=== PATIENT | female | born 1940 | race Two or more races ===

== ENCOUNTER 2022-06-14 17:37 | Inpatient (IN) | payer MEDICARE, BC ==
[~2022-06-14] VITALS: Ht 157.5 cm; Wt 107.4 kg
[2022-06-14] MEDS ORDERED: SODIUM CHLORIDE 0.9% 500 ML IVB ONE (18:00)
[2022-06-14] MEDS ORDERED: cefTRIAXone 1GM/50ML D5W 50 ML IV ONE (18:30)
[2022-06-14 18:45] LABS: Basophils # (auto) 0 10 ^3/uL (0-0.2); Basophils % (auto) 0.3 % (0.0-2.0); Eosinophils # (auto) 0 10 ^3/uL (0-0.8); Eosinophils % (auto) 0.6 % (0.0-7.0); Hematocrit 39.3 % (36.0-46.0); Hemoglobin 13.1 g/dL (12.2-16.2); Lymphocytes # (auto) 0.8 10 ^3/uL (0.4-5.4); Lymphocytes % (auto) 18.3 % (10.0-50.0); Mean Corpuscular Hemoglobin 33.3 pg (28.0-32.0); Mean Corpuscular Hgb Conc. 33.3 g/dL (32.0-36.0); Monocytes # (auto) 0.4 10 ^3/uL (0-1.3); Monocytes % (auto) 9.6 % (0.0-12.0); Neutrophils # (auto) 3.3 10 ^3/uL (1.6-8.6); Neutrophils % (auto) 71.2 % (37.0-80.0); Nucleated Red Blood Cells % 0.5 %; Red Blood Cells 3.93 10^6/uL (4.0-5.20); White Blood Cell 4.6 10^3/uL (4.4-10.8)
[2022-06-14 19:00] LABS: INR 1.03 (0.9-1.15); Partial Thromboplastin Time 28.5 sec (24.6-33.4)
[2022-06-14 19:03] LABS: Anion Gap 0 (5-15); Blood Alcohol < 3.0 mg/dL (0-5); Blood Urea Nitrogen 25 mg/dL (7-18); Carbon Dioxide 31 mmol/L (21-32); Chloride 110 mmol/L (98-107); Glucose 77 mg/dL (74-106); Magnesium 2.2 mg/dL (1.6-2.6); Sodium 141 mmol/L (136-145)
[2022-06-14 19:07] LABS: Alanine Aminotransferase 39 U/L (13-56); Alkaline Phosphatase 78 U/L (45-117); Aspartate Aminotransferase 39 U/L (15-37); BUN/Creatinine Ratio 38.5; Bilirubin, Total 0.5 mg/dL (0.2-1.0); GFR African American 112 mL/min; GFR Non-African American 93 mL/min; Total Protein 7.6 g/dL (6.4-8.2)
[2022-06-14] MEDS ORDERED: NALOXONE HCL 0.4 MG/ML VIAL ONE (19:37)
[2022-06-14] MEDS ORDERED: NALOXONE HCL 0.4 MG/ML VIAL IV ONE (20:00)
[2022-06-14] MEDS ORDERED: DOCUSATE SOD 100 MG CAP PO PRN (21:00)
[2022-06-14] MEDS ORDERED: ACETAMINOPHEN 325 MG TAB PO PRN (21:00)
[2022-06-14] MEDS ORDERED: HYDROcodone-ACET 5/325MG TAB PO PRN (21:00)
[2022-06-14] MEDS ORDERED: ONDANSETRON HCL 4 MG/2 ML VIAL IV PRN (21:00)
[2022-06-14 21:17] LABS: Urine Bacteria FEW /hpf (None Seen); Urine Blood Negative /uL (Negative); Urine Hyaline Cast MANY /lpf (0 - 2); Urine Mucus FEW (None Seen); Urine Specific Gravity 1.024 (1.001-1.035); Urine WBC 15 /hpf (0 - 5)
[2022-06-14 21:28] LABS: Alcohol, Urine < 3.0 mg/dL (0-10); Amphetamine Screen, Urine NEGATIVE (NEGATIVE); Barbiturate Scree,Urine NEGATIVE (NEGATIVE); Benzodiazephine Screen, Urine NEGATIVE (NEGATIVE); Cannabinoid Screen, Urine NEGATIVE (NEGATIVE); Cocaine Screen, Urine NEGATIVE (NEGATIVE); Opiate Scree,Urine NEGATIVE (NEGATIVE); Phencyclidine Screen, Urine NEGATIVE (NEGATIVE)
[2022-06-14] MEDS: SODIUM CHLOR 0.9% PF (SALINE LOCK) 10ML VIAL/SYR IV SCH (22:00)
[2022-06-14] MEDS ORDERED: MORPHINE SULFATE INJ 2 MG/ml SYRG IV PRN (22:30)
[2022-06-14] MEDS ORDERED: NITROGLYCERIN 0.4 MG SL TAB SL PRN (22:30)
[2022-06-15] MEDS: SODIUM CHLOR 0.9% PF (SALINE LOCK) 10ML VIAL/SYR IV SCH ×3 (05:39→22:29)
[2022-06-15 06:23] LABS: Basophils # (auto) 0 10 ^3/uL (0-0.2); Basophils % (auto) 0.3 % (0.0-2.0); Eosinophils # (auto) 0 10 ^3/uL (0-0.8); Eosinophils % (auto) 0.4 % (0.0-7.0); Hematocrit 36.1 % (36.0-46.0); Hemoglobin 11.9 g/dL (12.2-16.2); Lymphocytes # (auto) 0.9 10 ^3/uL (0.4-5.4); Lymphocytes % (auto) 21.9 % (10.0-50.0); Mean Corpuscular Hemoglobin 33.5 pg (28.0-32.0); Mean Corpuscular Hgb Conc. 33.1 g/dL (32.0-36.0); Mean Corpuscular Volume 101.2 fL (80.0-100.0); Monocytes # (auto) 0.7 10 ^3/uL (0-1.3); Monocytes % (auto) 17.3 % (0.0-12.0); Neutrophils # (auto) 2.3 10 ^3/uL (1.6-8.6); Neutrophils % (auto) 60.1 % (37.0-80.0); Nucleated Red Blood Cells % 1.2 %; Red Blood Cells 3.56 10^6/uL (4.0-5.20); White Blood Cell 3.9 10^3/uL (4.4-10.8)
[2022-06-15 06:55] LABS: Potassium 4.1 mmol/L (3.5-5.1)
[2022-06-15 07:03] LABS: Albumin 2.6 g/dL (3.4-5.0); BUN/Creatinine Ratio 34.8; Bilirubin, Total 0.4 mg/dL (0.2-1.0); Calcium 9.5 mg/dL (8.5-10.1); Total Protein 6.5 g/dL (6.4-8.2)
[2022-06-15] MEDS ORDERED: cefTRIAXone 1GM/50ML D5W 50 ML IV SCH (09:00)
[2022-06-15] MEDS: FAMOTIDINE (10MG/ML) 2ML VL IV SCH (10:00)
[2022-06-15] MEDS ORDERED: DEXTROSE 50% SYRINGE 50 ML IV ONE ×2 (10:18→14:08)
[2022-06-15] MEDS ORDERED: VANCOMYCIN PER PHARMACY 0 MG IV SCH (13:30)
[2022-06-15] MEDS ORDERED: VANCOMYCIN 1GM/250ML 250 ML IV ONE (13:45)
[2022-06-15] MEDS ORDERED: SODIUM CHLORIDE 0.9% 1,000 ML IV ONE (15:15)
[2022-06-15] MEDS ORDERED: DEXTROSE (50%) 50ML SYRG IV ONE ×2 (15:15)
[2022-06-15] MEDS ORDERED: DEXTROSE (50%) 50ML SYRG IV PRN (15:15)
[2022-06-15] MEDS: D5W/SOD CHL 0.45% 1,000 ML IV SCH (15:30)
[2022-06-15] MEDS: ACCU-CHEK COMFORT CURVE STRIP VI SCH ×2 (18:12→22:34)
[2022-06-16] MEDS: D5W/SOD CHL 0.45% 1,000 ML IV SCH ×4 (02:21→22:07)
[2022-06-16] MEDS: ACCU-CHEK COMFORT CURVE STRIP VI SCH ×4 (02:32→17:20)
[2022-06-16] MEDS: SODIUM CHLOR 0.9% PF (SALINE LOCK) 10ML VIAL/SYR IV SCH ×3 (06:04→22:03)
[2022-06-16 06:26] LABS: Calcium 9.1 mg/dL (8.5-10.1); Potassium 3.9 mmol/L (3.5-5.1)
[2022-06-16] MEDS: cefTRIAXone 1GM/50ML D5W 50 ML IV SCH (08:29)
[2022-06-16] MEDS: VANCOMYCIN 1GM/250ML 250 ML IV SCH (08:30)
[2022-06-16] MEDS ORDERED: DEXTROSE (50%) 50ML SYRG IV PRN (09:45)
[2022-06-16] MEDS: FAMOTIDINE (10MG/ML) 2ML VL IV SCH (10:00)
[2022-06-16 17:00] VITALS: BP 100/67
[2022-06-16 20:00] VITALS: BP 131/50
[2022-06-16 22:02] VITALS: BP 131/50
[2022-06-17] MEDS: VANCOMYCIN 1GM/250ML 250 ML IV SCH ×2 (03:19→20:59)
[2022-06-17 05:00] VITALS: BP 150/89
[2022-06-17] MEDS: SODIUM CHLOR 0.9% PF (SALINE LOCK) 10ML VIAL/SYR IV SCH ×3 (05:40→21:10)
[2022-06-17] MEDS: ACCU-CHEK COMFORT CURVE STRIP VI SCH ×4 (05:41→18:23)
[2022-06-17] MEDS: D5W/SOD CHL 0.45% 1,000 ML IV SCH ×3 (07:22→18:23)
[2022-06-17] MEDS: cefTRIAXone 1GM/50ML D5W 50 ML IV SCH (08:30)
[2022-06-17 08:51] VITALS: BP 135/54
[2022-06-17] MEDS: FAMOTIDINE (10MG/ML) 2ML VL IV SCH (09:03)
[2022-06-17 12:37] VITALS: BP 119/68
[2022-06-17 17:14] VITALS: BP 138/65
[2022-06-17 20:00] VITALS: BP 118/48
[2022-06-17 22:00] VITALS: BP 118/48
[2022-06-18 05:00] VITALS: BP 18/39
[2022-06-18] MEDS: SODIUM CHLOR 0.9% PF (SALINE LOCK) 10ML VIAL/SYR IV SCH ×3 (05:40→22:00)
[2022-06-18] MEDS: ACCU-CHEK COMFORT CURVE STRIP VI SCH ×2 (05:56)
[2022-06-18] MEDS: D5W/SOD CHL 0.45% 1,000 ML IV SCH ×2 (07:20→18:00)
[2022-06-18 08:38] VITALS: BP 104/48
[2022-06-18] MEDS: cefTRIAXone 1GM/50ML D5W 50 ML IV SCH (09:40)
[2022-06-18 12:42] VITALS: BP 117/48
[2022-06-18 13:36] LABS: Potassium 3.6 mmol/L (3.5-5.1)
[2022-06-18 13:40] LABS: Magnesium 1.8 mg/dL (1.6-2.6)
[2022-06-18] MEDS ORDERED: MAGNESIUM SULFATE 1GM/100ML 100 ML IV ONE (14:00)
[2022-06-18] MEDS ORDERED: POTASSIUM EFFERVESENT TAB 25 MEQ PO ONE (14:00)
[2022-06-18] MEDS ORDERED: POTASSIUM CHLORIDE 40 MEQ, LIDOCAINE 1% (LOCAL ANESTH.) 4 ML in SODIUM CHL 0.9% 250 ML IV ONE (16:00)
[2022-06-18] MEDS: VANCOMYCIN 1GM/250ML 250 ML IV SCH (16:15)
[2022-06-18 17:26] VITALS: BP 120/56
[2022-06-19] VITALS (7 sets, daily range): BP systolic 102–146; BP diastolic 50–71
[2022-06-19 00:10] LABS: Folate (Folic Acid) 8.13 ng/mL (5.38-24)
[2022-06-19] MEDS: D5W/SOD CHL 0.45% 1,000 ML IV SCH ×4 (02:26→23:45)
[2022-06-19] MEDS: SODIUM CHLOR 0.9% PF (SALINE LOCK) 10ML VIAL/SYR IV SCH ×2 (06:40→22:00)
[2022-06-19 07:21] LABS: Basophils # (auto) 0 10 ^3/uL (0-0.2); Basophils % (auto) 0.2 % (0.0-2.0); Eosinophils # (auto) 0.2 10 ^3/uL (0-0.8); Eosinophils % (auto) 2.6 % (0.0-7.0); Hemoglobin 11.4 g/dL (12.2-16.2); Lymphocytes # (auto) 0.9 10 ^3/uL (0.4-5.4); Lymphocytes % (auto) 14.9 % (10.0-50.0); Mean Corpuscular Hemoglobin 32.8 pg (28.0-32.0); Mean Corpuscular Hgb Conc. 32.7 g/dL (32.0-36.0); Mean Corpuscular Volume 100.2 fL (80.0-100.0); Monocytes # (auto) 0.9 10 ^3/uL (0-1.3); Monocytes % (auto) 15.5 % (0.0-12.0); Neutrophils % (auto) 66.8 % (37.0-80.0); Nucleated Red Blood Cells % 0.1 %; Red Blood Cells 3.49 10^6/uL (4.0-5.20); Red Cell Distribution Width 13.7 % (11.8-14.3); White Blood Cell 5.9 10^3/uL (4.4-10.8)
[2022-06-19 07:30] LABS: Calcium 8.3 mg/dL (8.5-10.1); Potassium 3.9 mmol/L (3.5-5.1)
[2022-06-19 07:34] LABS: BUN/Creatinine Ratio 20.3; Bilirubin, Total 0.9 mg/dL (0.2-1.0); Total Protein 5.4 g/dL (6.4-8.2)
[2022-06-19] MEDS: cefTRIAXone 1GM/50ML D5W 50 ML IV SCH (09:50)
[2022-06-19] MEDS: VANCOMYCIN 1GM/250ML 250 ML IV SCH (10:25)
[2022-06-20] MEDS: VANCOMYCIN 1GM/250ML 250 ML IV SCH (03:45)
[2022-06-20 05:03] VITALS: BP 126/52
[2022-06-20] MEDS: SODIUM CHLOR 0.9% PF (SALINE LOCK) 10ML VIAL/SYR IV SCH ×3 (06:22→21:40)
[2022-06-20 08:10] VITALS: BP 125/57
[2022-06-20] MEDS: cefTRIAXone 1GM/50ML D5W 50 ML IV SCH (09:50)
[2022-06-20] MEDS: D5W/SOD CHL 0.45% 1,000 ML IV SCH ×2 (10:15→15:15)
[2022-06-20 12:15] VITALS: BP 118/41
[2022-06-20 16:15] VITALS: BP 111/43
[2022-06-20 22:00] VITALS: BP 98/53
[2022-06-21] MEDS: D5W/SOD CHL 0.45% 1,000 ML IV SCH ×3 (03:02→14:53)
[2022-06-21 05:00] VITALS: BP 112/54
[2022-06-21] MEDS: SODIUM CHLOR 0.9% PF (SALINE LOCK) 10ML VIAL/SYR IV SCH ×3 (05:39→22:00)
[2022-06-21] MEDS: cefTRIAXone 1GM/50ML D5W 50 ML IV SCH (08:50)
[2022-06-21 08:51] VITALS: BP 117/60
[2022-06-21 12:33] VITALS: BP 122/68
[2022-06-21 16:53] VITALS: BP 98/48
[2022-06-21 17:55] VITALS: BP 122/68
[2022-06-21 22:00] VITALS: BP 105/20
[2022-06-22] MEDS: D5W/SOD CHL 0.45% 1,000 ML IV SCH ×2 (01:50→08:42)
[2022-06-22 05:00] VITALS: BP 126/55
[2022-06-22] MEDS: SODIUM CHLOR 0.9% PF (SALINE LOCK) 10ML VIAL/SYR IV SCH ×2 (06:21→14:21)
[2022-06-22] MEDS: cefTRIAXone 1GM/50ML D5W 50 ML IV SCH (08:42)
[2022-06-22 09:00] VITALS: BP 117/46
[2022-06-22 13:00] VITALS: BP 137/65
== END 2022-06-22 14:20 | DRG 871 ==
LOC: EDBD 17:37 → ER 17:37 → TELE 22:27 → TELE-WESTW 06-16 11:46
PROVIDERS: ADMIT Nurse Practitioner Family; ATTEND Family Medicine
PROC: 4A00X4Z Measurement of Central Nervous Electrical Activity, External Approach (ICD-10-PCS; principal; 2022-06-20)
DX: A41.9 Sepsis, unspecified organism (principal); G93.41 Metabolic encephalopathy; N39.0 Urinary tract infection, site not specified; E44.0 Moderate protein-calorie malnutrition; Z68.41 Body mass index [BMI] 40.0-44.9, adult; L03.113 Cellulitis of right upper limb; E88.09 Other disorders of plasma-protein metabolism, not elsewhere classified; I10 Essential (primary) hypertension; K42.9 Umbilical hernia without obstruction or gangrene; K57.30 Diverticulosis of large intestine without perforation or abscess without bleeding; T68.XXXA Hypothermia, initial encounter; E83.42 Hypomagnesemia; E66.01 Morbid (severe) obesity due to excess calories; M81.0 Age-related osteoporosis without current pathological fracture; Z20.822 Contact with and (suspected) exposure to COVID-19; R00.8 Other abnormalities of heart beat; E86.0 Dehydration; E03.9 Hypothyroidism, unspecified; B95.4 Other streptococcus as the cause of diseases classified elsewhere; I49.1 Atrial premature depolarization; Z83.3 Family history of diabetes mellitus; Z87.440 Personal history of urinary (tract) infections
CPT/HCPCS: 36415; 36600; 70450; 70551; 71045; 74176; 80048; 80053; 80202; 80307; 80320; 81001; 82607; 82746; 82805; 82962; 83036; 83605; 83735; 84132; 84443; 84484; 85025; 85610; 85730; 87040; 87077; 87086; 87186; 87426; 92610; 93005; 93306; 93886; 93971; 95819; 96365; 96375; 97163; 99291; G0378; J0696; J2001; J2405; J3490

== ENCOUNTER 2023-02-21 11:46 | Inpatient (IN) | payer MEDICARE, BC ==
[~2023-02-21] VITALS: Ht 162.6 cm; Wt 97.6 kg
[2023-02-21 13:07] LABS: Basophils # (auto) 0 10 ^3/uL (0-0.2); Basophils % (auto) 0.4 % (0.0-2.0); Eosinophils # (auto) 0 10 ^3/uL (0-0.8); Eosinophils % (auto) 1.1 % (0.0-7.0); Hematocrit 32.1 % (36.0-46.0); Hemoglobin 10.6 g/dL (12.2-16.2); Lymphocytes % (auto) 24.3 % (10.0-50.0); Mean Corpuscular Hgb Conc. 33.1 g/dL (32.0-36.0); Mean Corpuscular Volume 99.6 fL (80.0-100.0); Monocytes # (auto) 0.6 10 ^3/uL (0-1.3); Monocytes % (auto) 14.6 % (0.0-12.0); Neutrophils # (auto) 2.5 10 ^3/uL (1.6-8.6); Neutrophils % (auto) 59.6 % (37.0-80.0); Red Blood Cells 3.22 10^6/uL (4.0-5.20); Red Cell Distribution Width 16.3 % (11.8-14.3); White Blood Cell 4.3 10^3/uL (4.4-10.8)
[2023-02-21 13:26] VITALS: PULSE 82; RESP 18; O2SAT 95
[2023-02-21 13:32] LABS: Alanine Aminotransferase 18 U/L (7-40); Alkaline Phosphatase 85 U/L (46-116); Calcium 9.2 mg/dL (8.5-10.1); Carbon Dioxide 29 mmol/L (20-30); Chloride 107 mmol/L (98-107)
[2023-02-21 13:33] LABS: Albumin 3.3 g/dL (3.2-4.8); Anion Gap 4 (5-15); Aspartate Aminotransferase 20 U/L (13-40); BUN/Creatinine Ratio 13.9 (10.0-20.0); Bilirubin, Total 0.6 mg/dL (0.2-1.0); Blood Urea Nitrogen 10 mg/dL (9-23); Glucose 100 mg/dL (74-106); Potassium 3.8 mmol/L (3.5-5.1); Sodium 140 mmol/L (136-145); Total Protein 6.7 g/dL (5.7-8.2)
[2023-02-21 15:25] LABS: Urine Bacteria MOD /hpf (None Seen); Urine Blood Negative /uL (Negative); Urine Clarity Clear (Clear); Urine Color Yellow (Yellow); Urine Protein, UAD Negative (Negative); Urine Specific Gravity 1.006 (1.001-1.035); Urine Urobilinogen Normal (Negative); Urine WBC 68 /hpf (0 - 5)
[2023-02-21] MEDS ORDERED: CIPROFLOXACIN HCL 500 MG TAB PO ONE (15:45)
[2023-02-21] MEDS ORDERED: CIPR-173 PO (15:50)
[2023-02-21] MEDS ORDERED: ONDANSETRON HCL 4 MG/2 ML VIAL IV PRN (19:00)
[2023-02-21] MEDS ORDERED: DOCUSATE SOD 100 MG CAP PO PRN (19:00)
[2023-02-21 19:30] VITALS: PULSE 61; RESP 20; O2SAT 98
[2023-02-21] MEDS: SODIUM CHLORIDE 0.9% 1,000 ML IV SCH (19:59)
[2023-02-21 22:55] VITALS: BP 133/48; PULSE 61; PULSE 70; RESP 16; TEMP 98; O2SAT 95
[2023-02-22] VITALS (8 sets, daily range): BP systolic 104–134; BP diastolic 39–76; PULSE 50–77; RESP 15–20; TEMP 97.2–98.6; O2SAT 93–99
[2023-02-22] MEDS: SODIUM CHLORIDE 0.9% 1,000 ML IV SCH ×2 (05:00→13:10)
[2023-02-22 06:40] LABS: Basophils # (auto) 0 10 ^3/uL (0-0.2); Basophils % (auto) 0.4 % (0.0-2.0); Eosinophils # (auto) 0.1 10 ^3/uL (0-0.8); Eosinophils % (auto) 2.5 % (0.0-7.0); Hematocrit 33.5 % (36.0-46.0); Hemoglobin 10.9 g/dL (12.2-16.2); Lymphocytes # (auto) 1.2 10 ^3/uL (0.4-5.4); Lymphocytes % (auto) 30.9 % (10.0-50.0); Mean Corpuscular Hemoglobin 32.8 pg (28.0-32.0); Mean Corpuscular Hgb Conc. 32.6 g/dL (32.0-36.0); Mean Corpuscular Volume 100.4 fL (80.0-100.0); Monocytes # (auto) 0.6 10 ^3/uL (0-1.3); Monocytes % (auto) 16.4 % (0.0-12.0); Neutrophils % (auto) 49.8 % (37.0-80.0); Nucleated Red Blood Cells % 0.2 %; Red Blood Cells 3.34 10^6/uL (4.0-5.20); Red Cell Distribution Width 16.6 % (11.8-14.3); White Blood Cell 3.9 10^3/uL (4.4-10.8)
[2023-02-22 06:51] LABS: Alanine Aminotransferase 17 U/L (7-40); Albumin 3.1 g/dL (3.2-4.8); Alkaline Phosphatase 82 U/L (46-116); Aspartate Aminotransferase 19 U/L (13-40); BUN/Creatinine Ratio 12.5 (10.0-20.0); Bilirubin, Total 0.7 mg/dL (0.2-1.0); Blood Urea Nitrogen 8 mg/dL (9-23); Chloride 108 mmol/L (98-107); Glucose 59 mg/dL (74-106); Potassium 3.7 mmol/L (3.5-5.1); Sodium 141 mmol/L (136-145); Total Protein 6.5 g/dL (5.7-8.2)
[2023-02-22 07:00] LABS: Anion Gap 9 (5-15); Carbon Dioxide 24 mmol/L (20-30)
[2023-02-22] MEDS ORDERED: cefTRIAXone 1GM/50ML D5W 50 ML IV ONE (10:45)
[2023-02-22] MEDS ORDERED: POTASSIUM CHL 20MEQ/100ML 100 ML IV ONE (13:45)
[2023-02-22] MEDS: MAGNESIUM SULFATE 1GM/100ML 100 ML IV SCH ×2 (15:22→18:30)
[2023-02-22] MEDS ORDERED: MAGNESIUM SULFATE 1GM/100ML 100 ML IV SCH (19:00)
[2023-02-23] MEDS: SODIUM CHLORIDE 0.9% 1,000 ML IV SCH ×3 (02:19→20:52)
[2023-02-23 05:57] VITALS: BP 106/51; PULSE 67; RESP 20; TEMP 98; O2SAT 91
[2023-02-23 07:19] LABS: Basophils # (auto) 0 10 ^3/uL (0-0.2); Basophils % (auto) 0.3 % (0.0-2.0); Eosinophils # (auto) 0.1 10 ^3/uL (0-0.8); Eosinophils % (auto) 2.1 % (0.0-7.0); Hematocrit 31.5 % (36.0-46.0); Hemoglobin 10.4 g/dL (12.2-16.2); Lymphocytes # (auto) 1.6 10 ^3/uL (0.4-5.4); Lymphocytes % (auto) 33.9 % (10.0-50.0); Mean Corpuscular Hemoglobin 32.9 pg (28.0-32.0); Mean Corpuscular Hgb Conc. 33.2 g/dL (32.0-36.0); Mean Corpuscular Volume 99.1 fL (80.0-100.0); Monocytes # (auto) 0.7 10 ^3/uL (0-1.3); Monocytes % (auto) 15.5 % (0.0-12.0); Neutrophils # (auto) 2.3 10 ^3/uL (1.6-8.6); Neutrophils % (auto) 48.2 % (37.0-80.0); Nucleated Red Blood Cells % 0.1 %; Red Blood Cells 3.17 10^6/uL (4.0-5.20); Red Cell Distribution Width 16.4 % (11.8-14.3); White Blood Cell 4.8 10^3/uL (4.4-10.8)
[2023-02-23 07:30] VITALS: PULSE 74
[2023-02-23 07:44] LABS: Alanine Aminotransferase 14 U/L (7-40); Albumin 2.9 g/dL (3.2-4.8); Alkaline Phosphatase 77 U/L (46-116); Anion Gap 6 (5-15); Aspartate Aminotransferase 16 U/L (13-40); BUN/Creatinine Ratio 17.6 (10.0-20.0); Bilirubin, Total 0.6 mg/dL (0.2-1.0); Blood Urea Nitrogen 12 mg/dL (9-23); Calcium 8.8 mg/dL (8.5-10.1); Carbon Dioxide 26 mmol/L (20-30); Chloride 107 mmol/L (98-107); Glucose 66 mg/dL (74-106); Potassium 4.3 mmol/L (3.5-5.1); Sodium 139 mmol/L (136-145); Total Protein 6.3 g/dL (5.7-8.2)
[2023-02-23 09:00] VITALS: BP 110/50; PULSE 64; RESP 20; TEMP 98.3; O2SAT 98
[2023-02-23] MEDS ORDERED: cefTRIAXone 1GM/50ML D5W 50 ML IV SCH (09:00)
[2023-02-23] MEDS: cefTRIAXone 1GM/50ML D5W 50 ML IV SCH (09:22)
[2023-02-23 13:00] VITALS: BP_SYST 121; BP_SYST 122; BP_DIAS 60; BP_DIAS 91; PULSE 65; PULSE 90; RESP 20; TEMP 97.6; TEMP 98.1; O2SAT 93; O2SAT 95
[2023-02-23 20:00] VITALS: BP 122/75; PULSE 68; PULSE 71; RESP 18; TEMP 98; O2SAT 93
[2023-02-23 22:00] VITALS: BP 122/75; PULSE 68; RESP 18; TEMP 98; O2SAT 93
[2023-02-24 05:00] VITALS: BP 143/57; PULSE 66; RESP 16; TEMP 98; O2SAT 92
[2023-02-24] MEDS: SODIUM CHLORIDE 0.9% 1,000 ML IV SCH (06:43)
[2023-02-24 08:00] VITALS: PULSE 67; PULSE 71; RESP 20; O2SAT 94
[2023-02-24] MEDS: cefTRIAXone 1GM/50ML D5W 50 ML IV SCH (08:37)
[2023-02-24 09:00] VITALS: BP 140/55; PULSE 71; RESP 20; TEMP 98; O2SAT 95
[2023-02-24] MEDS ORDERED: ATOR20TA50 PO (10:50)
[2023-02-24 13:00] VITALS: BP 142/58; PULSE 94; RESP 18; TEMP 98.2; O2SAT 94
[2023-02-24 13:50] LABS: COVID19 ANTIGEN SOFIA FIA NEGATIVE (NEGATIVE)
[2023-02-24 17:02] VITALS: BP 144/60; PULSE 90; RESP 18; TEMP 97.6; O2SAT 96
[2023-02-24] MEDS ORDERED: ATORVASTATIN 20 MG TAB PO SCH (22:00)
== END 2023-02-24 18:11 | DRG 871 ==
LOC: ER 11:46 → TELE 19:05 → TELE-WESTW 20:43
PROVIDERS: ADMIT Nurse Practitioner Family; ATTEND Nurse Practitioner Family
PROC: 05HF33Z Insertion of Infusion Device into Left Cephalic Vein, Percutaneous Approach (ICD-10-PCS; principal; 2023-02-24)
PROC: B54NZZA Ultrasonography of Left Upper Extremity Veins, Guidance (ICD-10-PCS; 2023-02-24)
DX: A41.89 Other specified sepsis (principal); G93.41 Metabolic encephalopathy; I50.32 Chronic diastolic (congestive) heart failure; E44.0 Moderate protein-calorie malnutrition; N39.0 Urinary tract infection, site not specified; I11.0 Hypertensive heart disease with heart failure; Z20.822 Contact with and (suspected) exposure to COVID-19; D64.9 Anemia, unspecified; E03.9 Hypothyroidism, unspecified; E66.9 Obesity, unspecified; E78.5 Hyperlipidemia, unspecified; E88.09 Other disorders of plasma-protein metabolism, not elsewhere classified; I44.7 Left bundle-branch block, unspecified; I48.91 Unspecified atrial fibrillation; B96.1 Klebsiella pneumoniae [K. pneumoniae] as the cause of diseases classified elsewhere; M81.0 Age-related osteoporosis without current pathological fracture; Z83.3 Family history of diabetes mellitus; Z87.440 Personal history of urinary (tract) infections; Z68.36 Body mass index [BMI] 36.0-36.9, adult
CPT/HCPCS: 36415; 71045; 80053; 81001; 83036; 83605; 83735; 83880; 84443; 84484; 85025; 87040; 87086; 87088; 87186; 87426; 93005; 93306; 97163; G0378; J0696; J3480

== ENCOUNTER 2023-04-09 06:49 | Inpatient (IN) | payer MEDICARE, BC ==
[~2023-04-09] VITALS: Ht 162.6 cm; Wt 98.3 kg
[~2023-04-09 06:49] MED LIST: ATOR20TA50 PO; CIPR-173 PO
[2023-04-09] MEDS ORDERED: SODIUM CHLORIDE 0.9% 1,000 ML IV ONE ×2 (07:15→13:30)
[2023-04-09 07:21] LABS: Basophils # (auto) 0 10 ^3/uL (0-0.2); Basophils % (auto) 0.5 % (0.0-2.0); Eosinophils # (auto) 0.1 10 ^3/uL (0-0.8); Eosinophils % (auto) 1.3 % (0.0-7.0); Hematocrit 33.8 % (36.0-46.0); Hemoglobin 11.4 g/dL (12.2-16.2); Lymphocytes # (auto) 1.2 10 ^3/uL (0.4-5.4); Mean Corpuscular Hgb Conc. 33.6 g/dL (32.0-36.0); Mean Corpuscular Volume 98.2 fL (80.0-100.0); Monocytes # (auto) 0.6 10 ^3/uL (0-1.3); Monocytes % (auto) 13.6 % (0.0-12.0); Neutrophils # (auto) 2.6 10 ^3/uL (1.6-8.6); Neutrophils % (auto) 57.6 % (37.0-80.0); Nucleated Red Blood Cells % 0.1 %; Red Blood Cells 3.45 10^6/uL (4.0-5.20); White Blood Cell 4.4 10^3/uL (4.4-10.8)
[2023-04-09 07:43] LABS: Alanine Aminotransferase 14 U/L (7-40); Albumin 3.7 g/dL (3.2-4.8); Alkaline Phosphatase 96 U/L (46-116); Anion Gap 6 (5-15); Aspartate Aminotransferase 19 U/L (13-40); BUN/Creatinine Ratio 28.8 (10.0-20.0); Blood Urea Nitrogen 19 mg/dL (9-23); Carbon Dioxide 29 mmol/L (20-30); Chloride 109 mmol/L (98-107); Glucose 75 mg/dL (74-106); Potassium 3.6 mmol/L (3.5-5.1); Sodium 144 mmol/L (136-145)
[2023-04-09 07:44] LABS: Bilirubin, Total 0.5 mg/dL (0.2-1.0); Total Protein 7.4 g/dL (5.7-8.2)
[2023-04-09 09:12] LABS: COVID19 ANTIGEN SOFIA FIA NEGATIVE (NEGATIVE)
[2023-04-09 14:20] VITALS: PULSE 113; RESP 22; O2SAT 95
[2023-04-09 15:01] LABS: Urine Bacteria FEW /hpf (None Seen); Urine Blood Negative /uL (Negative); Urine Budding Yeast MODERATE /hpf (None Seen); Urine Clarity Clear (Clear); Urine Color Colorless (Yellow); Urine Mucus FEW (None Seen); Urine Protein, UAD TRACE (Negative); Urine Specific Gravity 1.011 (1.001-1.035); Urine Urobilinogen Normal (Negative); Urine WBC 18 /hpf (0 - 5)
[2023-04-09] MEDS ORDERED: cefTRIAXone 1GM/50ML D5W 50 ML IV ONE (16:45)
[2023-04-09] MEDS ORDERED: HYDROcodone-ACET 5/325MG TAB PO PRN (17:15)
[2023-04-09] MEDS ORDERED: ONDANSETRON HCL 4 MG/2 ML VIAL IV PRN (17:15)
[2023-04-09] MEDS ORDERED: ACETAMINOPHEN 325 MG TAB PO PRN (17:15)
[2023-04-09] MEDS ORDERED: DOCUSATE SOD 100 MG CAP PO PRN (17:15)
[2023-04-09] MEDS ORDERED: levoFLOXacin 500MG 100 ML IV ONE (17:30)
[2023-04-09] MEDS ORDERED: LORazepam 2MG/ML-1ML VIAL IV ONE (18:00)
[2023-04-09] MEDS ORDERED: NITROGLYCERIN 0.4 MG SL TAB SL PRN (18:30)
[2023-04-09] MEDS ORDERED: MORPHINE SULFATE INJ 2 MG/ml SYRG IV PRN (18:30)
[2023-04-09 19:30] VITALS: RESP 16; O2SAT 97
[2023-04-09] MEDS ORDERED: ENOXAPARIN SOD 40 MG/0.4 ML SYRINGE SC ONE (19:30)
[2023-04-09] MEDS: SODIUM CHLOR 0.9% PF (SALINE LOCK) 10ML VIAL/SYR IV SCH (21:36)
[2023-04-09] MEDS: ASCORBIC ACID 500 MG TAB PO SCH (21:37)
[2023-04-10] VITALS: PULSE 82; RESP 16; O2SAT 96
[2023-04-10] MEDS: SODIUM CHLOR 0.9% PF (SALINE LOCK) 10ML VIAL/SYR IV SCH ×3 (06:04→22:26)
[2023-04-10 06:53] LABS: Basophils # (auto) 0 10 ^3/uL (0-0.2); Basophils % (auto) 0.5 % (0.0-2.0); Eosinophils # (auto) 0 10 ^3/uL (0-0.8); Eosinophils % (auto) 1.1 % (0.0-7.0); Hematocrit 30.4 % (36.0-46.0); Lymphocytes # (auto) 1.1 10 ^3/uL (0.4-5.4); Lymphocytes % (auto) 29.4 % (10.0-50.0); Mean Corpuscular Hemoglobin 32.5 pg (28.0-32.0); Mean Corpuscular Hgb Conc. 33.1 g/dL (32.0-36.0); Mean Corpuscular Volume 98.2 fL (80.0-100.0); Monocytes # (auto) 0.6 10 ^3/uL (0-1.3); Monocytes % (auto) 15.3 % (0.0-12.0); Neutrophils % (auto) 53.7 % (37.0-80.0); Nucleated Red Blood Cells % 0.1 %; Red Blood Cells 3.09 10^6/uL (4.0-5.20); Red Cell Distribution Width 16.2 % (11.8-14.3); White Blood Cell 3.7 10^3/uL (4.4-10.8)
[2023-04-10 07:18] LABS: Alanine Aminotransferase 13 U/L (7-40); Albumin 3.3 g/dL (3.2-4.8); Alkaline Phosphatase 81 U/L (46-116); Anion Gap 8 (5-15); Aspartate Aminotransferase 18 U/L (13-40); BUN/Creatinine Ratio 23.1 (10.0-20.0); Blood Urea Nitrogen 15 mg/dL (9-23); Calcium 9.3 mg/dL (8.7-10.4); Carbon Dioxide 27 mmol/L (20-30); Chloride 111 mmol/L (98-107); Glucose 57 mg/dL (74-106); Potassium 3.5 mmol/L (3.5-5.1); Sodium 146 mmol/L (136-145)
[2023-04-10 07:19] LABS: Bilirubin, Total 0.5 mg/dL (0.2-1.0); Total Protein 6.5 g/dL (5.7-8.2)
[2023-04-10] MEDS: ASCORBIC ACID 500 MG TAB PO SCH ×2 (08:55→22:00)
[2023-04-10] MEDS: MULTIPLE VITAMIN TAB PO SCH (08:55)
[2023-04-10] MEDS: cefTRIAXone 1GM/50ML D5W 50 ML IV SCH (08:55)
[2023-04-10 09:17] VITALS: PULSE 86; RESP 13; O2SAT 96
[2023-04-10] MEDS ORDERED: FAMOTIDINE (10MG/ML) 2ML VL IV SCH (10:00)
[2023-04-10] MEDS: D5W/SOD CHL 0.45%/KCL 20MEQ 1,000 ML IV SCH (14:40)
[2023-04-10] MEDS: ENOXAPARIN SOD 40 MG/0.4 ML SYRINGE SC SCH (17:03)
[2023-04-10 19:30] VITALS: PULSE 87; RESP 20; O2SAT 91
[2023-04-11] MEDS ORDERED: hydrALAZINE HCL 20 MG/ML VL IV PRN (02:30)
[2023-04-11] MEDS: SODIUM CHLOR 0.9% PF (SALINE LOCK) 10ML VIAL/SYR IV SCH ×3 (06:22→21:47)
[2023-04-11 07:30] VITALS: PULSE 87; RESP 14; O2SAT 97
[2023-04-11] MEDS: D5W/SOD CHL 0.45%/KCL 20MEQ 1,000 ML IV SCH ×3 (07:41→23:16)
[2023-04-11] MEDS: cefTRIAXone 1GM/50ML D5W 50 ML IV SCH (09:21)
[2023-04-11] MEDS: MULTIPLE VITAMIN TAB PO SCH (10:18)
[2023-04-11] MEDS: ASCORBIC ACID 500 MG TAB PO SCH ×2 (10:18→22:57)
[2023-04-11 16:15] LABS: Hemoglobin 10.8 g/dL (12.2-16.2)
[2023-04-11 16:19] LABS: White Blood Cell 4.2 10^3/uL (4.4-10.8)
[2023-04-11 16:20] LABS: Hematocrit 32.4 % (36.0-46.0); Mean Corpuscular Hemoglobin 32.6 pg (28.0-32.0); Mean Corpuscular Hgb Conc. 33.4 g/dL (32.0-36.0); Mean Corpuscular Volume 97.8 fL (80.0-100.0); Red Blood Cells 3.31 10^6/uL (4.0-5.20)
[2023-04-11 16:22] LABS: Basophils % (manual) 0 (0.0-2.0); Blast Cells 0; Eosinophils % (manual) 0 (0-7); Metamyelocytes % 0; Myelocytes % 0; Promyelocytes % 0; Reactive Lymphocytes 0
[2023-04-11 16:30] LABS: Chloride 110 mmol/L (98-107); Potassium 3.3 mmol/L (3.5-5.1); Sodium 143 mmol/L (136-145)
[2023-04-11 16:31] LABS: Anion Gap 5 (5-15); Carbon Dioxide 28 mmol/L (20-30)
[2023-04-11 16:32] LABS: Calcium 8.8 mg/dL (8.7-10.4)
[2023-04-11 16:36] LABS: BUN/Creatinine Ratio 16.4 (10.0-20.0); Blood Urea Nitrogen 11 mg/dL (9-23); Glucose 94 mg/dL (74-106)
[2023-04-11 16:44] LABS: Anisocytosis Slight; Band Neutrophils % (manual) 3; Lymphocytes % (manual) 24 (10.0-50.0); Monocytes % (manual) 15 (0-12); Platelet Estimate Adequate
[2023-04-11] MEDS: ENOXAPARIN SOD 40 MG/0.4 ML SYRINGE SC SCH (18:15)
[2023-04-11 19:30] VITALS: PULSE 73; RESP 18; O2SAT 96
[2023-04-12] MEDS: SODIUM CHLOR 0.9% PF (SALINE LOCK) 10ML VIAL/SYR IV SCH ×3 (06:03→22:00)
[2023-04-12 06:25] LABS: Basophils # (auto) 0 10 ^3/uL (0-0.2); Basophils % (auto) 0.6 % (0.0-2.0); Eosinophils # (auto) 0.1 10 ^3/uL (0-0.8); Eosinophils % (auto) 2.6 % (0.0-7.0); Hematocrit 31.4 % (36.0-46.0); Hemoglobin 10.6 g/dL (12.2-16.2); Lymphocytes # (auto) 1.1 10 ^3/uL (0.4-5.4); Lymphocytes % (auto) 24.3 % (10.0-50.0); Mean Corpuscular Hemoglobin 33.6 pg (28.0-32.0); Mean Corpuscular Hgb Conc. 33.8 g/dL (32.0-36.0); Mean Corpuscular Volume 99.3 fL (80.0-100.0); Monocytes # (auto) 0.7 10 ^3/uL (0-1.3); Monocytes % (auto) 15.6 % (0.0-12.0); Neutrophils # (auto) 2.7 10 ^3/uL (1.6-8.6); Neutrophils % (auto) 56.9 % (37.0-80.0); Nucleated Red Blood Cells % 0.2 %; Red Blood Cells 3.16 10^6/uL (4.0-5.20); Red Cell Distribution Width 15.7 % (11.8-14.3); White Blood Cell 4.7 10^3/uL (4.4-10.8)
[2023-04-12 06:35] LABS: Calcium 8.7 mg/dL (8.7-10.4); Chloride 108 mmol/L (98-107); Potassium 3.5 mmol/L (3.5-5.1); Sodium 141 mmol/L (136-145)
[2023-04-12 06:36] LABS: Anion Gap 6 (5-15); Carbon Dioxide 27 mmol/L (20-30)
[2023-04-12 06:41] LABS: BUN/Creatinine Ratio 12.3 (10.0-20.0); Blood Urea Nitrogen 8 mg/dL (9-23); Glucose 99 mg/dL (74-106)
[2023-04-12 07:30] VITALS: PULSE 75; RESP 16; O2SAT 96
[2023-04-12] MEDS: ASCORBIC ACID 500 MG TAB PO SCH ×3 (12:47→23:34)
[2023-04-12] MEDS: cefTRIAXone 1GM/50ML D5W 50 ML IV SCH (12:47)
[2023-04-12] MEDS: MULTIPLE VITAMIN TAB PO SCH ×2 (12:47→12:58)
[2023-04-12] MEDS: D5W/SOD CHL 0.45%/KCL 20MEQ 1,000 ML IV SCH ×2 (12:48→17:17)
[2023-04-12] MEDS ORDERED: FLUCONAZOLE 200MG/100ML 100 ML IV ONE (13:30)
[2023-04-12] MEDS: ENOXAPARIN SOD 40 MG/0.4 ML SYRINGE SC SCH (19:05)
[2023-04-12 21:04] VITALS: PULSE 82; RESP 14; O2SAT 93
[2023-04-12 22:25] VITALS: BP 133/51; PULSE 64; RESP 21; O2SAT 98
[2023-04-13] MEDS: D5W/SOD CHL 0.45%/KCL 20MEQ 1,000 ML IV SCH ×3 (03:24→22:15)
[2023-04-13 05:40] VITALS: BP 137/65; PULSE 60; RESP 21; TEMP 97.7; O2SAT 99
[2023-04-13] MEDS: SODIUM CHLOR 0.9% PF (SALINE LOCK) 10ML VIAL/SYR IV SCH ×3 (06:00→21:26)
[2023-04-13 08:00] VITALS: BP 109/58; PULSE 69; RESP 20; TEMP 97.6; O2SAT 96
[2023-04-13] MEDS: cefTRIAXone 1GM/50ML D5W 50 ML IV SCH (08:30)
[2023-04-13] MEDS: FLUCONAZOLE 200MG/100ML 100 ML IV SCH (09:52)
[2023-04-13] MEDS: ASCORBIC ACID 500 MG TAB PO SCH ×2 (09:57→21:26)
[2023-04-13] MEDS: MULTIPLE VITAMIN TAB PO SCH (09:57)
[2023-04-13 12:49] VITALS: BP 125/40; PULSE 58; RESP 22; TEMP 98.7; O2SAT 96
[2023-04-13 17:00] VITALS: BP 115/43; PULSE 63; RESP 18; O2SAT 98
[2023-04-13] MEDS: ENOXAPARIN SOD 40 MG/0.4 ML SYRINGE SC SCH (17:02)
[2023-04-13 22:00] VITALS: BP 120/49; PULSE 82; RESP 18; TEMP 98.6; O2SAT 96
[2023-04-14 05:00] VITALS: BP 131/45; PULSE 62; RESP 18; TEMP 98.4; O2SAT 96
[2023-04-14] MEDS: SODIUM CHLOR 0.9% PF (SALINE LOCK) 10ML VIAL/SYR IV SCH ×3 (06:12→21:50)
[2023-04-14 09:00] VITALS: BP 108/54; PULSE 73; RESP 17; TEMP 97.9; O2SAT 100
[2023-04-14] MEDS: cefTRIAXone 1GM/50ML D5W 50 ML IV SCH (09:08)
[2023-04-14] MEDS: D5W/SOD CHL 0.45%/KCL 20MEQ 1,000 ML IV SCH (11:01)
[2023-04-14] MEDS: FLUCONAZOLE 200MG/100ML 100 ML IV SCH (11:03)
[2023-04-14] MEDS: MULTIPLE VITAMIN TAB PO SCH (11:04)
[2023-04-14] MEDS: ASCORBIC ACID 500 MG TAB PO SCH ×2 (11:04→21:49)
[2023-04-14 13:00] VITALS: BP 132/51; PULSE 54; RESP 17; TEMP 98.1; O2SAT 98
[2023-04-14 17:00] VITALS: BP 129/61; PULSE 69; RESP 17; TEMP 97.9; O2SAT 96
[2023-04-14] MEDS: ENOXAPARIN SOD 40 MG/0.4 ML SYRINGE SC SCH (19:27)
[2023-04-14 22:00] VITALS: BP 122/44; PULSE 44; RESP 16; TEMP 98; O2SAT 94
[2023-04-15] VITALS (7 sets, daily range): BP systolic 125–143; BP diastolic 42–60; PULSE 64–85; RESP 17–20; TEMP 97.6–98.4; O2SAT 87–98
[2023-04-15 05:06] LABS: Chloride 104 mmol/L (98-107); Potassium 4.2 mmol/L (3.5-5.1); Sodium 138 mmol/L (136-145)
[2023-04-15 05:07] LABS: Anion Gap 5 (5-15); Calcium 9.4 mg/dL (8.5-10.1); Carbon Dioxide 29 mmol/L (20-30)
[2023-04-15 05:12] LABS: BUN/Creatinine Ratio 17.6 (10.0-20.0); Blood Urea Nitrogen 12 mg/dL (9-23); Glucose 78 mg/dL (74-106)
[2023-04-15 05:32] LABS: Basophils # (auto) 0 10 ^3/uL (0-0.2); Basophils % (auto) 0.3 % (0.0-2.0); Eosinophils # (auto) 0.2 10 ^3/uL (0-0.8); Eosinophils % (auto) 4.3 % (0.0-7.0); Hematocrit 32.8 % (36.0-46.0); Hemoglobin 10.9 g/dL (12.2-16.2); Lymphocytes # (auto) 1.3 10 ^3/uL (0.4-5.4); Mean Corpuscular Hemoglobin 32.8 pg (28.0-32.0); Mean Corpuscular Hgb Conc. 33.4 g/dL (32.0-36.0); Mean Corpuscular Volume 98.5 fL (80.0-100.0); Monocytes # (auto) 0.6 10 ^3/uL (0-1.3); Monocytes % (auto) 14.6 % (0.0-12.0); Neutrophils # (auto) 2.1 10 ^3/uL (1.6-8.6); Neutrophils % (auto) 49.8 % (37.0-80.0); Nucleated Red Blood Cells % 0.1 %; Red Blood Cells 3.33 10^6/uL (4.0-5.20); Red Cell Distribution Width 15.5 % (11.8-14.3); White Blood Cell 4.3 10^3/uL (4.4-10.8)
[2023-04-15] MEDS: SODIUM CHLOR 0.9% PF (SALINE LOCK) 10ML VIAL/SYR IV SCH ×3 (06:05→21:01)
[2023-04-15] MEDS: FLUCONAZOLE 200MG/100ML 100 ML IV SCH (11:15)
[2023-04-15] MEDS: ASCORBIC ACID 500 MG TAB PO SCH ×2 (11:16→21:00)
[2023-04-15] MEDS: MULTIPLE VITAMIN TAB PO SCH (11:16)
[2023-04-15] MEDS: ENOXAPARIN SOD 40 MG/0.4 ML SYRINGE SC SCH (18:21)
[2023-04-16] VITALS (7 sets, daily range): BP systolic 108–139; BP diastolic 41–85; PULSE 54–68; RESP 16–20; TEMP 97.6–98.3; O2SAT 93–95
[2023-04-16] MEDS: SODIUM CHLOR 0.9% PF (SALINE LOCK) 10ML VIAL/SYR IV SCH ×3 (06:00→21:52)
[2023-04-16] MEDS: ASCORBIC ACID 500 MG TAB PO SCH ×2 (10:49→21:52)
[2023-04-16] MEDS: MULTIPLE VITAMIN TAB PO SCH (10:49)
[2023-04-16] MEDS: FLUCONAZOLE 200MG/100ML 100 ML IV SCH (10:49)
[2023-04-16] MEDS: ENOXAPARIN SOD 40 MG/0.4 ML SYRINGE SC SCH (17:35)
[2023-04-17 05:00] VITALS: BP 100/44; PULSE 71; RESP 20; TEMP 97.6; O2SAT 94
[2023-04-17 08:26] VITALS: BP 110/34; PULSE 60; RESP 18; TEMP 98.1; O2SAT 93
[2023-04-17] MEDS: ASCORBIC ACID 500 MG TAB PO SCH ×2 (10:18→22:08)
[2023-04-17] MEDS: MULTIPLE VITAMIN TAB PO SCH (10:18)
[2023-04-17] MEDS: FLUCONAZOLE 200MG/100ML 100 ML IV SCH (10:18)
[2023-04-17 12:46] VITALS: BP 125/60; PULSE 103; RESP 17; TEMP 98.2; O2SAT 96
[2023-04-17] MEDS: SODIUM CHLOR 0.9% PF (SALINE LOCK) 10ML VIAL/SYR IV SCH ×2 (14:00→22:08)
[2023-04-17 16:02] LABS: Basophils # (auto) 0 10 ^3/uL (0-0.2); Basophils % (auto) 0.4 % (0.0-2.0); Eosinophils # (auto) 0.1 10 ^3/uL (0-0.8); Eosinophils % (auto) 2.1 % (0.0-7.0); Hematocrit 32.8 % (36.0-46.0); Hemoglobin 10.9 g/dL (12.2-16.2); Lymphocytes # (auto) 1.3 10 ^3/uL (0.4-5.4); Lymphocytes % (auto) 24.9 % (10.0-50.0); Mean Corpuscular Hemoglobin 32.7 pg (28.0-32.0); Mean Corpuscular Hgb Conc. 33.4 g/dL (32.0-36.0); Monocytes # (auto) 0.6 10 ^3/uL (0-1.3); Monocytes % (auto) 12.1 % (0.0-12.0); Neutrophils # (auto) 3.1 10 ^3/uL (1.6-8.6); Neutrophils % (auto) 60.5 % (37.0-80.0); Nucleated Red Blood Cells % 0.1 %; Red Blood Cells 3.34 10^6/uL (4.0-5.20); Red Cell Distribution Width 15.3 % (11.8-14.3); White Blood Cell 5.1 10^3/uL (4.4-10.8)
[2023-04-17 16:12] LABS: Chloride 104 mmol/L (98-107); Potassium 4.3 mmol/L (3.5-5.1); Sodium 137 mmol/L (136-145)
[2023-04-17 16:13] LABS: Anion Gap 3 (5-15); Carbon Dioxide 30 mmol/L (20-30)
[2023-04-17 16:14] LABS: Calcium 9.5 mg/dL (8.5-10.1)
[2023-04-17 16:18] LABS: BUN/Creatinine Ratio 22.7 (10.0-20.0); Blood Urea Nitrogen 17 mg/dL (9-23); Glucose 92 mg/dL (74-106)
[2023-04-17 16:43] VITALS: BP 137/51; PULSE 77; RESP 16; TEMP 98; O2SAT 95
[2023-04-17] MEDS: ENOXAPARIN SOD 40 MG/0.4 ML SYRINGE SC SCH (18:40)
[2023-04-17 20:00] VITALS: BP 160/63; PULSE 79; RESP 20; TEMP 36.7
[2023-04-17 22:00] VITALS: BP 121/59; PULSE 79; RESP 20; TEMP 97.9; O2SAT 91
[2023-04-18 05:00] VITALS: BP 125/68; PULSE 68; RESP 18; TEMP 98.1; O2SAT 88
[2023-04-18] MEDS: SODIUM CHLOR 0.9% PF (SALINE LOCK) 10ML VIAL/SYR IV SCH ×3 (06:00→22:28)
[2023-04-18 08:00] VITALS: BP 127/60; PULSE 71; RESP 18; TEMP 97.8; O2SAT 96
[2023-04-18] MEDS: MULTIPLE VITAMIN TAB PO SCH (10:05)
[2023-04-18] MEDS: FLUCONAZOLE 200MG/100ML 100 ML IV SCH (10:06)
[2023-04-18] MEDS: ASCORBIC ACID 500 MG TAB PO SCH ×2 (10:06→22:28)
[2023-04-18 12:05] VITALS: BP 138/76; PULSE 100; RESP 21; TEMP 97.8; O2SAT 93
[2023-04-18 16:05] VITALS: BP 135/70; PULSE 61; RESP 18; TEMP 98.4; O2SAT 98
[2023-04-18] MEDS: ENOXAPARIN SOD 40 MG/0.4 ML SYRINGE SC SCH (17:43)
[2023-04-18 20:00] VITALS: BP 110/84; PULSE 87; RESP 18; TEMP 97.8; O2SAT 97
[2023-04-18 22:00] VITALS: BP 110/84; PULSE 87; RESP 18; TEMP 97.8; O2SAT 97
[2023-04-19] VITALS (7 sets, daily range): BP systolic 112–132; BP diastolic 38–72; PULSE 55–72; RESP 16–96; TEMP 97.3–98.5; O2SAT 92–99
[2023-04-19] MEDS: SODIUM CHLOR 0.9% PF (SALINE LOCK) 10ML VIAL/SYR IV SCH ×3 (05:43→20:57)
[2023-04-19] MEDS: ASCORBIC ACID 500 MG TAB PO SCH ×2 (09:13→20:57)
[2023-04-19] MEDS: MULTIPLE VITAMIN TAB PO SCH (09:13)
[2023-04-19] MEDS: FLUCONAZOLE 200MG/100ML 100 ML IV SCH (09:15)
[2023-04-19] MEDS: ENOXAPARIN SOD 40 MG/0.4 ML SYRINGE SC SCH (18:07)
[2023-04-20 05:14] VITALS: BP 117/44; PULSE 48; RESP 18; O2SAT 98
[2023-04-20] MEDS: SODIUM CHLOR 0.9% PF (SALINE LOCK) 10ML VIAL/SYR IV SCH ×3 (06:00→22:07)
[2023-04-20 08:00] VITALS: PULSE 60; RESP 20; O2SAT 94
[2023-04-20 09:19] VITALS: BP 113/41; PULSE 60; RESP 20; TEMP 97.5; O2SAT 94
[2023-04-20] MEDS: MULTIPLE VITAMIN TAB PO SCH (09:41)
[2023-04-20] MEDS: ASCORBIC ACID 500 MG TAB PO SCH ×2 (09:41→22:07)
[2023-04-20] MEDS: FLUCONAZOLE 200MG/100ML 100 ML IV SCH (09:41)
[2023-04-20] MEDS: Ensure Enlive Vanilla 8oz Bottle PO SCH ×3 (12:03→22:09)
[2023-04-20 13:28] VITALS: BP 110/61; PULSE 67; RESP 20; TEMP 98.3; O2SAT 95
[2023-04-20 17:14] VITALS: BP 114/34; PULSE 58; RESP 20; TEMP 98.5; O2SAT 98
[2023-04-20] MEDS: ENOXAPARIN SOD 40 MG/0.4 ML SYRINGE SC SCH (18:04)
[2023-04-20 22:00] VITALS: BP 118/30; PULSE 56; RESP 18; TEMP 97.1; O2SAT 94
[2023-04-21] VITALS (7 sets, daily range): BP systolic 105–127; BP diastolic 32–60; PULSE 62–81; RESP 17–19; TEMP 97.3–98.4; O2SAT 92–98
[2023-04-21] MEDS: SODIUM CHLOR 0.9% PF (SALINE LOCK) 10ML VIAL/SYR IV SCH ×3 (06:39→21:58)
[2023-04-21] MEDS: FLUCONAZOLE 200MG/100ML 100 ML IV SCH (10:05)
[2023-04-21] MEDS: Ensure Enlive Vanilla 8oz Bottle PO SCH ×3 (10:05→21:31)
[2023-04-21] MEDS: MULTIPLE VITAMIN TAB PO SCH (10:05)
[2023-04-21] MEDS: ASCORBIC ACID 500 MG TAB PO SCH ×2 (10:05→21:58)
[2023-04-21] MEDS: ENOXAPARIN SOD 40 MG/0.4 ML SYRINGE SC SCH (18:56)
[2023-04-22 05:25] VITALS: BP 113/42; PULSE 74; RESP 18; TEMP 98.8; O2SAT 93
[2023-04-22] MEDS: SODIUM CHLOR 0.9% PF (SALINE LOCK) 10ML VIAL/SYR IV SCH ×2 (05:51→10:14)
[2023-04-22 08:15] VITALS: BP 100/48; PULSE 68; RESP 20; TEMP 98.6
[2023-04-22 08:36] LABS: Basophils # (auto) 0 10 ^3/uL (0-0.2); Basophils % (auto) 0.4 % (0.0-2.0); Eosinophils # (auto) 0.1 10 ^3/uL (0-0.8); Eosinophils % (auto) 2.4 % (0.0-7.0); Hematocrit 29.9 % (36.0-46.0); Lymphocytes # (auto) 1.7 10 ^3/uL (0.4-5.4); Lymphocytes % (auto) 40.2 % (10.0-50.0); Mean Corpuscular Hgb Conc. 33.4 g/dL (32.0-36.0); Mean Corpuscular Volume 98.9 fL (80.0-100.0); Monocytes # (auto) 0.5 10 ^3/uL (0-1.3); Monocytes % (auto) 12.6 % (0.0-12.0); Neutrophils # (auto) 1.8 10 ^3/uL (1.6-8.6); Neutrophils % (auto) 44.4 % (37.0-80.0); Red Blood Cells 3.02 10^6/uL (4.0-5.20); Red Cell Distribution Width 15.5 % (11.8-14.3); White Blood Cell 4.1 10^3/uL (4.4-10.8)
[2023-04-22 08:44] LABS: Anion Gap 6 (5-15); Carbon Dioxide 28 mmol/L (20-30); Chloride 105 mmol/L (98-107); Potassium 4.5 mmol/L (3.5-5.1); Sodium 139 mmol/L (136-145)
[2023-04-22 08:45] LABS: Calcium 9.5 mg/dL (8.5-10.1)
[2023-04-22 08:50] LABS: BUN/Creatinine Ratio 39.1 (10.0-20.0); Blood Urea Nitrogen 27 mg/dL (9-23); Glucose 79 mg/dL (74-106)
[2023-04-22 09:00] VITALS: BP 100/48; PULSE 68; RESP 20; TEMP 98.6; O2SAT 92
[2023-04-22] MEDS: FLUCONAZOLE 200MG/100ML 100 ML IV SCH (10:14)
[2023-04-22] MEDS: ASCORBIC ACID 500 MG TAB PO SCH (10:14)
[2023-04-22] MEDS: MULTIPLE VITAMIN TAB PO SCH (10:14)
[2023-04-22] MEDS: Ensure Enlive Vanilla 8oz Bottle PO SCH (10:15)
[2023-04-22 12:50] VITALS: BP 113/43; PULSE 60; RESP 18; TEMP 97.8; O2SAT 95
[2023-04-22 17:00] VITALS: BP 122/46; PULSE 65; RESP 19; TEMP 97.5; O2SAT 99
[2023-04-22 18:34] VITALS: BP 113/43; PULSE 60; RESP 18; TEMP 97.8; O2SAT 95
== END 2023-04-22 19:40 | disposition home health service (06) | DRG 871 ==
LOC: ER 06:49 → EDBD 06:49 → TELE 18:19 → WEST WING 18:19
PROVIDERS: ADMIT Nurse Practitioner Family; ATTEND Nurse Practitioner Acute Care
DX: A41.9 Sepsis, unspecified organism (principal); G93.41 Metabolic encephalopathy; I50.33 Acute on chronic diastolic (congestive) heart failure; E66.9 Obesity, unspecified; I11.0 Hypertensive heart disease with heart failure; N30.90 Cystitis, unspecified without hematuria; I08.3 Combined rheumatic disorders of mitral, aortic and tricuspid valves; Z20.822 Contact with and (suspected) exposure to COVID-19; R62.7 Adult failure to thrive; Z68.37 Body mass index [BMI] 37.0-37.9, adult; Z83.3 Family history of diabetes mellitus; Z87.440 Personal history of urinary (tract) infections
CPT/HCPCS: 36415; 70450; 71045; 80048; 80053; 81001; 82962; 83605; 83880; 84132; 85007; 85025; 85027; 85379; 87040; 87086; 87088; 87426; 92610; 93005; 96361; 96365; 96368; 96375; 97110; 97116; 97163; 97530; G0378; J0696; J1450; J1956; J3490

== ENCOUNTER 2023-05-15 11:03 | Inpatient (IN) | payer MEDICARE, BC ==
[~2023-05-15] VITALS: Ht 162.6 cm; Wt 87.4 kg
[~2023-05-15 11:03] MED LIST changes: -CIPR-173 PO
[2023-05-15 12:06] LABS: Basophils # (auto) 0 10 ^3/uL (0-0.2); Basophils % (auto) 0.3 % (0.0-2.0); Eosinophils # (auto) 0.1 10 ^3/uL (0-0.8); Eosinophils % (auto) 1.3 % (0.0-7.0); Hematocrit 36.2 % (36.0-46.0); Hemoglobin 11.9 g/dL (12.2-16.2); Lymphocytes # (auto) 1.5 10 ^3/uL (0.4-5.4); Lymphocytes % (auto) 30.8 % (10.0-50.0); Mean Corpuscular Hemoglobin 32.8 pg (28.0-32.0); Mean Corpuscular Hgb Conc. 32.9 g/dL (32.0-36.0); Mean Corpuscular Volume 99.9 fL (80.0-100.0); Monocytes # (auto) 0.6 10 ^3/uL (0-1.3); Monocytes % (auto) 12.9 % (0.0-12.0); Neutrophils # (auto) 2.6 10 ^3/uL (1.6-8.6); Neutrophils % (auto) 54.7 % (37.0-80.0); Nucleated Red Blood Cells % 0.8 %; Red Blood Cells 3.62 10^6/uL (4.0-5.20); Red Cell Distribution Width 15.9 % (11.8-14.3); White Blood Cell 4.8 10^3/uL (4.4-10.8)
[2023-05-15 12:37] LABS: Alanine Aminotransferase 31 U/L (7-40); Albumin 3.6 g/dL (3.2-4.8); Alkaline Phosphatase 100 U/L (46-116); Anion Gap 8 (5-15); Aspartate Aminotransferase 26 U/L (13-40); BUN/Creatinine Ratio 33.3 (10.0-20.0); Bilirubin, Total 0.5 mg/dL (0.2-1.0); Blood Urea Nitrogen 25 mg/dL (9-23); Carbon Dioxide 24 mmol/L (20-30); Chloride 107 mmol/L (98-107); Glucose 83 mg/dL (74-106); Potassium 4.3 mmol/L (3.5-5.1); Sodium 139 mmol/L (136-145); Total Protein 7.1 g/dL (5.7-8.2)
[2023-05-15 13:02] LABS: Magnesium 1.9 mg/dL (1.6-2.6)
[2023-05-15] MEDS ORDERED: ACETAMINOPHEN 325 MG TAB PO PRN (13:15)
[2023-05-15] MEDS ORDERED: MORPHINE SULFATE INJ 2 MG/ml SYRG IV PRN (13:15)
[2023-05-15] MEDS ORDERED: NITROGLYCERIN 0.4 MG SL TAB SL PRN (13:15)
[2023-05-15 14:14] LABS: Triglycerides 55 mg/dL (< 150)
[2023-05-15 14:15] LABS: LDL Cholesterol 75 mg/dL (< 100)
[2023-05-15 14:16] LABS: Cholesterol 154 mg/dL (< 200); HDL Cholesterol 60 mg/dL (40-59)
[2023-05-15] MEDS: SODIUM CHLORIDE 0.9% 1,000 ML IV SCH (17:21)
[2023-05-15 17:30] VITALS: PULSE 57; RESP 12; O2SAT 99
[2023-05-15 20:00] VITALS: PULSE 33; RESP 14; O2SAT 97
[2023-05-15 22:13] LABS: Urine Bacteria NONE SEEN /hpf (None Seen); Urine Blood Negative /uL (Negative); Urine Clarity Clear (Clear); Urine Color Yellow (Yellow); Urine Protein, UAD TRACE (Negative); Urine Specific Gravity 1.021 (1.001-1.035); Urine Urobilinogen Normal (Negative); Urine WBC 15 /hpf (0 - 5); Urine pH 5.5 (5.0-8.0)
[2023-05-15 22:19] LABS: Amphetamine Screen, Urine Neg (NEGATIVE); Barbiturate Scree,Urine Neg (NEGATIVE); Benzodiazephine Screen, Urine Neg (NEGATIVE)
[2023-05-15 22:20] LABS: Cannabinoid Screen, Urine Neg (NEGATIVE); Cocaine Screen, Urine Neg (NEGATIVE); Opiate Scree,Urine Neg (NEGATIVE); Phencyclidine Screen, Urine Neg (NEGATIVE)
[2023-05-16] VITALS (30 sets, daily range): BP systolic 69–209; BP diastolic 29–128; PULSE 62–84; RESP 10–21; TEMP 95.9–99.3; O2SAT 84–98
[2023-05-16 04:38] LABS: Basophils # (auto) 0 10 ^3/uL (0-0.2); Basophils % (auto) 0.4 % (0.0-2.0); Eosinophils # (auto) 0.1 10 ^3/uL (0-0.8); Eosinophils % (auto) 1.4 % (0.0-7.0); Hematocrit 32.2 % (36.0-46.0); Hemoglobin 10.8 g/dL (12.2-16.2); Lymphocytes # (auto) 2.2 10 ^3/uL (0.4-5.4); Lymphocytes % (auto) 47.2 % (10.0-50.0); Mean Corpuscular Hemoglobin 32.9 pg (28.0-32.0); Mean Corpuscular Hgb Conc. 33.5 g/dL (32.0-36.0); Mean Corpuscular Volume 98.3 fL (80.0-100.0); Monocytes # (auto) 0.7 10 ^3/uL (0-1.3); Monocytes % (auto) 15.5 % (0.0-12.0); Neutrophils # (auto) 1.6 10 ^3/uL (1.6-8.6); Neutrophils % (auto) 35.5 % (37.0-80.0); Nucleated Red Blood Cells % 0.7 %; Red Blood Cells 3.27 10^6/uL (4.0-5.20); Red Cell Distribution Width 15.8 % (11.8-14.3); White Blood Cell 4.5 10^3/uL (4.4-10.8)
[2023-05-16] MEDS: SODIUM CHLORIDE 0.9% 1,000 ML IV SCH (04:42)
[2023-05-16 05:21] LABS: Alanine Aminotransferase 24 U/L (7-40); Albumin 3.2 g/dL (3.2-4.8); Alkaline Phosphatase 84 U/L (46-116); Anion Gap 9 (5-15); Aspartate Aminotransferase 23 U/L (13-40); BUN/Creatinine Ratio 31.7 (10.0-20.0); Bilirubin, Total 0.6 mg/dL (0.2-1.0); Blood Urea Nitrogen 20 mg/dL (9-23); Calcium 9.5 mg/dL (8.5-10.1); Carbon Dioxide 24 mmol/L (20-30); Chloride 109 mmol/L (98-107); Sodium 142 mmol/L (136-145); Total Protein 6.5 g/dL (5.7-8.2)
[2023-05-16 05:29] LABS: Glucose 43 mg/dL (74-106)
[2023-05-16] MEDS ORDERED: DEXTROSE (50%) 50ML SYRG IV ONE (05:45)
[2023-05-16] MEDS ORDERED: DEXTROSE 50% SYRINGE 50 ML IV ONE (05:49)
[2023-05-16] MEDS ORDERED: DEXTROSE (50%) 50ML SYRG IV PRN (07:15)
[2023-05-16] MEDS: ACCU-CHEK COMFORT CURVE STRIP VI SCH ×4 (07:54→22:04)
[2023-05-16] MEDS: DOPamine 1600MCG/ML D5W 250 ML IV SCH (08:30)
[2023-05-16] MEDS: ENOXAPARIN SOD 40 MG/0.4 ML SYRINGE SC SCH (08:53)
[2023-05-16] MEDS ORDERED: cefTRIAXone 1GM/50ML D5W 50 ML IV SCH (09:00)
[2023-05-16 09:26] LABS: INR 1.06 (0.9-1.15); Partial Thromboplastin Time 30.7 SEC (24.5-34.5); Prothrombin Time 11.1 sec (9.3-11.8)
[2023-05-16 09:43] LABS: Rapid Influenza A Negative (Negative); Rapid Influenza B Negative (Negative)
[2023-05-16 09:44] LABS: COVID19 ANTIGEN SOFIA FIA NEGATIVE (NEGATIVE)
[2023-05-16] MEDS ORDERED: ATORVASTATIN 20 MG TAB PO SCH (10:00)
[2023-05-16] MEDS: D5W 5% 1,000 ML IV SCH (10:15)
[2023-05-16] MEDS: CEFEPIME 1GM/ 50ML 50 ML IV SCH ×2 (11:25→22:04)
[2023-05-16] MEDS ORDERED: VANCOMYCIN PER PHARMACY 0 MG IV SCH (15:00)
[2023-05-16] MEDS ORDERED: IOHEXOL 350 MG/ML 100ML IJ ONE (15:50)
[2023-05-16] MEDS: VANCOMYCIN 1GM/200ML 200 ML IV SCH (16:45)
[2023-05-16] MEDS: MUPIROCIN 2% OINT 15gm or 22gm FOR MRSA NARES EACHNOSTRI SCH (22:03)
[2023-05-17] VITALS (10 sets, daily range): BP systolic 99–145; BP diastolic 48–64; PULSE 55–80; RESP 13–20; TEMP 97.5–99.7; O2SAT 91–95
[2023-05-17] MEDS: DOPamine 1600MCG/ML D5W 250 ML IV SCH (02:46)
[2023-05-17] MEDS: CEFEPIME 1GM/ 50ML 50 ML IV SCH ×3 (05:44→22:10)
[2023-05-17] MEDS: D5W 5% 1,000 ML IV SCH (05:44)
[2023-05-17] MEDS: ACCU-CHEK COMFORT CURVE STRIP VI SCH ×6 (05:44→20:00)
[2023-05-17] MEDS: MUPIROCIN 2% OINT 15gm or 22gm FOR MRSA NARES EACHNOSTRI SCH ×2 (07:29→22:08)
[2023-05-17] MEDS: ENOXAPARIN SOD 40 MG/0.4 ML SYRINGE SC SCH (07:29)
[2023-05-17 08:49] LABS: Basophils # (auto) 0 10 ^3/uL (0-0.2); Basophils % (auto) 0.5 % (0.0-2.0); Eosinophils # (auto) 0.1 10 ^3/uL (0-0.8); Eosinophils % (auto) 1.4 % (0.0-7.0); Hematocrit 32.1 % (36.0-46.0); Hemoglobin 10.8 g/dL (12.2-16.2); Lymphocytes # (auto) 1.4 10 ^3/uL (0.4-5.4); Lymphocytes % (auto) 39.5 % (10.0-50.0); Mean Corpuscular Hemoglobin 32.9 pg (28.0-32.0); Mean Corpuscular Hgb Conc. 33.6 g/dL (32.0-36.0); Mean Corpuscular Volume 98.2 fL (80.0-100.0); Monocytes # (auto) 0.5 10 ^3/uL (0-1.3); Monocytes % (auto) 15.3 % (0.0-12.0); Neutrophils # (auto) 1.5 10 ^3/uL (1.6-8.6); Neutrophils % (auto) 43.3 % (37.0-80.0); Nucleated Red Blood Cells % 0.5 %; Red Blood Cells 3.27 10^6/uL (4.0-5.20); White Blood Cell 3.6 10^3/uL (4.4-10.8)
[2023-05-17 09:02] LABS: Alanine Aminotransferase 22 U/L (7-40); Albumin 3.2 g/dL (3.2-4.8); Alkaline Phosphatase 82 U/L (46-116); Anion Gap 8 (5-15); Aspartate Aminotransferase 23 U/L (13-40); Bilirubin, Total 0.7 mg/dL (0.2-1.0); Blood Urea Nitrogen 14 mg/dL (9-23); Calcium 9.2 mg/dL (8.7-10.4); Carbon Dioxide 25 mmol/L (20-30); Chloride 107 mmol/L (98-107); Glucose 72 mg/dL (74-106); Magnesium 1.8 mg/dL (1.6-2.6); Sodium 140 mmol/L (136-145); Total Protein 6.5 g/dL (5.7-8.2)
[2023-05-17 09:10] LABS: Base Excess 0.9 mmol/L (-2.0-2.0)
[2023-05-17] MEDS: NYSTATIN TOPICAL POWDER 15GM TOP SCH ×2 (10:00→22:00)
[2023-05-17] MEDS ORDERED: LACTULOSE 20Gm/30ML SOLN PO ONE (12:00)
[2023-05-17] MEDS ORDERED: FLUCONAZOLE 200MG/100ML 100 ML IV ONE (12:00)
[2023-05-17] MEDS: D5W/SOD CHLO 0.9% 1,000 ML IV SCH (12:45)
[2023-05-17] MEDS ORDERED: IOHEXOL 350 MG/ML 100ML IJ ONE (16:43)
[2023-05-17] MEDS: VANCOMYCIN 1GM/200ML 200 ML IV SCH (17:37)
[2023-05-17] MEDS ORDERED: DOCUSATE SOD 100 MG CAP PO ONE (18:30)
[2023-05-17] MEDS: ATORVASTATIN 20 MG TAB PO SCH (21:58)
[2023-05-18] MEDS: AMPICILLIN & SULBACTAM SODIUM 3 GM in SODIUM CHL 0.9% 100 ML IV SCH ×5 (00:30→21:12)
[2023-05-18] MEDS: CEFEPIME 1GM/ 50ML 50 ML IV SCH (03:30)
[2023-05-18] MEDS: ACCU-CHEK COMFORT CURVE STRIP VI SCH ×5 (04:00→21:58)
[2023-05-18 05:00] VITALS: BP 124/46; PULSE 55; RESP 20; TEMP 97.9; O2SAT 94
[2023-05-18 05:26] LABS: Basophils # (auto) 0 10 ^3/uL (0-0.2); Basophils % (auto) 0.3 % (0.0-2.0); Eosinophils # (auto) 0.1 10 ^3/uL (0-0.8); Eosinophils % (auto) 2.8 % (0.0-7.0); Hematocrit 32.9 % (36.0-46.0); Hemoglobin 10.9 g/dL (12.2-16.2); Lymphocytes % (auto) 20.1 % (10.0-50.0); Mean Corpuscular Hemoglobin 32.9 pg (28.0-32.0); Mean Corpuscular Hgb Conc. 33.1 g/dL (32.0-36.0); Mean Corpuscular Volume 99.4 fL (80.0-100.0); Monocytes # (auto) 0.6 10 ^3/uL (0-1.3); Monocytes % (auto) 12.8 % (0.0-12.0); Neutrophils # (auto) 3.1 10 ^3/uL (1.6-8.6); Nucleated Red Blood Cells % 0.1 %; Red Blood Cells 3.31 10^6/uL (4.0-5.20); Red Cell Distribution Width 15.7 % (11.8-14.3); White Blood Cell 4.9 10^3/uL (4.4-10.8)
[2023-05-18 05:35] LABS: Chloride 106 mmol/L (98-107); Potassium 4.1 mmol/L (3.5-5.1); Sodium 139 mmol/L (136-145)
[2023-05-18 05:36] LABS: Anion Gap 7 (5-15); Carbon Dioxide 26 mmol/L (20-30)
[2023-05-18 05:37] LABS: Calcium 9.1 mg/dL (8.7-10.4)
[2023-05-18 05:42] LABS: BUN/Creatinine Ratio 24.3 (10.0-20.0); Blood Urea Nitrogen 17 mg/dL (9-23); Glucose 71 mg/dL (74-106); Magnesium 1.7 mg/dL (1.6-2.6)
[2023-05-18 08:00] VITALS: PULSE 65
[2023-05-18 09:00] VITALS: BP 117/53; PULSE 67; RESP 15; TEMP 97.7; O2SAT 93
[2023-05-18] MEDS: ENOXAPARIN SOD 40 MG/0.4 ML SYRINGE SC SCH (09:20)
[2023-05-18] MEDS: LACTULOSE 20Gm/30ML SOLN PO SCH (09:20)
[2023-05-18] MEDS: DOCUSATE SOD 100 MG CAP PO SCH (09:20)
[2023-05-18] MEDS: MUPIROCIN 2% OINT 15gm or 22gm FOR MRSA NARES EACHNOSTRI SCH ×3 (09:22→21:58)
[2023-05-18] MEDS: D5W/SOD CHLO 0.9% 1,000 ML IV SCH (09:24)
[2023-05-18] MEDS ORDERED: FLUCONAZOLE 200MG/100ML 100 ML IV SCH (10:00)
[2023-05-18] MEDS ORDERED: LACTULOSE 20Gm/30ML SOLN PO ONE (10:00)
[2023-05-18 12:49] VITALS: BP 103/38; PULSE 61; RESP 15; TEMP 97.8; O2SAT 97
[2023-05-18] MEDS: NYSTATIN TOPICAL POWDER 15GM TOP SCH ×2 (13:02→21:58)
[2023-05-18 16:51] VITALS: BP 127/48; PULSE 65; RESP 15; TEMP 98; O2SAT 100
[2023-05-18] MEDS: VANCOMYCIN 1GM/200ML 200 ML IV SCH (17:48)
[2023-05-18] MEDS: ATORVASTATIN 20 MG TAB PO SCH (21:12)
[2023-05-18 22:00] VITALS: BP 108/52; PULSE 88; RESP 20; TEMP 98.6; O2SAT 93
[2023-05-19 05:00] VITALS: BP 106/48; PULSE 62; RESP 99; TEMP 98.3; O2SAT 99
[2023-05-19 05:18] LABS: Hematocrit 32.5 % (36.0-46.0); Hemoglobin 10.7 g/dL (12.2-16.2); Mean Corpuscular Hemoglobin 32.6 pg (28.0-32.0); Red Blood Cells 3.28 10^6/uL (4.0-5.20); Red Cell Distribution Width 16.2 % (11.8-14.3); White Blood Cell 4.4 10^3/uL (4.4-10.8)
[2023-05-19 05:28] LABS: Chloride 107 mmol/L (98-107); Sodium 140 mmol/L (136-145)
[2023-05-19 05:29] LABS: Anion Gap 7 (5-15); Calcium 8.9 mg/dL (8.7-10.4); Carbon Dioxide 26 mmol/L (20-30)
[2023-05-19 05:34] LABS: BUN/Creatinine Ratio 26.7 (10.0-20.0); Blood Urea Nitrogen 20 mg/dL (9-23); Glucose 73 mg/dL (74-106); Magnesium 1.8 mg/dL (1.6-2.6)
[2023-05-19] MEDS: AMPICILLIN & SULBACTAM SODIUM 3 GM in SODIUM CHL 0.9% 100 ML IV SCH ×2 (05:49→13:10)
[2023-05-19 05:51] LABS: Basophils % (manual) 0 (0.0-2.0); Blast Cells 0; Metamyelocytes % 0; Myelocytes % 0; Promyelocytes % 0; Reactive Lymphocytes 0
[2023-05-19 08:00] VITALS: PULSE 63; PULSE 64; RESP 20
[2023-05-19 09:00] VITALS: BP_SYST 127; BP_SYST 149; BP_DIAS 48; BP_DIAS 69; PULSE 57; PULSE 75; RESP 16; RESP 18; TEMP 97.8; TEMP 98; O2SAT 92; O2SAT 98
[2023-05-19 09:28] LABS: Anisocytosis Slight; Band Neutrophils % (manual) 3; Eosinophils % (manual) 2 (0-7); Lymphocytes % (manual) 21 (10.0-50.0); Monocytes % (manual) 19 (0-12); Platelet Estimate Decreased
[2023-05-19] MEDS: DOCUSATE SOD 100 MG CAP PO SCH (09:36)
[2023-05-19] MEDS: MUPIROCIN 2% OINT 15gm or 22gm FOR MRSA NARES EACHNOSTRI SCH ×2 (09:36→09:48)
[2023-05-19] MEDS: ENOXAPARIN SOD 40 MG/0.4 ML SYRINGE SC SCH (09:36)
[2023-05-19] MEDS: LACTULOSE 20Gm/30ML SOLN PO SCH (09:42)
[2023-05-19] MEDS: NYSTATIN TOPICAL POWDER 15GM TOP SCH (09:43)
[2023-05-19] MEDS: ACCU-CHEK COMFORT CURVE STRIP VI SCH (09:53)
[2023-05-19] MEDS ORDERED: MAGNESIUM OXIDE 400 MG TAB PO SCH (10:00)
[2023-05-19 11:41] LABS: Folate (Folic Acid) > 24.00 ng/mL (>5.38)
[2023-05-19 13:00] VITALS: BP 101/44; PULSE 69; RESP 16; TEMP 98.2; O2SAT 91
[2023-05-19 16:53] VITALS: BP 101/44; PULSE 69; RESP 20; TEMP 98.2; O2SAT 93
[2023-05-19 17:00] VITALS: BP 110/86; PULSE 98; RESP 15; TEMP 97.9; O2SAT 95
[2023-05-21 05:07] LABS: RPR Non Reactive (Non Reactive)
== END 2023-05-19 18:20 | DRG 308 ==
LOC: EDBD 11:03 → ER 11:03 → TELE 13:17 → DOU IN ICU 23:52 → TELE-CENTR 05-17 16:27 → CENTRAL 05-19 13:39
PROVIDERS: ADMIT Internal Medicine; ATTEND Internal Medicine
DX: I49.5 Sick sinus syndrome (principal); G93.41 Metabolic encephalopathy; R57.0 Cardiogenic shock; N39.0 Urinary tract infection, site not specified; I50.32 Chronic diastolic (congestive) heart failure; E78.5 Hyperlipidemia, unspecified; E66.9 Obesity, unspecified; Z20.822 Contact with and (suspected) exposure to COVID-19; J44.9 Chronic obstructive pulmonary disease, unspecified; K62.89 Other specified diseases of anus and rectum; I11.0 Hypertensive heart disease with heart failure; E16.2 Hypoglycemia, unspecified; K56.41 Fecal impaction; I71.21 Aneurysm of the ascending aorta, without rupture; R68.0 Hypothermia, not associated with low environmental temperature; Z83.3 Family history of diabetes mellitus; Z87.440 Personal history of urinary (tract) infections; Z68.33 Body mass index [BMI] 33.0-33.9, adult
CPT/HCPCS: 36415; 36600; 70450; 71045; 71260; 71275; 74177; 80048; 80053; 80061; 80202; 80307; 81001; 82140; 82533; 82607; 82746; 82805; 82962; 83036; 83525; 83605; 83615; 83735; 83880; 84436; 84443; 84480; 84484; 85007; 85025; 85027; 85379; 85610; 85730; 86592; 87040; 87081; 87086; 87426; 87804; 93005; 93306; 93886; 93970; 97110; 97116; 97163; 97530; G0378; J1450

== ENCOUNTER 2023-06-04 17:11 | Inpatient (IN) | payer MEDICARE, OTHER ==
[~2023-06-04] VITALS: Ht 170.2 cm; Wt 79.8 kg
[2023-06-04 18:00] VITALS: PULSE 78; RESP 15; O2SAT 97
[2023-06-04 18:23] LABS: Basophils # (auto) 0 10 ^3/uL (0-0.2); Basophils % (auto) 0.6 % (0.0-2.0); Eosinophils # (auto) 0 10 ^3/uL (0-0.8); Eosinophils % (auto) 1.1 % (0.0-7.0); Hematocrit 38.8 % (36.0-46.0); Hemoglobin 12.8 g/dL (12.2-16.2); Lymphocytes # (auto) 1.9 10 ^3/uL (0.4-5.4); Lymphocytes % (auto) 44.2 % (10.0-50.0); Mean Corpuscular Hemoglobin 32.7 pg (28.0-32.0); Monocytes # (auto) 0.7 10 ^3/uL (0-1.3); Monocytes % (auto) 15.7 % (0.0-12.0); Neutrophils # (auto) 1.7 10 ^3/uL (1.6-8.6); Neutrophils % (auto) 38.4 % (37.0-80.0); Nucleated Red Blood Cells % 0.2 %; Red Blood Cells 3.92 10^6/uL (4.0-5.20); Red Cell Distribution Width 15.4 % (11.8-14.3); White Blood Cell 4.4 10^3/uL (4.4-10.8)
[2023-06-04 18:38] LABS: Urine Epithelial Cast None Seen /hpf (<5)
[2023-06-04 18:52] LABS: Alanine Aminotransferase 21 U/L (7-40); Albumin 3.3 g/dL (3.2-4.8); Alkaline Phosphatase 100 U/L (46-116); Anion Gap 9 (5-15); Aspartate Aminotransferase 22 U/L (13-40); BUN/Creatinine Ratio 29.7 (10.0-20.0); Bilirubin, Total 0.6 mg/dL (0.2-1.0); Blood Urea Nitrogen 22 mg/dL (9-23); Calcium 9.3 mg/dL (8.7-10.4); Carbon Dioxide 25 mmol/L (20-30); Chloride 108 mmol/L (98-107); Glucose 71 mg/dL (74-106); Magnesium 1.7 mg/dL (1.6-2.6); Potassium 4.2 mmol/L (3.5-5.1); Sodium 142 mmol/L (136-145); Total Protein 6.9 g/dL (5.7-8.2)
[2023-06-04 18:59] LABS: Urine Bacteria FEW /hpf (None Seen); Urine Blood Negative /uL (Negative); Urine Clarity HAZY (Clear); Urine Color Yellow (Yellow); Urine Hyaline Cast FEW /lpf (0 - 2); Urine Mucus FEW (None Seen); Urine Protein, UAD TRACE (Negative); Urine Specific Gravity 1.025 (1.001-1.035); Urine WBC 14 /hpf (0 - 5)
[2023-06-04] MEDS ORDERED: cefTRIAXone 1GM/50ML D5W 50 ML IV ONE (19:45)
[2023-06-04] MEDS ORDERED: ACETAMINOPHEN 325 MG TAB PO PRN (21:00)
[2023-06-04] MEDS ORDERED: ONDANSETRON HCL 4 MG/2 ML VIAL IV PRN (21:00)
[2023-06-04 21:14] VITALS: PULSE 73; RESP 13; O2SAT 100
[2023-06-04] MEDS: ATORVASTATIN 20 MG TAB PO SCH (22:39)
[2023-06-05 05:48] LABS: Alanine Aminotransferase 19 U/L (7-40); Albumin 3.4 g/dL (3.2-4.8); Alkaline Phosphatase 95 U/L (46-116); Anion Gap 5 (5-15); Aspartate Aminotransferase 21 U/L (13-40); BUN/Creatinine Ratio 25.4 (10.0-20.0); Bilirubin, Total 0.6 mg/dL (0.2-1.0); Blood Urea Nitrogen 18 mg/dL (9-23); Calcium 9.5 mg/dL (8.7-10.4); Carbon Dioxide 26 mmol/L (20-30); Chloride 109 mmol/L (98-107); Glucose 74 mg/dL (74-106); Potassium 4.3 mmol/L (3.5-5.1); Sodium 140 mmol/L (136-145); Total Protein 7.3 g/dL (5.7-8.2)
[2023-06-05 06:21] LABS: Basophils # (auto) 0 10 ^3/uL (0-0.2); Basophils % (auto) 0.5 % (0.0-2.0); Eosinophils # (auto) 0 10 ^3/uL (0-0.8); Eosinophils % (auto) 1.1 % (0.0-7.0); Hematocrit 38.8 % (36.0-46.0); Hemoglobin 12.9 g/dL (12.2-16.2); Lymphocytes # (auto) 1.7 10 ^3/uL (0.4-5.4); Lymphocytes % (auto) 38.7 % (10.0-50.0); Mean Corpuscular Hgb Conc. 33.2 g/dL (32.0-36.0); Mean Corpuscular Volume 99.2 fL (80.0-100.0); Monocytes # (auto) 0.7 10 ^3/uL (0-1.3); Monocytes % (auto) 15.2 % (0.0-12.0); Neutrophils % (auto) 44.5 % (37.0-80.0); Nucleated Red Blood Cells % 0.2 %; Red Blood Cells 3.91 10^6/uL (4.0-5.20); Red Cell Distribution Width 15.4 % (11.8-14.3); White Blood Cell 4.5 10^3/uL (4.4-10.8)
[2023-06-05 08:00] VITALS: PULSE 84; RESP 16; O2SAT 99
[2023-06-05] MEDS: cefTRIAXone 1GM/50ML D5W 50 ML IV SCH (09:01)
[2023-06-05] MEDS ORDERED: AZITHROMYCIN 500MG/ 250ML 250 ML IV ONE (14:00)
[2023-06-05 15:05] LABS: Rapid Influenza A Negative (Negative); Rapid Influenza B Negative (Negative)
[2023-06-05 15:06] LABS: COVID19 ANTIGEN SOFIA FIA NEGATIVE (NEGATIVE)
[2023-06-05 20:05] VITALS: PULSE 70; RESP 13; O2SAT 97
[2023-06-05] MEDS: ATORVASTATIN 20 MG TAB PO SCH (22:00)
[2023-06-06] MEDS: cefTRIAXone 1GM/50ML D5W 50 ML IV SCH (09:19)
[2023-06-06] MEDS ORDERED: LACTULOSE 20Gm/30ML SOLN PO ONE (09:45)
[2023-06-06] MEDS: AZITHROMYCIN 500MG/ 250ML 250 ML IV SCH (10:57)
[2023-06-06 17:00] VITALS: BP 143/56; PULSE 42; RESP 20; TEMP 98.1; O2SAT 95
[2023-06-06 18:05] VITALS: BP 132/65; PULSE 65; RESP 18; TEMP 98.6
[2023-06-06 20:00] VITALS: BP 117/55; RESP 16; TEMP 98.6; O2SAT 98
[2023-06-06 22:00] VITALS: BP 117/55; PULSE 44; RESP 16; TEMP 98.6; O2SAT 98
[2023-06-06] MEDS: ATORVASTATIN 20 MG TAB PO SCH ×3 (22:00→23:07)
[2023-06-07 04:48] VITALS: BP 115/69; PULSE 60; RESP 17; TEMP 97.4; O2SAT 98
[2023-06-07 08:00] VITALS: BP 137/62; PULSE 68; RESP 16; TEMP 97.9; O2SAT 100
[2023-06-07 08:20] VITALS: O2SAT 98
[2023-06-07] MEDS: AZITHROMYCIN 500MG/ 250ML 250 ML IV SCH (10:00)
[2023-06-07] MEDS: cefTRIAXone 1GM/50ML D5W 50 ML IV SCH (10:28)
[2023-06-07] MEDS ORDERED: D5W/ SOD CHL 0.9%/KCL 20MEQ 1,000 ML IV ONE (11:15)
[2023-06-07 12:32] LABS: Basophils # (auto) 0 10 ^3/uL (0-0.2); Basophils % (auto) 0.5 % (0.0-2.0); Eosinophils # (auto) 0 10 ^3/uL (0-0.8); Hematocrit 36.7 % (36.0-46.0); Hemoglobin 12.3 g/dL (12.2-16.2); Lymphocytes # (auto) 1.3 10 ^3/uL (0.4-5.4); Lymphocytes % (auto) 27.2 % (10.0-50.0); Mean Corpuscular Hemoglobin 33.2 pg (28.0-32.0); Mean Corpuscular Hgb Conc. 33.5 g/dL (32.0-36.0); Mean Corpuscular Volume 99.3 fL (80.0-100.0); Monocytes # (auto) 0.6 10 ^3/uL (0-1.3); Monocytes % (auto) 12.5 % (0.0-12.0); Neutrophils # (auto) 2.9 10 ^3/uL (1.6-8.6); Neutrophils % (auto) 58.8 % (37.0-80.0); Nucleated Red Blood Cells % 0.1 %; Red Cell Distribution Width 15.1 % (11.8-14.3); White Blood Cell 4.9 10^3/uL (4.4-10.8)
[2023-06-07 12:44] LABS: INR 1.12 (0.9-1.15); Partial Thromboplastin Time 30.2 SEC (24.5-34.5); Prothrombin Time 11.7 sec (9.3-11.8)
[2023-06-07 12:47] VITALS: BP 109/64; PULSE 71; RESP 17; TEMP 98.3; O2SAT 98
[2023-06-07 12:51] LABS: Alanine Aminotransferase 16 U/L (7-40); Albumin 3.4 g/dL (3.2-4.8); Alkaline Phosphatase 97 U/L (46-116); Anion Gap 6 (5-15); Aspartate Aminotransferase 24 U/L (13-40); Blood Urea Nitrogen 17 mg/dL (9-23); Calcium 9.7 mg/dL (8.5-10.1); Carbon Dioxide 30 mmol/L (20-30); Chloride 105 mmol/L (98-107); Glucose 99 mg/dL (74-106); Potassium 3.9 mmol/L (3.5-5.1); Sodium 141 mmol/L (136-145)
[2023-06-07 12:52] LABS: Bilirubin, Total 0.6 mg/dL (0.2-1.0); Total Protein 7.2 g/dL (5.7-8.2)
[2023-06-07] MEDS ORDERED: LIDOCAINE 1% (LOCAL ANESTH.) PF 5ml SDV ID ONE (14:45)
[2023-06-07 16:36] VITALS: BP 117/75; PULSE 76; RESP 17; TEMP 98.3; O2SAT 97
[2023-06-07] MEDS ORDERED: TPN PER PHARMACY 0 ML IV SCH (19:00)
[2023-06-07 20:00] VITALS: BP 117/75; PULSE 76; RESP 17; TEMP 98.3; O2SAT 97
[2023-06-07] MEDS ORDERED: AMINO ACID INFUSION IN D10W 1,000 ML IV ONE (20:00)
[2023-06-07] MEDS ORDERED: DEXTROSE (50%) 50ML SYRG IV SCH (20:00)
[2023-06-07] MEDS: SODIUM CHLOR 0.9% PF (SALINE LOCK) 10ML VIAL/SYR IV SCH (20:00)
[2023-06-07] MEDS ORDERED: AMINO ACID INFUSION IN D10W 1,000 ML IV SCH (20:00)
[2023-06-07] MEDS: ATORVASTATIN 20 MG TAB PO SCH (21:20)
[2023-06-08] MEDS ORDERED: OCTREOTIDE ACETATE 500 MCG/ML VL ONE (04:35)
[2023-06-08 04:52] VITALS: BP 132/90; PULSE 64; RESP 18; TEMP 98.2; O2SAT 99
[2023-06-08] MEDS: InsuLIN REG 1unit/0.01ml Soln (100units/ml) SC SCH ×4 (06:00→17:13)
[2023-06-08] MEDS: ACCU-CHEK COMFORT CURVE STRIP VI SCH ×4 (06:00→17:13)
[2023-06-08 06:35] LABS: Alanine Aminotransferase 13 U/L (7-40); Albumin 3.1 g/dL (3.2-4.8); Alkaline Phosphatase 89 U/L (46-116); Anion Gap 5 (5-15); Aspartate Aminotransferase 19 U/L (13-40); BUN/Creatinine Ratio 29.1 (10.0-20.0); Blood Urea Nitrogen 16 mg/dL (9-23); Calcium 9.1 mg/dL (8.7-10.4); Carbon Dioxide 30 mmol/L (20-30); Chloride 107 mmol/L (98-107); Glucose 111 mg/dL (74-106); Magnesium 1.5 mg/dL (1.6-2.6); Potassium 3.7 mmol/L (3.5-5.1); Sodium 142 mmol/L (136-145)
[2023-06-08 06:36] LABS: Bilirubin, Total 0.7 mg/dL (0.2-1.0); Phosphorus 2.2 mg/dL (2.4-5.1); Total Protein 6.9 g/dL (5.7-8.2)
[2023-06-08 08:00] VITALS: RESP 18; O2SAT 98
[2023-06-08] MEDS: cefTRIAXone 1GM/50ML D5W 50 ML IV SCH (08:52)
[2023-06-08 09:00] VITALS: BP 113/72; PULSE 90; RESP 18; TEMP 98; O2SAT 98
[2023-06-08] MEDS: AZITHROMYCIN 500MG/ 250ML 250 ML IV SCH (10:12)
[2023-06-08] MEDS: SODIUM CHLOR 0.9% PF (SALINE LOCK) 10ML VIAL/SYR IV SCH ×2 (10:12→20:50)
[2023-06-08 10:48] LABS: Triglycerides 67 mg/dL (< 150)
[2023-06-08] MEDS ORDERED: D5W/ SOD CHL 0.9%/KCL 20MEQ 1,000 ML IV SCH (11:15)
[2023-06-08] MEDS ORDERED: POTASSIUM PHOSP 26.4MEQ(18MMOL) IN NS 100 ML IV ONE (11:30)
[2023-06-08 13:00] VITALS: BP 110/74; PULSE 78; RESP 18; TEMP 98.2; O2SAT 98
[2023-06-08] MEDS: MAGNESIUM SULFATE 1GM/100ML 100 ML IV SCH ×2 (13:38→14:50)
[2023-06-08] MEDS ORDERED: MAGNESIUM SULFATE 1GM/100ML 100 ML IV SCH (15:00)
[2023-06-08] MEDS: D5W/ SOD CHL 0.9%/KCL 20MEQ 1,000 ML IV SCH ×2 (15:29→20:32)
[2023-06-08 20:00] VITALS: BP 117/47; PULSE 79; RESP 18; TEMP 98.1; O2SAT 96
[2023-06-08] MEDS ORDERED: TPN PER PHARMACY IV NR ×11 (20:00)
[2023-06-08] MEDS: ATORVASTATIN 20 MG TAB PO SCH (20:49)
[2023-06-08 22:00] VITALS: BP_SYST 117; BP_SYST 145; BP_DIAS 47; BP_DIAS 60; PULSE 79; RESP 18; RESP 19; TEMP 98.1; O2SAT 92; O2SAT 96
[2023-06-09] MEDS: ACCU-CHEK COMFORT CURVE STRIP VI SCH ×4 (00:22→17:37)
[2023-06-09] MEDS: InsuLIN REG 1unit/0.01ml Soln (100units/ml) SC SCH ×4 (00:24→17:40)
[2023-06-09 05:00] VITALS: BP 116/59; PULSE 82; RESP 18; TEMP 97.9; O2SAT 96
[2023-06-09 06:53] LABS: Alanine Aminotransferase 9 U/L (7-40); Alkaline Phosphatase 80 U/L (46-116); Anion Gap 3 (5-15); Aspartate Aminotransferase 18 U/L (13-40); BUN/Creatinine Ratio 28.1 (10.0-20.0); Bilirubin, Total 0.7 mg/dL (0.2-1.0); Blood Urea Nitrogen 16 mg/dL (9-23); Calcium 8.9 mg/dL (8.5-10.1); Carbon Dioxide 29 mmol/L (20-30); Chloride 108 mmol/L (98-107); Glucose 98 mg/dL (74-106); Phosphorus 3.2 mg/dL (2.4-5.1); Potassium 4.1 mmol/L (3.5-5.1); Sodium 140 mmol/L (136-145); Total Protein 6.4 g/dL (5.7-8.2)
[2023-06-09 07:07] LABS: Magnesium 1.9 mg/dL (1.6-2.6)
[2023-06-09 09:00] VITALS: BP 103/62; PULSE 78; RESP 20; TEMP 98.1; O2SAT 92
[2023-06-09] MEDS: SODIUM CHLOR 0.9% PF (SALINE LOCK) 10ML VIAL/SYR IV SCH ×2 (09:03→21:21)
[2023-06-09] MEDS: cefTRIAXone 1GM/50ML D5W 50 ML IV SCH (09:03)
[2023-06-09] MEDS: AZITHROMYCIN 500MG/ 250ML 250 ML IV SCH (09:03)
[2023-06-09 13:00] VITALS: BP 109/58; PULSE 60; RESP 20; TEMP 97.6; O2SAT 99
[2023-06-09 17:00] VITALS: BP 101/59; PULSE 58; RESP 20; TEMP 97.9; O2SAT 95
[2023-06-09] MEDS: D5W/ SOD CHL 0.9%/KCL 20MEQ 1,000 ML IV SCH (17:38)
[2023-06-09 20:00] VITALS: PULSE 54; RESP 16; O2SAT 97
[2023-06-09] MEDS ORDERED: TPN PER PHARMACY IV NR ×10 (20:00)
[2023-06-09] MEDS: ATORVASTATIN 20 MG TAB PO SCH (21:21)
[2023-06-09 22:00] VITALS: BP 88/51; PULSE 54; RESP 16; TEMP 97.7; O2SAT 97
[2023-06-09] MEDS: MUPIROCIN 2% OINT 15gm or 22gm TOP SCH (22:46)
[2023-06-10] MEDS: ACCU-CHEK COMFORT CURVE STRIP VI SCH ×4 (00:08→17:40)
[2023-06-10] MEDS: D5W/ SOD CHL 0.9%/KCL 20MEQ 1,000 ML IV SCH (04:16)
[2023-06-10 05:00] VITALS: BP 114/46; PULSE 71; RESP 17; TEMP 98; O2SAT 98
[2023-06-10] MEDS: InsuLIN REG 1unit/0.01ml Soln (100units/ml) SC SCH ×4 (06:00→17:41)
[2023-06-10 06:59] LABS: Alanine Aminotransferase 13 U/L (7-40); Albumin 2.8 g/dL (3.2-4.8); Alkaline Phosphatase 78 U/L (46-116); Anion Gap 2 (5-15); Aspartate Aminotransferase 20 U/L (13-40); BUN/Creatinine Ratio 37.2 (10.0-20.0); Bilirubin, Total 0.5 mg/dL (0.2-1.0); Blood Urea Nitrogen 16 mg/dL (9-23); Calcium 8.7 mg/dL (8.7-10.4); Carbon Dioxide 29 mmol/L (20-30); Chloride 107 mmol/L (98-107); Glucose 106 mg/dL (74-106); Magnesium 1.8 mg/dL (1.6-2.6); Phosphorus 2.8 mg/dL (2.4-5.1); Potassium 4.6 mmol/L (3.5-5.1); Sodium 138 mmol/L (136-145); Total Protein 6.3 g/dL (5.7-8.2)
[2023-06-10 08:23] VITALS: BP 113/40; PULSE 77; RESP 20; TEMP 98.6; O2SAT 98
[2023-06-10] MEDS: SODIUM CHLOR 0.9% PF (SALINE LOCK) 10ML VIAL/SYR IV SCH (08:28)
[2023-06-10] MEDS: MUPIROCIN 2% OINT 15gm or 22gm TOP SCH (08:28)
[2023-06-10] MEDS: cefTRIAXone 1GM/50ML D5W 50 ML IV SCH (08:28)
[2023-06-10] MEDS ORDERED: D5W/SOD CHLO 0.9% 1,000 ML IV SCH (09:30)
[2023-06-10 13:00] VITALS: BP 98/35; PULSE 80; RESP 18; TEMP 97.8; O2SAT 93
[2023-06-10 15:39] LABS: COVID19 ANTIGEN SOFIA FIA NEGATIVE (NEGATIVE)
[2023-06-10 16:48] VITALS: BP 120/82; PULSE 87; RESP 20; TEMP 97.9; O2SAT 95
[2023-06-10] MEDS ORDERED: TPN PER PHARMACY IV NR ×10 (20:00)
== END 2023-06-10 20:00 | DRG 871 ==
LOC: EDBD 17:11 → ER 17:11 → OVERFLOW 20:55 → WEST WING 06-06 17:43
PROVIDERS: ADMIT Nurse Practitioner; ATTEND Family Medicine
PROC: 05HF33Z Insertion of Infusion Device into Left Cephalic Vein, Percutaneous Approach (ICD-10-PCS; 2023-06-06)
PROC: B54NZZA Ultrasonography of Left Upper Extremity Veins, Guidance (ICD-10-PCS; 2023-06-06)
PROC: B548ZZA Ultrasonography of Superior Vena Cava, Guidance (ICD-10-PCS; principal; 2023-06-07)
PROC: 02HV33Z Insertion of Infusion Device into Superior Vena Cava, Percutaneous Approach (ICD-10-PCS; 2023-06-07)
PROC: 3E0436Z Introduction of Nutritional Substance into Central Vein, Percutaneous Approach (ICD-10-PCS; 2023-06-07)
DX: A41.9 Sepsis, unspecified organism (principal); G93.41 Metabolic encephalopathy; J96.01 Acute respiratory failure with hypoxia; E44.0 Moderate protein-calorie malnutrition; N39.0 Urinary tract infection, site not specified; E86.0 Dehydration; I11.0 Hypertensive heart disease with heart failure; I50.9 Heart failure, unspecified; E78.5 Hyperlipidemia, unspecified; I71.40 Abdominal aortic aneurysm, without rupture, unspecified; Z20.822 Contact with and (suspected) exposure to COVID-19; B95.62 Methicillin resistant Staphylococcus aureus infection as the cause of diseases classified elsewhere; F03.90 Unspecified dementia, unspecified severity, without behavioral disturbance, psychotic disturbance, mood disturbance, and anxiety; Z68.27 Body mass index [BMI] 27.0-27.9, adult; Z91.118 Patient's noncompliance with dietary regimen for other reason
CPT/HCPCS: 36415; 36569; 70450; 71045; 74176; 80053; 80329; 81001; 82140; 82962; 83605; 83690; 83735; 84100; 84478; 84484; 85025; 85610; 85730; 87040; 87081; 87086; 87426; 87804; 93005; 96365; 97110; 97116; 97163; 97530; G0378; J1815; J7131

== ENCOUNTER 2023-10-01 11:01 | Inpatient (IN) | payer MEDICARE, OTHER ==
[~2023-10-01] VITALS: Ht 162.6 cm; Wt 102.3 kg
[~2023-10-01 11:01] MED LIST changes: +ATOR10TA52 PO; -ATOR20TA50 PO; +FURO1TAB33 PO
[2023-10-01 12:14] LABS: Basophils # (auto) 0 10 ^3/uL (0-0.2); Basophils % (auto) 0.2 % (0.0-2.0); Eosinophils # (auto) 0 10 ^3/uL (0-0.8); Eosinophils % (auto) 0.4 % (0.0-7.0); Hematocrit 37.5 % (36.0-46.0); Hemoglobin 12.2 g/dL (12.2-16.2); Lymphocytes # (auto) 1.4 10 ^3/uL (0.4-5.4); Lymphocytes % (auto) 21.3 % (10.0-50.0); Mean Corpuscular Hemoglobin 31.3 pg (28.0-32.0); Mean Corpuscular Hgb Conc. 32.6 g/dL (32.0-36.0); Mean Corpuscular Volume 96.2 fL (80.0-100.0); Monocytes # (auto) 0.6 10 ^3/uL (0-1.3); Monocytes % (auto) 9.8 % (0.0-12.0); Neutrophils # (auto) 4.4 10 ^3/uL (1.6-8.6); Neutrophils % (auto) 68.3 % (37.0-80.0); Nucleated Red Blood Cells % 0.1 %; Red Cell Distribution Width 14.9 % (11.8-14.3); White Blood Cell 6.5 10^3/uL (4.4-10.8)
[2023-10-01 12:19] LABS: Chloride 105 mmol/L (98-107); Potassium 3.2 mmol/L (3.5-5.1); Sodium 136 mmol/L (136-145)
[2023-10-01 12:20] LABS: Anion Gap 4 (5-15); Carbon Dioxide 27 mmol/L (20-30)
[2023-10-01 12:21] LABS: Calcium 9.2 mg/dL (8.5-10.1)
[2023-10-01 12:25] LABS: BUN/Creatinine Ratio 11.8 (10.0-20.0); Blood Urea Nitrogen 9 mg/dL (9-23); Glucose 74 mg/dL (74-106)
[2023-10-01] MEDS ORDERED: NITROGLYCERIN 0.4 MG SL TAB SL PRN (19:30)
[2023-10-01] MEDS ORDERED: MORPHINE SULFATE 4 MG/ML SYR/VIAL IV PRN (19:30)
[2023-10-01 22:50] VITALS: PULSE 64; RESP 16; O2SAT 99
[2023-10-01] MEDS: SODIUM CHLORIDE 0.9% 1,000 ML IV ONE (23:02)
[2023-10-02] VITALS (10 sets, daily range): BP systolic 111–131; BP diastolic 43–70; PULSE 60–73; RESP 18–20; TEMP 96–97.7; O2SAT 95–99
[2023-10-02] MEDS: levoFLOXacin 500MG 100 ML IV SCH (09:24)
[2023-10-02] MEDS: POTASSIUM CHL 20 Meq TABLET PO ONE (17:57)
[2023-10-02] MEDS: NYSTATIN TOPICAL POWDER 15GM TOP SCH (21:33)
[2023-10-03] VITALS (8 sets, daily range): BP systolic 115–150; BP diastolic 62–85; PULSE 65–75; RESP 16–18; TEMP 97.5–98.1; O2SAT 94–97
[2023-10-03 15:03] LABS: Basophils # (auto) 0 10 ^3/uL (0-0.2); Basophils % (auto) 0.5 % (0.0-2.0); Eosinophils # (auto) 0 10 ^3/uL (0-0.8); Eosinophils % (auto) 0.8 % (0.0-7.0); Hematocrit 32.2 % (36.0-46.0); Hemoglobin 10.6 g/dL (12.2-16.2); Lymphocytes # (auto) 1.6 10 ^3/uL (0.4-5.4); Lymphocytes % (auto) 38.7 % (10.0-50.0); Mean Corpuscular Hemoglobin 31.4 pg (28.0-32.0); Mean Corpuscular Hgb Conc. 32.9 g/dL (32.0-36.0); Mean Corpuscular Volume 95.2 fL (80.0-100.0); Monocytes # (auto) 0.5 10 ^3/uL (0-1.3); Monocytes % (auto) 12.7 % (0.0-12.0); Neutrophils % (auto) 47.3 % (37.0-80.0); Nucleated Red Blood Cells % 0.2 %; Red Blood Cells 3.39 10^6/uL (4.0-5.20); Red Cell Distribution Width 14.7 % (11.8-14.3); White Blood Cell 4.2 10^3/uL (4.4-10.8)
[2023-10-03 15:24] LABS: Alanine Aminotransferase 12 U/L (7-40); Albumin 2.8 g/dL (3.2-4.8); Alkaline Phosphatase 69 U/L (46-116); Anion Gap 2 (5-15); Aspartate Aminotransferase 17 U/L (13-40); BUN/Creatinine Ratio 16.9 (10.0-20.0); Bilirubin, Total 0.2 mg/dL (0.2-1.0); Blood Urea Nitrogen 10 mg/dL (9-23); Calcium 8.9 mg/dL (8.5-10.1); Carbon Dioxide 29 mmol/L (20-30); Chloride 107 mmol/L (98-107); Glucose 100 mg/dL (74-106); Potassium 3.9 mmol/L (3.5-5.1); Sodium 138 mmol/L (136-145); Total Protein 5.7 g/dL (5.7-8.2)
[2023-10-03] MEDS: OMNIPAQUE 12mg/ml 500ml ORAL SOLUTION PO ONE (15:41)
[2023-10-03 17:10] LABS: Urine Bacteria MANY /hpf (None Seen); Urine Blood Negative /uL (Negative); Urine Budding Yeast OCCASIONAL /hpf (None Seen); Urine Clarity Turbid (Clear); Urine Color Colorless (Yellow); Urine Mucus FEW (None Seen); Urine Protein, UAD Negative (Negative); Urine Specific Gravity 1.009 (1.001-1.035); Urine Urobilinogen Normal (Negative); Urine WBC 136 /hpf (0 - 5)
[2023-10-03] MEDS: IOHEXOL 300 MG/ML 100ML BOTTLE IJ ONE (17:36)
[2023-10-04] VITALS (8 sets, daily range): BP systolic 76–149; BP diastolic 46–67; PULSE 60–86; RESP 16–19; TEMP 97.1–97.8; O2SAT 90–99
[2023-10-05] VITALS (9 sets, daily range): BP systolic 116–145; BP diastolic 48–108; PULSE 60–86; RESP 16–20; TEMP 96.6–98.9; O2SAT 92–100
[2023-10-06] VITALS (7 sets, daily range): BP systolic 89–140; BP diastolic 43–72; PULSE 62–86; RESP 15–20; TEMP 35.8; O2SAT 92–100
== END 2023-10-06 18:30 | disposition home or self-care (01) | DRG 689 ==
LOC: ER 11:01 → TELE-CENTR 19:25 → TELE 19:25 → TELE-CENTR 23:42
PROVIDERS: ADMIT Internal Medicine Cardiovascular Disease; ATTEND Internal Medicine Cardiovascular Disease
DX: N13.6 Pyonephrosis (principal); G93.41 Metabolic encephalopathy; E87.6 Hypokalemia; I50.9 Heart failure, unspecified; E86.9 Volume depletion, unspecified; K62.89 Other specified diseases of anus and rectum; Z85.3 Personal history of malignant neoplasm of breast; Z98.41 Cataract extraction status, right eye; Z79.4 Long term (current) use of insulin; R32 Unspecified urinary incontinence
CPT/HCPCS: 36415; 74018; 74177; 80048; 80053; 81001; 83605; 85025; 87040; 87081; 87086; 87088; 87186; 97110; 97116; 97163; 97530; G0378; J1956

== ENCOUNTER → 2024-01-12 | Outpatient (CLI) | payer MEDICARE, OTHER ==
[2024-01-12 11:13] LABS: Basophils # (auto) 0 10 ^3/uL (0-0.2); Eosinophils # (auto) 0 10 ^3/uL (0-0.8); Eosinophils % (auto) 0.7 % (0.0-7.0); Lymphocytes # (auto) 1.1 10 ^3/uL (0.4-5.4); Monocytes # (auto) 0.3 10 ^3/uL (0-1.3)
[2024-01-12 11:18] LABS: Basophils % (auto) 0.2 % (0.0-2.0); Hematocrit 31.3 % (36.0-46.0); Hemoglobin 10.7 g/dL (12.2-16.2); Lymphocytes % (auto) 25.4 % (10.0-50.0); Mean Corpuscular Hemoglobin 34.3 pg (28.0-32.0); Mean Corpuscular Hgb Conc. 34.3 g/dL (32.0-36.0); Mean Corpuscular Volume 100.3 fL (80.0-100.0); Neutrophils % (auto) 66.7 % (37.0-80.0); Nucleated Red Blood Cells % 0.1 %; Platelet Count (auto) 95 10^3/uL (140-450); Red Blood Cells 3.12 10^6/uL (4.0-5.20); Red Cell Distribution Width 15.2 % (11.8-14.3); White Blood Cell 4.5 10^3/uL (4.4-10.8)
[2024-01-12 12:01] LABS: Chloride 105 mmol/L (98-107); Potassium 3.8 mmol/L (3.5-5.1); Sodium 137 mmol/L (136-145)
[2024-01-12 12:02] LABS: Anion Gap 6 (5-15); Calcium 9.4 mg/dL (8.7-10.4); Carbon Dioxide 26 mmol/L (20-30)
[2024-01-12 12:07] LABS: BUN/Creatinine Ratio 19.2 (10.0-20.0); Blood Urea Nitrogen 14 mg/dL (9-23); Glucose 93 mg/dL (74-106)
== END | disposition home or self-care (01) ==
LOC: LAB 10:45
PROVIDERS: ATTEND Internal Medicine
DX: I10 Essential (primary) hypertension (principal); E78.5 Hyperlipidemia, unspecified
CPT/HCPCS: 36415; 80048; 85025

== ENCOUNTER 2024-02-18 09:31 | Inpatient (IN) | payer MEDICARE, OTHER ==
[~2024-02-18] VITALS: Ht 162.6 cm; Wt 89.3 kg
[2024-02-18 10:23] LABS: Basophils # (auto) 0 10 ^3/uL (0-0.2); Eosinophils # (auto) 0 10 ^3/uL (0-0.8); Hematocrit 37.5 % (36.0-46.0); Hemoglobin 12.9 g/dL (12.2-16.2); Lymphocytes # (auto) 0.5 10 ^3/uL (0.4-5.4); Lymphocytes % (auto) 2.5 % (10.0-50.0); Mean Corpuscular Hemoglobin 34.3 pg (28.0-32.0); Mean Corpuscular Hgb Conc. 34.3 g/dL (32.0-36.0); Monocytes % (auto) 5.1 % (0.0-12.0); Neutrophils # (auto) 17.2 10 ^3/uL (1.6-8.6); Neutrophils % (auto) 92.4 % (37.0-80.0); Platelet Count (auto) 169 10^3/uL (140-450); Red Blood Cells 3.75 10^6/uL (4.0-5.20); Red Cell Distribution Width 15.3 % (11.8-14.3); White Blood Cell 18.6 10^3/uL (4.4-10.8)
[2024-02-18 10:41] LABS: Anion Gap 7 (5-15); Carbon Dioxide 26 mmol/L (20-31); Chloride 103 mmol/L (98-107); Potassium 4.1 mmol/L (3.5-5.1); Sodium 136 mmol/L (136-145)
[2024-02-18 10:42] LABS: Calcium 9.7 mg/dL (8.7-10.4)
[2024-02-18 10:46] LABS: BUN/Creatinine Ratio 26.5 (10.0-20.0); Blood Urea Nitrogen 22 mg/dL (9-23); Glucose 98 mg/dL (74-106)
[2024-02-18 12:50] LABS: Urine Bacteria FEW /hpf (None Seen); Urine Blood 1+ /uL (Negative); Urine Clarity Ex.Turbid (Clear); Urine Color Yellow (Yellow); Urine Protein, UAD TRACE (Negative); Urine Specific Gravity 1.014 (1.001-1.035); Urine Urobilinogen Normal (Negative); Urine WBC 1429 /hpf (0 - 5); Urine WBC Clumps PRESENT /hpf (None Seen)
[2024-02-18] MEDS: cefTRIAXone 1GM/50ML D5W 50 ML IV ONE (13:30)
[2024-02-18 21:20] VITALS: PULSE 57; RESP 14; O2SAT 95
[2024-02-18] MEDS ORDERED: ONDANSETRON HCL 4 MG/2 ML VIAL IV PRN (21:45)
[2024-02-18] MEDS ORDERED: ACETAMINOPHEN 325 MG TAB PO PRN (21:45)
[2024-02-18] MEDS: ATORVASTATIN 20 MG TAB PO SCH (21:53)
[2024-02-18] MEDS ORDERED: PATIENTS OWN MEDICATION (meropenem 1 GM) IV SCH (22:00)
[2024-02-18] MEDS: MEROPENEM 1GM IVPB 50 ML IV ONE (22:23)
[2024-02-18 23:35] VITALS: BP 136/55; PULSE 61; RESP 17; TEMP 97.6; O2SAT 96
[2024-02-19] VITALS (8 sets, daily range): BP systolic 115–142; BP diastolic 40–72; PULSE 58–86; RESP 16–18; TEMP 96.5–98.3; O2SAT 92–96
[2024-02-19 05:37] LABS: Basophils # (auto) 0 10 ^3/uL (0-0.2); Eosinophils # (auto) 0 10 ^3/uL (0-0.8); Hemoglobin 11.1 g/dL (12.2-16.2); Lymphocytes # (auto) 1.8 10 ^3/uL (0.4-5.4); Mean Corpuscular Volume 99.7 fL (80.0-100.0)
[2024-02-19 05:39] LABS: Basophils % (auto) 0.1 % (0.0-2.0); Eosinophils % (auto) 0.3 % (0.0-7.0); Hematocrit 31.8 % (36.0-46.0); Lymphocytes % (auto) 16.8 % (10.0-50.0); Mean Corpuscular Hemoglobin 34.8 pg (28.0-32.0); Mean Corpuscular Hgb Conc. 34.9 g/dL (32.0-36.0); Monocytes % (auto) 9.6 % (0.0-12.0); Neutrophils # (auto) 7.7 10 ^3/uL (1.6-8.6); Neutrophils % (auto) 73.2 % (37.0-80.0); Platelet Count (auto) 137 10^3/uL (140-450); Red Blood Cells 3.19 10^6/uL (4.0-5.20); Red Cell Distribution Width 15.3 % (11.8-14.3); White Blood Cell 10.6 10^3/uL (4.4-10.8)
[2024-02-19 05:41] LABS: Chloride 105 mmol/L (98-107); Potassium 3.8 mmol/L (3.5-5.1); Sodium 136 mmol/L (136-145)
[2024-02-19 05:42] LABS: Anion Gap 5 (5-15); Calcium 9.3 mg/dL (8.7-10.4); Carbon Dioxide 26 mmol/L (20-31)
[2024-02-19] MEDS: MEROPENEM 1GM IVPB 50 ML IV SCH ×2 (05:46→22:02)
[2024-02-19 05:47] LABS: BUN/Creatinine Ratio 30.3 (10.0-20.0); Blood Urea Nitrogen 23 mg/dL (9-23); Glucose 83 mg/dL (74-106)
[2024-02-19] MEDS: cefTRIAXone 1GM/50ML D5W 50 ML IV ONE (09:33)
[2024-02-19] MEDS: ENOXAPARIN SOD 40 MG/0.4 ML SYRINGE SC SCH (09:33)
[2024-02-19] MEDS ORDERED: AMPICILLIN SOD 2GM INJ 2 GM in SODIUM CHL 0.9% 100 ML IV SCH ×2 (12:00→18:00)
[2024-02-19] MEDS ORDERED: hydrALAZINE HCL 20 MG/ML VL IV PRN (17:30)
[2024-02-19] MEDS: SODIUM CHLORIDE 0.9% 1,000 ML IV SCH (18:22)
[2024-02-19] MEDS: CLOTRIMAZOLE 1 % CREAM 15GM TOP SCH (22:17)
[2024-02-20] VITALS (7 sets, daily range): BP systolic 111–150; BP diastolic 34–66; PULSE 57–93; RESP 16–18; TEMP 97.5–99.2; O2SAT 93–97
[2024-02-20 03:00] LABS: COVID19 ANTIGEN SOFIA FIA NEGATIVE (NEGATIVE); Rapid Influenza A Negative (Negative); Rapid Influenza B Negative (Negative)
[2024-02-20 06:51] LABS: Urine Bacteria FEW /hpf (None Seen); Urine Blood Negative /uL (Negative); Urine Clarity Clear (Clear); Urine Color Light-Yellow (Yellow); Urine Protein, UAD Negative (Negative); Urine Specific Gravity 1.014 (1.001-1.035); Urine Urobilinogen Normal (Negative); Urine WBC 12 /hpf (0 - 5); Urine pH 6.5 (5.0-9.0)
[2024-02-20 07:15] LABS: Basophils # (auto) 0 10 ^3/uL (0-0.2); Basophils % (auto) 0.1 % (0.0-2.0); Eosinophils # (auto) 0.1 10 ^3/uL (0-0.8); Eosinophils % (auto) 2.2 % (0.0-7.0); Hematocrit 32.6 % (36.0-46.0); Hemoglobin 11.3 g/dL (12.2-16.2); Lymphocytes # (auto) 1.8 10 ^3/uL (0.4-5.4); Lymphocytes % (auto) 29.8 % (10.0-50.0); Mean Corpuscular Hemoglobin 34.5 pg (28.0-32.0); Mean Corpuscular Hgb Conc. 34.7 g/dL (32.0-36.0); Mean Corpuscular Volume 99.6 fL (80.0-100.0); Monocytes # (auto) 0.9 10 ^3/uL (0-1.3); Monocytes % (auto) 15.4 % (0.0-12.0); Neutrophils # (auto) 3.2 10 ^3/uL (1.6-8.6); Neutrophils % (auto) 52.5 % (37.0-80.0); Nucleated Red Blood Cells % 0.1 %; Platelet Count (auto) 151 10^3/uL (140-450); Red Blood Cells 3.27 10^6/uL (4.0-5.20); Red Cell Distribution Width 15.5 % (11.8-14.3); White Blood Cell 6.1 10^3/uL (4.4-10.8)
[2024-02-20 07:20] LABS: Alanine Aminotransferase 16 U/L (7-40); Albumin 3.2 g/dL (3.2-4.8); Alkaline Phosphatase 82 U/L (46-116); Calcium 9.4 mg/dL (8.7-10.4); Chloride 107 mmol/L (98-107)
[2024-02-20 07:21] LABS: Anion Gap 7 (5-15); Aspartate Aminotransferase 16 U/L (13-40); BUN/Creatinine Ratio 32.1 (10.0-20.0); Bilirubin, Total 0.4 mg/dL (0.2-1.0); Blood Urea Nitrogen 25 mg/dL (9-23); Carbon Dioxide 25 mmol/L (20-31); Glucose 76 mg/dL (74-106); Potassium 4.2 mmol/L (3.5-5.1); Sodium 139 mmol/L (136-145); Total Protein 6.6 g/dL (5.7-8.2)
[2024-02-20] MEDS ORDERED: cefTRIAXone 1GM/50ML D5W 50 ML IV SCH (09:00)
[2024-02-20] MEDS: amLODIPine BESYLATE 5 MG TAB PO ONE (11:49)
[2024-02-20] MEDS ORDERED: NITR-87 PO (15:52)
[2024-02-21 01:00] VITALS: BP 118/47; PULSE 55; RESP 16; TEMP 97.7; O2SAT 93
[2024-02-21 05:00] VITALS: BP 129/46; PULSE 64; RESP 18; TEMP 98; O2SAT 92
[2024-02-21 05:41] LABS: Basophils # (auto) 0 10 ^3/uL (0-0.2); Eosinophils # (auto) 0.2 10 ^3/uL (0-0.8); Hemoglobin 10.9 g/dL (12.2-16.2); White Blood Cell 5.3 10^3/uL (4.4-10.8)
[2024-02-21 05:43] LABS: Basophils % (auto) 0.3 % (0.0-2.0); Eosinophils % (auto) 3.7 % (0.0-7.0); Hematocrit 31.6 % (36.0-46.0); Lymphocytes # (auto) 2.3 10 ^3/uL (0.4-5.4); Lymphocytes % (auto) 42.7 % (10.0-50.0); Mean Corpuscular Hemoglobin 34.6 pg (28.0-32.0); Mean Corpuscular Hgb Conc. 34.6 g/dL (32.0-36.0); Monocytes # (auto) 0.7 10 ^3/uL (0-1.3); Monocytes % (auto) 12.9 % (0.0-12.0); Neutrophils # (auto) 2.1 10 ^3/uL (1.6-8.6); Neutrophils % (auto) 40.4 % (37.0-80.0); Nucleated Red Blood Cells % 0.1 %; Platelet Count (auto) 167 10^3/uL (140-450); Red Blood Cells 3.16 10^6/uL (4.0-5.20); Red Cell Distribution Width 15.4 % (11.8-14.3)
[2024-02-21 08:50] VITALS: BP 119/37; PULSE 55; RESP 18; TEMP 97.9; O2SAT 94
[2024-02-21 12:17] VITALS: BP 132/59
== END 2024-02-21 13:00 | disposition home or self-care (01) | DRG 689 ==
LOC: ER 09:31 → OVERFLOW 21:41 → EAST 21:41
PROVIDERS: ADMIT Internal Medicine; ATTEND Internal Medicine
DX: N30.00 Acute cystitis without hematuria (principal); G93.41 Metabolic encephalopathy; L30.4 Erythema intertrigo; I50.9 Heart failure, unspecified; E78.5 Hyperlipidemia, unspecified; I71.21 Aneurysm of the ascending aorta, without rupture; Z20.822 Contact with and (suspected) exposure to COVID-19
CPT/HCPCS: 36415; 74176; 80048; 80053; 81001; 82306; 82607; 85025; 87040; 87086; 87426; 87804; 96365; 96367; G0378; J2185

== ENCOUNTER 2024-03-20 10:48 | Emergency (ER) | payer MEDICARE, OTHER ==
[~2024-03-20] VITALS: Ht 162.6 cm; Wt 83.2 kg
[~2024-03-20 10:48] MED LIST changes: -ATOR10TA52 PO; +NITR-87 PO
[2024-03-20 11:17] VITALS: TEMP 97.8
[2024-03-20 11:35] VITALS: BP 127/75
--- NOTE | 2024-03-20 12:04 | ED.PDOC ---
General HPI Comments A 83 YEAR OLD FEMALE PRESENTS TO THE ED WITH COMPLAINT OF UTI SYMPTOMS. PATIENT STATES SHE HAS A HISTORY OF FREQUENT UTIS AND HAS BEEN EXPERIENCING PAINFUL URINATION, URINARY URGENCY, URINARY FREQUENCY FOR THE PAST 1 WEEK. PATIENT'S DAUGHTER NOTES THE PATIENT ALREADY HAD A URINE TEST DONE BY HER PRIMARY CARE PHYSICIAN 1 WEEK AGO, BUT NOTES THERE HAS BEEN NO RESULTS OF YET. PATIENT WAS HERE IN THIS ED FOR THE SAME COMPLAINT 1 MONTH AGO WHERE SHE WAS ADMITTED FOR ACUTE PYELONEPHRITIS. PATIENT DENIES HEMATURIA, VAGINAL DISCHARGE, FLANK PAIN, FEVER, CHILLS, SHORTNESS OF BREATH, CHEST PAIN, ABDOMINAL PAIN, NAUSEA, VOMITING, HEADACHE, OR OTHER COMPLAINTS. NO OTHER SYMPTOMS OR MODIFYING FACTORS AT THIS TIME. PATIENT IS ALERT, ORIENTED X 4, AND HAS STEADY GAIT. Chief Complaint: Urinary Time Seen by MD: 11:27 Primary Care Provider: MUSHTAQ Salvador notes: Nurses Notes, Medications, Allergies Allergies: Coded Allergies: NO KNOWN ALLERGIES (Unverified , 06/14/22) Home Meds Active Scripts Phenazopyridine HCl (Phenazopyridine Hydrochlo) 200 Mg Tab, 200 MG PO TID, #6 TAB Prov:COLLETTE VALERIO 03/20/24 Cephalexin Monohydrate (Cephalexin) 500 Mg Cap, 1 CAP PO QID, #32 CAP Prov:COLLETTE VALERIO 03/20/24 Nitrofurantoin Monohydrate Mac (Macrobid) 100 Mg Cap, 100 MG PO BID for 7 Days, #14 CAP Prov:REYNALDO DURAN 02/20/24 Furosemide (Lasix) 20 Mg Tb, 1 TAB PO DAILY, #90 TAB 1 Refill Prov:BOO TELLES MD 08/17/23 Information Source: Patient Mode of Arrival: Ambulatory Severity: Moderate Inability to void: None Timing: Days Duration: Since onset, Intermittent, Days Prehospital treatment: None Onset: Spontaneous Symptoms: Dysuria, Frequency, Urgency History of: UTI Location: None Modifying factors: None associated signs and symptoms: Dysuria, Frequency, Urgency Past Medical History PAST MEDICAL HISTORY: Cancer, CHF, High Lipids, UTI'S MANAGER PEST History: No Pertinent MANAGER PEST History Family History Family History: Reviewed,noncontributory to illness Social History Smoker: Non-Smoker Alcohol: Denies ETOH Use Drugs: Denies Drug Use Lives In: Home Constitutional: denies: chills, diaphoresis, fatigue, fever, malaise, sweats, weakness, others EENTM: denies: blurred vision, double vision, ear bleeding, ear discharge, ear drainage, ear pain, ear ringing, eye pain, eye redness, hearing loss, mouth pa in, mouth swelling, nasal discharge, nose bleeding, nose congestion, nose pain, photophobia, tearing, throat pain, throat swelling, voice changes, others Respiratory: denies: cough, hemoptysis, orthopnea, SOB at rest, shortness of breath, SOB with excertion, stridor, wheezing, others Cardiovascular: denies: chest pain, dizzy spells, diaphoresis, Dyspnea on exertion, edema, irregular heart beat, left arm pain, lightheadedness, palpitations, PND, syncope, others Gastrointestinal: denies: abdomen distended, abdominal pain, blood streaked bowels, constipated, diarrhea, dysphagia, difficulty swallowing, hematemesis, melena, nausea, poor appetite, poor fluid intake, rectal bleeding, rectal pain, vomiting, others Genitourinary: reports: burning, dysuria, frequency, urgency; denies: abnormal vagina bleeding, dyspareunia, flank pain, hematuria, incontinence, pain, , vagina discharge, others Neurological: denies: dizziness, fainting, headache, left sided numbness, left sided weakness, numbness, paresthesia, pre-existing deficit, right sided numbness, right sided weakness, seizure, speech problems, tingling, tremors, weakness, others Musculoskeletal: denies: back pain, gout, joint pain, joint swelling, muscle pain, muscle stiffness, neck pain, others Integumetry: denies: bruises, change in color, change in hair/nails, dryness, laceration, lesions, lumps, rash, wounds, others Allergic/Immunocompromised: denies: Difficulty Healing, Frequent Infections, Hives, Itching, others Hematologic/Lymphatic: denies: anemia, blood clots, easy bleeding, easy bruising, swollen glands, others Endocrine: denies: excessive hunger, excessive sweating, excessive thirst, excessive urination, flushing, intolerance to cold, intolerance to heat, unexplained weight gain, unexplained weight loss, others Psychiatric: denies: anxiety, bipolar disorder, depression, hopeless, panic disorder, schizophrenia, sleepless, suicidal, others All Other Systems: Reviewed and Negative Physical Exam General Appearance: No Apparent Distress, Obese HEENT: Normal ENT Inspection, PERRL/EOMI, Pharynx Normal, TMs Normal Neck: Full Range of Motion, Non-Tender, Normal, Normal Inspection Respiratory: Chest Non-Tender, Lungs Clear, No Accessory Muscle Use, No Respiratory Distress, Normal Breath Sounds Cardiovascular: No Edema, No JVD, No Murmur, No Gallop, Normal Peripheral Pulses, Regular Rate/Rhythm Breast Exam: Deferred Gastrointestinal: No Organomegaly, Non Tender, No Pulsatile Mass, Normal Bowel Sounds, Soft Genitalia: Deferred Pelvic: Deferred Rectal: Deferred Extremities: No calf tenderness, Normal capillary refill, Normal inspection, Normal range of motion, Non-tender, No pedal edema Musculoskeletal : Apperance: Normal Neurologic: Alert, child custody evaluator II-XII nml as Tested, No Motor Deficits, Normal Affect, Normal Mood, No Sensory Deficits Cerebellar Function: Normal Reflexes: Normal Skin: Dry, Normal Color, Warm Peripheral Pulses: 2+ carotid (R), 2+ carotid (L) Lymphatic: No Adenopathy Was a procedure done? Was a procedure done?: No Differential Diagnosis Kidney stone (Female): N/A Kidney stone (Male): N/A Penile/Scrotal: N/A Urinary Problem (Male): N/A Urinary Problem (Female): Pyelonephritis, Urolithiasis, UTI, Vaginitis X-Ray, Labs, Meds, VS Vital Signs Date Time Temp Pulse Resp B/P (MAP) Pulse Ox O2 Delivery O2 Flow Rate FiO2 03/20/24 12:22 72 16 93 Room Air* 0 21 03/20/24 11:35 97.8 72 12 127/75 (92) 93 03/20/24 11:17 97.8 72 12 127/75 (92) 93 97.8 Lab Test 03/20/24 12:20 Range/Units Urine Color Dark-orange Yellow Urine Clarity Ex.turbid Clear Urine pH 6.0 5.0-9.0 Urine Specific [place] 1.013 1.001-1.035 Urine Protein Trace H Negative Urine Ketones Negative Negative Urine Blood 1+ H Negative /uL Urine Nitrite 2+ H Negative Urine Bilirubin 1+ H Negative Urine Urobilinogen 3 H Negative mg/dL Urine Leukocyte Esterase 3+ Negative /uL Urine RBC 12 0 - 4 /hpf Urine WBC 837 0 - 5 /hpf Urine WBC Clumps Present None Seen /hpf Urine Squamous Epithelial Cells Few <5 /hpf Urine Bacteria None seen None Seen /hpf Urine Glucose Normal Normal mg/dL Current Medications Medications (Trade) Dose Ordered Sig/Maylin Route Start Time Stop Time Status Last Admin Ceftriaxone Sodium (Rocephin) 1,000 mg ONCE ONCE IM 03/20/24 13:15 03/20/24 13:16 DC 03/20/24 13:22 X-Ray, Labs, Meds, VS Comment LABS ORDERED: UA REVIEWED AND INTERPRETED RESULTS: LEUKOCYTES 3+, NITRITES 2+, BLOOD 1+ TREATMENT: ROCEPHIN 1 G IM Time of 1ST Reevaluation: 13:45 Reevaluation 1ST: Improved Patient Education/Counseling: Diagnosis, Treatment, Need For Follow Up Family Education/Counseling: Diagnosis, Treatment, Need For Follow Up Medical Screening: No EMC Exist At This Time Departure 1 Departure Time of Disposition: 13:45 Impression: Primary Impression: Acute UTI (urinary tract infection) Disposition: 01 HOME / SELF CARE / HOMELESS Condition: Stable Additional Instructions: FOLLOW-UP WITH PCP IN 1 TO 2 DAYS FOR REFERRAL TO UROLOGIST. TAKE MEDICATIONS PRESCRIBED. RETURN TO ED FOR ANY NEW OR WORSENING SYMPTOMS. e-Prescriptions Phenazopyridine HCl (Phenazopyridine Hydrochlo) 200 Mg Tab 200 MG PO TID, #6 TAB Prov: COLLETTE VALERIO 03/20/24 Cephalexin Monohydrate (Cephalexin) 500 Mg Cap 1 CAP PO QID, #32 CAP Prov: COLLETTE VALERIO 03/20/24 Discharged With: Self, Relative Critical Care Note Critical Care Time?: No Stability Stability form required: No I personally scribed for COLLETTE VALERIO ([email or web address]) on 03/20/24 at 12:04. Electronically submitted by Simeon Jaime ([email or web address]). I personally scribed for COLLETTE VALERIO ([email or web address]) on 03/20/24 at 13:35. Electronically submitted by Simeon Jaime ([email or web address]). COLLETTE VALERIO Mar 20, 2024 12:04
[2024-03-20 12:22] VITALS: PULSE 72; RESP 16; O2SAT 93
[2024-03-20 12:27] LABS: Urine Bacteria None Seen /hpf (None Seen)
[2024-03-20 12:41] LABS: Urine Blood 1+ /uL (Negative); Urine Clarity Ex.Turbid (Clear); Urine Color Dark-Orange (Yellow); Urine Protein, UAD TRACE (Negative); Urine Specific Gravity 1.013 (1.001-1.035); Urine Urobilinogen 3 mg/dL (Negative); Urine WBC 837 /hpf (0 - 5); Urine WBC Clumps PRESENT /hpf (None Seen)
[2024-03-20] MEDS: cefTRIAXone SOD 1,000 MG VL IM ONE (13:22)
[2024-03-20] MEDS ORDERED: CEPH500C PO (13:44)
[2024-03-20] MEDS ORDERED: PHEN-922 PO (13:44)
== END 2024-03-20 13:56 | disposition home or self-care (01) ==
LOC: ER 10:48
DX: N39.0 Urinary tract infection, site not specified (principal); I50.9 Heart failure, unspecified; E78.5 Hyperlipidemia, unspecified; Z85.9 Personal history of malignant neoplasm, unspecified; Z79.899 Other long term (current) drug therapy
CPT/HCPCS: 81001; 87086; 87088; 87186; 96372; 99283; J0696

== ENCOUNTER 2024-03-27 09:53 | Inpatient (IN) | payer MEDICARE, OTHER ==
[~2024-03-27] VITALS: Ht 162.6 cm; Wt 82.5 kg
[~2024-03-27 09:53] MED LIST changes: +CEPH500C PO; +PHEN-922 PO
[2024-03-27] MEDS: SODIUM CHLORIDE 0.9% 500 ML IV ONE (10:39)
[2024-03-27 10:45] LABS: Basophils # (auto) 0 10 ^3/uL (0-0.2); Basophils % (auto) 0.5 % (0.0-2.0); Eosinophils # (auto) 0 10 ^3/uL (0-0.8); Eosinophils % (auto) 0.8 % (0.0-7.0); Hematocrit 34.7 % (36.0-46.0); Hemoglobin 11.7 g/dL (12.2-16.2); Lymphocytes # (auto) 1.1 10 ^3/uL (0.4-5.4); Lymphocytes % (auto) 24.4 % (10.0-50.0); Mean Corpuscular Hgb Conc. 33.9 g/dL (32.0-36.0); Mean Corpuscular Volume 100.5 fL (80.0-100.0); Monocytes # (auto) 0.4 10 ^3/uL (0-1.3); Neutrophils % (auto) 65.3 % (37.0-80.0); Nucleated Red Blood Cells % 0.5 %; Platelet Count (auto) 167 10^3/uL (140-450); Red Blood Cells 3.45 10^6/uL (4.0-5.20); Red Cell Distribution Width 15.6 % (11.8-14.3); White Blood Cell 4.5 10^3/uL (4.4-10.8)
--- NOTE | 2024-03-27 10:47 | ED.PDOC ---
History of Present Illness HPI Comments 83Y F with PMHx HLD, UTI, and sepsis presents to ED via EMS for chief complaint weakness with fatigue and back pain. Pt is currently on abx Keflex for UTI x1wk. Per EMS, pt's family states that pt has moments of confusion and moments of "not making sense". Prior to EMS arrival, pt almost had a fall witnessed by daughter but they were able to slowly lower her to the ground. After this event, pt was unable to stand up. Upon EMS arrival, pt GCS 15 and during ride to hospital pt had episodes of sleep apnea but O2 sat remained >95%. BS 92. Pt denies dysuria, SOB, vomiting, fever, and dizziness. No known allergies. Chief Complaint: General Weakness Time Seen by MD: 09:55 Primary Care Provider: MUSHTAQ Salvador Notes: Medications, Allergies Allergies: Coded Allergies: NO KNOWN ALLERGIES (Unverified , 06/14/22) Home Meds Active Scripts Phenazopyridine HCl (Phenazopyridine Hydrochlo) 200 Mg Tab, 200 MG PO TID, #6 TAB Prov:COLLETTE VALERIO 03/20/24 Cephalexin Monohydrate (Cephalexin) 500 Mg Cap, 1 CAP PO QID, #32 CAP Prov:COLLETTE VALERIO 03/20/24 Nitrofurantoin Monohydrate Mac (Macrobid) 100 Mg Cap, 100 MG PO BID for 7 Days, #14 CAP Prov:REYNALDO DURAN 02/20/24 Furosemide (Lasix) 20 Mg Tb, 1 TAB PO DAILY, #90 TAB 1 Refill Prov:BOO TELLES MD 08/17/23 Information Source: Patient Mode of Arrival: EMS Severity: Moderate Timing: Days Duration: Since onset Prehospital treatment: None Past Medical History PAST MEDICAL HISTORY: Cancer, CHF, High Lipids, UTI'S Surgical History: Denies all surgeries OFFICE MACHINE INSTALLER History: No Pertinent OFFICE MACHINE INSTALLER History Family History Family History: Reviewed,noncontributory to illness Social History Smoker: Non-Smoker Alcohol: Denies ETOH Use Drugs: Denies Drug Use Lives In: Home Constitutional: reports: fatigue, weakness; denies: chills, diaphoresis, fever, malaise, sweats, others EENTM: denies: blurred vision, double vision, ear bleeding, ear discharge, ear drainage, ear pain, ear ringing, eye pain, eye redness, hearing loss, mouth pa in, mouth swelling, nasal discharge, nose bleeding, nose congestion, nose pain, photophobia, tearing, throat pain, throat swelling, voice changes, others Respiratory: denies: cough, hemoptysis, orthopnea, SOB at rest, shortness of breath, SOB with excertion, stridor, wheezing, others Cardiovascular: denies: chest pain, dizzy spells, diaphoresis, Dyspnea on exertion, edema, irregular heart beat, left arm pain, lightheadedness, palpitations, PND, syncope, others Gastrointestinal: denies: abdomen distended, abdominal pain, blood streaked bowels, constipated, diarrhea, dysphagia, difficulty swallowing, hematemesis, melena, nausea, poor appetite, poor fluid intake, rectal bleeding, rectal pain, vomiting, others Genitourinary: denies: abnormal vagina bleeding, burning, dyspareunia, dysuria, flank pain, frequency, hematuria, incontinence, pain, , vagina discharge, urgency, others Neurological: denies: dizziness, fainting, headache, left sided numbness, left sided weakness, numbness, paresthesia, pre-existing deficit, right sided numbness, right sided weakness, seizure, speech problems, tingling, tremors, weakness, others Musculoskeletal: reports: back pain; denies: gout, joint pain, joint swelling, muscle pain, muscle stiffness, neck pain, others Integumetry: denies: bruises, change in color, change in hair/nails, dryness, laceration, lesions, lumps, rash, wounds, others Allergic/Immunocompromised: denies: Difficulty Healing, Frequent Infections, Hives, Itching, others Hematologic/Lymphatic: denies: anemia, blood clots, easy bleeding, easy bruisi ng, swollen glands, others Endocrine: denies: excessive hunger, excessive sweating, excessive thirst, exce ssive urination, flushing, intolerance to cold, intolerance to heat, unexplained weight gain, unexplained weight loss, others Psychiatric: denies: anxiety, bipolar disorder, depression, hopeless, panic disorder, schizophrenia, sleepless, suicidal, others All Other Systems: Reviewed and Negative Physical Exam General Appearance: No Apparent Distress, Normal HEENT: Normal ENT Inspection, Pharynx Normal, TMs Normal Neck: Full Range of Motion, Non-Tender, Normal, Normal Inspection Respiratory: Chest Non-Tender, Lungs Clear, No Accessory Muscle Use, No Respiratory Distress, Normal Breath Sounds Cardiovascular: No JVD, No Murmur, No Gallop, Normal Peripheral Pulses, Regular Rate/Rhythm Breast Exam: Deferred Gastrointestinal: No Organomegaly, Non Tender, No Pulsatile Mass, Normal Bowel Sounds, Soft Genitalia: Deferred Pelvic: Deferred Rectal: Deferred Extremities: Leg edema (2+ pitting edema, bilateral lower extremities), No calf tenderness, Normal capillary refill, Normal inspection, Normal range of motion, Non-tender Musculoskeletal : Apperance: Normal Neurologic: Alert, intake nurse II-XII nml as Tested, No Motor Deficits, Normal Affect, Normal Mood, No Sensory Deficits Cerebellar Function: Normal Reflexes: Normal Skin: Dry, Normal Color, Warm Lymphatic: No Adenopathy Was a procedure done? Was a procedure done?: No EKG EKG : Pulse Rate (adult): 67 Comments Artifacts present, unable to differentiate between Afib and PACs Differential Dx Considerations may include: pyelonephritis, sepsis, acute ACS, pneumonia, hypovolemia, electrolyte imbalance, fluid overload X-Ray, Labs, Meds, VS Vital Signs Date Time Temp Pulse Resp B/P (MAP) Pulse Ox O2 Delivery O2 Flow Rate FiO2 03/27/24 10:47 67 03/27/24 10:03 97.8 76 12 117/62 (80) 98 Lab Test 03/27/24 11:19 03/27/24 11:04 03/27/24 10:23 Range/Units Troponin I High Sensitivity Pending 11 </=34 ng/L Urine Color Yellow Yellow Urine Clarity Turbid H Clear Urine pH 5.5 5.0-9.0 Urine Specific [place] 1.021 1.001-1.035 Urine Protein Trace H Negative Urine Ketones Negative Negative Urine Blood Negative Negative /uL Urine Nitrite Negative Negative Urine Bilirubin Negative Negative Urine Urobilinogen Normal Negative mg/dL Urine Leukocyte Esterase 3+ Negative /uL Urine RBC 21 0 - 4 /hpf Urine WBC 244 0 - 5 /hpf Urine Squamous Epithelial Cells Few <5 /hpf Urine Bacteria Few H None Seen /hpf Urine Hyaline Casts Mod 0 - 2 /lpf Urine Yeast (Budding) Occasional None Seen /hpf Urine Glucose Normal Normal mg/dL White Blood Count 4.5 4.4-10.8 10^3/uL Red Blood Count 3.45 L 4.0-5.20 10^6/uL Hemoglobin 11.7 L 12.2-16.2 g/dL Hematocrit 34.7 L 36.0-46.0 % Mean Corpuscular Volume 100.5 H 80.0-100.0 fL Mean Corpuscular Hemoglobin 34.0 H 28.0-32.0 pg Mean Corpuscular Hemoglobin Concent 33.9 32.0-36.0 g/dL Red Cell Distribution Width 15.6 H 11.8-14.3 % Platelet Count 167 140-450 10^3/uL Mean Platelet Volume 8.2 6.9-10.8 fL Neutrophils (%) (Auto) 65.3 37.0-80.0 % Lymphocytes (%) (Auto) 24.4 10.0-50.0 % Monocytes (%) (Auto) 9.0 0.0-12.0 % Eosinophils (%) (Auto) 0.8 0.0-7.0 % Basophils (%) (Auto) 0.5 0.0-2.0 % Neutrophils # (Auto) 3.0 1.6-8.6 10 ^3/uL Lymphocytes # (Auto) 1.1 0.4-5.4 10 ^3/uL Monocytes # (Auto) 0.4 0-1.3 10 ^3/uL Eosinophils # (Auto) 0 0-0.8 10 ^3/uL Basophils # (Auto) 0 0-0.2 10 ^3/uL Nucleated Red Blood Cells 0.5 % Sodium Level 139 136-145 mmol/L Potassium Level 4.7 3.5-5.1 mmol/L Chloride Level 107 98-107 mmol/L Carbon Dioxide Level 28 20-31 mmol/L Anion Gap 4 L 5-15 Blood Urea Nitrogen 22 9-23 mg/dL Creatinine 0.75 0.550-1.02 mg/dL Glomerular Filtration Rate Calc 79 >90 mL/min BUN/Creatinine Ratio 29.3 H 10.0-20.0 Serum Glucose 79 74-106 mg/dL Lactic Acid Level 2.7 *H 0.4-2.0 mmol/L Calcium Level 10.4 8.7-10.4 mg/dL Total Bilirubin 0.5 0.2-1.0 mg/dL Aspartate Amino Transferase (AST) 21 13-40 U/L Alanine Aminotransferase (ALT) 20 7-40 U/L Alkaline Phosphatase 93 46-116 U/L B-Type Natriuretic Peptide 193.03 0-100 pg/mL Total Protein 7.6 5.7-8.2 g/dL Albumin 3.6 3.2-4.8 g/dL Current Medications Medications (Trade) Dose Ordered Sig/Maylin Route Start Time Stop Time Status Last Admin Sodium Chloride 500 ml @ 500 mls/hr Q1H ONCE IV 03/27/24 10:15 03/27/24 11:14 DC 03/27/24 10:39 [place] [id number] Ph: [phone] DIAGNOSTIC IMAGING Diagnostic Imaging Report : [id number] Signed PATIENT: KIAH MERCEDESCCT: [id number] UNIT: [id number] : 1940 LOC: ER ROOM / BED: / AGE / SEX: 83 / F ADM STATUS: REG ER SERVICE 1016 ORDERING PHYSICIAN: GUIDO NICHOLSON MD PROCEDURE(s): CXR1 - CHEST XRAY 1 VIEW REASON: GENERAL WEAKNESS ORDER NUMBER(s): [id number], ACCESSION NUMBER(s): [id number] CHEST RADIOGRAPH Indication:GENERAL WEAKNESS Technique: Single frontal view of the chest was obtained COMPARISON: XY CHEST PORTABLE on DOS: 08/22/23, XY CHEST PORTABLE on DOS: 08/15/23, XY CHEST PORTABLE on DOS: 08/12/23, XY CHEST PORTABLE on DOS: 06/07/23, XY CHEST PORTABLE on DOS: 06/07/23 FINDINGS: Lines and Tubes: None Lungs: Clear Pleura: No effusion. No pneumothorax. Cardiomediastinal contours: Unremarkable Bones: Unremarkable IMPRESSION: 1. No acute disease. ATED BY: KAMRAN GRAF MD DICTATED DATE/TIME: 03/27/24 105 SIGNED BY: KAMRAN GRAF MD SIGNED DATE/TIME: 03/27/24 105 CC: 83-year-old female presents here with increased fatigue, intermittent episodes of delirium. She was recently treated for a UTI and is currently on Keflex. However daughter states her condition is worsening. Urine does demonstrates evidence of UTI today. I have started on Rocephin. Blood work does not demonstrate a leukocytosis but does have a lactic acidosis of 2.7. I have given patient NS bolus of 500 cc. There is evidence of fluid overload in her legs. I have written for 30 cc/kilos bolus however we are going slowly in increments of 500 based on what patient can clinically tolerate. Currently however patient does not have any SIRS criteria. At this time hospitalist team has been contacted for admission. Time of 1ST Reevaluation: 10:25 Reevaluation 1ST: Unchanged Patient Education/Counseling: Diagnosis, Treatment Family Education/Counseling: No Family Present Departure 1 Departure Time of Disposition: 13:00 Impression: Primary Impression: Acute pyelonephritis due to bacteria Additional Impression: Delirium due to general medical condition Disposition: ADMITTED INPATIENT Admit to: Tele Condition: Guarded Critical Care Note Critical Care Time?: No Stability Stability form required: No Heart Score Heart Score: Heart Score Response (Comments) Value History N/A 0 EKG N/A 0 Age N/A 0 Risk Factors N/A 0 Troponin N/A 0 Total 0 I personally scribed for GUIDO NICHOLSON MD ([email or web address]) on 03/27/24 at 10:47. Electronically submitted by Tiffani Alonso ([email or web address]). I personally scribed for GUIDO NICHOLSON MD ([email or web address]) on 03/27/24 at 11:06. Electronically submitted by Tiffani Alonso ([email or web address]). GUIDO NICHOLSON MD Mar 27, 2024 10:47
--- NOTE | 2024-03-27 10:54 | DVH ---
CHEST RADIOGRAPH Indication:GENERAL WEAKNESS Technique: Single frontal view of the chest was obtained COMPARISON: XY CHEST PORTABLE on DOS: 08/22/23, XY CHEST PORTABLE on DOS: 08/15/23, XY CHEST PORTABLE on DOS: 08/12/23, XY CHEST PORTABLE on DOS: 06/07/23, XY CHEST PORTABLE on DOS: 06/07/23 FINDINGS: Lines and Tubes: None Lungs: Clear Pleura: No effusion. No pneumothorax. Cardiomediastinal contours: Unremarkable Bones: Unremarkable IMPRESSION: 1. No acute disease.
[2024-03-27 11:08] LABS: Lactic Acid w/Reflex 2.7 mmol/L (0.4-2.0)
[2024-03-27 11:17] LABS: Alanine Aminotransferase 20 U/L (7-40); Albumin 3.6 g/dL (3.2-4.8); Alkaline Phosphatase 93 U/L (46-116); Anion Gap 4 (5-15); Aspartate Aminotransferase 21 U/L (13-40); BUN/Creatinine Ratio 29.3 (10.0-20.0); Bilirubin, Total 0.5 mg/dL (0.2-1.0); Blood Urea Nitrogen 22 mg/dL (9-23); Calcium 10.4 mg/dL (8.7-10.4); Carbon Dioxide 28 mmol/L (20-31); Chloride 107 mmol/L (98-107); Glucose 79 mg/dL (74-106); Potassium 4.7 mmol/L (3.5-5.1); Sodium 139 mmol/L (136-145); Total Protein 7.6 g/dL (5.7-8.2)
[2024-03-27 11:41] VITALS: PULSE 85; RESP 20; O2SAT 97
[2024-03-27 11:41] LABS: Urine Bacteria FEW /hpf (None Seen); Urine Blood Negative /uL (Negative); Urine Budding Yeast OCCASIONAL /hpf (None Seen); Urine Clarity Turbid (Clear); Urine Color Yellow (Yellow); Urine Hyaline Cast MOD /lpf (0 - 2); Urine Protein, UAD TRACE (Negative); Urine Specific Gravity 1.021 (1.001-1.035); Urine Urobilinogen Normal (Negative); Urine WBC 244 /hpf (0 - 5); Urine pH 5.5 (5.0-9.0)
[2024-03-27] MEDS: cefTRIAXone 1GM/50ML D5W 50 ML IV ONE (12:00)
[2024-03-27] MEDS ORDERED: ACETAMINOPHEN 325 MG TAB PO PRN (14:15)
[2024-03-27] MEDS ORDERED: DOCUSATE SOD 100 MG CAP PO PRN (14:15)
--- NOTE | 2024-03-27 14:25 | DVHHP2 ---
History of Present Illness Reason for Visit: Weakness History of Present Illness 83 yo female general weakness with history of UTI and CHF and cancer patient with suspected infection and worsening general weakness with failed out patient UTI outpatient treatment Cardiovascular: CHF, hyperipidemia Renal/: UTI Review of Systems Constitutional: Yes: Fever, Weakness; No: Chills, Sweats, Malaise, Other Eyes: No: Pain, Vision change, Conjunctivae inflammation, Eyelid inflammation, Other, Redness ENT: No: Ear pain, Ear discharge, Nose pain, Nose discharge, Nose congestion, Mouth pain, Mouth swelling, Throat pain, Throat swelling, Other Respiratory: No: Cough, Dry, Shortness of breath, SOB with excertion, Wheezing, Hemoptysis, Pleuritic Pain, Sputum, Wheezing, Other Cardiovascular: No: Chest Pain, Palpitations, Orthopnea, Paroxysmal Noc. Dyspnea, Edema, Lt Headedness, Other Gastrointestinal: No: Nausea, Vomiting, Abdominal Pain, Diarrhea, Constipation, Melena, Hematochezia, Other Genitourinary: Dysuria, Frequency; No Incontinence, No Hematuria, No Retention, No Other Musculoskeletal: No: other, neck pain, shoulder pain, arm pain, back pain, hand pain, leg pain, foot pain Skin: No: Rash, Lesions, Jaundice, Bruising, Other Neurological: Weakness; No: Numbness, Incoordination, Change in speech, Confusion, Seizures, Other Allergies: Coded Allergies: NO KNOWN ALLERGIES (Unverified , 06/14/22) Exam Vital Signs Vital Signs Date Time Temp Pulse Resp B/P (MAP) Pulse Ox O2 Delivery O2 Flow Rate FiO2 03/27/24 12:02 123 12 134/61 (85) 93 03/27/24 11:41 Room Air* 0 21 03/27/24 10:03 97.8 General Appearance: Alert, mild distress HEENT: Atraumatic, PERRLA Cardiovascular: Regular rate Abdominal: Normal bowel sounds Extremities: No clubbing, No cyanosis Skin: No rashes, No breakdown Psych/Mental Status: Mood NL Labs/Xrays Labs Test 03/27/24 12:49 03/27/24 11:19 03/27/24 11:04 03/27/24 10:23 Range/Units Lactic Acid Level 0.8 0.4-2.0 mmol/L Troponin I High Sensitivity 11 </=34 ng/L Urine Color Yellow Yellow Urine Clarity Turbid H Clear Urine pH 5.5 5.0-9.0 Urine Specific [place] 1.021 1.001-1.035 Urine Protein Trace H Negative Urine Ketones Negative Negative Urine Blood Negative Negative /uL Urine Nitrite Negative Negative Urine Bilirubin Negative Negative Urine Urobilinogen Normal Negative mg/dL Urine Leukocyte Esterase 3+ Negative /uL Urine RBC 21 0 - 4 /hpf Urine WBC 244 0 - 5 /hpf Urine Squamous Epithelial Cells Few <5 /hpf Urine Bacteria Few H None Seen /hpf Urine Hyaline Casts Mod 0 - 2 /lpf Urine Yeast (Budding) Occasional None Seen /hpf Urine Glucose Normal Normal mg/dL White Blood Count 4.5 4.4-10.8 10^3/uL Red Blood Count 3.45 L 4.0-5.20 10^6/uL Hemoglobin 11.7 L 12.2-16.2 g/dL Hematocrit 34.7 L 36.0-46.0 % Mean Corpuscular Volume 100.5 H 80.0-100.0 fL Mean Corpuscular Hemoglobin 34.0 H 28.0-32.0 pg Mean Corpuscular Hemoglobin Concent 33.9 32.0-36.0 g/dL Red Cell Distribution Width 15.6 H 11.8-14.3 % Platelet Count 167 140-450 10^3/uL Mean Platelet Volume 8.2 6.9-10.8 fL Neutrophils (%) (Auto) 65.3 37.0-80.0 % Lymphocytes (%) (Auto) 24.4 10.0-50.0 % Monocytes (%) (Auto) 9.0 0.0-12.0 % Eosinophils (%) (Auto) 0.8 0.0-7.0 % Basophils (%) (Auto) 0.5 0.0-2.0 % Neutrophils # (Auto) 3.0 1.6-8.6 10 ^3/uL Lymphocytes # (Auto) 1.1 0.4-5.4 10 ^3/uL Monocytes # (Auto) 0.4 0-1.3 10 ^3/uL Eosinophils # (Auto) 0 0-0.8 10 ^3/uL Basophils # (Auto) 0 0-0.2 10 ^3/uL Nucleated Red Blood Cells 0.5 % Sodium Level 139 136-145 mmol/L Potassium Level 4.7 3.5-5.1 mmol/L Chloride Level 107 98-107 mmol/L Carbon Dioxide Level 28 20-31 mmol/L Anion Gap 4 L 5-15 Blood Urea Nitrogen 22 9-23 mg/dL Creatinine 0.75 0.550-1.02 mg/dL Glomerular Filtration Rate Calc 79 >90 mL/min BUN/Creatinine Ratio 29.3 H 10.0-20.0 Serum Glucose 79 74-106 mg/dL Calcium Level 10.4 8.7-10.4 mg/dL Total Bilirubin 0.5 0.2-1.0 mg/dL Aspartate Amino Transferase (AST) 21 13-40 U/L Alanine Aminotransferase (ALT) 20 7-40 U/L Alkaline Phosphatase 93 46-116 U/L B-Type Natriuretic Peptide 193.03 0-100 pg/mL Total Protein 7.6 5.7-8.2 g/dL Albumin 3.6 3.2-4.8 g/dL Assessment/Plan Assessment/Plan Admit to [facility] Sepsis Suspected on admission UTI possible Pyelonephritis Failed out patient treatment currently IV abx Ceftriaxone continued IV hydration monitor fluid overload History CHF c/w home meds lasix 20 mg daily c/w cardiac diet History of Cancer c/w home meds Plan discussed with: Patient My Orders Orders - ESTHER FALCON MD Procedure Category Date Status Time Ceftriaxone Ivpb [facility] 03/28/24 Transmitted Rocephin 10:00 Admit ADMIT 03/27/24 Transmitted 14:01 Code Status CODE 03/27/24 Transmitted 14:01 Vital Signs [facility] 03/27/24 Transmitted 14:01 Review Orders With [facility] 03/27/24 Transmitted Adm. 14:01 Regular Diet DIET 03/27/24 Transmitted Dinner Docusate Sodium [facility] 03/27/24 Transmitted Capsule (Colace 14:15 Acetaminophen Tablet [facility] 03/27/24 Transmitted (Tylenol Tablet) 14:15 Notify Of Changes [facility] 03/27/24 Transmitted From Base 14:01 Advance Directive [facility] 03/27/24 Transmitted 14:01 Patient Condition ORDERS 03/27/24 Transmitted 14:01 Allergies [facility] 03/27/24 Transmitted 14:01 Notify Of Changes [facility] 03/27/24 Transmitted From Base 14:01 Emergency Dysrhythmia [facility] 03/27/24 Transmitted Protocol 14:01 Rhythm Strips Once [facility] 03/27/24 Transmitted Every Shift 14:01 Oxygen By Nasal RT 03/27/24 Transmitted Cannula 14:01 Furosemide Tablet PHA 03/28/24 Transmitted (Lasix Tablet) 10:00 (Nf) Phenazopyridine PHA 03/27/24 Transmitted Hcl (Phenazopyridin 22:00 Date of Service: Mar 27, 2024 Billing Provider: ESTHER FALCON MD Common Visit Codes: [id number] INP/OBS CARE (HIGH) ESTHER FALCON MD Mar 27, 2024 14:25
--- NOTE | 2024-03-27 15:47 | DVHINCON2 ---
Date Seen: Mar 27, 2024 Referring Physician MD Millie Reason for Consultation Bradycardia History of Present Illness This is an 83-year-old female who presented to the emergency room via EMS with a chief complaint of generalized weakness. At time of assessment, the patient was found A&O x 2. Information mostly obtained from records. It appears the patient presented from home with a chief complaint of generalized weakness associated with fatigue, back pain, and a near fall injury with daughter breaking the fall. She was diagnosed with a urinary tract infection approximately a week ago. During emergency room admission she was noted to transition from a normal sinus rhythm to atrial fibrillation and sinus bradycardia. STAT cardiology consultation was placed. 12-lead electrocardiogram reviewed which showed a sinus bradycardia rhythm with an associated first degree block and a one time event of rapid atrial fibrillation lasting only a few seconds and with rhythm transitioning back into sinus bradycardia with a heart rate as low as 30s bpm. The patient remained asymptomatic during bradycardic events and with a stable systolic blood pressure in the 130s-150s bpm. Significant medical history includes ascending aortic aneurysm measuring 4.5 cm, hypertension, dyslipidemia, recurrent/chronic urinary tract infections, urinary incontinence, osteoporosis, history of breast mass resection, morbid obesity, and dementia. Past Medical History Past medical history reviewed. No other significant than mentioned above. Past Surgical History History of breast mass resection Bilateral knees Family History: Diabetes mellitus G8 FATHER, Onset:Unknown FHx: dementia G8 MOTHER, Onset:Unknown Family History Unable to obtain family history at this time. Social History Denies the use of illicit drugs, alcohol, or tobacco use. Allergies: Coded Allergies: NO KNOWN ALLERGIES (Unverified , 06/14/22) Home Meds Active Scripts Phenazopyridine HCl (Phenazopyridine Hydrochlo) 200 Mg Tab, 200 MG PO TID, #6 TAB Prov:COLLETTE VALERIO 03/20/24 Cephalexin Monohydrate (Cephalexin) 500 Mg Cap, 1 CAP PO QID, #32 CAP Prov:COLLETTE VALERIO 03/20/24 Nitrofurantoin Monohydrate Mac (Macrobid) 100 Mg Cap, 100 MG PO BID for 7 Days, #14 CAP Prov:REYNALDO DURAN 02/20/24 Furosemide (Lasix) 20 Mg Tb, 1 TAB PO DAILY, #90 TAB 1 Refill Prov:BOO TELLES MD 08/17/23 Home Meds Home medications reviewed. Current Medications Current Medications Medications (Trade) Dose Ordered Sig/Maylin Route PRN Reason Start Time Stop Time Status Last Admin Ceftriaxone Sodium 50 ml @ 100 mls/hr DAILY IV 03/28/24 10:00 Docusate Sodium (Colace Capsule) 100 mg BIDPRN PRN PO FOR CONSTIPATION 03/27/24 14:15 Acetaminophen (Tylenol Tablet) 650 mg Q6HP PRN PO PAIN SCALE 1-3 OR TEMP>100.4 03/27/24 14:15 Furosemide (Lasix Tablet) 20 mg DAILY PO 03/28/24 10:00 Phenazopyridine HCl (Pyridium Tablet) 200 mg TID PO 03/27/24 22:00 Review of Systems Constitutional: Generalized weakness, fatigue Ears, Nose, & Throat: No symptom reported Eyes: No symptom reported Neurological: No symptoms reported Pulmonary/Respiratory: No symptom reported Cardiovascular: No symptom reported Gastrointestinal: No symptom reported Genitourinary: No symptom reported Musculoskeletal: No symptom reported Skin: No symptom reported Psychiatric: No symptom reported Endocrine: No symptom reported Hemotologic/Lymphatic: No symptom reported Vital Signs Vital Signs Date Time Temp Pulse Resp B/P (MAP) Pulse Ox O2 Delivery O2 Flow Rate FiO2 03/27/24 14:05 33 03/27/24 12:02 12 134/61 (85) 93 03/27/24 11:41 Room Air* 0 21 03/27/24 10:03 97.8 Physical Exam General Appearance: Cooperative. Well developed. Morbidly obese. In no acute distress Head Exam: Normal inspection Neck Exam: Normal inspection. Non-tender. Normal alignment Pulmonary/Respiratory: Chest non-tender. Clear bilateral breath sounds Cardiovascular/Chest: Regular rate and rhythm. S1, S2. Intermittent sinus bradycardia with rapid AFib events. No murmurs. No JVD. Peripheral Pulses: 2+ Radial (R). 2+ Radial (L). 2+ Pedal (R). 2+ Pedal (L) Abdominal Exam: Normal bowel sounds. Soft. Ankle Exam: Positive ankle edema Lower extremities: Positive lower extremity edema, pretibial myxedema present Neuro/Mental Status: A&O x2. Very poor historian Thoughts/Psych: Somewhat confused Appearance: In no acute distress Skin Exam: Abnormal pretibial myxedema present Labs/Diagnostic Data Labs Test 03/27/24 12:49 03/27/24 11:19 03/27/24 11:04 03/27/24 10:23 Range/Units Lactic Acid Level 0.8 0.4-2.0 mmol/L Troponin I High Sensitivity 11 </=34 ng/L Urine Color Yellow Yellow Urine Clarity Turbid H Clear Urine pH 5.5 5.0-9.0 Urine Specific [place] 1.021 1.001-1.035 Urine Protein Trace H Negative Urine Ketones Negative Negative Urine Blood Negative Negative /uL Urine Nitrite Negative Negative Urine Bilirubin Negative Negative Urine Urobilinogen Normal Negative mg/dL Urine Leukocyte Esterase 3+ Negative /uL Urine RBC 21 0 - 4 /hpf Urine WBC 244 0 - 5 /hpf Urine Squamous Epithelial Cells Few <5 /hpf Urine Bacteria Few H None Seen /hpf Urine Hyaline Casts Mod 0 - 2 /lpf Urine Yeast (Budding) Occasional None Seen /hpf Urine Glucose Normal Normal mg/dL White Blood Count 4.5 4.4-10.8 10^3/uL Red Blood Count 3.45 L 4.0-5.20 10^6/uL Hemoglobin 11.7 L 12.2-16.2 g/dL Hematocrit 34.7 L 36.0-46.0 % Mean Corpuscular Volume 100.5 H 80.0-100.0 fL Mean Corpuscular Hemoglobin 34.0 H 28.0-32.0 pg Mean Corpuscular Hemoglobin Concent 33.9 32.0-36.0 g/dL Red Cell Distribution Width 15.6 H 11.8-14.3 % Platelet Count 167 140-450 10^3/uL Mean Platelet Volume 8.2 6.9-10.8 fL Neutrophils (%) (Auto) 65.3 37.0-80.0 % Lymphocytes (%) (Auto) 24.4 10.0-50.0 % Monocytes (%) (Auto) 9.0 0.0-12.0 % Eosinophils (%) (Auto) 0.8 0.0-7.0 % Basophils (%) (Auto) 0.5 0.0-2.0 % Neutrophils # (Auto) 3.0 1.6-8.6 10 ^3/uL Lymphocytes # (Auto) 1.1 0.4-5.4 10 ^3/uL Monocytes # (Auto) 0.4 0-1.3 10 ^3/uL Eosinophils # (Auto) 0 0-0.8 10 ^3/uL Basophils # (Auto) 0 0-0.2 10 ^3/uL Nucleated Red Blood Cells 0.5 % Sodium Level 139 136-145 mmol/L Potassium Level 4.7 3.5-5.1 mmol/L Chloride Level 107 98-107 mmol/L Carbon Dioxide Level 28 20-31 mmol/L Anion Gap 4 L 5-15 Blood Urea Nitrogen 22 9-23 mg/dL Creatinine 0.75 0.550-1.02 mg/dL Glomerular Filtration Rate Calc 79 >90 mL/min BUN/Creatinine Ratio 29.3 H 10.0-20.0 Serum Glucose 79 74-106 mg/dL Calcium Level 10.4 8.7-10.4 mg/dL Total Bilirubin 0.5 0.2-1.0 mg/dL Aspartate Amino Transferase (AST) 21 13-40 U/L Alanine Aminotransferase (ALT) 20 7-40 U/L Alkaline Phosphatase 93 46-116 U/L B-Type Natriuretic Peptide 193.03 0-100 pg/mL Total Protein 7.6 5.7-8.2 g/dL Albumin 3.6 3.2-4.8 g/dL Assessment Sick sinus syndrome with tachy-afshan events Sinus bradycardia with intermittent rapid atrial fibrillation Ascending aortic aneurysm measuring 4.5 cm Hypertension Acute on chronic UTI History of breast mass resection Morbid obesity Dementia Plan/Recommendation (Dr. Martinez) Patient assessed at bedside and plan of care discussed with Dr. Martinez. The patient with sick sinus syndrome is medically stable at this time. Continue monitoring ECG changes closely and notify any high-degree atrioventricular blocks or sinus pauses > 3 sec. Avoid all atrioventricular louisa blocking agents including antiarrhythmic therapy. Consider initiation of dopamine drip in the setting of hemodynamic instability. Continue TSH and magnesium levels. Maintain potassium >4 and magnesium >2. [id number] Score 5, HAS BLED Score 1. Initiate therapeutic Lovenox and transition to low-dose Eliquis therapy in the meantime. The patient qualifies for a permanent pacemaker implantation. Given acute sepsis we will hold off at this time and monitor closely. This will be discussed with next of kin as well. Upgrade to [facility]. Thank you for allowing us to participate in this patient's care. Please call if you have any questions or concerns. Critical care time: 45 min. This medical document was created using an electronic medical record system with voice recognition software and computerized dictation system. Although this document has been carefully reviewed, there might still be some phonetic and typographical errors. Occasional wrong-word or ``sound-alike substitutions may have occurred due to the inherent limitations of voice recognition software. These areas are purely typographical due to imperfections of the software programs and do not reflect any compromise in the patient's medical care. Please read the chart carefully and recognize, using context, where these substitutions have occurred. Plan discussed with: Patient, Other Date of Service: Mar 27, 2024 Billing Provider: PAU MARTINEZ MD Cardiology Common Codes: [id number] CARE 30-74 MIN AN [employer] OPERATOR Mar 27, 2024 15:47
[2024-03-27 19:40] VITALS: PULSE 76; RESP 20; O2SAT 96
[2024-03-27] MEDS: LORazepam 2MG/ML-1ML VIAL IV PRN (20:31)
[2024-03-27] MEDS: PHENAZOPYRIDINE HCL 100 MG TAB PO SCH (22:00)
[2024-03-28 07:20] VITALS: PULSE 84; RESP 14; O2SAT 95
[2024-03-28 07:43] LABS: Alanine Aminotransferase 20 U/L (7-40); Albumin 3.7 g/dL (3.2-4.8); Alkaline Phosphatase 100 U/L (46-116); Anion Gap 5 (5-15); Aspartate Aminotransferase 26 U/L (13-40); BUN/Creatinine Ratio 23.3 (10.0-20.0); Bilirubin, Total 0.8 mg/dL (0.2-1.0); Blood Urea Nitrogen 17 mg/dL (9-23); Calcium 10.6 mg/dL (8.7-10.4); Carbon Dioxide 26 mmol/L (20-31); Chloride 110 mmol/L (98-107); Glucose 58 mg/dL (74-106); Magnesium 1.7 mg/dL (1.6-2.6); Potassium 4.4 mmol/L (3.5-5.1); Sodium 141 mmol/L (136-145); Total Protein 8.1 g/dL (5.7-8.2)
[2024-03-28 07:44] LABS: Basophils # (auto) 0 10 ^3/uL (0-0.2); Basophils % (auto) 0.4 % (0.0-2.0); Eosinophils # (auto) 0 10 ^3/uL (0-0.8); Eosinophils % (auto) 0.8 % (0.0-7.0); Hematocrit 37.2 % (36.0-46.0); Hemoglobin 12.3 g/dL (12.2-16.2); Lymphocytes # (auto) 1.2 10 ^3/uL (0.4-5.4); Lymphocytes % (auto) 27.8 % (10.0-50.0); Mean Corpuscular Hemoglobin 33.5 pg (28.0-32.0); Mean Corpuscular Hgb Conc. 33.1 g/dL (32.0-36.0); Monocytes # (auto) 0.5 10 ^3/uL (0-1.3); Monocytes % (auto) 11.7 % (0.0-12.0); Neutrophils # (auto) 2.7 10 ^3/uL (1.6-8.6); Neutrophils % (auto) 59.3 % (37.0-80.0); Nucleated Red Blood Cells % 0.8 %; Platelet Count (auto) 180 10^3/uL (140-450); Red Blood Cells 3.69 10^6/uL (4.0-5.20); Red Cell Distribution Width 15.4 % (11.8-14.3); White Blood Cell 4.5 10^3/uL (4.4-10.8)
[2024-03-28] MEDS: FUROSEMIDE 20 MG TAB PO SCH (10:00)
[2024-03-28] MEDS: cefTRIAXone 1GM/50ML D5W 50 ML IV SCH (10:25)
[2024-03-28] MEDS: FUROSEMIDE 20 MG/2 ML VIAL IV ONE (10:50)
--- NOTE | 2024-03-28 10:59 | DVHPN2 ---
Consult Progress Note Date Seen: Mar 28, 2024 Subjective Other Systems: No overnight cardiac events reported Objective vital signs Vital Sign Date Time Temp Pulse Resp B/P (MAP) Pulse Ox O2 Delivery O2 Flow Rate FiO2 03/28/24 10:50 145/73 03/28/24 08:00 90 03/28/24 07:20 98.5 14 95 98.5 03/28/24 07:20 Room Air* 0 21 Total Intake and Output 03/27/24 03/27/24 03/28/24 14:59 22:59 06:59 Intake Total 600 ml Output Total 50 ml 800 ml Balance 550 ml -800 ml medications Current Medications Medications Dose Ordered Sig/Maylin Route Start Time Stop Time Status Last Admin Dose Admin Ceftriaxone Sodium 50 ml @ 100 mls/hr DAILY IV 03/28/24 10:00 03/28/24 10:25 100 MLS/HR Docusate Sodium 100 mg BIDPRN PRN PO 03/27/24 14:15 Acetaminophen 650 mg Q6HP PRN PO 03/27/24 14:15 Furosemide 20 mg DAILY PO 03/28/24 10:00 Phenazopyridine HCl 200 mg TID PO 03/27/24 22:00 Lorazepam 0.5 mg Q6HP PRN IV 03/27/24 20:15 03/27/24 20:31 0.5 MG Examination: GENERAL:Abnormal, LUNGS:Normal, CVS:Normal (NSR 80s bpm), NEURO:Abnormal (ALOC. Obtunded) laboratory and microbiology Laboratory Tests 03/28/24 07:04 Test 03/28/24 07:04 Range/Units Serum Glucose 58 L 74-106 mg/dL Problem List/Assessment/Plan Problem List/Assessment/Plan Sick sinus syndrome with tachy-afshan events Sinus bradycardia with intermittent rapid atrial fibrillation Ascending aortic aneurysm measuring 4.5 cm Hypertension Acute on chronic UTI History of breast mass resection Morbid obesity Dementia Plan/Recommendation (Dr. Martinez) Patient assessed at bedside and plan of care discussed with Dr. Martinez. The patient with sick sinus syndrome is medically stable at this time. There were no overnight cardiac events or further bradycardia documented. Continue monitoring ECG changes closely and notify any high-degree atrioventricular blocks or sinus pauses > 3 sec. Avoid all atrioventricular louisa blocking agents including antiarrhythmic therapy. Consider initiation of dopamine drip in the setting of hemodynamic instability. Maintain potassium >4 and magnesium >2. [id number] Score 5, HAS BLED Score 1. Continue therapeutic Lovenox and transition to low-dose Eliquis therapy when appropriate. The patient qualifies for a permanent pacemaker implantation. Given acute sepsis we will hold off at this time and monitor closely. This will be discussed with next of kin as well. Thank you for allowing us to participate in this patient's care. Please call if you have any questions or concerns. Critical care time: 45 min. This medical document was created using an electronic medical record system with voice recognition software and computerized dictation system. Although this document has been carefully reviewed, there might still be some phonetic and typographical errors. Occasional wrong-word or ``sound-alike substitutions may have occurred due to the inherent limitations of voice recognition software. These areas are purely typographical due to imperfections of the software programs and do not reflect any compromise in the patient's medical care. Please read the chart carefully and recognize, using context, where these substitutions have occurred. Plan discussed with: Other Date of Service: Mar 28, 2024 Billing Provider: PAU MARTINEZ MD Cardiology Common Codes: [id number] [facility](High [facility] Mar 28, 2024 10:59
[2024-03-28] MEDS ORDERED: hydrALAZINE HCL 20 MG/ML VL IV PRN (11:00)
[2024-03-28] MEDS: ENOXAPARIN SOD 100 MG/1 ML SYRINGE SC ONE (12:30)
[2024-03-28] MEDS: MAGNESIUM SULFATE 1GM/100ML 100 ML IV ONE (12:38)
[2024-03-28] MEDS ORDERED: VANCOMYCIN PER PHARMACY 0 MG IV SCH (13:00)
--- NOTE | 2024-03-28 13:02 | DVHPNRES ---
Progress Note Date Seen: Mar 28, 2024 Resident Creating Document: LIANNA JOHNSON RESIDENT Medical Necessity Reason Pt with a Central, PICC or Fol: No Subjective Review of Systems pt seen and examined at bedside. Currently altered, but has fluctuation in cognition sometimes she responds to the questions asked, GCS has been fluctuating from 9-13. ROS Could not be done as patient is altered Objective vital signs Vital Sign Date Time Temp Pulse Resp B/P (MAP) Pulse Ox O2 Delivery O2 Flow Rate FiO2 03/28/24 10:50 145/73 03/28/24 08:00 90 03/28/24 07:20 98.5 14 95 98.5 03/28/24 07:20 Room Air* 0 21 Total Intake and Output 03/27/24 03/27/24 03/28/24 15:00 23:00 07:00 Intake Total 600 ml Output Total 50 ml 800 ml Balance 550 ml -800 ml medications Current Medications Medications Dose Ordered Sig/Maylin Route Start Time Stop Time Status Last Admin Dose Admin Docusate Sodium 100 mg BIDPRN PRN PO 03/27/24 14:15 Acetaminophen 650 mg Q6HP PRN PO 03/27/24 14:15 Furosemide 20 mg DAILY PO 03/28/24 10:00 Phenazopyridine HCl 200 mg TID PO 03/27/24 22:00 Lorazepam 0.5 mg Q6HP PRN IV 03/27/24 20:15 03/27/24 20:31 0.5 MG Enoxaparin Sodium 90 mg Q12HR SC 03/28/24 22:00 Hydralazine HCl 10 mg Q6HP PRN IV 03/28/24 11:00 Fluconazole 100 ml @ 100 mls/hr DAILY IV 03/29/24 10:00 Meropenem 50 ml @ 17 mls/hr Q8H IV 03/28/24 19:00 laboratory and microbiology Laboratory Tests 03/28/24 07:04 Test 03/28/24 07:04 Range/Units Serum Glucose 58 L 74-106 mg/dL Microbiology Date/Time Source Procedure Growth Status 03/27/24 11:04 Voided Urine Urine Culture - Preliminary Resulted 03/27/24 10:23 Blood Blood Culture - Preliminary NO GROWTH AFTER 24 HOURS OF INCUBATION. Resulted Problem List/Assessment/Plan Problem List/Assessment/Plan Assessment/plan Neurology # metabolic encephalopathy due to UTI Urine drug screen B12 TSH Head CT # sepsis likely due to pyelonephritis -IV fluids -IV antibiotics #?pyelonephritis CT IV meropenam plus IV vancomycin Pancultures #HLD We will resume home medication #Sick sinus syndrome with tachy-afshan events -cardiology on board Anticoagulation therapeutic #Ascending aortic aneurysm measuring 4.5 cm -seen on CT #Hypertension -IV hydralazine #History of breast mass resection #Morbid obesity #Dementia Case discusion with Dr Leavitt Plan discussed with: Other My Orders My Orders Orders - LIANNA JOHNSON Procedure Category Date Status Time Fluconazole PHA 03/29/24 In Process 200mg/100ml (Diflucan 10:00 Meropenem 1gm Ivpb PHA 03/28/24 In Process (Merrem 1gm/ Ns) 19:00 Date of Service: Mar 28, 2024 Billing Provider: GURU LEAVITT MD Common Visit Codes: [id number] INP/OBS CARE(HIGH) LIANNA JOHNSON Mar 28, 2024 13:02 GURU LEAVITT MD Mar 31, 2024 17:58
[2024-03-28] MEDS: MEROPENEM 1GM IVPB 50 ML IV ONE (13:07)
[2024-03-28] MEDS: IOHEXOL 300 MG/ML 100ML BOTTLE IJ ONE ×2 (13:48→21:25)
[2024-03-28] MEDS: FLUCONAZOLE 200MG/100ML 100 ML IV ONE (14:16)
[2024-03-28 14:43] LABS: INR 1.08 (0.9-1.15); Partial Thromboplastin Time 35.7 SEC (24.5-34.5); Prothrombin Time 11.4 sec (9.3-11.8)
[2024-03-28] MEDS: SODIUM CHLORIDE 0.9% 250 ML IV ONE (14:47)
[2024-03-28] MEDS: VANCOMYCIN 1.5GM/300ML 300 ML IV ONE (15:14)
[2024-03-28 15:19] LABS: COVID19 ANTIGEN SOFIA FIA NEGATIVE (NEGATIVE); Rapid Influenza A Negative (Negative); Rapid Influenza B Negative (Negative)
[2024-03-28 16:38] LABS: Amphetamine Screen, Urine Neg (NEGATIVE); Barbiturate Scree,Urine Neg (NEGATIVE); Benzodiazephine Screen, Urine Neg (NEGATIVE); Cocaine Screen, Urine Neg (NEGATIVE)
[2024-03-28 16:39] LABS: Cannabinoid Screen, Urine Neg (NEGATIVE); Opiate Scree,Urine Neg (NEGATIVE); Phencyclidine Screen, Urine Neg (NEGATIVE)
[2024-03-28] MEDS: MEROPENEM 1GM IVPB 50 ML IV SCH (18:38)
[2024-03-28 20:22] VITALS: PULSE 82; RESP 18; O2SAT 98
--- NOTE | 2024-03-28 21:51 | DVH ---
Exam: CT HEAD WITHOUT CONTRAST History: ALOC Technique: [address] images through the posterior fossa and the supratentorial compart ment were acquired without contrast and imaged using soft tissue and bone algorithms. RADIATION DOSE: DLP 4637.39 mGy.cm; CTDI vol 62.57 mGy. Comparison: CT HEAD WITHOUT CONTRAST on DOS: 06/04/23, CT HEAD WITHOUT CONTRAST on DOS: 05/16/23, CT H EAD WITHOUT CONTRAST on DOS: 04/09/23 Findings: There is no evidence of an intracranial hemorrhage, acute large vessel infarct, mass effect, or midli ne shift. There is mild cerebral atrophy. Moderate calcification of the carotid siphons. The calvarium, orbits, paranasal sinuses, sella, middle ears, and mastoids are unremarkable. The superficial soft tissues are within normal limits. Impression: 1. No acute intracranial abnormality.
[2024-03-28] MEDS: ENOXAPARIN SOD 100 MG/1 ML SYRINGE SC SCH (22:09)
--- NOTE | 2024-03-29 04:12 | DVH ---
Exam: CT CT AB PEL WITH IV CON ONLY History: pyelonephritis Comparison Study: None available at time of dictation. TECHNIQUE: A digital national accounts sales image was obtained. During the uneventful, intravenous administration of c ontrast material, multislice data acquisition was obtained through the abdomen and pelvis. The data s et was subsequently reconstructed into axial images. Images were reviewed on a work station using a c ombination of axial and multiplanar using a variety of window levels and settings. Radiation Dose Information: CT Dose: CTDI volume is 25 mGy. Dose-length product is 250 mGy*cm FINDINGS: Lung Bases: No acute or significant lung base finding. Normal heart size. No pleural or pericardial effusion. Liver: Hepatic steatosis. Gallbladder and Biliary Tree: Unremarkable Spleen: Unremarkable Pancreas: The pancreas is normal in appearance without focal lesions or abnormal enhancement. Adrenal Glands: Unremarkable Kidneys: Kidneys demonstrate normal symmetric enhancement without focal lesions, calculi or hydroneph rosis. There is a coarse calcification in the left renal cortex Bladder: Borden catheter is present. Bowel: The stomach is grossly normal in appearance. Small bowel and colon are normal in caliber and d istribution. The appendix is not visualized; however, no secondary findings of acute appendicitis id entified. Ascites: Absent Lymphadenopathy: No mesenteric, retroperitoneal or periportal lymphadenopathy. Abdominal Wall and Mesentery: Unremarkable. Vasculature: The visualized abdominal aorta is normal in size and caliber. Abdominal and pelvic vess els demonstrate normal enhancement. Pelvic Organs: Calcified leiomyomas present. Musculoskeletal: No aggressive focal bony lesions, acute fractures or dislocation. Soft tissues: Unremarkable. IMPRESSION: No acute abnormality in the abdomen or pelvis. There is a coarse calcification in the left renal cortex Likely from prior infection. All CT scans at this medical facility are performed using dose modulation techniques as appropriate t o a performed exam including the following: Automated exposure control was utilized; adjustment of th e MA and/or KV according to patient size; and use of iterative reconstruction technique.
[2024-03-29 06:19] LABS: Basophils # (auto) 0 10 ^3/uL (0-0.2); Basophils % (auto) 0.5 % (0.0-2.0); Eosinophils # (auto) 0 10 ^3/uL (0-0.8); Eosinophils % (auto) 0.6 % (0.0-7.0); Hematocrit 37.4 % (36.0-46.0); Hemoglobin 12.5 g/dL (12.2-16.2); Lymphocytes # (auto) 1.8 10 ^3/uL (0.4-5.4); Lymphocytes % (auto) 30.1 % (10.0-50.0); Mean Corpuscular Hemoglobin 33.8 pg (28.0-32.0); Mean Corpuscular Hgb Conc. 33.4 g/dL (32.0-36.0); Mean Corpuscular Volume 101.2 fL (80.0-100.0); Monocytes # (auto) 0.8 10 ^3/uL (0-1.3); Monocytes % (auto) 13.1 % (0.0-12.0); Neutrophils # (auto) 3.2 10 ^3/uL (1.6-8.6); Neutrophils % (auto) 55.7 % (37.0-80.0); Nucleated Red Blood Cells % 0.3 %; Platelet Count (auto) 159 10^3/uL (140-450); Red Cell Distribution Width 15.2 % (11.8-14.3); White Blood Cell 5.8 10^3/uL (4.4-10.8)
[2024-03-29 07:30] VITALS: PULSE 65; RESP 13; O2SAT 100
[2024-03-29] MEDS: DEXTROSE (50%) 50ML SYRG IV ONE (09:00)
[2024-03-29] MEDS ORDERED: DEXTROSE (50%) 50ML SYRG IV PRN (09:00)
--- NOTE | 2024-03-29 09:01 | DVHPN2 ---
Consult Progress Note Date Seen: Mar 29, 2024 Subjective Other Systems: No overnight cardiac events reported. Worsening mental status, accucheck with blood sugar of 33 mg/dL Objective vital signs Vital Sign Date Time Temp Pulse Resp B/P (MAP) Pulse Ox O2 Delivery O2 Flow Rate FiO2 03/29/24 07:30 65 13 105/46 (65) 100 03/29/24 07:30 Room Air* 0 21 03/28/24 20:09 98.6 98.6 Total Intake and Output 03/28/24 03/28/24 03/29/24 15:00 23:00 07:00 Intake Total 200 ml 650 ml Output Total 1100 ml 1000 ml Balance 200 ml -450 ml -1000 ml medications Current Medications Medications Dose Ordered Sig/Maylin Route Start Time Stop Time Status Last Admin Dose Admin Docusate Sodium 100 mg BIDPRN PRN PO 03/27/24 14:15 Acetaminophen 650 mg Q6HP PRN PO 03/27/24 14:15 Furosemide 20 mg DAILY PO 03/28/24 10:00 Lorazepam 0.5 mg Q6HP PRN IV 03/27/24 20:15 03/27/24 20:31 0.5 MG Enoxaparin Sodium 90 mg Q12HR SC 03/28/24 22:00 03/28/24 22:09 90 MG Hydralazine HCl 10 mg Q6HP PRN IV 03/28/24 11:00 Fluconazole 100 ml @ 100 mls/hr DAILY IV 03/29/24 10:00 Meropenem 50 ml @ 17 mls/hr Q8H IV 03/28/24 19:00 03/29/24 03:10 17 MLS/HR Vancomycin HCl 0 ml @ 0 mls/hr UD IV 03/28/24 13:00 Examination: LUNGS:Normal, CVS:Normal (Sinus rhythm with ectopi), MSK:Abnormal (+++BLE edema), NEURO:Abnormal (Obtunded) laboratory and microbiology Laboratory Tests 03/29/24 05:19 03/28/24 07:04 Test 03/28/24 07:04 Range/Units Serum Glucose 58 L 74-106 mg/dL Problem List/Assessment/Plan Problem List/Assessment/Plan Sick sinus syndrome with tachy-afshan events Sinus bradycardia with intermittent rapid atrial fibrillation Ascending aortic aneurysm measuring 4.5 cm Acute hypoglycemic events Hypertension Acute on chronic UTI History of breast mass resection Morbid obesity Dementia Plan/Recommendation (Dr. Martinez) Patient assessed at bedside and plan of care discussed with Dr. Martinez. The patient with sick sinus syndrome is cardiac stable at this time. There were no overnight cardiac events or further bradycardia documented. Continue monitoring ECG changes closely and notify any high-degree atrioventricular blocks or sinus pauses > 3 sec. Avoid all atrioventricular louisa blocking agents including antiarrhythmic therapy. Consider initiation of dopamine drip in the setting of hemodynamic instability. Maintain potassium >4 and magnesium >2. [id number] Score 5, HAS BLED Score 1. Continue therapeutic Lovenox and transition to low- dose Eliquis therapy when appropriate. She presents with acute hypoglycemia for which dextrose PRN, routine accucheks, and low-dose D5W1/NS have been ordered. Continue preload reduction. Suspected culprit of bradycardia to be secondary to acute hypoglycemic events. Thank you for allowing us to participate in this patient's care. Please call if you have any questions or concerns. Critical care time: 45 min. This medical document was created using an electronic medical record system with voice recognition software and computerized dictation system. Although this document has been carefully reviewed, there might still be some phonetic and typographical errors. Occasional wrong-word or ``sound-alike substitutions may have occurred due to the inherent limitations of voice recognition software. These areas are purely typographical due to imperfections of the software programs and do not reflect any compromise in the patient's medical care. Please read the chart carefully and recognize, using context, where these substitutions have occurred. Plan discussed with: Other Date of Service: Mar 29, 2024 Billing Provider: PAU MARTINEZ MD Cardiology Common Codes: [id number] [facility] Mar 29, 2024 09:01
[2024-03-29] MEDS: D5W/SOD CHL 0.45% 1,000 ML IV SCH (09:28)
[2024-03-29] MEDS: DEXTROSE 50% SYRINGE 50 ML IV ONE (09:28)
--- NOTE | 2024-03-29 09:35 | DVH ---
Carotid Duplex Date: 03/29/2024 08:55 AM Clinical History: gen weakness, hx of carotid stenosis <50% Comparison: US CAROTID DUPLX W COLOR DOP on DOS: 05/15/23, CAROTID DUPLX W COLOR DOP on DOS: 06/17/22 Technique: Duplex Doppler evaluation of the extracranial carotid and vertebral arteries including color Doppler and spectral/pulsed waveform analysis was performed. Findings: RIGHT SIDE: The peak systolic velocities are 62 cm/s in the distal CCA and 78 cm/s in the proximal ICA.The ICA/CC A ratio is less than 2. The external carotid artery is patent with peak systolic velocity of 100 cm/s proximally. The right vertebral artery is nonvisualized. LEFT SIDE: The peak systolic velocities are 93 cm/s in the distal CCA and 93 cm/s in the proximal ICA.. The ICA /CCA ratio is normal. The external carotid artery is patent with peak systolic velocity of 80 cm/s proximally. There is appropriate antegrade flow in the left vertebral artery. IMPRESSION: 1. Suboptimal and technically difficult exam due to patient non cooperation. Nonvisualization of the right vertebral artery, could be artifactual, with occlusion not excluded. Needs correlation with cl inical findings. If further imaging evaluation is warranted, consider repeat study or correlation wit h CTA. 2. No hemodynamically significant stenoses within the bilateral carotid systems. Reference: Radiology 2003; 229:340-346 HS:Y
[2024-03-29] MEDS: FUROSEMIDE 20 MG/2 ML VIAL IV SCH (10:22)
[2024-03-29] MEDS: FLUCONAZOLE 200MG/100ML 100 ML IV SCH (10:22)
[2024-03-29] MEDS: VANCOMYCIN 1GM/200ML PREMIX 200 ML IV SCH (11:31)
[2024-03-29] MEDS: ACCU-CHEK COMFORT CURVE STRIP VI SCH (11:32)
--- NOTE | 2024-03-29 11:47 | DVH ---
Bilateral lower extremity venous duplex Clinical History: dvt Comparison: US BILAT LOWER DVT on DOS: 05/16/23 Technique: Duplex Doppler evaluation of the deep venous systems of both lower extremities from the common femora l veins to the popliteal veins including color Doppler and spectral/pulsed waveform analysis was perf ormed. Findings: RIGHT SIDE: The common femoral vein demonstrates appropriate compressibility and waveform variability. There is compressibility/patency of the great saphenous vein at the proximal thigh. The femoral vein demonstrates appropriate compressibility and waveform variability. The deep femoral vein demonstrates appropriate compressibility and waveform variability. The popliteal vein demonstrates appropriate compressibility and waveform variability. There is normal compressibility at the tibioperoneal trunk. LEFT SIDE: The common femoral vein demonstrates appropriate compressibility and waveform variability. There is compressibility/patency of the great saphenous vein at the proximal thigh. The femoral vein demonstrates appropriate compressibility and waveform variability. The deep femoral vein demonstrates appropriate compressibility and waveform variability. The popliteal vein demonstrates appropriate compressibility and waveform variability. There is normal compressibility at the tibioperoneal trunk. Impression: 1. No right or left femoropopliteal venous thrombosis. HS:Y
--- NOTE | 2024-03-29 13:33 | ECG ---
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
[2024-03-29 13:41] LABS: Folate (Folic Acid) 22.27 ng/mL (>5.38)
--- NOTE | 2024-03-29 15:33 | DVHSR ---
APPROVED REPORT EXAM: Two-dimensional and M-mode echocardiogram with Doppler and color Doppler. Blood Pressure: 108/46 mmHg INDICATION EF? Thrombus? RISK FACTORS Height: 5'4", Weight: 187 DIMENSIONS LVDd (3.8-5.7cm)LA (2D)4.1 (1.9-4.0cm)Aortic Root (2.0-3.7cm) EF (%) 47.0 (55-70%)Rt. Atrium3.8 (1.9-4.0cm)Asc. Aorta cm IVSd (0.7-1.1cm)RV (D)3.7 (1.8-2.4cm) Mitral Valve MitralMitral Stenosis E wave1.22m/sMV Mean GR.mmHg A wave1.16m/sMV Peak GR.mmHg E/A ratio1.12D MVAcm2 DECEL [id number] 1/2 Timems Aortic Valve Aortic ValveAortic Stenosis V11.10m/David Mean GR.4mmHg V21.36m/David Peak GR.7mmHg LVOT Diameter2.0 (1.8-2.4cm)Doppler AVA2.54cm2 AI P 1/2 Behv893.77ms Tricuspid Valve TR Velocity2.41m/s [id number] Other Information Quality : Technically LimitedRhythm : Technically limited study due to body habitus, patient altered and lying flat, uncooperative. Conclusion Mildly reduced left ventricular systolic function estimated ejection fraction 45-50%. There is a gra de 1 diastolic dysfunction. Normal right ventricular size and dimension. Normal right ventricular systolic function. Slightly i ncreased right ventricular systolic [id number] mm of mercury Normal biatrial size and dimension. There is mild aortic valve sclerosis. There is [id number] aortic valve regurgitation. There is mild mitral valve regurgitation. There is mild tricuspid valve regurgitation. The pulmonary valve is grossly normal. No pericardial effusion.
[2024-03-29 19:05] VITALS: PULSE 71; RESP 16; O2SAT 96
--- NOTE | 2024-03-29 19:26 | DVHPNRES ---
Progress Note Date Seen: Mar 29, 2024 Resident Creating Document: CLAY HENDRIX RESIDENT Medical Necessity Reason Pt with a Central, PICC or Fol: No Subjective Review of Systems This is a 85-year-old female patient who presented to the ER with the chief complaint of abdominal pain and altered mental status. Patient has been here in this facility multiple times due to similar complaints and she has been diagnosed with yeast, Citrobacter, Enterococcus UTI previously. During my H and P, patient is responding to verbal commands, she opens her eyes spontaneously, moves her limbs on verbal commands and patient is vocal on verbal commands. She is A&O x2. Detailed history could not be taken given that the patient is drowsy and she says that she is too tired to speak. Patient was saturating 97 on 2 L NC. Per chart review, patient had UTI 1 week ago. Review of system could not be obtained. Patient seen and examined in the ER. Bilateral crackles heard in bilateral lung segura, bilateral lower extremity pitting edema. Also had suprapubic tenderness. Tele monitor reviewed, shows irregular rhythm with heart rate in 60s. In the morning, blood glucose was 33 mg/dL. Objective vital signs Vital Sign Date Time Temp Pulse Resp B/P (MAP) Pulse Ox O2 Delivery O2 Flow Rate FiO2 03/29/24 18:00 61 12 141/77 (98) 96 03/29/24 07:30 Room Air* 0 21 03/28/24 20:09 98.6 98.6 Total Intake and Output 03/28/24 03/28/24 03/29/24 15:00 23:00 07:00 Intake Total 200 ml 650 ml Output Total 1100 ml 1000 ml Balance 200 ml -450 ml -1000 ml medications Current Medications Medications Dose Ordered Sig/Maylin Route Start Time Stop Time Status Last Admin Dose Admin Docusate Sodium 100 mg BIDPRN PRN PO 03/27/24 14:15 Acetaminophen 650 mg Q6HP PRN PO 03/27/24 14:15 Enoxaparin Sodium 90 mg Q12HR SC 03/28/24 22:00 03/29/24 10:23 90 MG Hydralazine HCl 10 mg Q6HP PRN IV 03/28/24 11:00 Fluconazole 100 ml @ 100 mls/hr DAILY IV 03/29/24 10:00 03/29/24 10:22 100 MLS/HR Meropenem 50 ml @ 17 mls/hr Q8H IV 03/28/24 19:00 03/29/24 11:44 17 MLS/HR Vancomycin HCl 0 ml @ 0 mls/hr UD IV 03/28/24 13:00 Diagnostic Test (Pha) 1 strip ACHS 03/29/24 11:30 03/29/24 16:41 1 STRIP Dextrose 50 ml UD PRN IV 03/29/24 09:00 Furosemide 20 mg DAILY IV 03/29/24 10:00 03/29/24 10:22 20 MG Dextrose/Sodium Chloride 1,000 ml @ 30 mls/hr Q24H IV 03/29/24 09:00 03/29/24 09:28 30 MLS/HR Vancomycin HCl 200 ml @ 200 mls/hr Q20H IV 03/29/24 11:00 03/29/24 11:31 200 MLS/HR Examination Elderly female patient lying in bed, in no acute distress General: Obese, afebrile, palor, mucosae are moist Cardiovascular: Regular S1 and S2. No murmurs, gallops or rubs. No JVD elevation. Bilateral pitting edema 3+. Respiratory: Bilateral crackles heard on auscultation in bilateral feels on 2 L NC Abdomen: Soft, suprapubic tenderness, nondistended, normoactive bowel sounds, no rebound tenderness, no organomegaly, no masses Genitourinary: Deferred MSK/skin: Mobilizes 4 limbs. Skin is dry and warm Neurological: No motor, no sensitive deficits, normal speech. Pupils are isocoric and reactive. Psych/Mental Status: A/Ox2 laboratory and microbiology Laboratory Tests 03/29/24 05:19 03/28/24 07:04 Test 03/28/24 07:04 Range/Units Serum Glucose 58 L 74-106 mg/dL Microbiology Date/Time Source Procedure Growth Status 03/28/24 16:14 Nose MRSA Screen - Final Complete 03/27/24 11:04 Voided Urine Urine Culture - Preliminary Presumptive Lora albicans Resulted 03/27/24 10:23 Blood Blood Culture - Preliminary NO GROWTH AFTER 48 HOURS OF INCUBATION. Resulted Labs and/or images reviewed: Labs reviewed by me, Image(s) reviewed by me Problem List/Assessment/Plan Problem List/Assessment/Plan Metabolic encephalopathy secondary to acute cystitis Urine drug screen unremarkable B12 with a normal limit TSH within normal limit Head CT completed, shows no acute intracranial abnormality Carotid duplex shows no hemodynamically significant stenosis within the bilateral carotid system Sepsis likely secondary to pyelonephritis Acute cystitis with a history of recurrent UTIs Patient has a history of Citrobacter, yeast, Enterococcus UTI Urine bacterial culture preliminary report shows [id number] colony-forming units of Lora albicans Continue IV meropenem and IV vancomycin starting 03/28 Continue IV fluconazole starting 03/29 CT abdomen with IV contrast shows no acute abnormality in the abdomen or pelvis. There is a coarse calcification in the left renal cortex Sick sinus syndrome with tachy-afshna events Sinus bradycardia with intermittent rapid atrial fibrillation Atrial fibrillation secondary to likely qkghee-HHJDG-NZGf score 5, HAS BLED Score 1. Cardiology consulted-recommended pacemaker placement, therapeutic Lovenox 90 mg twice daily, transition to Eliquis when appropriate Heart failure with mildly reduced ejection fraction-EF 45-50% BNP 1 9 3, Echocardiogram completed, shows LVEF 45-50%. Grade 1 diastolic dysfunction. Slightly increased RVSP at 31 mmHg. Mild AR. Continue IV Lasix 20 mg daily Macrocytosis but no anemia MCV 101 B12, folate, blood alcohol within normal limits Symptomatic hypoglycemia secondary to sepsis Routine Accu-Cheks, D5W/NS 1 L at the rate of 30 mL/hour running Dyslipidemia We will resume home medication Ruled out lower extremity DVT Doppler ultrasound of the lower extremities unremarkable Calcified leiomyoma CT abdomen shows calcified leiomyoma. Ascending aortic aneurysm measuring 4.[address] abdomen shows AAA measuring 4.5 cm. Hypertension IV hydralazine 10 mg p.r.n. for systolic blood pressure more than 150 mmHg History of breast mass resection Monitor Morbid obesity Probable Dementia Monitor Case discussed with Dr. Cobian Plan discussed with: Patient My Orders My Orders Orders - CLAY HENDRIX RESIDENT Procedure Category Date Status Time Carotid Duplx W Color US 03/29/24 Resulted DOP 08:03 Echo 2d Mode Cardiac US 03/29/24 Resulted DOP 11:01 Bilat Lower Dvt US 03/29/24 Resulted 11:01 Cardiac DIET 03/29/24 Transmitted Diet-2gna,Lofat,Lochol Lunch Speech Pathologist CHYNA 03/29/24 In Process Eval: Swall 11:01 Strict Aspiration CHYNA 03/29/24 In Process Precautions 11:01 Fall Risk Precautions CHYNA 03/29/[address] 11:01 Mrsa Screen DARIELA 03/29/24 Uncollected 12:39 CLAY HENDRIX RESIDENT Mar 29, 2024 19:26
[2024-03-29 20:00] VITALS: BP 138/45; PULSE 59; RESP 16; TEMP 98.7; O2SAT 95
[2024-03-29 21:16] VITALS: BP 138/45; PULSE 59; RESP 16; TEMP 98.7; O2SAT 95
[2024-03-29] MEDS ORDERED: ATOR10TA52 PO (21:44)
[2024-03-29 22:00] VITALS: BP 132/47; PULSE 54; RESP 16; TEMP 98.4; O2SAT 95
[2024-03-30] VITALS (9 sets, daily range): BP systolic 108–146; BP diastolic 53–105; PULSE 56–77; RESP 16–19; TEMP 97.3–98.1; O2SAT 91–98
[2024-03-30 06:58] LABS: Basophils # (auto) 0 10 ^3/uL (0-0.2); Eosinophils # (auto) 0.1 10 ^3/uL (0-0.8); Monocytes # (auto) 0.8 10 ^3/uL (0-1.3); White Blood Cell 5.6 10^3/uL (4.4-10.8)
[2024-03-30 07:00] LABS: Basophils % (auto) 0.4 % (0.0-2.0); Eosinophils % (auto) 1.6 % (0.0-7.0); Hematocrit 36.9 % (36.0-46.0); Hemoglobin 12.3 g/dL (12.2-16.2); Lymphocytes # (auto) 1.6 10 ^3/uL (0.4-5.4); Mean Corpuscular Hemoglobin 33.7 pg (28.0-32.0); Mean Corpuscular Hgb Conc. 33.4 g/dL (32.0-36.0); Neutrophils # (auto) 3.1 10 ^3/uL (1.6-8.6); Nucleated Red Blood Cells % 0.2 %; Platelet Count (auto) 163 10^3/uL (140-450); Red Blood Cells 3.66 10^6/uL (4.0-5.20); Red Cell Distribution Width 15.6 % (11.8-14.3)
[2024-03-30 07:08] LABS: Alanine Aminotransferase 15 U/L (7-40); Albumin 3.6 g/dL (3.2-4.8); Alkaline Phosphatase 90 U/L (46-116); Anion Gap 4 (5-15); Aspartate Aminotransferase 18 U/L (13-40); BUN/Creatinine Ratio 29.7 (10.0-20.0); Bilirubin, Total 0.9 mg/dL (0.2-1.0); Blood Urea Nitrogen 19 mg/dL (9-23); Calcium 10.1 mg/dL (8.7-10.4); Carbon Dioxide 30 mmol/L (20-31); Chloride 107 mmol/L (98-107); Glucose 76 mg/dL (74-106); Magnesium 1.8 mg/dL (1.6-2.6); Potassium 3.9 mmol/L (3.5-5.1); Sodium 141 mmol/L (136-145); Total Protein 7.3 g/dL (5.7-8.2)
--- NOTE | 2024-03-30 10:13 | DVHPN2 ---
Consult Progress Note Date Seen: Mar 30, 2024 Subjective Other Systems: No overnight cardiac events reported Objective vital signs Vital Sign Date Time Temp Pulse Resp B/P (MAP) Pulse Ox O2 Delivery O2 Flow Rate FiO2 03/30/24 08:55 146/105 03/30/24 05:00 98.0 63 18 97 98.0 03/29/24 21:28 Nasal Cannula* 2 28 Total Intake and Output 03/29/24 03/29/24 03/30/24 15:00 23:00 07:00 Intake Total 501 ml 101 ml 410 ml Output Total 1700 ml 500 ml Balance 501 ml -1599 ml -90 ml medications Current Medications Medications Dose Ordered Sig/Maylin Route Start Time Stop Time Status Last Admin Dose Admin Docusate Sodium 100 mg BIDPRN PRN PO 03/27/24 14:15 Acetaminophen 650 mg Q6HP PRN PO 03/27/24 14:15 Enoxaparin Sodium 90 mg Q12HR SC 03/28/24 22:00 03/30/24 08:55 90 MG Hydralazine HCl 10 mg Q6HP PRN IV 03/28/24 11:00 Fluconazole 100 ml @ 100 mls/hr DAILY IV 03/29/24 10:00 03/30/24 08:55 100 MLS/HR Meropenem 50 ml @ 17 mls/hr Q8H IV 03/28/24 19:00 03/30/24 02:01 17 MLS/HR Vancomycin HCl 0 ml @ 0 mls/hr UD IV 03/28/24 13:00 Diagnostic Test (Pha) 1 strip ACHS 03/29/24 11:30 03/30/24 06:12 1 STRIP Dextrose 50 ml UD PRN IV 03/29/24 09:00 Furosemide 20 mg DAILY IV 03/29/24 10:00 03/30/24 08:55 20 MG Dextrose/Sodium Chloride 1,000 ml @ 30 mls/hr Q24H IV 03/29/24 09:00 03/30/24 08:56 30 MLS/HR Vancomycin HCl 200 ml @ 200 mls/hr Q20H IV 03/29/24 11:00 03/30/24 06:18 200 MLS/HR Famotidine 20 mg Q12HR IV 03/30/24 10:00 Examination: LUNGS:Normal, CVS:Normal, NEURO:Normal (A&O x 2, underlined dementia) laboratory and microbiology Laboratory Tests 03/30/24 06:16 Test 03/30/24 06:16 Range/Units Serum Glucose 76 74-106 mg/dL Problem List/Assessment/Plan Problem List/Assessment/Plan Sick sinus syndrome with tachy-afshan events Sinus bradycardia with intermittent rapid atrial fibrillation Acute on chronic HFmrEF, newly diagnosed Ascending aortic aneurysm measuring 4.5 cm Acute hypoglycemic events Hypertension Acute on chronic UTI History of breast mass resection Morbid obesity Dementia Plan/Recommendation (Dr. Martinez) Patient assessed at bedside and plan of care discussed with Dr. Martinez. The patient with sick sinus syndrome is cardiac stable at this time. There were no overnight cardiac events or further bradycardia documented. court monitor revealed frequent PACs with a heart rate as low as 55 bpm at rest. Suspected culprit of bradycardia to be secondary to acute hypoglycemic events. There are no further recommendations for invasive cardiac work-up at this time including pacemaker implantation. Avoid all atrioventricular louisa blocking agents including antiarrhythmic therapy. Transition to low-dose Eliquis therapy. Echocardiogram revealed EF 45-50%. Initiate mineralocorticoid and ACEI given HFmrEF. Avoid SGLT2i given frequent UTIs. Continue preload reduction. We will sign off at this time. Kindly call in need of further cardiac work-up. Thank you for allowing us to participate in this patient's care. Critical care time: 45 min. This medical document was created using an electronic medical record system with voice recognition software and computerized dictation system. Although this document has been carefully reviewed, there might still be some phonetic and typographical errors. Occasional wrong-word or ``sound-alike substitutions may have occurred due to the inherent limitations of voice recognition software. These areas are purely typographical due to imperfections of the software programs and do not reflect any compromise in the patient's medical care. Please read the chart carefully and recognize, using context, where these substitutions have occurred. Plan discussed with: Patient, Other Date of Service: Mar 30, 2024 Billing Provider: PAU MARTINEZ MD Cardiology Common Codes: [id number] [place] [facility] Mar 30, 2024 10:13
[2024-03-30] MEDS: SPIRONOLACTONE 25 MG TAB PO ONE (10:15)
[2024-03-30] MEDS: LISINOPRIL 5 MG TAB PO ONE (10:15)
[2024-03-30 10:20] LABS: Base Excess 3.2 mmol/L (-2.0-3.0)
[2024-03-30] MEDS: FAMOTIDINE (10MG/ML) 2ML VL IV SCH (10:31)
[2024-03-30] MEDS: MAGNESIUM SULFATE 1GM/100ML 100 ML IV ONE (10:31)
--- NOTE | 2024-03-30 11:15 | ECG ---
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
--- NOTE | 2024-03-30 12:59 | ECG ---
[facility] Test Date: 2024-03-27 Test Time: 14:02:29 Pat Name: KIAH MERCEDES Department: ed Room: 0204T A Gender: F Inside Steward/Stewardess: harshil : 1940 Requested By: CLAY HENDRIX Order Number: [id number] Reading MD: Measurements Intervals [place] Rate: 58 P: 0 [place]: 0 QRS: -9 QRSD: 159 T: 77 QT: 532 QTc: 523 Interpretive Statements Atrial fibrillation Ventricular premature complex IVCD, consider atypical LBBB Artifact in lead(s) I,III,aVR,aVL,V1,V2 Please click the below link to view image of tracing.
--- NOTE | 2024-03-30 14:25 | ECG ---
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
--- NOTE | 2024-03-30 17:44 | DVHPNRES ---
Progress Note Date Seen: Mar 30, 2024 Resident Creating Document: CLAY HENDRIX RESIDENT Medical Necessity Reason Pt with a Central, PICC or Fol: No Subjective Review of Systems This is a 85-year-old female patient who presented to the ER with the chief complaint of abdominal pain and altered mental status. Patient has been here in this facility multiple times due to similar complaints and she has been diagnosed with yeast, Citrobacter, Enterococcus UTI previously. During my H and P, patient is responding to verbal commands, she opens her eyes spontaneously, moves her limbs on verbal commands and patient is vocal on verbal commands. She is A&O x2. Detailed history could not be taken given that the patient is drowsy and she says that she is too tired to speak. Patient was saturating 97 on 2 L NC. Per chart review, patient had UTI 1 week ago. Review of system could not be obtained. 03/29 - Patient seen and examined at bedside. Bilateral crackles heard in bilateral lung segura, bilateral lower extremity pitting edema. Also had suprapubic tenderness. Tele monitor reviewed, shows irregular rhythm with heart rate in 60s. In the morning, blood glucose was 33 mg/dL. 03/30 - patient is A&O x1 during the morning hours, A&O x3 during afternoon. Patient failed swallow request. Cardiology started lisinopril 5 mg daily, spironolactone 12.5 daily, apixaban 2.5 mg twice daily. ABG on nasal cannula 2 L completed, shows pH 7.4, bicarb is 27, pCO2 42, PO2 104. MRSA screen is positive. Urine culture shows presumptive Lora. Objective vital signs Vital Sign Date Time Temp Pulse Resp B/P (MAP) Pulse Ox O2 Delivery O2 Flow Rate FiO2 03/30/24 16:32 98.1 77 18 127/53 (77) 93 98.1 03/30/24 08:00 Nasal Cannula* 2 28 Total Intake and Output 03/29/24 03/29/24 03/30/24 15:00 23:00 07:00 Intake Total 501 ml 101 ml 410 ml Output Total 1700 ml 500 ml Balance 501 ml -1599 ml -90 ml medications Current Medications Medications Dose Ordered Sig/Maylin Route Start Time Stop Time Status Last Admin Dose Admin Docusate Sodium 100 mg BIDPRN PRN PO 03/27/24 14:15 Acetaminophen 650 mg Q6HP PRN PO 03/27/24 14:15 Hydralazine HCl 10 mg Q6HP PRN IV 03/28/24 11:00 Fluconazole 100 ml @ 100 mls/hr DAILY IV 03/29/24 10:00 03/30/24 08:55 100 MLS/HR Meropenem 50 ml @ 17 mls/hr Q8H IV 03/28/24 19:00 03/30/24 12:55 17 MLS/HR Vancomycin HCl 0 ml @ 0 mls/hr UD IV 03/28/24 13:00 Diagnostic Test (Pha) 1 strip ACHS 03/29/24 11:30 03/30/24 11:36 1 STRIP Dextrose 50 ml UD PRN IV 03/29/24 09:00 Furosemide 20 mg DAILY IV 03/29/24 10:00 03/30/24 08:55 20 MG Dextrose/Sodium Chloride 1,000 ml @ 30 mls/hr Q24H IV 03/29/24 09:00 03/30/24 11:00 30 MLS/HR Vancomycin HCl 200 ml @ 200 mls/hr Q20H IV 03/29/24 11:00 03/30/24 06:18 200 MLS/HR Famotidine 20 mg Q12HR IV 03/30/24 10:00 03/30/24 10:31 20 MG Apixaban 2.5 mg BID PO 03/30/24 22:00 Spironolactone 12.5 mg DAILY PO 03/31/24 10:00 Lisinopril 5 mg DAILY PO 03/31/24 10:00 Examination Elderly female patient lying in bed, in no acute distress General: Obese, afebrile, palor, mucosae are moist Cardiovascular: Regular S1 and S2. No murmurs, gallops or rubs. No JVD elevation. Bilateral pitting edema 3+. Respiratory: Bilateral crackles heard on auscultation in bilateral feels on 2 L NC Abdomen: Soft, suprapubic tenderness, nondistended, normoactive bowel sounds, no rebound tenderness, no organomegaly, no masses Genitourinary: Deferred MSK/skin: Mobilizes 4 limbs. Skin is dry and warm Neurological: No motor, no sensitive deficits, normal speech. Pupils are isocoric and reactive. Psych/Mental Status: Patient has fluctuating level of consciousness A&O x1 in the a.m., A&O x3 in the p.m. laboratory and microbiology Laboratory Tests 03/30/24 06:16 Test 03/30/24 06:16 Range/Units Serum Glucose 76 74-106 mg/dL Microbiology Date/Time Source Procedure Growth Status 03/29/24 22:50 Nose MRSA Screen - Final Methicillin Resistant S.aureus Complete 03/27/24 11:04 Voided Urine Urine Culture - Final Presumptive Lora albicans Complete 03/27/24 10:23 Blood Blood Culture - Preliminary NO GROWTH AFTER 72 HOURS OF INCUBATION. Resulted Labs and/or images reviewed: Labs reviewed by me, Image(s) reviewed by me Problem List/Assessment/Plan Problem List/Assessment/Plan Metabolic encephalopathy secondary to acute cystitis Urine drug screen unremarkable B12 with a normal limit TSH within normal limit Head CT completed, shows no acute intracranial abnormality Carotid duplex shows no hemodynamically significant stenosis within the bilateral carotid system Ammonia 18 Sepsis likely secondary to pyelonephritis Acute cystitis with a history of recurrent UTIs Patient has a history of Citrobacter, yeast, Enterococcus UTI Urine bacterial culture preliminary report shows [id number] colony-forming units of Lora albicans Continue IV meropenem and IV vancomycin starting 03/28 Continue IV fluconazole starting 03/29 CT abdomen with IV contrast shows no acute abnormality in the abdomen or pelvis. There is a coarse calcification in the left renal cortex Sick sinus syndrome with tachy-afshan events Sinus bradycardia with intermittent rapid atrial fibrillation Atrial fibrillation secondary to likely [id number]-[id number] score 5, HAS BLED Score 1. 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 Grade 1 diastolic dysfunction. Slightly increased RVSP at 31 mmHg. Mild AR. Continue IV Lasix 20 mg daily Cardiology on the case-started lisinopril 5 mg daily, spironolactone 12.5 mg daily Macrocytosis but no anemia MCV 101 B12, folate, blood alcohol within normal limits Symptomatic hypoglycemia secondary to sepsis Routine Accu-Cheks, D5W/NS 1 L at the rate of 30 mL/hour running Dyslipidemia We will resume home medication Ruled out lower extremity DVT Doppler ultrasound of the lower extremities unremarkable Calcified leiomyoma CT abdomen shows calcified leiomyoma. Ascending aortic aneurysm measuring 4.[address] abdomen shows AAA measuring 4.5 cm. Hypertension IV hydralazine 10 mg p.r.n. for systolic blood pressure more than 150 mmHg History of breast mass resection Monitor Morbid obesity Probable Dementia Monitor Failed swallow eval Diet: NPO TPN per pharmacy Plan discussed with the daughter over the phone, all questions have been answered Case discussed with Dr. Cobian Plan discussed with: Patient, Daughter (Over the phone) My Orders My Orders Orders - CLAY HENDRIX Procedure Category Date Status Time Abg W/ Co-Ox RT 03/30/24 Logged 09:47 Famotidine Injection PHA 03/30/24 In Process (Pepcid Injection) 10:00 Date of Service: Mar 30, 2024 Billing Provider: APOLINAR VELASQUEZ MD Common Visit Codes: [id number] INP/OBS CARE(HIGH) CLAY HENDRIX Mar 30, 2024 17:44 APOLINAR VELASQUEZ MD Mar 31, 2024 09:36
[2024-03-30] MEDS ORDERED: TPN PER PHARMACY 0 ML IV SCH (21:00)
[2024-03-30] MEDS: APIXABAN 2.5 MG TAB PO SCH (22:00)
[2024-03-31] VITALS (8 sets, daily range): BP systolic 121–150; BP diastolic 51–69; PULSE 51–103; RESP 18–19; TEMP 94–99; O2SAT 90–97
[2024-03-31] MEDS: InsuLIN REG 1unit/0.01ml Soln (100units/ml) SC SCH
[2024-03-31] MEDS ORDERED: DEXTROSE (50%) 50ML SYRG IV SCH
[2024-03-31] MEDS: ACCU-CHEK COMFORT CURVE STRIP VI SCH (00:21)
[2024-03-31] MEDS: AMINO ACID INFUSION IN D10W 1,000 ML IV SCH (00:22)
--- NOTE | 2024-03-31 05:00 | DVH ---
CHEST RADIOGRAPH Indication: congestion Technique: Single frontal view of the chest was obtained COMPARISON: XY CHEST XRAY 1 VIEW on DOS: 03/27/24, XY CHEST PORTABLE on DOS: 08/22/23, XY CHEST PORTABLE on DOS: 08/15/23 FINDINGS: Lines and Tubes: None Lungs: Diffuse increased interstitial prominence. Pleura: No effusion. No pneumothorax. Cardiomediastinal contours: Unremarkable Bones: Unremarkable IMPRESSION: Congestion versus chronic fibrotic changes, unchanged. Clinical correlation advised.
[2024-03-31 07:38] LABS: Basophils # (auto) 0 10 ^3/uL (0-0.2); Basophils % (auto) 0.3 % (0.0-2.0); Eosinophils # (auto) 0.1 10 ^3/uL (0-0.8); Eosinophils % (auto) 1.5 % (0.0-7.0); Hematocrit 37.7 % (36.0-46.0); Hemoglobin 12.4 g/dL (12.2-16.2); Lymphocytes # (auto) 1.7 10 ^3/uL (0.4-5.4); Lymphocytes % (auto) 26.8 % (10.0-50.0); Mean Corpuscular Hemoglobin 33.3 pg (28.0-32.0); Mean Corpuscular Hgb Conc. 32.9 g/dL (32.0-36.0); Mean Corpuscular Volume 101.2 fL (80.0-100.0); Monocytes # (auto) 0.9 10 ^3/uL (0-1.3); Monocytes % (auto) 14.3 % (0.0-12.0); Neutrophils # (auto) 3.5 10 ^3/uL (1.6-8.6); Neutrophils % (auto) 57.1 % (37.0-80.0); Nucleated Red Blood Cells % 0.2 %; Platelet Count (auto) 170 10^3/uL (140-450); Red Blood Cells 3.73 10^6/uL (4.0-5.20); Red Cell Distribution Width 15.4 % (11.8-14.3); White Blood Cell 6.2 10^3/uL (4.4-10.8)
[2024-03-31 07:54] LABS: Alanine Aminotransferase 15 U/L (7-40); Albumin 3.5 g/dL (3.2-4.8); Alkaline Phosphatase 91 U/L (46-116); Anion Gap 7 (5-15); Aspartate Aminotransferase 21 U/L (13-40); BUN/Creatinine Ratio 27.7 (10.0-20.0); Blood Urea Nitrogen 18 mg/dL (9-23); Calcium 9.9 mg/dL (8.7-10.4); Carbon Dioxide 28 mmol/L (20-31); Chloride 106 mmol/L (98-107); Glucose 97 mg/dL (74-106); Magnesium 1.7 mg/dL (1.6-2.6); Sodium 141 mmol/L (136-145); Triglycerides 72 mg/dL (< 150)
[2024-03-31 07:55] LABS: Bilirubin, Total 0.8 mg/dL (0.2-1.0); Phosphorus 2.5 mg/dL (2.4-5.1); Total Protein 7.7 g/dL (5.7-8.2)
[2024-03-31] MEDS: LISINOPRIL 5 MG TAB PO SCH (10:00)
[2024-03-31] MEDS: SPIRONOLACTONE 25 MG TAB PO SCH (10:00)
--- NOTE | 2024-03-31 14:27 | DVHPNRES ---
Progress Note Date Seen: Mar 31, 2024 Resident Creating Document: CLAY HENDRIX RESIDENT Medical Necessity Reason Pt with a Central, PICC or Fol: No Subjective Review of Systems Dot Jimenez is a 85-year-old female patient who presented to the ER with the chief complaint of abdominal pain and altered mental status. Patient has been here in this facility multiple times due to similar complaints and she has been diagnosed with yeast, Citrobacter, Enterococcus UTI previously. During my H and P, patient is responding to verbal commands, she opens her eyes spontaneously, moves her limbs on verbal commands and patient is vocal on verbal commands. She is A&O x2. Detailed history could not be taken given that the patient is drowsy and she says that she is too tired to speak. Patient was saturating 97 on 2 L NC. Per chart review, patient had UTI 1 week ago. Review of system could not be obtained. 03/29 - Patient seen and examined at bedside. Bilateral crackles heard in bilateral lung segura, bilateral lower extremity pitting edema. Also had suprapubic tenderness. Tele monitor reviewed, shows irregular rhythm with heart rate in 60s. In the morning, blood glucose was 33 mg/dL. 03/30 - patient is A&O x1 during the morning hours, A&O x3 during afternoon. Patient failed swallow request. Cardiology started lisinopril 5 mg daily, spironolactone 12.5 daily, apixaban 2.5 mg twice daily. ABG on nasal cannula 2 L completed, shows pH 7.4, bicarb is 27, pCO2 42, PO2 104. MRSA screen is positive. Urine culture shows presumptive Lora. Started TPN diet. 03/31 - patient looks better, A&O x3 in the a.m. lower extremity tenderness on examination. Reports no distress. Swallow evaluation tomorrow 04/01. DC vancomycin. Objective vital signs Vital Sign Date Time Temp Pulse Resp B/P (MAP) Pulse Ox O2 Delivery O2 Flow Rate FiO2 03/31/24 13:07 98.6 51 18 131/59 (83) 96 98.6 03/31/24 08:00 Nasal Cannula* 2 28 Total Intake and Output 03/30/24 03/30/24 03/31/24 15:00 23:00 07:00 Intake Total 150 ml 410 ml 200 ml Output Total 1400 ml 350 ml Balance 150 ml -990 ml -150 ml medications Current Medications Medications Dose Ordered Sig/Maylin Route Start Time Stop Time Status Last Admin Dose Admin Docusate Sodium 100 mg BIDPRN PRN PO 03/27/24 14:15 Acetaminophen 650 mg Q6HP PRN PO 03/27/24 14:15 Hydralazine HCl 10 mg Q6HP PRN IV 03/28/24 11:00 Fluconazole 100 ml @ 100 mls/hr DAILY IV 03/29/24 10:00 03/31/24 08:56 100 MLS/HR Meropenem 50 ml @ 17 mls/hr Q8H IV 03/28/24 19:00 03/31/24 11:17 17 MLS/HR Furosemide 20 mg DAILY IV 03/29/24 10:00 03/31/24 08:57 20 MG Dextrose/Sodium Chloride 1,000 ml @ 30 mls/hr Q24H IV 03/29/24 09:00 03/30/24 11:00 30 MLS/HR Famotidine 20 mg Q12HR IV 03/30/24 10:00 03/31/24 08:56 20 MG Apixaban 2.5 mg BID PO 03/30/24 22:00 Spironolactone 12.5 mg DAILY PO 03/31/24 10:00 Lisinopril 5 mg DAILY PO 03/31/24 10:00 Amino Acids 0 ml @ 0 mls/hr PER PHARMACY IV 03/30/24 21:00 Amino Acids/ Electrolytes/ Dextrose 1,000 ml @ 41 mls/hr DAILY@2200 IV 03/30/24 22:00 03/31/24 21:59 03/31/24 00:22 41 MLS/HR Diagnostic Test (Pha) 1 strip Q6HR 03/31/24 00:00 03/31/24 11:30 1 STRIP Insulin Human Regular FOLLOW SLIDING SCALE Q6HR SC 03/31/24 00:00 Dextrose 50 ml UD IV 03/31/24 00:00 Fat Emulsion Intravenous 50 ml/ Potassium Phosphate 11 meq/ Magnesium Sulfate 8 meq/ Multivitamins 10 ml/Chromium/ Copper/Manganese/ Zinc 1 ml/Amino Acids/Dextrose/ Purified Water 1,065.5 ml @ 44 mls/hr [id number] IV 03/31/24 22:00 04/01/24 21:59 Mupirocin 1 applic BID EACHNOSTRI 03/31/24 22:00 04/05/24 21:59 Examination Elderly female patient lying in bed, in no acute distress General: Obese, afebrile, palor, mucosae are moist Cardiovascular: Regular S1 and S2. No murmurs, gallops or rubs. No JVD elevation. Bilateral pitting edema 3+. Respiratory: Bilateral crackles heard on auscultation in bilateral feels on 2 L NC Abdomen: Soft, suprapubic tenderness, nondistended, normoactive bowel sounds, no rebound tenderness, no organomegaly, no masses Genitourinary: Deferred MSK/skin: Mobilizes 4 limbs. Skin is dry and warm Neurological: No motor, no sensitive deficits, normal speech. Pupils are isocoric and reactive. Psych/Mental Status: Patient has fluctuating level of consciousness laboratory and microbiology Laboratory Tests 03/31/24 07:22 Test 03/31/24 07:22 Range/Units Serum Glucose 97 74-106 mg/dL Microbiology Date/Time Source Procedure Growth Status 03/29/24 22:50 Nose MRSA Screen - Final Methicillin Resistant S.aureus Complete 03/27/24 11:04 Voided Urine Urine Culture - Final Presumptive Lora albicans Complete 03/27/24 10:23 Blood Blood Culture - Preliminary NO GROWTH AFTER 72 HOURS OF INCUBATION. Resulted Labs and/or images reviewed: Labs reviewed by me, Image(s) reviewed by me Problem List/Assessment/Plan Problem List/Assessment/Plan Metabolic encephalopathy secondary to acute cystitis Urine drug screen unremarkable B12 with a normal limit TSH within normal limit Head CT completed, shows no acute intracranial abnormality Carotid duplex shows no hemodynamically significant stenosis within the bilateral carotid system Ammonia 18 Sepsis likely secondary to pyelonephritis Acute cystitis with a history of recurrent UTIs Patient has a history of Citrobacter, yeast, Enterococcus UTI Urine bacterial culture preliminary report shows [id number] colony-forming units of Lora albicans MRSA screen is positive Preliminary blood culture shows no growth after 72 hours of incubation Continue IV meropenem starting 03/28 Continue IV fluconazole starting 03/29 Received IV vancomycin 03/28 to 03/31 CT abdomen with IV contrast shows no acute abnormality in the abdomen or pelvis. There is a coarse calcification in the left renal cortex Sick sinus syndrome with tachy-afshan events Sinus bradycardia with intermittent rapid atrial fibrillation Atrial fibrillation secondary to likely urxqnp-BVRYH-RHYz score 5, HAS BLED Score 1. 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 Grade 1 diastolic dysfunction. Slightly increased RVSP at 31 mmHg. Mild AR. Continue IV Lasix 20 mg daily Cardiology - started lisinopril 5 mg daily, spironolactone 12.5 mg daily Macrocytosis but no anemia MCV 101 B12, folate, blood alcohol within normal limits Symptomatic hypoglycemia secondary to sepsis Routine Accu-Cheks, D5W/NS 1 L at the rate of 30 mL/hour running Dyslipidemia We will resume home medication Ruled out lower extremity DVT Doppler ultrasound of the lower extremities unremarkable Calcified leiomyoma CT abdomen shows calcified leiomyoma. Ascending aortic aneurysm measuring 4.[address] abdomen shows AAA measuring 4.5 cm. Hypertension IV hydralazine 10 mg p.r.n. for systolic blood pressure more than 150 mmHg History of breast mass resection Monitor Morbid obesity Probable Dementia Monitor Failed swallow eval Repeat swallow evaluation 04/01 Diet: NPO TPN per pharmacy Plan discussed with the daughter over the phone, all questions have been answered Goals of care discussed with the daughter over the phone, full code status Case discussed with Dr. Cobian Plan discussed with: Patient, Daughter (Over phone) My Orders My Orders Orders - CLAY HENDRIX RESIDENT Procedure Category Date Status Time Tpn Per Pharmacy [facility] 03/30/24 In Process 17:44 TPN ORDERS 03/30/24 Transmitted 17:44 Tpn Per Pharmacy PHA 03/30/24 In Process 21:00 Glucose Blood PHA 03/31/24 In Process (Accu-Chek Comfort 00:00 Insulin R (Human) PHA 03/31/24 In Process (Insulin R) 00:00 Dextrose 50% Syringe PHA 03/31/24 In Process 00:00 Amino Acid PHA 03/31/24 In Process Infusion... W/Fat 22:00 Comprehensive LAB 04/01/24 Verified Metabolic Panel 05:00 Magnesium LAB 04/01/24 Verified 05:00 Phosphorus LAB 04/01/24 Verified 05:00 Ppn Per Pharmacy [facility] 03/31/24 In Process 22:00 Dietary Evaluation Review Comments: 1) If pt appetite remains negligible, increase TPN to meet at least 75% of estimated needs 2) Advance pt diet when medically reasible to a Cardiac diet 3) Continue current plan of care Expected Outcomes/Goals: F/U in 2-3 days Date of Service: Mar 31, 2024 Billing Provider: APOLINAR VELASQUEZ MD Common Visit Codes: [id number] INP/OBS CARE(HIGH) CLAY HENDRIX RESIDENT Mar 31, 2024 14:27 APOLINAR VELASQUEZ MD Apr 01, 2024 19:00
[2024-03-31] MEDS: MUPIROCIN 2% OINT 15gm or 22gm FOR MRSA NARES EACHNOSTRI SCH (15:24)
[2024-03-31] MEDS ORDERED: MUPIROCIN 2% OINT 15gm or 22gm FOR MRSA NARES EACHNOSTRI SCH (22:00)
[2024-04-01] VITALS (8 sets, daily range): BP systolic 104–142; BP diastolic 37–76; PULSE 56–71; RESP 18–19; TEMP 97.8–98.1; O2SAT 91–100
[2024-04-01] MEDS: PPN PER PHARMACY IV NR (00:24)
[2024-04-01 07:48] LABS: Basophils # (auto) 0 10 ^3/uL (0-0.2); Basophils % (auto) 0.5 % (0.0-2.0); Eosinophils # (auto) 0.1 10 ^3/uL (0-0.8); Eosinophils % (auto) 2.6 % (0.0-7.0); Hematocrit 36.1 % (36.0-46.0); Lymphocytes # (auto) 1.9 10 ^3/uL (0.4-5.4); Lymphocytes % (auto) 36.7 % (10.0-50.0); Mean Corpuscular Hemoglobin 33.7 pg (28.0-32.0); Mean Corpuscular Hgb Conc. 33.3 g/dL (32.0-36.0); Mean Corpuscular Volume 101.3 fL (80.0-100.0); Monocytes # (auto) 0.9 10 ^3/uL (0-1.3); Monocytes % (auto) 16.5 % (0.0-12.0); Neutrophils # (auto) 2.3 10 ^3/uL (1.6-8.6); Neutrophils % (auto) 43.7 % (37.0-80.0); Nucleated Red Blood Cells % 0.2 %; Platelet Count (auto) 163 10^3/uL (140-450); Red Blood Cells 3.56 10^6/uL (4.0-5.20); Red Cell Distribution Width 15.2 % (11.8-14.3); White Blood Cell 5.2 10^3/uL (4.4-10.8)
[2024-04-01 07:52] LABS: Alanine Aminotransferase 19 U/L (7-40); Albumin 3.3 g/dL (3.2-4.8); Alkaline Phosphatase 82 U/L (46-116); Anion Gap 9 (5-15); Aspartate Aminotransferase 29 U/L (13-40); BUN/Creatinine Ratio 52.6 (10.0-20.0); Calcium 9.5 mg/dL (8.7-10.4); Carbon Dioxide 26 mmol/L (20-31); Chloride 106 mmol/L (98-107); Glucose 84 mg/dL (74-106); Magnesium 1.7 mg/dL (1.6-2.6); Potassium 4.2 mmol/L (3.5-5.1); Sodium 141 mmol/L (136-145)
[2024-04-01 07:53] LABS: Bilirubin, Total 0.7 mg/dL (0.2-1.0); Phosphorus 2.8 mg/dL (2.4-5.1); Total Protein 6.7 g/dL (5.7-8.2)
[2024-04-01 07:55] LABS: Blood Urea Nitrogen 30 mg/dL (9-23)
[2024-04-01] MEDS ORDERED: DEXTROSE (50%) 50ML SYRG IV SCH ×2 (10:00→10:45)
[2024-04-01] MEDS: InsuLIN REG 1unit/0.01ml Soln (100units/ml) SC SCH (10:00)
[2024-04-01] MEDS: ACCU-CHEK COMFORT CURVE STRIP VI SCH ×2 (10:00→22:38)
--- NOTE | 2024-04-01 10:46 | DVHPNRES ---
Progress Note Date Seen: Apr 01, 2024 Resident Creating Document: CLAY HENDRIX RESIDENT Medical Necessity Reason Pt with a Central, PICC or Fol: No Subjective Review of Systems Dot Jimenez is a 85-year-old female patient who presented to the ER with the chief complaint of abdominal pain and altered mental status. Patient has been here in this facility multiple times due to similar complaints and she has been diagnosed with yeast, Citrobacter, Enterococcus UTI previously. During my H and P, patient is responding to verbal commands, she opens her eyes spontaneously, moves her limbs on verbal commands and patient is vocal on verbal commands. She is A&O x2. Detailed history could not be taken given that the patient is drowsy and she says that she is too tired to speak. Patient was saturating 97 on 2 L NC. Per chart review, patient had UTI 1 week ago. Review of system could not be obtained. 03/29 - Patient seen and examined at bedside. Bilateral crackles heard in bilateral lung segura, bilateral lower extremity pitting edema. Also had suprapubic tenderness. Tele monitor reviewed, shows irregular rhythm with heart rate in 60s. In the morning, blood glucose was 33 mg/dL. 03/30 - patient is A&O x1 during the morning hours, A&O x3 during afternoon. Patient failed swallow request. Cardiology started lisinopril 5 mg daily, spironolactone 12.5 daily, apixaban 2.5 mg twice daily. ABG on nasal cannula 2 L completed, shows pH 7.4, bicarb is 27, pCO2 42, PO2 104. MRSA screen is positive. Urine culture shows presumptive Lora. Started TPN diet. 03/31 - patient looks better, A&O x3 in the a.m. lower extremity tenderness on examination. Reports no distress. Swallow evaluation tomorrow 04/01. DC vancomycin. 04/01 - overnight, patient was agitated and was pulling her lines therefore she was move to new room. patient was A&O x1 in the a.m.. GCS is fluctuating. Patient becomes more alert during the later hours. Daughter at bedside reports that this is nothing new and it takes 8-10 days before patient becomes fully oriented after UTI. Objective vital signs Vital Sign Date Time Temp Pulse Resp B/P (MAP) Pulse Ox O2 Delivery O2 Flow Rate FiO2 04/01/24 10:00 104/76 04/01/24 08:20 61 19 97 Nasal Cannula* 2 28 03/31/24 21:00 97.6 97.6 Total Intake and Output 03/31/24 03/31/24 04/01/24 15:00 23:00 07:00 Intake Total 200 ml 460 ml Output Total 850 ml 25 ml Balance 200 ml -390 ml -25 ml medications Current Medications Medications Dose Ordered Sig/Maylin Route Start Time Stop Time Status Last Admin Dose Admin Docusate Sodium 100 mg BIDPRN PRN PO 03/27/24 14:15 Acetaminophen 650 mg Q6HP PRN PO 03/27/24 14:15 Hydralazine HCl 10 mg Q6HP PRN IV 03/28/24 11:00 Fluconazole 100 ml @ 100 mls/hr DAILY IV 03/29/24 10:00 04/01/24 10:09 100 MLS/HR Meropenem 50 ml @ 17 mls/hr Q8H IV 03/28/24 19:00 04/01/24 04:28 17 MLS/HR Furosemide 20 mg DAILY IV 03/29/24 10:00 03/31/24 08:57 20 MG Famotidine 20 mg Q12HR IV 03/30/24 10:00 04/01/24 10:09 20 MG Apixaban 2.5 mg BID PO 03/30/24 22:00 04/01/24 00:14 2.5 MG Spironolactone 12.5 mg DAILY PO 03/31/24 10:00 Lisinopril 5 mg DAILY PO 03/31/24 10:00 Amino Acids 0 ml @ 0 mls/hr PER PHARMACY IV 03/30/24 21:00 Fat Emulsion Intravenous 50 ml/ Potassium Phosphate 11 meq/ Magnesium Sulfate 8 meq/ Multivitamins 10 ml/Chromium/ Copper/Manganese/ Zinc 1 ml/Amino Acids/Dextrose/ Purified Water 1,065.5 ml @ 44 mls/hr [id number] IV 03/31/24 22:00 04/01/24 21:59 04/01/24 00:24 44 MLS/HR Mupirocin 1 applic BID EACHNOSTRI 03/31/24 15:00 04/05/24 14:59 04/01/24 10:09 1 APPLIC Diagnostic Test (Pha) 1 strip Q6HR 04/01/24 10:00 Insulin Human Regular FOLLOW SLIDING SCALE Q6HR SC 04/01/24 10:00 Dextrose 50 ml UD IV 04/01/24 10:45 UNV Examination Elderly female patient lying in bed, in no acute distress General: Obese, afebrile, palor, mucosae are moist Cardiovascular: Regular S1 and S2. No murmurs, gallops or rubs. No JVD elevation. Bilateral pitting edema 3+. Respiratory: Bilateral crackles heard on auscultation in bilateral feels on 2 L NC Abdomen: Soft, suprapubic tenderness, nondistended, normoactive bowel sounds, no rebound tenderness, no organomegaly, no masses Genitourinary: Deferred MSK/skin: Mobilizes 4 limbs. Skin is dry and warm Neurological: No motor, no sensitive deficits, normal speech. Pupils are isocoric and reactive. Psych/Mental Status: Patient has fluctuating level of consciousness laboratory and microbiology Laboratory Tests 04/01/24 07:00 Test 04/01/24 07:00 Range/Units Serum Glucose 84 74-106 mg/dL Microbiology Date/Time Source Procedure Growth Status 03/29/24 22:50 Nose MRSA Screen - Final Methicillin Resistant S.aureus Complete 03/27/24 11:04 Voided Urine Urine Culture - Final Presumptive Lora albicans Complete 03/27/24 10:23 Blood Blood Culture - Final NO GROWTH AFTER 5 DAYS OF INCUBATION. Complete Labs and/or images reviewed: Labs reviewed by me, Image(s) reviewed by me Problem List/Assessment/Plan Problem List/Assessment/Plan Metabolic encephalopathy secondary to acute cystitis Urine drug screen unremarkable B12 with a normal limit TSH within normal limit Head CT completed, shows no acute intracranial abnormality Carotid duplex shows no hemodynamically significant stenosis within the bilateral carotid system Ammonia 18 MRI brain ordered to rule out stroke Neurologic consultation for persistent ALOC Sepsis likely secondary to pyelonephritis Acute cystitis with a history of recurrent UTIs Patient has a history of Citrobacter, yeast, Enterococcus UTI Urine bacterial culture [place] [id number] colony-forming units of Lora albicans MRSA screen is positive Preliminary blood culture shows no growth after 72 hours of incubation Continue IV meropenem starting 03/28 Continue IV fluconazole starting 03/29 Received IV vancomycin 03/28 to 03/31 CT abdomen with IV contrast shows no acute abnormality in the abdomen or pelvis. There is a coarse calcification in the left renal cortex Sick sinus syndrome with tachy-afshan events Sinus bradycardia with intermittent rapid atrial fibrillation Atrial fibrillation secondary to likely nulrim-PONQE-JVNm score 5, HAS BLED Score 1. 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 Grade 1 diastolic dysfunction. Slightly increased RVSP at 31 mmHg. Mild AR. Continue IV Lasix 20 mg daily Cardiology - started lisinopril 5 mg daily, spironolactone 12.5 mg daily Macrocytosis but no anemia MCV 101 B12, folate, blood alcohol within normal limits Symptomatic hypoglycemia secondary to sepsis Routine Accu-Cheks, D5W/NS 1 L at the rate of 30 mL/hour running Dyslipidemia We will resume home medication Ruled out lower extremity DVT Doppler ultrasound of the lower extremities unremarkable Calcified leiomyoma CT abdomen shows calcified leiomyoma. Ascending aortic aneurysm measuring 4.[address] abdomen shows AAA measuring 4.5 cm. Hypertension IV hydralazine 10 mg p.r.n. for systolic blood pressure more than 150 mmHg History of breast mass resection Monitor Morbid obesity Probable Dementia Monitor Failed swallow eval 03/30 Repeat swallow evaluation 04/01 - patient able to tolerate pureed diet with nectar thick liquids with no overt signs or symptoms of aspiration Diet: DC TPN, started clear liquid diet Plan discussed with the daughter present at bedside, all questions have been answered Goals of care discussed with the daughter over the phone, full code status Case discussed with Dr. Cobian. MRI brain pending. Plan discussed with: Patient, Daughter My Orders My Orders Orders - CLAY HENDRIX Procedure Category Date Status Time Amino Acid PHA 03/31/24 In Process Infusion... W/Fat 22:00 Ppn Per Pharmacy [facility]YNA 03/31/24 In Process 22:00 Mupirocin 2% Oint PHA 03/31/24 In Process Mrsa Nares (Bactroban 15:00 * Swallow Request ST 04/01/24 Transmitted 10:45 Dietary Evaluation Review Comments: 1) If pt appetite remains negligible, increase TPN to meet at least 75% of estimated needs 2) Advance pt diet when medically reasible to a Cardiac diet 3) Continue current plan of care Expected Outcomes/Goals: F/U in 2-3 days Date of Service: Apr 01, 2024 Billing Provider: APOLINAR VELASQUEZ MD Common Visit Codes: [id number] INP/OBS CARE(HIGH) Coding Comment Comment Patient remains anal times 3-4 since the duration of the stay. However despite treating her UTI she continues to wax and wane in mentation and remains hypersomnolent despite no analgesics/opiates/sedatives. 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 The prognosis is guarded and daughter also appears to be guarded to outside this poor prognosis. Per daughter "she remains like this for months before improving". We will continue to treat and we will get an expert advice with neurology. I have reviewed the resident's note and agree with the findings and plan of care as documented. CLAY HENDRIX RESIDENT Apr 01, 2024 10:46 APOLINAR VELASQUEZ MD Apr 01, 2024 18:39
[2024-04-01] MEDS ORDERED: DEXTROSE (50%) 50ML SYRG IV PRN (18:45)
[2024-04-01] MEDS ORDERED: PPN PER PHARMACY IV NR (22:00)
[2024-04-01] MEDS: MEROPENEM 1GM IVPB 50 ML IV SCH (23:22)
[2024-04-02] VITALS (8 sets, daily range): BP systolic 110–130; BP diastolic 38–64; PULSE 63–67; RESP 16–19; TEMP 97.6–98; O2SAT 94–100
[2024-04-02 07:03] LABS: Chloride 107 mmol/L (98-107); Potassium 4.3 mmol/L (3.5-5.1); Sodium 142 mmol/L (136-145)
[2024-04-02 07:04] LABS: Anion Gap 9 (5-15); Calcium 9.9 mg/dL (8.7-10.4); Carbon Dioxide 26 mmol/L (20-31)
[2024-04-02 07:09] LABS: BUN/Creatinine Ratio 56.5 (10.0-20.0); Blood Urea Nitrogen 39 mg/dL (9-23); Glucose 70 mg/dL (74-106)
[2024-04-02 07:24] LABS: Basophils # (auto) 0 10 ^3/uL (0-0.2); Basophils % (auto) 0.5 % (0.0-2.0); Eosinophils # (auto) 0.3 10 ^3/uL (0-0.8); Eosinophils % (auto) 3.7 % (0.0-7.0); Hematocrit 36.7 % (36.0-46.0); Hemoglobin 12.1 g/dL (12.2-16.2); Lymphocytes # (auto) 2.7 10 ^3/uL (0.4-5.4); Lymphocytes % (auto) 38.7 % (10.0-50.0); Mean Corpuscular Hemoglobin 33.2 pg (28.0-32.0); Mean Corpuscular Volume 100.6 fL (80.0-100.0); Monocytes # (auto) 0.9 10 ^3/uL (0-1.3); Monocytes % (auto) 13.8 % (0.0-12.0); Neutrophils % (auto) 43.3 % (37.0-80.0); Nucleated Red Blood Cells % 0.4 %; Platelet Count (auto) 142 10^3/uL (140-450); Red Blood Cells 3.65 10^6/uL (4.0-5.20); Red Cell Distribution Width 15.4 % (11.8-14.3); White Blood Cell 6.9 10^3/uL (4.4-10.8)
[2024-04-02 07:42] LABS: Anisocytosis Slight; Macrocytosis Slight; Platelet Estimate Adequate
--- NOTE | 2024-04-02 11:18 | DVHPNRES ---
Progress Note Date Seen: Apr 02, 2024 Resident Creating Document: CLAY HENDRIX RESIDENT Medical Necessity Reason Pt with a Central, PICC or Fol: No Subjective Review of Systems Dot Jimenez is a 85-year-old female patient who presented to the ER with the chief complaint of abdominal pain and altered mental status. Patient has been here in this facility multiple times due to similar complaints and she has been diagnosed with yeast, Citrobacter, Enterococcus UTI previously. During my H and P, patient is responding to verbal commands, she opens her eyes spontaneously, moves her limbs on verbal commands and patient is vocal on verbal commands. She is A&O x2. Detailed history could not be taken given that the patient is drowsy and she says that she is too tired to speak. Patient was saturating 97 on 2 L NC. Per chart review, patient had UTI 1 week ago. Review of system could not be obtained. 03/29 - Patient seen and examined at bedside. Bilateral crackles heard in bilateral lung segura, bilateral lower extremity pitting edema. Also had suprapubic tenderness. Tele monitor reviewed, shows irregular rhythm with heart rate in 60s. In the morning, blood glucose was 33 mg/dL. 03/30 - patient is A&O x1 during the morning hours, A&O x3 during afternoon. Patient failed swallow request. Cardiology started lisinopril 5 mg daily, spironolactone 12.5 daily, apixaban 2.5 mg twice daily. ABG on nasal cannula 2 L completed, shows pH 7.4, bicarb is 27, pCO2 42, PO2 104. MRSA screen is positive. Urine culture shows presumptive Lora. Started TPN diet. 03/31 - patient looks better, A&O x3 in the a.m. lower extremity tenderness on examination. Reports no distress. Swallow evaluation tomorrow 04/01. DC vancomycin. 04/01 - overnight, patient was agitated and was pulling her lines therefore she was move to new room. patient was A&O x1 in the a.m.. GCS is fluctuating. Patient becomes more alert during the later hours. Daughter at bedside reports that this is nothing new and it takes 8-10 days before patient becomes fully oriented after UTI. 04/02 - patient is a and O x3, tolerating clear diet well. Patient has appetite. Reports no acute symptoms. Objective vital signs Vital Sign Date Time Temp Pulse Resp B/P (MAP) Pulse Ox O2 Delivery O2 Flow Rate FiO2 04/02/24 11:07 126/54 04/02/24 09:00 97.8 67 17 100 97.8 04/01/24 20:00 Nasal Cannula* 2 28 Total Intake and Output 04/01/24 04/01/24 04/02/24 15:00 23:00 07:00 Intake Total 0 ml 50 ml Output Total 400 ml Balance 0 ml -400 ml 50 ml medications Current Medications Medications Dose Ordered Sig/Maylin Route Start Time Stop Time Status Last Admin Dose Admin Docusate Sodium 100 mg BIDPRN PRN PO 03/27/24 14:15 Acetaminophen 650 mg Q6HP PRN PO 03/27/24 14:15 Hydralazine HCl 10 mg Q6HP PRN IV 03/28/24 11:00 Fluconazole 100 ml @ 100 mls/hr DAILY IV 03/29/24 10:00 04/02/24 11:08 100 MLS/HR Furosemide 20 mg DAILY IV 03/29/24 10:00 04/02/24 11:06 20 MG Famotidine 20 mg Q12HR IV 03/30/24 10:00 04/02/24 11:07 20 MG Apixaban 2.5 mg BID PO 03/30/24 22:00 04/02/24 11:07 2.5 MG Spironolactone 12.5 mg DAILY PO 03/31/24 10:00 Lisinopril 5 mg DAILY PO 03/31/24 10:00 04/02/24 11:07 5 MG Mupirocin 1 applic BID EACHNOSTRI 03/31/24 15:00 04/05/24 14:59 04/02/24 00:52 1 APPLIC Fat Emulsion Intravenous 50 ml/ Magnesium Sulfate 12 meq/ Multivitamins 10 ml/Chromium/ Copper/Manganese/ Zinc 1 ml/ Potassium Phosphate 13.2 meq/Amino Acids/ Dextrose/Purified Water 1,317 ml @ 55 mls/hr [id number] IV 04/01/24 22:00 04/01/24 22:00 Cancel Diagnostic Test (Pha) 1 strip ACHS 04/01/24 22:00 04/02/24 06:29 1 STRIP Dextrose 50 ml UD PRN IV 04/01/24 18:45 Meropenem 50 ml @ 17 mls/hr Q8H IV 04/01/24 22:00 04/02/24 06:20 17 MLS/HR Examination Elderly female patient lying in bed, in no acute distress General: Obese, afebrile, palor, mucosae are moist Cardiovascular: Regular S1 and S2. No murmurs, gallops or rubs. No JVD elevation. Bilateral pitting edema 3+. Respiratory: Bilateral crackles heard on auscultation in bilateral feels on 2 L NC Abdomen: Soft, suprapubic tenderness, nondistended, normoactive bowel sounds, no rebound tenderness, no organomegaly, no masses Genitourinary: Deferred MSK/skin: Mobilizes 4 limbs. Skin is dry and warm Neurological: No motor, no sensitive deficits, normal speech. Pupils are isocoric and reactive. Psych/Mental Status: Patient has fluctuating level of consciousness laboratory and microbiology Laboratory Tests 04/02/24 06:27 Test 04/02/24 06:27 Range/Units Serum Glucose 70 L 74-106 mg/dL Microbiology Date/Time Source Procedure Growth Status 03/29/24 22:50 Nose MRSA Screen - Final Methicillin Resistant S.aureus Complete 03/27/24 11:04 Voided Urine Urine Culture - Final Presumptive Lora albicans Complete 03/27/24 10:23 Blood Blood Culture - Final NO GROWTH AFTER 5 DAYS OF INCUBATION. Complete Labs and/or images reviewed: Labs reviewed by me, Image(s) reviewed by me Problem List/Assessment/Plan Problem List/Assessment/Plan Metabolic encephalopathy secondary to acute cystitis Urine drug screen unremarkable B12 with a normal limit TSH within normal limit Head CT completed, shows no acute intracranial abnormality Carotid duplex shows no hemodynamically significant stenosis within the bilateral carotid system Ammonia 18 MRI brain unremarkable Neurologic consultation for persistent ALOC Sepsis likely secondary to pyelonephritis Acute cystitis with a history of recurrent UTIs Patient has a history of Citrobacter, yeast, Enterococcus UTI Urine bacterial culture preliminary report shows [id number] colony-forming units of Lora albicans MRSA screen is positive Final blood culture shows no growth after 5 days of incubation Continue IV meropenem starting 03/28 Continue IV fluconazole starting 03/29 Received IV vancomycin 03/28 to 03/31 CT abdomen with IV contrast shows no acute abnormality in the abdomen or pelvis. There is a coarse calcification in the left renal cortex Sick sinus syndrome with tachy-afshan events Sinus bradycardia with intermittent rapid atrial fibrillation Atrial fibrillation secondary to likely irfyyl-ATYPH-ALGi score 5, HAS BLED Score 1. 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 Grade 1 diastolic dysfunction. Slightly increased RVSP at 31 mmHg. Mild AR. Continue IV Lasix 20 mg daily Cardiology - started lisinopril 5 mg daily, spironolactone 12.5 mg daily Macrocytosis but no anemia MCV 101 B12, folate, blood alcohol within normal limits Symptomatic hypoglycemia secondary to sepsis Routine Accu-Cheks, D5W/NS 1 L at the rate of 30 mL/hour running Dyslipidemia We will resume home medication Ruled out lower extremity DVT Doppler ultrasound of the lower extremities unremarkable Calcified leiomyoma CT abdomen shows calcified leiomyoma. Ascending aortic aneurysm measuring 4.[address] abdomen shows AAA measuring 4.5 cm. Hypertension IV hydralazine 10 mg p.r.n. for systolic blood pressure more than 150 mmHg History of breast mass resection Monitor Morbid obesity Probable Dementia Monitor Failed swallow eval 03/30 Repeat swallow evaluation 04/01 - patient able to tolerate pureed diet with nectar thick liquids with no overt signs or symptoms of aspiration Diet: DC TPN, started clear liquid diet Plan discussed with the daughter present at bedside, all questions have been answered Goals of care discussed with the daughter over the phone, full code status Case discussed with Dr. Cobian. Tele neuro pending Plan discussed with: Patient My Orders My Orders Orders - CLAY HENDRIX Procedure Category Date Status Time Clear Liq Diet DIET 04/01/24 Transmitted Dinner Dietary Evaluation Review Comments: 1) If pt appetite remains negligible, increase TPN to meet at least 75% of estimated needs 2) Advance pt diet when medically reasible to a Cardiac diet 3) Continue current plan of care Expected Outcomes/Goals: F/U in 2-3 days Date of Service: Apr 02, 2024 Billing Provider: APOLINAR VELASQUEZ MD Common Visit Codes: [id number] INP/OBS CARE(HIGH) CLAY HENDRIX Apr 02, 2024 11:18 APOLINAR VELASQUEZ MD Apr 03, 2024 20:00
--- NOTE | 2024-04-02 12:49 | DVH ---
PROCEDURE: MRI BRAIN HEAD WO CONTRAST INDICATION: 83 years old, Female; ALOC. EXAM DATE: 04/02/2024 11:44 AM COMPARISON: CT HEAD WITHOUT CONTRAST on DOS: 03/28/24, CT HEAD WITHOUT CONTRAST on DOS: 06/04/23, CT H EAD WITHOUT CONTRAST on DOS: 05/16/23 TECHNIQUE: MRI of the brain without intravenous contrast. FINDINGS: Diffusion weighted images of the brain demonstrate no evidence of acute infarction. There is no evidence of acute intracranial hemorrhage, extra-axial collection, mass effect, midline s hift, herniation or hydrocephalus. The ventricles, sulci and cisterns appear age appropriate. Moderate changes of chronic microvascular ischemic disease. There are no signal abnormalities on the susceptibility weighted sequences. The major vascular flow voids are present. Opacification of the bilateral mastoid air cells. Paranasal sinuses are clear. The surrounding soft tissues and osseous structures are unremarkable. IMPRESSION: 1. No evidence of acute infarction, intracranial hemorrhage, mass effect or hydrocephalus. Moderate c hanges of chronic microvascular ischemic disease. Bilateral mastoiditis. HS:Y
[2024-04-03] VITALS (8 sets, daily range): BP systolic 108–128; BP diastolic 38–48; PULSE 53–93; RESP 16–17; TEMP 97–98; O2SAT 96–100
--- NOTE | 2024-04-03 00:21 | BSKYNEURO ---
[place] [facility] Note # Demographics Consult Type: General Neurology Patient Location: Inpatient First Name: Dot Jones Last Name: Tony Date of : 1940 Age: 83 Gender: Female Facility: [facility] Time of Initial Page (): 04/02/2024, 23:19 Time of Return Call (): 04/02/2024, 23:20 # HPI History: Patient is admitted for low blood sugar and was noted to have UTI. She is also confused and neurology was consulted for confusion. Patient is currently admitted since 03/27. # Scores Time of exam and NIHSS (): 04/02/2024, 23:34 Level of Consciousness 1a: [0] = Alert; keenly responsive LOC Questions 1b: [2] = Answers neither correctly LOC Commands 1c: [0] = Performs both tasks correctly Best Gaze 2: [0] = Normal Visual 3: [0] = No visual loss Facial Palsy 4: [0] = Normal symmetrical movements Motor Arm Left 5a: [0] = No drift Motor Arm Right 5b: [0] = No drift Motor Leg Left 6a: [0] = No drift Motor Leg Right 6b: [0] = No drift Limb Ataxia 7: [0] = Absent Sensory 8: [0] = Normal Best Language 9: [0] = No aphasia Dysarthria 10: [0] = Normal Extinction and Inattention 11: [0] = No abnormality NIHSS Total: 2 # Assessment Impression: - Altered Mental Status NIHSS is 2; looks encephalopathic- has multiple metabolic/infectious etiologies contributing to encephalopathy. MRI brain was unrevealing, no evidence of stroke. # Plan Labs: - ua - CBC - comprehensive metabolic panel - ESR - ABG - thiamine - TSH Diagnostic Test: - EEG Other: - If patient has any neurological deterioration please call me back immediately - I have discussed my recommendations with the referring provider - telemetry monitoring Disposition: continue admission # Demographics First Name: Dot Jones Last Name: Tony Facility: [facility] Yes MARY ESCOBEDO MD Apr 03, 2024 00:21
[2024-04-03 06:49] LABS: Basophils # (auto) 0 10 ^3/uL (0-0.2); Eosinophils # (auto) 0.2 10 ^3/uL (0-0.8); Lymphocytes # (auto) 1.7 10 ^3/uL (0.4-5.4); Monocytes # (auto) 0.7 10 ^3/uL (0-1.3); Platelet Count (auto) 177 10^3/uL (140-450); Red Blood Cells 3.55 10^6/uL (4.0-5.20)
[2024-04-03 06:51] LABS: Basophils % (auto) 0.7 % (0.0-2.0); Eosinophils % (auto) 3.5 % (0.0-7.0); Hemoglobin 12.2 g/dL (12.2-16.2); Lymphocytes % (auto) 34.1 % (10.0-50.0); Mean Corpuscular Hemoglobin 34.3 pg (28.0-32.0); Mean Corpuscular Hgb Conc. 33.8 g/dL (32.0-36.0); Mean Corpuscular Volume 101.6 fL (80.0-100.0); Monocytes % (auto) 13.3 % (0.0-12.0); Neutrophils # (auto) 2.4 10 ^3/uL (1.6-8.6); Neutrophils % (auto) 48.4 % (37.0-80.0); Nucleated Red Blood Cells % 0.1 %; Red Cell Distribution Width 15.3 % (11.8-14.3); White Blood Cell 4.9 10^3/uL (4.4-10.8)
[2024-04-03 06:56] LABS: Chloride 108 mmol/L (98-107); Potassium 3.9 mmol/L (3.5-5.1); Sodium 145 mmol/L (136-145)
[2024-04-03 06:57] LABS: Anion Gap 7 (5-15); Calcium 9.7 mg/dL (8.7-10.4); Carbon Dioxide 30 mmol/L (20-31)
[2024-04-03 07:02] LABS: BUN/Creatinine Ratio 52.9 (10.0-20.0); Blood Urea Nitrogen 36 mg/dL (9-23); Glucose 77 mg/dL (74-106)
[2024-04-03] MEDS ORDERED: DEXTROSE (50%) 50ML SYRG IV PRN (08:15)
[2024-04-03] MEDS: FAMOTIDINE (10MG/ML) 2ML VL IV SCH (10:20)
--- NOTE | 2024-04-03 15:46 | DVHPNRES ---
Progress Note Date Seen: Apr 03, 2024 Resident Creating Document: LIANNA JOHNSON RESIDENT Medical Necessity Reason Pt with a Central, PICC or Fol: No Subjective Review of Systems Patient seen and examined bedside. Patient is more alert compared to yesterday, alert and oriented x3. Patient is having complaints. Patient was on 2 L of oxygen through nasal cannula. Patient tolerated clear liquid diet, will upgrade to full liquid. Changes from previous H/P or p: No Changes Review of Systems: HEENT:Normal, CVS:Normal, RESPIRATORY:Normal, GI:Normal, :Normal Objective vital signs Vital Sign Date Time Temp Pulse Resp B/P (MAP) Pulse Ox O2 Delivery O2 Flow Rate FiO2 04/03/24 13:00 97.6 93 16 121/46 (71) 97 97.6 04/03/24 08:05 Nasal Cannula* 2 28 Total Intake and Output 04/02/24 04/02/24 04/03/24 15:00 23:00 07:00 Intake Total 100 ml 840 ml 50 ml Output Total 1050 ml 350 ml Balance 100 ml -210 ml -300 ml medications Current Medications Medications Dose Ordered Sig/Maylin Route Start Time Stop Time Status Last Admin Dose Admin Docusate Sodium 100 mg BIDPRN PRN PO 03/27/24 14:15 Acetaminophen 650 mg Q6HP PRN PO 03/27/24 14:15 Hydralazine HCl 10 mg Q6HP PRN IV 03/28/24 11:00 Fluconazole 100 ml @ 100 mls/hr DAILY IV 03/29/24 10:00 04/03/24 10:20 100 MLS/HR Furosemide 20 mg DAILY IV 03/29/24 10:00 04/02/24 11:06 20 MG Apixaban 2.5 mg BID PO 03/30/24 22:00 04/03/24 10:21 2.5 MG Spironolactone 12.5 mg DAILY PO 03/31/24 10:00 04/03/24 10:21 12.5 MG Lisinopril 5 mg DAILY PO 03/31/24 10:00 04/02/24 11:07 5 MG Mupirocin 1 applic BID EACHNOSTRI 03/31/24 15:00 04/05/24 14:59 04/03/24 10:20 1 APPLIC Fat Emulsion Intravenous 50 ml/ Magnesium Sulfate 12 meq/ Multivitamins 10 ml/Chromium/ Copper/Manganese/ Zinc 1 ml/ Potassium Phosphate 13.2 meq/Amino Acids/ Dextrose/Purified Water 1,317 ml @ 55 mls/hr [id number] IV 04/01/24 22:00 04/01/24 22:00 Cancel Diagnostic Test (Pha) 1 strip ACHS 04/01/24 22:00 04/03/24 11:38 1 STRIP Dextrose 50 ml UD PRN IV 04/03/24 08:15 Meropenem 50 ml @ 17 mls/hr Q12H IV 04/03/24 18:00 Famotidine 20 mg DAILY IV 04/03/24 10:00 04/03/24 10:20 20 MG Examination Elderly female patient lying in bed, in no acute distress General: Obese, afebrile, palor, mucosae are moist Cardiovascular: Regular S1 and S2. No murmurs, gallops or rubs. No JVD elevation. Respiratory: Bilateral crackles heard on auscultation in bilateral feels on 2 L NC Abdomen: Soft, suprapubic tenderness, nondistended, normoactive bowel sounds, no rebound tenderness, no organomegaly, no masses Genitourinary: Deferred MSK/skin: Mobilizes 4 limbs. Skin is dry and warm Neurological: No motor, no sensitive deficits, normal speech. Pupils are isocoric and reactive. Psych/Mental Status: Patient has fluctuating level of consciousness laboratory and microbiology Laboratory Tests 04/03/24 06:36 Test 04/03/24 06:36 Range/Units Serum Glucose 77 74-106 mg/dL Microbiology Date/Time Source Procedure Growth Status 03/29/24 22:50 Nose MRSA Screen - Final Methicillin Resistant S.aureus Complete 03/27/24 11:04 Voided Urine Urine Culture - Final Presumptive Lora albicans Complete 03/27/24 10:23 Blood Blood Culture - Final NO GROWTH AFTER 5 DAYS OF INCUBATION. 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 There is a coarse calcification in the left renal cortex will repeat urine culture #Sick sinus syndrome with tachy-afshan events Sinus bradycardia with intermittent rapid atrial fibrillation Atrial fibrillation secondary to likely [id number] score 5, HAS BLED Score 1. 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 Grade 1 diastolic dysfunction. Slightly increased RVSP at 31 mmHg. Mild AR. Continue IV Lasix 20 mg daily Cardiology - started lisinopril 5 mg daily, spironolactone 12.5 mg daily #Macrocytosis but no anemia MCV 101 B12, folate, blood alcohol within normal limits #Symptomatic hypoglycemia secondary to sepsis Routine Accu-Cheks keep glucose >100 #Dyslipidemia We will resume home medication #Ruled out lower extremity DVT Doppler ultrasound of the lower extremities unremarkable #Calcified leiomyoma CT abdomen shows calcified leiomyoma. #Ascending aortic aneurysm measuring 4.[address] abdomen shows AAA measuring 4.5 cm. #Hypertension IV hydralazine 10 mg p.r.n. for systolic blood pressure more than 150 mmHg #History of breast mass resection Monitor #Morbid obesity #Probable Dementia Monitor Code status discussed with the patient and the family : FULL CODE Case discussion with Dr LUKE Plan discussed with: Patient, Other My Orders My Orders Orders - LIANNA JOHNSON RESIDENT Procedure Category Date Status Time Dextrose 50% Syringe PHA 04/03/24 In Process 08:15 Communication Order ORDERS 04/03/24 Transmitted 08:03 Meropenem 1gm Ivpb PHA 04/03/24 In Process (Merrem 1gm/ Ns) 18:00 Full Liq Diet DIET 04/03/24 Transmitted Lunch Advance Diet As CHYNA 04/03/24 In Process Tolerated 11:56 Dietary Evaluation Review Comments: 1) If pt appetite remains negligible, increase TPN to meet at least 75% of estimated needs 2) Advance pt diet when medically reasible to a Cardiac diet 3) Continue current plan of care Expected Outcomes/Goals: F/U in 2-3 days Date of Service: Apr 03, 2024 Billing Provider: EDWIN LUKE DO Common Visit Codes: [id number] INP/OBS CARE(HIGH) LIANNA JOHNSON RESIDENT Apr 03, 2024 15:46 EDWIN LUKE DO Apr 05, 2024 19:44
[2024-04-03] MEDS: MEROPENEM 1GM IVPB 50 ML IV SCH (17:35)
[2024-04-03] MEDS: NYSTATIN TOPICAL POWDER 15GM TOP SCH (22:00)
[2024-04-04] VITALS (8 sets, daily range): BP systolic 90–136; BP diastolic 48–57; PULSE 55–96; RESP 16–18; TEMP 97.1–97.7; O2SAT 92–100
[2024-04-04 08:16] LABS: Basophils # (auto) 0 10 ^3/uL (0-0.2); Basophils % (auto) 0.8 % (0.0-2.0); Eosinophils # (auto) 0.2 10 ^3/uL (0-0.8); Hematocrit 32.7 % (36.0-46.0); Hemoglobin 11.1 g/dL (12.2-16.2); Lymphocytes # (auto) 1.8 10 ^3/uL (0.4-5.4); Mean Corpuscular Hgb Conc. 33.8 g/dL (32.0-36.0); Mean Corpuscular Volume 100.4 fL (80.0-100.0); Monocytes # (auto) 0.6 10 ^3/uL (0-1.3); Monocytes % (auto) 13.1 % (0.0-12.0); Neutrophils # (auto) 1.8 10 ^3/uL (1.6-8.6); Neutrophils % (auto) 41.1 % (37.0-80.0); Nucleated Red Blood Cells % 0.1 %; Platelet Count (auto) 180 10^3/uL (140-450); Red Blood Cells 3.26 10^6/uL (4.0-5.20); White Blood Cell 4.3 10^3/uL (4.4-10.8)
[2024-04-04 08:40] LABS: Chloride 106 mmol/L (98-107); Sodium 141 mmol/L (136-145)
[2024-04-04 08:41] LABS: Anion Gap 4 (5-15); Carbon Dioxide 31 mmol/L (20-31)
[2024-04-04 08:42] LABS: Calcium 10.1 mg/dL (8.7-10.4)
[2024-04-04 08:46] LABS: Glucose 78 mg/dL (74-106)
[2024-04-04 08:47] LABS: BUN/Creatinine Ratio 39.7 (10.0-20.0); Blood Urea Nitrogen 23 mg/dL (9-23); Magnesium 1.8 mg/dL (1.6-2.6)
[2024-04-04 09:11] LABS: Erythrocyte Sedimentation Rate 72 mm/hr (0-20)
[2024-04-04] MEDS: MAGNESIUM SULFATE 1GM/100ML 100 ML IV ONE (13:11)
[2024-04-04] MEDS: THIAMINE 100mg/ml INJ (200mg/2ml VIAL) IV ONE (13:12)
--- NOTE | 2024-04-04 14:31 | DVHPNRES ---
Progress Note Date Seen: Apr 04, 2024 Resident Creating Document: CLAY HENDRIX RESIDENT Medical Necessity Reason Pt with a Central, PICC or Fol: No Subjective Review of Systems Dot Jimenez is a 85-year-old female patient who presented to the ER with the chief complaint of abdominal pain and altered mental status. Patient has been here in this facility multiple times due to similar complaints and she has been diagnosed with yeast, Citrobacter, Enterococcus UTI previously. During my H and P, patient is responding to verbal commands, she opens her eyes spontaneously, moves her limbs on verbal commands and patient is vocal on verbal commands. She is A&O x2. Detailed history could not be taken given that the patient is drowsy and she says that she is too tired to speak. Patient was saturating 97 on 2 L NC. Per chart review, patient had UTI 1 week ago. Review of system could not be obtained. 03/29 - Patient seen and examined at bedside. Bilateral crackles heard in bilateral lung segura, bilateral lower extremity pitting edema. Also had suprapubic tenderness. Tele monitor reviewed, shows irregular rhythm with heart rate in 60s. In the morning, blood glucose was 33 mg/dL. 03/30 - patient is A&O x1 during the morning hours, A&O x3 during afternoon. Patient failed swallow request. Cardiology started lisinopril 5 mg daily, spironolactone 12.5 daily, apixaban 2.5 mg twice daily. ABG on nasal cannula 2 L completed, shows pH 7.4, bicarb is 27, pCO2 42, PO2 104. MRSA screen is positive. Urine culture shows presumptive Lora. Started TPN diet. 03/31 - patient looks better, A&O x3 in the a.m. lower extremity tenderness on examination. Reports no distress. Swallow evaluation tomorrow 04/01. DC vancomycin. 04/01 - overnight, patient was agitated and was pulling her lines therefore she was move to new room. patient was A&O x1 in the a.m.. GCS is fluctuating. Patient becomes more alert during the later hours. Daughter at bedside reports that this is nothing new and it takes 8-10 days before patient becomes fully oriented after UTI. 04/02 - patient is a and O x3, tolerating clear diet well. Patient has appetite. Reports no acute symptoms. 04/04 - patient is A&O x1 at 7:00 a.m., does not know where she is. Later on patient is A&O x3 at 10:00 a.m.. Reports no active complaint. Patient needs assistance with feeding and daily life activities. Sitter at bedside. Repeat urine culture is pending. Review of Systems: HEENT:Normal, CVS:Normal, RESPIRATORY:Normal, GI:Normal, :Normal Objective vital signs Vital Sign Date Time Temp Pulse Resp B/P (MAP) Pulse Ox O2 Delivery O2 Flow Rate FiO2 04/04/24 13:09 97.7 62 18 105/50 (68) 98 97.7 04/04/24 08:00 Nasal Cannula* 2 28 Total Intake and Output 04/03/24 04/03/24 04/04/24 15:00 23:00 07:00 Intake Total 150 ml 1170 ml 675 ml Output Total 425 ml 400 ml Balance 150 ml 745 ml 275 ml medications Current Medications Medications Dose Ordered Sig/Maylin Route Start Time Stop Time Status Last Admin Dose Admin Docusate Sodium 100 mg BIDPRN PRN PO 03/27/24 14:15 Acetaminophen 650 mg Q6HP PRN PO 03/27/24 14:15 Hydralazine HCl 10 mg Q6HP PRN IV 03/28/24 11:00 Fluconazole 100 ml @ 100 mls/hr DAILY IV 03/29/24 10:00 04/04/24 10:41 100 MLS/HR Furosemide 20 mg DAILY IV 03/29/24 10:00 04/04/24 10:38 20 MG Apixaban 2.5 mg BID PO 03/30/24 22:00 04/04/24 10:39 2.5 MG Spironolactone 12.5 mg DAILY PO 03/31/24 10:00 04/04/24 10:39 12.5 MG Lisinopril 5 mg DAILY PO 03/31/24 10:00 04/04/24 10:39 5 MG Mupirocin 1 applic BID EACHNOSTRI 03/31/24 15:00 04/05/24 14:59 04/04/24 10:42 1 APPLIC Fat Emulsion Intravenous 50 ml/ Magnesium Sulfate 12 meq/ Multivitamins 10 ml/Chromium/ Copper/Manganese/ Zinc 1 ml/ Potassium Phosphate 13.2 meq/Amino Acids/ Dextrose/Purified Water 1,317 ml @ 55 mls/hr [id number] IV 04/01/24 22:00 04/01/24 22:00 Cancel Diagnostic Test (Pha) 1 strip ACHS 04/01/24 22:00 04/04/24 12:30 1 STRIP Dextrose 50 ml UD PRN IV 04/03/24 08:15 Meropenem 50 ml @ 17 mls/hr Q12H IV 04/03/24 18:00 04/04/24 05:23 17 MLS/HR Famotidine 20 mg DAILY IV 04/03/24 10:00 04/04/24 10:38 20 MG Nystatin 1 applic BID TOP 04/03/24 22:00 04/04/24 10:42 1 APPLIC Examination Elderly female patient lying in bed, in no acute distress General: Obese, afebrile, palor, mucosae are moist Cardiovascular: Regular S1 and S2. No murmurs, gallops or rubs. No JVD elevation. Bilateral edema 3+. Respiratory: Bilateral crackles heard on auscultation in bilateral feels on 2 L NC Abdomen: Soft, suprapubic tenderness, nondistended, normoactive bowel sounds, no rebound tenderness, no organomegaly, no masses Genitourinary: Deferred MSK/skin: Mobilizes 4 limbs. Skin is dry and warm Neurological: No motor, no sensitive deficits, normal speech. Pupils are isocoric and reactive. Psych/Mental Status: Patient has fluctuating level of consciousness Examination: GENERAL:Normal, HEENT:Normal, NECK:Normal, LUNGS:Normal laboratory and microbiology Laboratory Tests 04/04/24 07:54 Test 04/04/24 07:54 Range/Units Serum Glucose 78 74-106 mg/dL Microbiology Date/Time Source Procedure Growth Status 03/29/24 22:50 Nose MRSA Screen - Final Methicillin Resistant S.aureus Complete 03/27/24 11:04 Voided Urine Urine Culture - Final Presumptive Lora albicans Complete 03/27/24 10:23 Blood Blood Culture - Final NO GROWTH AFTER 5 DAYS OF INCUBATION. Complete Labs and/or images reviewed: Labs reviewed by me, Image(s) reviewed by me Problem List/Assessment/Plan Problem List/Assessment/Plan Metabolic encephalopathy secondary to acute cystitis Urine drug screen unremarkable B12 with a normal limit TSH within normal limit Head CT completed, shows no acute intracranial abnormality Carotid duplex shows no hemodynamically significant stenosis within the bilateral carotid system Ammonia 18 MRI brain unremarkable Neurologic consultation for persistent ALOC ESR 72, IV thiamine 1 dose given Sepsis likely secondary to pyelonephritis Acute cystitis with a history of recurrent UTIs Patient has a history of Citrobacter, yeast, Enterococcus UTI Urine bacterial culture shows [id number] colony-forming units of Lora albicans. Repeat urine culture pending. MRSA screen is positive Final blood culture shows no growth after 5 days of incubation Continue IV meropenem starting 03/28 Continue IV fluconazole starting 03/29 Received IV vancomycin 03/28 to 03/31 CT abdomen with IV contrast shows no acute abnormality in the abdomen or pelvis. There is a coarse calcification in the left renal cortex Sick sinus syndrome with tachy-afshan events Sinus bradycardia with intermittent rapid atrial fibrillation Atrial fibrillation secondary to likely [id number] score 5, HAS BLED Score 1. 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 Grade 1 diastolic dysfunction. Slightly increased RVSP at 31 mmHg. Mild AR. Continue IV Lasix 20 mg daily Cardiology - started lisinopril 5 mg daily, spironolactone 12.5 mg daily Macrocytosis but no anemia MCV 101 B12, folate, blood alcohol within normal limits Symptomatic hypoglycemia secondary to sepsis Routine Accu-Cheks, target glucose greater than 100 Dyslipidemia We will resume home medication Ruled out lower extremity DVT Doppler ultrasound of the lower extremities unremarkable Calcified leiomyoma CT abdomen shows calcified leiomyoma. Ascending aortic aneurysm measuring 4.[address] abdomen shows AAA measuring 4.5 cm. Hypertension IV hydralazine 10 mg p.r.n. for systolic blood pressure more than 150 mmHg History of breast mass resection Monitor Morbid obesity Probable Dementia Monitor Failed swallow eval 03/30 Repeat swallow evaluation 04/01 - patient able to tolerate pureed diet with nectar thick liquids with no overt signs or symptoms of aspiration Diet: DC TPN, advanced to full liquid diet Plan discussed with the daughter present at bedside, all questions have been answered Goals of care discussed with the daughter over the phone, full code status Case discussed with Dr. Luke. Repeated urine culture which is pending. Plan discussed with: Patient Dietary Evaluation Review Comments: 1) If pt appetite remains negligible, increase TPN to meet at least 75% of estimated needs 2) Advance pt diet when medically reasible to a Cardiac diet 3) Continue current plan of care Expected Outcomes/Goals: F/U in 2-3 days Date of Service: Apr 04, 2024 Billing Provider: EDWIN LUKE DO Common Visit Codes: [id number] INP/OBS CARE(HIGH) CLAY HENDRIX RESIDENT Apr 04, 2024 14:31 EDWIN LUKE DO Apr 05, 2024 19:45
--- NOTE | 2024-04-04 15:16 | DVHTSRES ---
Transfer Summary Transfer Summary Resident Creating Document: CLAY HENDRIX RESIDENT Date of Admission Mar 28, 2024 at 11:10 Date of Transfer: Apr 04, 2024 Transfer Diagnosis Metabolic encephalopathy secondary to acute cystitis Sepsis likely secondary to pyelonephritis Acute cystitis with a history of recurrent UTIs Patient has a history of Citrobacter, yeast, Enterococcus UTI Sick sinus syndrome with tachy-afshan events Sinus bradycardia with intermittent rapid atrial fibrillation Atrial fibrillation secondary to likely [id number]-SHUr score 5, HAS BLED Score 1. Heart failure with mildly reduced ejection fraction-EF 45-50% Brief Hx & Hospital Course: Dot Jimenez is a 85-year-old female patient who presented to the ER with the chief complaint of abdominal pain and altered mental status. Patient has been here in this facility multiple times due to similar complaints and she has been diagnosed with yeast, Citrobacter, Enterococcus UTI previously. During my H and P, patient is responding to verbal commands, she opens her eyes spontaneously, moves her limbs on verbal commands and patient is vocal on verbal commands. She is A&O x2. Detailed history could not be taken given that the patient is drowsy and she says that she is too tired to speak. Patient was saturating 97 on 2 L NC. Per chart review, patient had UTI 1 week ago. Urine bacterial culture [place] [id number] colony-forming units of Lora albicans. Repeat urine culture pending. MRSA screen is positive Final blood culture shows no growth after 5 days of incubation Continue IV meropenem starting 03/28 Continue IV fluconazole starting 03/29 Received IV vancomycin 03/28 to 03/31 Repeated urine culture which is pending Cardiology started Eliquis 2.5 mg twice daily given the atrial fibrillation with CHADS-VASc score 5, rate is controlled. Transfer Status Stable CLAY HENDRIX RESIDENT Apr 04, 2024 15:16 EDWIN LUKE DO Apr 05, 2024 19:45
[2024-04-05 01:00] VITALS: BP 100/49; PULSE 72; RESP 18; TEMP 97; O2SAT 97
[2024-04-05 05:00] VITALS: BP 92/41; PULSE 66; RESP 18; TEMP 97.7; O2SAT 100
[2024-04-05 07:25] LABS: Basophils # (auto) 0 10 ^3/uL (0-0.2); Basophils % (auto) 0.5 % (0.0-2.0); Eosinophils # (auto) 0.2 10 ^3/uL (0-0.8); Eosinophils % (auto) 3.5 % (0.0-7.0); Hematocrit 33.6 % (36.0-46.0); Hemoglobin 11.5 g/dL (12.2-16.2); Lymphocytes # (auto) 2.3 10 ^3/uL (0.4-5.4); Lymphocytes % (auto) 50.3 % (10.0-50.0); Mean Corpuscular Hemoglobin 34.6 pg (28.0-32.0); Mean Corpuscular Hgb Conc. 34.1 g/dL (32.0-36.0); Mean Corpuscular Volume 101.5 fL (80.0-100.0); Monocytes # (auto) 0.6 10 ^3/uL (0-1.3); Monocytes % (auto) 13.5 % (0.0-12.0); Neutrophils # (auto) 1.5 10 ^3/uL (1.6-8.6); Neutrophils % (auto) 32.2 % (37.0-80.0); Nucleated Red Blood Cells % 0.4 %; Platelet Count (auto) 200 10^3/uL (140-450); Red Blood Cells 3.31 10^6/uL (4.0-5.20); Red Cell Distribution Width 15.3 % (11.8-14.3); White Blood Cell 4.6 10^3/uL (4.4-10.8)
[2024-04-05 07:36] LABS: Chloride 104 mmol/L (98-107); Potassium 4.1 mmol/L (3.5-5.1); Sodium 142 mmol/L (136-145)
[2024-04-05 07:37] LABS: Anion Gap 5 (5-15); Carbon Dioxide 33 mmol/L (20-31)
[2024-04-05 07:38] LABS: Calcium 10.3 mg/dL (8.7-10.4)
[2024-04-05 07:42] LABS: Glucose 69 mg/dL (74-106)
[2024-04-05 07:43] LABS: BUN/Creatinine Ratio 37.7 (10.0-20.0); Blood Urea Nitrogen 26 mg/dL (9-23)
[2024-04-05 09:00] VITALS: BP 104/46; PULSE 52; RESP 17; TEMP 97.1; O2SAT 99
[2024-04-05 12:45] VITALS: BP 106/66; PULSE 61; RESP 16; TEMP 97.2; O2SAT 97
[2024-04-05] MEDS ORDERED: FLUC200T50 PO (16:28)
[2024-04-05] MEDS ORDERED: CEFP200T15 PO (16:28)
[2024-04-05] MEDS ORDERED: SPIR25TA PO (16:28)
[2024-04-05] MEDS ORDERED: APIX2.5T PO (16:28)
[2024-04-05] MEDS ORDERED: FURO20TA3 PO (16:28)
[2024-04-05] MEDS ORDERED: NYS15PW TOP (16:28)
[2024-04-05 16:56] VITALS: BP 106/66; PULSE 61; RESP 16; TEMP 97.2; O2SAT 97
[2024-04-05 17:00] VITALS: BP 112/61; PULSE 79; RESP 17; TEMP 97.3; O2SAT 99
--- NOTE | 2024-04-05 18:02 | DVHDSRES ---
Discharge Summary Date of Admission Resident Creating Document: JU MCNEAL RESIDENT Mar 28, 2024 at 11:10 Date of Discharge: Apr 04, 2024 Admitting Diagnosis #metabolic encephalopathy due to UTI #sepsis likely due to pyelonephritis #?pyelonephritis #HLD #Sick sinus syndrome with tachy-afshan events #Ascending aortic aneurysm measuring 4.5 cm #Hypertension #History of breast mass resection #Morbid obesity #Dementia Wounds: no wounds Labs/Diagnostic Data: Laboratory Results Test 04/05/24 17:13 04/05/24 05:26 04/04/24 07:54 04/02/24 06:27 POC Glucose 126 mg/dl (70-106) White Blood Count 4.6 10^3/uL (4.4-10.8) Red Blood Count 3.31 10^6/uL (4.0-5.20) Hemoglobin 11.5 g/dL (12.2-16.2) Hematocrit 33.6 % (36.0-46.0) Mean Corpuscular Volume 101.5 fL (80.0-100.0) Mean Corpuscular Hemoglobin 34.6 pg (28.0-32.0) Mean Corpuscular Hemoglobin Concent 34.1 g/dL (32.0-36.0) Red Cell Distribution Width 15.3 % (11.8-14.3) Platelet Count 200 10^3/uL (140-450) Mean Platelet Volume 9.0 fL (6.9-10.8) Neutrophils (%) (Auto) 32.2 % (37.0-80.0) Lymphocytes (%) (Auto) 50.3 % (10.0-50.0) Monocytes (%) (Auto) 13.5 % (0.0-12.0) Eosinophils (%) (Auto) 3.5 % (0.0-7.0) Basophils (%) (Auto) 0.5 % (0.0-2.0) Neutrophils # (Auto) 1.5 10 ^3/uL (1.6-8.6) Lymphocytes # (Auto) 2.3 10 ^3/uL (0.4-5.4) Monocytes # (Auto) 0.6 10 ^3/uL (0-1.3) Eosinophils # (Auto) 0.2 10 ^3/uL (0-0.8) Basophils # (Auto) 0 10 ^3/uL (0-0.2) Nucleated Red Blood Cells 0.4 % Sodium Level 142 mmol/L (136-145) Potassium Level 4.1 mmol/L (3.5-5.1) Chloride Level 104 mmol/L (98-107) Carbon Dioxide Level 33 mmol/L (20-31) Anion Gap 5 (5-15) Blood Urea Nitrogen 26 mg/dL (9-23) Creatinine 0.69 mg/dL (0.550-1.02) Glomerular Filtration Rate Calc 86 mL/min (>90) BUN/Creatinine Ratio 37.7 (10.0-20.0) Serum Glucose 69 mg/dL (74-106) Calcium Level 10.3 mg/dL (8.7-10.4) Erythrocyte Sedimentation Rate 72 mm/hr (0-20) Magnesium Level 1.8 mg/dL (1.6-2.6) Platelet Estimate Adequate Clumped Platelets Few Anisocytosis (manual) Slight Macrocytosis Slight Test 04/01/24 07:00 03/31/24 07:22 03/31/24 02:12 03/30/24 10:40 Phosphorus Level 2.8 mg/dL (2.4-5.1) Total Bilirubin 0.7 mg/dL (0.2-1.0) Aspartate Amino Transferase (AST) 29 U/L (13-40) Alanine Aminotransferase (ALT) 19 U/L (7-40) Alkaline Phosphatase 82 U/L (46-116) Total Protein 6.7 g/dL (5.7-8.2) Albumin 3.3 g/dL (3.2-4.8) Lactic Acid Level 1.4 mmol/L (0.4-2.0) Triglycerides Level 72 mg/dL (< 150) Vancomycin Level Trough 15.1 ug/mL (5-10) Ammonia 18 umol/L (11-32) Test 03/30/24 09:56 03/30/24 06:16 03/29/24 05:19 03/28/24 15:53 Blood Gas Specimen Type Arterial Blood Gas Sample Site Left radial Blood Gas Patient Temperature 37.0 Arterial Blood Date Drawn [id number] Arterial Blood pH 7.431 (7.350-7.450) Arterial Blood Partial Pressure CO2 42.8 mmHg (32.0-45.0) Arterial Blood Partial Pressure O2 104.9 mmHg (83.0-108.0) Arterial Blood HCO3 27.8 mmol/L (21.0-28.0) Arterial Blood Oxygen Saturation 97.8 % (94.0-98.0) Arterial Blood Base Excess 3.2 mmol/L (-2.0-3.0) Arterial Blood Oxyhemoglobin 95.8 % (94.0-98.0) Arterial Blood Carboxyhemoglobin 1.7 % (0.5-1.5) Arterial Blood Methemoglobin 0.3 % (0.0-1.5) Zaki Test Modified Blood Gas Total Hemoglobin 12.50 g/dL (12.0-16.0) Blood Gas Liter Flow 2.00 Blood Gas Modality Nasal cannula FiO2 % 28.0 Vitamin D 25-Hydroxy 38.5 ng/mL (30.0-100) Hemoglobin A1c 4.8 % A1C (<5.7) Random Vancomycin Level 13.0 ug/mL (5-10) Plasma/Serum Blood Alcohol < 3.0 mg/dL (<10) Urine Opiates Screen Neg (NEGATIVE) Urine Fentanyl Screen Neg (NEGATIVE) Urine Barbiturates Screen Neg (NEGATIVE) Urine Phencyclidine Screen Neg (NEGATIVE) Urine Amphetamines Screen Neg (NEGATIVE) Urine Benzodiazepines Screen Neg (NEGATIVE) Urine Cocaine Screen Neg (NEGATIVE) Urine Cannabinoids Screen Neg (NEGATIVE) Test 03/28/24 14:46 03/28/24 13:36 03/28/24 07:04 03/27/24 11:19 Influenza Type A Antigen Negative (Negative) Influenza Type B Antigen Negative (Negative) SARS-CoV-2 Antigen (Rapid) Negative (NEGATIVE) Prothrombin Time 11.4 sec (9.3-11.8) Prothrombin Time INR 1.08 (0.9-1.15) Activated Partial Thromboplast Time 35.7 SEC (24.5-34.5) Vitamin B12 Level 1071 pg/mL (211-911) Folic Acid 22.27 ng/mL (>5.38) Thyroid Stimulating Hormone (TSH) 1.32 uIU/mL (0.55-4.78) Troponin I High Sensitivity 11 ng/L (</=34) Test 03/27/24 11:04 03/27/24 10:23 Urine Color Yellow (Yellow) Urine Clarity Turbid (Clear) Urine pH 5.5 (5.0-9.0) Urine Specific [place] 1.021 (1.001-1.035) Urine Protein Trace (Negative) Urine Ketones Negative (Negative) Urine Blood Negative /uL (Negative) Urine Nitrite Negative (Negative) Urine Bilirubin Negative (Negative) Urine Urobilinogen Normal mg/dL (Negative) Urine Leukocyte Esterase 3+ /uL (Negative) Urine RBC 21 /hpf (0 - 4) Urine WBC 244 /hpf (0 - 5) Urine Squamous Epithelial Cells Few /hpf (<5) Urine Bacteria Few /hpf (None Seen) Urine Hyaline Casts Mod /lpf (0 - 2) Urine Yeast (Budding) Occasional /hpf (None Urine Glucose Normal mg/dL (Normal) B-Type Natriuretic Peptide 193.03 pg/mL (0-100) Other Laboratory Tests 04/05/24 05:26 Brief Hx & Hospital Course: Patient is a 83-year-old female with a past medical history of recurrent UTIs and dyslipidemia was brought to the hospital with altered mental status and abdominal pain. Patient had multiple admission in the past because of altered mental status and recurrent UTIs. Patient was recently diagnosed with urinary tract infection with urine cultures on 03/20/2024 growing beta-hemolytic group B Streptococcus and Citrobacter youngae. During this admission urine culture on 03/27/2024 grew Lora albicans and MRSA nares was positive. Patient was treated with IV antibiotics meropenem and fluconazole. MRSA nares was treated with topical mupirocin. Repeat urine culture on 04/04/2024 preliminary did not report any growth. Patient was worked up for altered level of consciousness with the head CT showing no acute intracranial abnormality, brain MRI showing no evidence of acute infarction, intracranial hemorrhage, mass effect or hydrocephalus. Abdominal/pelvic CT with IV contrast was done which showed no acute abnormality in the abdomen or pelvis. Neurology were consulted who assessed the patient with altered mental status likely encephalopathy due to multiple metabolic/infectious etiologies. Patient was diagnosed with a new onset atrial fibrillation and sick sinus syndrome with tachy-afshan events. Patient was started on Eliquis 2.5 mg b.i.d. given CHADS-VASc score 5. Patient is being discharged in stable condition to home with health services for physical therapy. Review of systems Patient seen and examined at the bedside. Patient is A&O X 2. On examination in the morning around 8:00 a.m. patient was drowsy and had to be wakened up, responded to verbal commands, speech was comprehensible with GCS 14. In the afternoon around 2:00 p.m. patient was A&O X 3 and GCS 15. Patient did not report of abdominal pain, nausea, vomiting, diarrhea, pain on urination, shortness of breath, chest pain. Physical Examination Gen - no pallor, no icterus, no cyanosis, no clubbing, no LAD, no edema . Skin - Patients skin is warm and dry. HEENT - normocephalic, atraumatic, moist mucous membranes. Neck - full ROM, no LAD, JVP waveform is not seen. Pulmonary - B/L vesicular breath sounds with minimal bilateral crackles , no wheezing, no stridor. cardiovascular - normal S1,S2 heard. no murmurs heard. peripheral pulses normal radial 2+, pedal 1+. capillary refill normal <2 secs. GI - soft abdomen without tenderness to palpation. no hepatospleenomegaly. Neurological - Patient is A/O X 3 . Bilateral upper extremity strength 5/5, bilateral lower extremity strength 4/5, no facial droop, normal speech, no tremor, no sensory deficiets. Consults/Reason for consult Cardiology consultation for atrial fibrillation Neurology consultation for altered level of consciousness Operations or Procedures Echocardiogram showing Mildly reduced left ventricular systolic function estimated ejection fraction 45-50%. There is a grade 1 diastolic dysfunction. Normal right ventricular size and dimension. Normal right ventricular systolic function. Slightly increased right ventricular systolic [id number] mm of mercury Normal biatrial size and dimension. There is mild aortic valve sclerosis. There is [id number] aortic valve regurgitation. There is mild mitral valve regurgitation. There is mild tricuspid valve regurgitation. The pulmonary valve is grossly normal. No pericardial effusion. Condition at Discharge: Fair Final Diagnosis/Problems List # Metabolic encephalopathy secondary to acute cystitis # Sepsis likely secondary to pyelonephritis # Acute cystitis with a history of recurrent UTIs # Sick sinus syndrome with tachy-afshan events # Sinus bradycardia with intermittent rapid atrial fibrillation # Atrial fibrillation secondary to likely [id number] score 5, HAS BLED Score 1. # Heart failure with mildly reduced ejection fraction-EF 45-50% # Macrocytosis but no anemia # Symptomatic hypoglycemia secondary to sepsis # Dyslipidemia # Calcified leiomyoma # Ascending aortic aneurysm # Hypertension Heart disease # History of breast mass resection # Morbid obesity Discharge Disposition: Home with Health Services Discharge Instruct/Medications Diet: Regular Activity: No Restrictions, As Tolerated Follow Up/Referral: Follow up with the PCP in one week Follow up with cardiology in 1-2 weeks Medications: Fluconazole 200mg dialy X 10 days Cefpodaxime 200mg twice daily X 7 days Apixaban 2.5 mg PO Twice daily Spironolactone 12.5mg PO Once daily Lasix 40mg PO PRN for leg swelling Discharge Statement: "Patient was advised to return to the ER or call 911 if any headaches, dizziness, shortness of breath, chest pain, abdominal pain, bleeding, fevers, or worsening of medical condition. Patient was counseled about treatment plan, medications, possible side effects, patientverbalized understanding. All questions were answered to the best of my ability. This discharge took greater then 30 minutes in planning, reviewing documentation, counseling the patient, and discussing with other team members." ASSESSMENT ASSESSMENT Assessment # Metabolic encephalopathy secondary to acute cystitis # Sepsis likely secondary to pyelonephritis # Acute cystitis with a history of recurrent UTIs # Sick sinus syndrome with tachy-afshan events # Sinus bradycardia with intermittent rapid atrial fibrillation # Atrial fibrillation secondary to likely [id number]-[id number] score 5, HAS BLED Score 1. # Heart failure with mildly reduced ejection fraction-EF 45-50% # Macrocytosis but no anemia # Symptomatic hypoglycemia secondary to sepsis # Dyslipidemia # Calcified leiomyoma # Ascending aortic aneurysm # Hypertension Heart disease # History of breast mass resection # Morbid obesity Date of Service: Apr 05, 2024 Billing Provider: APOLINAR VELASQUEZ MD Common Visit Codes: 34371-AHZ/OBS DISCH DAY >30min JU MCNEAL RESIDENT Apr 05, 2024 18:02 APOLINAR VELASQUEZ MD Apr 07, 2024 22:58
[2024-04-05] MEDS: INFLUENZA TRIVALENT 2024-2025 0.5 ML INJ IM ONE (19:31)
== END 2024-04-05 19:20 | disposition home health service (06) | DRG 871 ==
LOC: EDBD 09:53 → ER 09:53 → UNDOADMIN 14:01 → OVERFLOW 14:01 → TELE 03-28 11:11 → TELE-CENTR 03-29 21:11 → CENTRAL 03-29 21:40 → TELE-CENTR 03-30 00:59 → TELE-WESTW 03-31 19:35 → TELE-EAST 04-04 03:30
PROVIDERS: ADMIT Student in an Organized Health Care Education/Training Program; ATTEND Student in an Organized Health Care Education/Training Program
DX: A41.9 Sepsis, unspecified organism (principal); G93.41 Metabolic encephalopathy; I50.23 Acute on chronic systolic (congestive) heart failure; F05 Delirium due to known physiological condition; N10 Acute pyelonephritis; N30.00 Acute cystitis without hematuria; I49.5 Sick sinus syndrome; E66.01 Morbid (severe) obesity due to excess calories; F03.90 Unspecified dementia, unspecified severity, without behavioral disturbance, psychotic disturbance, mood disturbance, and anxiety; I11.0 Hypertensive heart disease with heart failure; I48.91 Unspecified atrial fibrillation; I71.21 Aneurysm of the ascending aorta, without rupture; D21.9 Benign neoplasm of connective and other soft tissue, unspecified; E16.2 Hypoglycemia, unspecified; E78.5 Hyperlipidemia, unspecified; D75.89 Other specified diseases of blood and blood-forming organs; G47.30 Sleep apnea, unspecified; I44.0 Atrioventricular block, first degree; M81.0 Age-related osteoporosis without current pathological fracture; Z79.899 Other long term (current) drug therapy; Z83.3 Family history of diabetes mellitus; R00.1 Bradycardia, unspecified; Z68.30 Body mass index [BMI] 30.0-30.9, adult; Z81.8 Family history of other mental and behavioral disorders
CPT/HCPCS: 36415; 36600; 70450; 70551; 71045; 74177; 80048; 80053; 80202; 80307; 80320; 81001; 82140; 82306; 82565; 82607; 82746; 82805; 82962; 83036; 83605; 83735; 83880; 84100; 84443; 84478; 84484; 85025; 85610; 85652; 85730; 87040; 87081; 87086; 87088; 87426; 87804; 92507; 92610; 93005; 93306; 93886; 93970; 96365; 96375; 97110; 97116; 97163; 97530; 99291; G0378; J1450; J2185; J3490

== ENCOUNTER 2024-04-07 10:49 | Inpatient (IN) | payer MEDICARE, BC ==
[~2024-04-07] VITALS: Ht 162.6 cm; Wt 79.6 kg
[~2024-04-07 10:49] MED LIST changes: +APIX2.5T PO; +ATOR10TA52 PO; +CEFP200T15 PO; -CEPH500C PO; +FLUC200T50 PO; -FURO1TAB33 PO; +FURO20TA3 PO; -NITR-87 PO; +NYS15PW TOP; -PHEN-922 PO; +SPIR25TA PO
--- NOTE | 2024-04-07 12:03 | DVH ---
CHEST RADIOGRAPH Indication: sepsis Technique: Single frontal view of the chest was obtained COMPARISON: XY CHEST PORTABLE on DOS: 03/31/24, XY CHEST XRAY 1 VIEW on DOS: 03/27/24, XY CHEST PORTAB LE on DOS: 08/22/23 FINDINGS: Lines and Tubes: None Lungs: Clear Pleura: No effusion. No pneumothorax. Cardiomediastinal contours: Unremarkable Bones: Unremarkable IMPRESSION: No acute disease.
[2024-04-07 12:28] LABS: Basophils # (auto) 0 10 ^3/uL (0-0.2); Basophils % (auto) 0.2 % (0.0-2.0); Eosinophils # (auto) 0.1 10 ^3/uL (0-0.8); Hematocrit 38.7 % (36.0-46.0); Hemoglobin 12.9 g/dL (12.2-16.2); Lymphocytes # (auto) 1.7 10 ^3/uL (0.4-5.4); Lymphocytes % (auto) 32.4 % (10.0-50.0); Mean Corpuscular Hemoglobin 33.5 pg (28.0-32.0); Mean Corpuscular Hgb Conc. 33.2 g/dL (32.0-36.0); Mean Corpuscular Volume 100.9 fL (80.0-100.0); Monocytes # (auto) 0.7 10 ^3/uL (0-1.3); Monocytes % (auto) 12.8 % (0.0-12.0); Neutrophils # (auto) 2.9 10 ^3/uL (1.6-8.6); Neutrophils % (auto) 53.6 % (37.0-80.0); Nucleated Red Blood Cells % 0.2 %; Platelet Count (auto) 221 10^3/uL (140-450); Red Blood Cells 3.84 10^6/uL (4.0-5.20); Red Cell Distribution Width 15.4 % (11.8-14.3); White Blood Cell 5.4 10^3/uL (4.4-10.8)
--- NOTE | 2024-04-07 12:52 | ED.PDOC ---
History of Present Illness HPI Comments 83-year-old female presented in the ED with complaints of weakness and lethargy for last one day. Patient is alert and oriented, and mentions that she started feeling weak today. She came out of the bathroom and then fell on the ground. She mentioned she did not hit her head, but did hit her back. She mentioned mild burning micturition. She denied any chest pain, shortness of breath, headaches, nausea, vomiting, abdominal pain. Her daughter called EMS. She was recently discharged from the hospital. During her last hospitalization she was found to have AFib, altered level of consciousness, UTI due to yeast. Last echocardiogram done revealed 45% ejection fraction, after which patient was discharged on spironolactone. Past medical history Recurrent UTI, CHF, atrial fibrillation with tachy-Jorge Alberto syndrome, calcified leiomyoma, AAA, morbidity Medication history Apixaban, spironolactone, Lasix Allergic history No known allergies Social history Denied smoking, alcohol, marijuana or any other intake ROS Constitutional: Lethargy No: Fever, Chills, Sweats, Weakness, Malaise, Other Eyes: No: Pain, Vision change, Conjunctivae inflammation, Eyelid inflammation, Other, Redness ENT: No: Ear pain, Ear discharge, Nose pain, Nose discharge, Nose congestion, Mouth pain, Mouth swelling, Throat pain, Throat swelling, Other Respiratory: No: Cough, Dry, Shortness of breath, SOB with excertion, Wheezing, Hemoptysis, Pleuritic Pain, Sputum, Wheezing, Other Cardiovascular: No: Chest Pain, Palpitations, Orthopnea, Paroxysmal Noc. Dyspnea, Edema, Lt Headedness, Other Gastrointestinal: No: Nausea, Vomiting, Abdominal Pain, Diarrhea, Constipation, Melena, Hematochezia, Other Musculoskeletal: No: other, neck pain, shoulder pain, arm pain, back pain, hand pain, leg pain, foot pain Neurological:; No: Weakness, Numbness, Incoordination, Change in speech, Confusion, Seizures Urological: Burning micturition Examination General Appearance: Alert, Oriented X3, Cooperative, No acute distress HEENT: EOMI Respiratory: Clear to auscultation, Normal air movement Cardiovascular: Regular rate, Normal S1, Normal S2 Abdominal: Normal bowel sounds Extremities: No cyanosis, No edema, Normal pulses, No tenderness/swelling Skin: No rashes, No breakdown Neuro: Normal speech and tone Chief Complaint: General Weakness Time Seen by MD: 11:09 Primary Care Provider: MUSHTAQ Allergies: Coded Allergies: NO KNOWN ALLERGIES (Unverified , 06/14/22) Home Meds Active Scripts Spironolactone (Aldactone) 25 Mg Tab, 12.5 MG PO DAILY for 30 Days, #15 TAB 1 [facility] 04/05/24 Cefpodoxime Proxetil (Cefpodoxime Proxetil) 200 Mg Tab, 1 TAB PO BID for 7 Days, #14 TAB [facility] 04/05/24 Nystatin (Mycostatin) 1 Applic Ap, 1 APPLIC TOP BID for 10 Days, APPLIC Prov[facility] 04/05/24 Furosemide (Furosemide) 20 Mg Tab, 1 TAB PO DAILY PRN for 30 Days, #30 TAB 1 Refill for leg swelling [facility] 04/05/24 Fluconazole (Fluconazole) 200 Mg Tab, 1 TAB PO DAILY for 10 Days, #10 TAB [facility] 04/05/24 Apixaban Base (ELIQUIS) 2.5 Mg Tab, 2.5 MG PO BID for 30 Days, #60 TAB 2 Refills [facility] 04/05/24 Reported Medications Atorvastatin Calcium (ATORVASTATIN CALCIUM) 10 Mg Tab, 1 TAB PO DAILY 03/29/24 Discontinued Scripts Phenazopyridine HCl (Phenazopyridine Hydrochlo) 200 Mg Tab, 200 MG PO TID, #6 TAB Prov:COLLETTE VALERIO [place] 03/20/24 Cephalexin Monohydrate (Cephalexin) 500 Mg Cap, 1 CAP PO QID, #32 CAP Prov:COLLETTE VALERIO [place] 03/20/24 Nitrofurantoin Monohydrate Mac (Macrobid) 100 Mg Cap, 100 MG PO BID for 7 Days, #14 CAP Prov:REYNALDO DURAN [facility] 02/20/24 Furosemide (Lasix) 20 Mg Tb, 1 TAB PO DAILY, #90 TAB 1 Refill Prov:BOO TELLES MD 08/17/23 X-Ray, Labs, Meds, VS Vital Signs Date Time Temp Pulse Resp B/P (MAP) Pulse Ox O2 Delivery O2 Flow Rate FiO2 04/07/24 13:26 98.5 82 16 138/53 (81) 94 04/07/24 10:57 69 Lab Test 04/07/24 17:23 04/07/24 16:30 04/07/24 15:05 04/07/24 13:02 Range/Units Urine Color Pending Urine Clarity Pending Urine pH Pending Urine Specific [place] Pending Urine Protein Pending Urine Ketones Pending Urine Blood Pending Urine Nitrite Pending Urine Bilirubin Pending Urine Urobilinogen Pending Urine Leukocyte Esterase Pending Urine RBC Pending Urine WBC Pending Urine Squamous Epithelial Cells Pending Urine Bacteria Pending Urine Glucose Pending Troponin I High Sensitivity 8 9 </=34 ng/L Lactic Acid Level 2.1 H 2.2 *H 0.4-2.0 mmol/L Sodium Level 142 136-145 mmol/L Potassium Level 4.5 3.5-5.1 mmol/L Chloride Level 105 98-107 mmol/L Carbon Dioxide Level 29 20-31 mmol/L Anion Gap 8 5-15 Blood Urea Nitrogen 31 H 9-23 mg/dL Creatinine 0.94 # 0.550-1.02 mg/dL Glomerular Filtration Rate Calc 60 >90 mL/min BUN/Creatinine Ratio 33.0 H 10.0-20.0 Serum Glucose 84 74-106 mg/dL Calcium Level 10.6 H 8.7-10.4 mg/dL Magnesium Level 1.9 1.6-2.6 mg/dL Total Bilirubin 0.5 0.2-1.0 mg/dL Aspartate Amino Transferase (AST) 27 13-40 U/L Alanine Aminotransferase (ALT) 23 7-40 U/L Alkaline Phosphatase 117 H 46-116 U/L B-Type Natriuretic Peptide 47.73 0-100 pg/mL Total Protein 8.1 5.7-8.2 g/dL Albumin 3.8 3.2-4.8 g/dL Thyroid Stimulating Hormone (TSH) 1.12 0.55-4.78 uIU/mL Test 04/07/24 12:04 Range/Units White Blood Count 5.4 4.4-10.8 10^3/uL Red Blood Count 3.84 L 4.0-5.20 10^6/uL Hemoglobin 12.9 12.2-16.2 g/dL Hematocrit 38.7 # 36.0-46.0 % Mean Corpuscular Volume 100.9 H 80.0-100.0 fL Mean Corpuscular Hemoglobin 33.5 H 28.0-32.0 pg Mean Corpuscular Hemoglobin Concent 33.2 32.0-36.0 g/dL Red Cell Distribution Width 15.4 H 11.8-14.3 % Platelet Count 221 140-450 10^3/uL Mean Platelet Volume 8.9 6.9-10.8 fL Neutrophils (%) (Auto) 53.6 37.0-80.0 % Lymphocytes (%) (Auto) 32.4 10.0-50.0 % Monocytes (%) (Auto) 12.8 H 0.0-12.0 % Eosinophils (%) (Auto) 1.0 0.0-7.0 % Basophils (%) (Auto) 0.2 0.0-2.0 % Neutrophils # (Auto) 2.9 1.6-8.6 10 ^3/uL Lymphocytes # (Auto) 1.7 0.4-5.4 10 ^3/uL Monocytes # (Auto) 0.7 0-1.3 10 ^3/uL Eosinophils # (Auto) 0.1 0-0.8 10 ^3/uL Basophils # (Auto) 0 0-0.2 10 ^3/uL Nucleated Red Blood Cells 0.2 % Troponin I High Sensitivity 8 </=34 ng/L Time of 1ST Reevaluation: 12:43 Reevaluation 1ST: Unchanged Patient Education/Counseling: Diagnosis, Treatment Family Education/Counseling: No Family Present Comments Patient presented with the generalized weakness, fall.workup was initiated. Patient was given: Small boluses of IV fluid considering her history of heart failure. Patient ED course and VS have been stabilized. Patient has been reassessed in the ED and remained in a stable condition. Patient/family voices understanding and is agreeable with plan. Patient has been observed in the ED adequate length of time to insure improvement/stability. patient was admitted to the medicine team for further evaluation and treatment of their presentation. Departure 1 Departure Time of Disposition: 12:43 Impression: Primary Impression: Fall Additional Impressions: Pre-syncope Generalized weakness Disposition: 09 ADMITTED INPATIENT Admit to: Tele Condition: Guarded LIANNA JOHNSON RESIDENT Apr 07, 2024 12:52
[2024-04-07 13:36] LABS: Alanine Aminotransferase 23 U/L (7-40); Albumin 3.8 g/dL (3.2-4.8); Alkaline Phosphatase 117 U/L (46-116); Anion Gap 8 (5-15); Aspartate Aminotransferase 27 U/L (13-40); Bilirubin, Total 0.5 mg/dL (0.2-1.0); Blood Urea Nitrogen 31 mg/dL (9-23); Calcium 10.6 mg/dL (8.7-10.4); Carbon Dioxide 29 mmol/L (20-31); Chloride 105 mmol/L (98-107); Glucose 84 mg/dL (74-106); Magnesium 1.9 mg/dL (1.6-2.6); Potassium 4.5 mmol/L (3.5-5.1); Sodium 142 mmol/L (136-145); Total Protein 8.1 g/dL (5.7-8.2)
[2024-04-07 13:44] LABS: Lactic Acid w/Reflex 2.2 mmol/L (0.4-2.0)
--- NOTE | 2024-04-07 13:54 | DVH ---
EXAM: CT HEAD WITHOUT CONTRAST HISTORY: presyncope COMPARISON: MRI BRAIN HEAD WO CONTRAST on DOS: 04/02/24, CT HEAD WITHOUT CONTRAST on DOS: 03/28/24 TECHNIQUE: Axial images of the head were obtained and reformatted in coronal and sagittal planes. All CT scans at this medical facility are performed using dose modulation techniques as appropriate t o a performed exam including the following: Automated exposure control was utilized; adjustment of th e MA and/or KV according to patient size; and use of iterative reconstruction technique. CT Dose: CTDI volume is 51.51 mGy. Dose-length product is 1015.31 mGy*cm FINDINGS: There is mild age concordant generalized parenchymal atrophy. There are patchy hypodense areas in the supratentorial white matter compatible with chronic microvascular ischemic changes. There is no evid ence of acute intracranial hemorrhage, mass, mass effect midline shift. There is no hydrocephalus or extra-axial fluid collection. Cardoso-white matter differentiation is maintained.. There is opacification of the bilateral mastoid air cells, [id number]. The visualized pa ranasal sinuses are clear. The calvarium is intact. Note is made of hyperostosis frontalis. IMPRESSION: 1. No acute intracranial process. HS:Y
--- NOTE | 2024-04-07 14:29 | ECG ---
[facility] Test Date: 2024-04-07 Test Time: 10:57:48 Pat Name: KIAH MERCEDES Department: ER Room: 0236T Gender: F Sample Steamer: MARNI : 1940 Requested By: EMERGENCY EMERGENCY Order Number: [id number] Reading MD: Suleiman Solis Measurements Intervals Echo Rate: 69 P: 0 NJ: 0 QRS: -11 QRSD: 108 T: 88 QT: 462 QTc: 495 Interpretive Statements Normal sinus rhythm, premature atrial contractions Baseline wander in lead(s) V1 Electronically Signed On 04-09-2024 17:35:23 PST by Suleiman Solis Please click the below link to view image of tracing.
--- NOTE | 2024-04-07 15:58 | DVHHP2 ---
History of Present Illness Reason for Visit: Confusion History of Present Illness Tony Dot Jones is a 83YO F with pmHx of CHF, HLD, HTN, breast cancer, mild diastolic dysfunction who presents to the ED for micturition, confusion, weakness and lethargy x 1 day. Patient's daughter (Antonette) reports she fell and hit her back on the ground while walking out from the bathroom. Patient's daughter reports her recent hospitalization less than 48 hours was diagnosed with Afib, ALOC, and a UTI. Patient reports using a FWW for ambulation. Patient's daughter also reports the patient has a history of UTI with sepsis and was prescribed eliquis for her Afib and the patient takes atorvastatin for her HLD. Patient denies chest pain, shortness of breath, headache, dizziness, and lightheadedness. Cardiovascular: AFIB, CHF, HTN, hyperipidemia Renal/: UTI Past Medical History Mild diastolic dysfunction Breast cancer Family History ETOH abuse DM Dementia Smoke: No ALCOHOL: none Drugs: None Lives: with Family Domestic Violence: Neg Review of Systems Constitutional: No: Fever, Chills, Sweats, Weakness, Malaise, Other Eyes: No: Pain, Vision change, Conjunctivae inflammation, Eyelid inflammation, Other, Redness ENT: No: Ear pain, Ear discharge, Nose pain, Nose discharge, Nose congestion, Mouth pain, Mouth swelling, Throat pain, Throat swelling, Other Respiratory: No: Cough, Dry, Shortness of breath, SOB with excertion, Wheezing, Hemoptysis, Pleuritic Pain, Sputum, Wheezing, Other Cardiovascular: No: Chest Pain, Palpitations, Orthopnea, Paroxysmal Noc. Dyspnea, Edema, Lt Headedness, Other Gastrointestinal: No: Nausea, Vomiting, Abdominal Pain, Diarrhea, Constipation, Melena, Hematochezia, Other Genitourinary: No Dysuria, No Frequency, No Incontinence, No Hematuria, No Retention, No Other Musculoskeletal: No: other, neck pain, shoulder pain, arm pain, back pain, hand pain, leg pain, foot pain Skin: No: Rash, Lesions, Jaundice, Bruising, Other Neurological: Weakness, Confusion, Other (lethargy); No: Numbness, Incoordinat ion, Change in speech, Seizures Allergies: Coded Allergies: NO KNOWN ALLERGIES (Unverified , 1/27/23) Exam Vital Signs Vital Signs Date Time Temp Pulse Resp B/P (MAP) Pulse Ox O2 Delivery O2 Flow Rate FiO2 04/07/24 13:26 98.5 82 16 138/53 (81) 94 General Appearance: Alert, Cooperative, No acute distress, Other (A/O x 2 person and situation) HEENT: PERRLA, EOMI Respiratory: Clear to auscultation, Normal air movement Cardiovascular: Normal S1, Normal S2, No murmurs Abdominal: Normal bowel sounds, Soft, No tenderness Extremities: No clubbing, No cyanosis Skin: No rashes, No breakdown, No significant lesion Neuro: Normal speech, Normal tone, Sensation intact Psych/Mental Status: Mood NL Labs/Xrays Labs Test 04/07/24 15:05 04/07/24 13:02 04/07/24 12:04 Range/Units Sodium Level 142 136-145 mmol/L Potassium Level 4.5 3.5-5.1 mmol/L Chloride Level 105 98-107 mmol/L Carbon Dioxide Level 29 20-31 mmol/L Anion Gap 8 5-15 Blood Urea Nitrogen 31 H 9-23 mg/dL Creatinine 0.94 # 0.550-1.02 mg/dL Glomerular Filtration Rate Calc 60 >90 mL/min BUN/Creatinine Ratio 33.0 H 10.0-20.0 Serum Glucose 84 74-106 mg/dL Calcium Level 10.6 H 8.7-10.4 mg/dL Magnesium Level 1.9 1.6-2.6 mg/dL Total Bilirubin 0.5 0.2-1.0 mg/dL Aspartate Amino Transferase (AST) 27 13-40 U/L Alanine Aminotransferase (ALT) 23 7-40 U/L Alkaline Phosphatase 117 H 46-116 U/L Troponin I High Sensitivity 9 </=34 ng/L B-Type Natriuretic Peptide 47.73 0-100 pg/mL Total Protein 8.1 5.7-8.2 g/dL Albumin 3.8 3.2-4.8 g/dL Thyroid Stimulating Hormone (TSH) 1.12 0.55-4.78 uIU/mL White Blood Count 5.4 4.4-10.8 10^3/uL Red Blood Count 3.84 L 4.0-5.20 10^6/uL Hemoglobin 12.9 12.2-16.2 g/dL Hematocrit 38.7 # 36.0-46.0 % Mean Corpuscular Volume 100.9 H 80.0-100.0 fL Mean Corpuscular Hemoglobin 33.5 H 28.0-32.0 pg Mean Corpuscular Hemoglobin Concent 33.2 32.0-36.0 g/dL Red Cell Distribution Width 15.4 H 11.8-14.3 % Platelet Count 221 140-450 10^3/uL Mean Platelet Volume 8.9 6.9-10.8 fL Neutrophils (%) (Auto) 53.6 37.0-80.0 % Lymphocytes (%) (Auto) 32.4 10.0-50.0 % Monocytes (%) (Auto) 12.8 H 0.0-12.0 % Eosinophils (%) (Auto) 1.0 0.0-7.0 % Basophils (%) (Auto) 0.2 0.0-2.0 % Neutrophils # (Auto) 2.9 1.6-8.6 10 ^3/uL Lymphocytes # (Auto) 1.7 0.4-5.4 10 ^3/uL Monocytes # (Auto) 0.7 0-1.3 10 ^3/uL Eosinophils # (Auto) 0.1 0-0.8 10 ^3/uL Basophils # (Auto) 0 0-0.2 10 ^3/uL Nucleated Red Blood Cells 0.2 % EXAM: CT HEAD WITHOUT CONTRAST FINDINGS: There is mild age concordant generalized parenchymal atrophy. There are patchy hypodense areas in the supratentorial white matter compatible with chronic microvascular ischemic changes. There is no evidence of acute intracranial hemorrhage, mass, mass effect midline shift. There is no hydrocephalus or extra- axial fluid collection. Cardoso-white matter differentiation is maintained.. There is opacification of the bilateral mastoid air cells, [id number]. The visualized paranasal sinuses are clear. The calvarium is intact. Note is made of hyperostosis frontalis. IMPRESSION: 1. No acute intracranial process. CHEST RADIOGRAPH FINDINGS: Lines and Tubes: None Lungs: Clear Pleura: No effusion. No pneumothorax. Cardiomediastinal contours: Unremarkable Bones: Unremarkable IMPRESSION: No acute disease. Assessment/Plan Assessment/Plan Assessment: Metabolic encephalopathy UTI GLENDA Hx of CHF HLD HTN Breast cancer Mild diastolic dysfunction Afib Sepsis Plan: Admit to [facility] Cardiac diet Monitor lactic acid, trending down IVf IV Abx Pain management Antiemetics BP and rate control AM labs Reconciled home medications Discussed plan of care with patient, patient's daughter and nurse Plan discussed with: Patient, Daughter (Antnoette) Date of Service: Apr 07, 2024 Billing Provider: GERALD VILLA Common Visit Codes: [id number] INP/OBS CARE (MOD) GERALD VILLA Apr 07, 2024 15:58
[2024-04-07 17:30] VITALS: PULSE 70; RESP 13; O2SAT 94
[2024-04-07] MEDS ORDERED: DOCUSATE SOD 100 MG CAP PO PRN (17:30)
[2024-04-07] MEDS ORDERED: ACETAMINOPHEN 325 MG TAB PO PRN (17:30)
[2024-04-07] MEDS ORDERED: ONDANSETRON HCL 4 MG/2 ML VIAL IV PRN (17:30)
[2024-04-07] MEDS: SODIUM CHLORIDE 0.9% 250 ML IV ONE (17:53)
[2024-04-07] MEDS: SODIUM CHLORIDE 0.9% 1,000 ML IV ONE (18:00)
[2024-04-07 18:41] LABS: Urine Bacteria FEW /hpf (None Seen); Urine Blood TRACE /uL (Negative); Urine Clarity Turbid (Clear); Urine Color Yellow (Yellow); Urine Hyaline Cast MOD /lpf (0 - 2); Urine Mucus FEW (None Seen); Urine Protein, UAD TRACE (Negative); Urine Urobilinogen Normal (Negative); Urine WBC 61 /hpf (0 - 5)
[2024-04-07] MEDS: SODIUM CHLORIDE 0.9% 1,000 ML IV SCH (18:41)
[2024-04-07] MEDS: cefTRIAXone 1GM/50ML D5W 50 ML IV ONE (18:49)
[2024-04-07 19:30] VITALS: PULSE 76; RESP 14; O2SAT 95
[2024-04-07] MEDS: APIXABAN 2.5 MG TAB PO SCH (22:08)
[2024-04-07] MEDS: ATORVASTATIN 20 MG TAB PO SCH (22:08)
[2024-04-08] VITALS (7 sets, daily range): BP systolic 113–126; BP diastolic 42–88; PULSE 56–76; RESP 14–18; TEMP 97.3–98.2; O2SAT 92–97
[2024-04-08 05:08] LABS: Basophils # (auto) 0 10 ^3/uL (0-0.2); Basophils % (auto) 0.5 % (0.0-2.0); Eosinophils # (auto) 0.1 10 ^3/uL (0-0.8); Eosinophils % (auto) 2.8 % (0.0-7.0); Hematocrit 35.3 % (36.0-46.0); Hemoglobin 11.9 g/dL (12.2-16.2); Mean Corpuscular Hemoglobin 34.7 pg (28.0-32.0); Mean Corpuscular Hgb Conc. 33.8 g/dL (32.0-36.0); Mean Corpuscular Volume 102.7 fL (80.0-100.0); Monocytes # (auto) 0.7 10 ^3/uL (0-1.3); Monocytes % (auto) 15.6 % (0.0-12.0); Neutrophils # (auto) 1.9 10 ^3/uL (1.6-8.6); Neutrophils % (auto) 40.1 % (37.0-80.0); Nucleated Red Blood Cells % 0.1 %; Platelet Count (auto) 229 10^3/uL (140-450); Red Blood Cells 3.43 10^6/uL (4.0-5.20); Red Cell Distribution Width 15.8 % (11.8-14.3); White Blood Cell 4.8 10^3/uL (4.4-10.8)
[2024-04-08 05:29] LABS: Alanine Aminotransferase 21 U/L (7-40); Albumin 3.6 g/dL (3.2-4.8); Alkaline Phosphatase 108 U/L (46-116); Anion Gap 7 (5-15); Aspartate Aminotransferase 25 U/L (13-40); BUN/Creatinine Ratio 38.4 (10.0-20.0); Bilirubin, Total 0.5 mg/dL (0.2-1.0); Blood Urea Nitrogen 28 mg/dL (9-23); Calcium 10.5 mg/dL (8.7-10.4); Carbon Dioxide 28 mmol/L (20-31); Chloride 108 mmol/L (98-107); Glucose 72 mg/dL (74-106); Potassium 4.1 mmol/L (3.5-5.1); Sodium 143 mmol/L (136-145); Total Protein 7.5 g/dL (5.7-8.2)
[2024-04-08] MEDS: cefTRIAXone 1GM/50ML D5W 50 ML IV SCH (08:32)
--- NOTE | 2024-04-08 13:09 | DVHPN2 ---
Reviewed: Care Plan, H&P, Labs, Medications, Previous Orders, Radiology Changes from previous H/P or p: No Changes Eyes: No Pain, No Vision change, No Conjunctivae inflammation, No Eyelid inflammation, No Other, No Redness ENT: No Ear pain, No Ear discharge, No Nose pain, No Nose discharge, No Nose congestion, No Mouth pain, No Mouth swelling, No Throat pain, No Throat swelling, No Other Cardiovascular: No Chest Pain, No Palpitations, No Orthopnea, No Paroxysmal Noc. Dyspnea, No Edema, No Lt Headedness, No Other Respiratory: No Cough, No Dry, No Shortness of breath, No SOB with excertion, No Wheezing, No Hemoptysis, No Pleuritic Pain, No Sputum, No Other Gastrointestinal: No Nausea, No Vomiting, No Abdominal Pain, No Diarrhea, No Constipation, No Melena, No Hematochezia, No Other Genitourinary: No Dysuria, No Frequency, No Incontinence, No Hematuria, No Retention, No Other Musculoskeletal: No other, No neck pain, No shoulder pain, No arm pain, No back pain, No hand pain, No leg pain, No foot pain Skin: No Rash, No Lesions, No Jaundice, No Bruising, No Other Objective Vitals Vital Signs Date Time Temp Pulse Resp B/P (MAP) Pulse Ox O2 Delivery O2 Flow Rate FiO2 04/08/24 12:39 97.3 66 18 116/42 (66) 96 97.3 04/08/24 08:00 Nasal Cannula* 2 28 Intake/Output Intake and Output 04/08/24 07:00 Intake Total 50 ml Output Total 20 ml Balance 30 ml IV Total 50 ml Output Urine Total 20 ml Medications Current Medications Medications Dose Ordered Sig/Maylin Route Start Time Stop Time Status Last Admin Dose Admin Apixaban 2.5 mg BID PO 04/07/24 22:00 04/08/24 08:31 2.5 MG Atorvastatin Calcium 10 mg HS PO 04/07/24 22:00 04/07/24 22:08 10 MG Sodium Chloride 1,000 ml @ 60 mls/hr [id number] IV 04/07/24 17:30 04/08/24 10:16 60 MLS/HR Ondansetron HCl 4 mg Q4HP PRN IV 04/07/24 17:30 Docusate Sodium 100 mg BIDPRN PRN PO 04/07/24 17:30 Acetaminophen 650 mg Q6HP PRN PO 04/07/24 17:30 Ceftriaxone Sodium 50 ml @ 100 mls/hr DAILY@09 IV 04/08/24 09:00 04/08/24 08:32 100 MLS/HR Laboratory Results Laboratory Tests 04/08/24 04:55 Chemistry Test 04/08/24 04:55 Albumin 3.6 g/dL (3.2-4.8) Calcium Level 10.5 mg/dL (8.7-10.4) H Total Protein 7.5 g/dL (5.7-8.2) LFT Test 04/08/24 04:55 Alanine Aminotransferase (ALT) 21 U/L (7-40) Alkaline Phosphatase 108 U/L (46-116) Aspartate Amino Transferase (AST) 25 U/L (13-40) Total Bilirubin 0.5 mg/dL (0.2-1.0) Urinalysis Test 04/07/24 17:23 Urine Color Yellow (Yellow) Urine Clarity Turbid (Clear) H Urine pH 5.0 (5.0-9.0) Urine Specific [place] 1.020 (1.001-1.035) Urine Protein Trace (Negative) H Urine Ketones Negative (Negative) Urine Blood Trace /uL (Negative) H Urine Nitrite Negative (Negative) Urine Bilirubin Negative (Negative) Urine Urobilinogen Normal mg/dL (Negative) Urine Leukocyte Esterase 3+ /uL (Negative) Urine RBC 5 /hpf (0 - 4) Urine WBC 61 /hpf (0 - 5) Urine Squamous Epithelial Cells Few /hpf (<5) Urine Calcium Oxalate Crystals Few (None Seen) Urine Bacteria Few /hpf (None Seen) H Urine Hyaline Casts Mod /lpf (0 - 2) Urine Mucus Few (None Seen) Urine Glucose Normal mg/dL (Normal) Microbiology Microbiology Date/Time Source Procedure Growth Status 04/07/24 12:04 Blood Blood Culture - Preliminary NO GROWTH AFTER 24 HOURS OF INCUBATION. Resulted Labs and/or images reviewed: Labs reviewed by me, Image(s) reviewed by me Assessment/Plan Assessment/Plan # Metabolic encephalopathy secondary to acute cystitis # Sepsis likely secondary to pyelonephritis: ROCEPHIN # Acute cystitis with a history of recurrent UTIs # Sick sinus syndrome with tachy-afshan events # Sinus bradycardia with intermittent rapid atrial fibrillation # Atrial fibrillation secondary to likely [id number] score 5, HAS BLED Score 1. # Heart failure with mildly reduced ejection fraction-EF 45-50% # Macrocytosis but no anemia # Symptomatic hypoglycemia secondary to sepsis # Dyslipidemia # Calcified leiomyoma # Ascending aortic aneurysm # Hypertension Heart disease # History of breast mass resection Time spent 65 minutes Patient is full code Advanced care planning time 20 minutes Plan discussed with: Patient Date of Service: Apr 08, 2024 Billing Provider: BOO TELLES MD Common Visit Codes: [id number] CARE 30-74 MIN BOO TELLES MD Apr 08, 2024 13:09
[2024-04-09] VITALS (7 sets, daily range): BP systolic 118–141; BP diastolic 46–70; PULSE 62–82; RESP 14–96; TEMP 98.5–99; O2SAT 94–100
--- NOTE | 2024-04-09 09:23 | DVHPN2 ---
Reviewed: Care Plan, H&P, Labs, Medications, Previous Orders, Radiology Changes from previous H/P or p: No Changes Eyes: No Pain, No Vision change, No Conjunctivae inflammation, No Eyelid inflammation, No Other, No Redness ENT: No Ear pain, No Ear discharge, No Nose pain, No Nose discharge, No Nose congestion, No Mouth pain, No Mouth swelling, No Throat pain, No Throat swelling, No Other Cardiovascular: No Chest Pain, No Palpitations, No Orthopnea, No Paroxysmal Noc. Dyspnea, No Edema, No Lt Headedness, No Other Respiratory: No Cough, No Dry, No Shortness of breath, No SOB with excertion, No Wheezing, No Hemoptysis, No Pleuritic Pain, No Sputum, No Other Gastrointestinal: No Nausea, No Vomiting, No Abdominal Pain, No Diarrhea, No Constipation, No Melena, No Hematochezia, No Other Genitourinary: No Dysuria, No Frequency, No Incontinence, No Hematuria, No Retention, No Other Musculoskeletal: No other, No neck pain, No shoulder pain, No arm pain, No back pain, No hand pain, No leg pain, No foot pain Skin: No Rash, No Lesions, No Jaundice, No Bruising, No Other Objective Vitals Vital Signs Date Time Temp Pulse Resp B/P (MAP) Pulse Ox O2 Delivery O2 Flow Rate FiO2 04/09/24 09:00 99.0 74 14 124/66 (85) 94 99.0 04/08/24 20:00 Nasal Cannula* 2 28 Intake/Output Intake and Output 04/09/24 07:00 Intake Total 1050 ml Output Total 1000 ml Balance 50 ml Intake Oral 340 ml IV Total 710 ml Output Urine Total 1000 ml Medications Current Medications Medications Dose Ordered Sig/Maylin Route Start Time Stop Time Status Last Admin Dose Admin Apixaban 2.5 mg BID PO 04/07/24 22:00 04/09/24 08:34 2.5 MG Atorvastatin Calcium 10 mg HS PO 04/07/24 22:00 04/08/24 22:41 10 MG Sodium Chloride 1,000 ml @ 60 mls/hr [id number] IV 04/07/24 17:30 04/09/24 02:50 60 MLS/HR Ondansetron HCl 4 mg Q4HP PRN IV 04/07/24 17:30 Docusate Sodium 100 mg BIDPRN PRN PO 04/07/24 17:30 Acetaminophen 650 mg Q6HP PRN PO 04/07/24 17:30 Ceftriaxone Sodium 50 ml @ 100 mls/hr DAILY@09 IV 04/08/24 09:00 04/09/24 08:30 100 MLS/HR Dextrose/Sodium Chloride 1,000 ml @ 125 mls/hr Q8H IV 04/09/24 09:30 UNV Laboratory Results Laboratory Tests 04/08/24 04:55 Urinalysis Test 04/07/24 17:23 Urine Color Yellow (Yellow) Urine Clarity Turbid (Clear) H Urine pH 5.0 (5.0-9.0) Urine Specific [place] 1.020 (1.001-1.035) Urine Protein Trace (Negative) H Urine Ketones Negative (Negative) Urine Blood Trace /uL (Negative) H Urine Nitrite Negative (Negative) Urine Bilirubin Negative (Negative) Urine Urobilinogen Normal mg/dL (Negative) Urine Leukocyte Esterase 3+ /uL (Negative) Urine RBC 5 /hpf (0 - 4) Urine WBC 61 /hpf (0 - 5) Urine Squamous Epithelial Cells Few /hpf (<5) Urine Calcium Oxalate Crystals Few (None Seen) Urine Bacteria Few /hpf (None Seen) H Urine Hyaline Casts Mod /lpf (0 - 2) Urine Mucus Few (None Seen) Urine Glucose Normal mg/dL (Normal) Microbiology Microbiology Date/Time Source Procedure Growth Status 04/07/24 17:23 Voided Urine Urine Culture - Preliminary Resulted 04/07/24 12:04 Blood Blood Culture - Preliminary NO GROWTH AFTER 24 HOURS OF INCUBATION. Resulted Labs and/or images reviewed: Labs reviewed by me, Image(s) reviewed by me Assessment/Plan Assessment/Plan # Metabolic encephalopathy secondary to acute cystitis # Sepsis likely secondary to pyelonephritis: ROCEPHIN # Acute cystitis with a history of recurrent UTIs # Sick sinus syndrome with tachy-afshan events # Sinus bradycardia with intermittent rapid atrial fibrillation # Atrial fibrillation secondary to likely [id number]-[id number]-ORSr score 5, HAS BLED Score 1. # Heart failure with mildly reduced ejection fraction-EF 45-50% # Macrocytosis but no anemia # Symptomatic hypoglycemia secondary to sepsis # Dyslipidemia # Calcified leiomyoma # Ascending aortic aneurysm # Hypertension Heart disease # History of breast mass resection Time spent 65 minutes Patient is full code Advanced care planning time 20 minutes Discussed diagnosis management with the patient's daughter Antonette at bedside [phone] Plan discussed with: Patient, Daughter My Orders Orders - BOO TELLES MD Procedure Category Date Status Time Document Home Meds ED NURSING 04/08/[address] 04/08/24 Logged 13:18 Mechanical Soft Diet DIET 04/08/24 Transmitted Lunch Pureed DIET 04/08/24 Transmitted Dinner D5w/Sod Chlo 0.9% PHA 04/09/24 Logged (D5w Ns 0.9%) 09:30 Date of Service: Apr 09, 2024 Billing Provider: BOO TELLES MD Common Visit Codes: [id number] CARE 30-74 MIN BOO TELLES MD Apr 09, 2024 09:23
[2024-04-09] MEDS: D5W/SOD CHLO 0.9% 1,000 ML IV SCH (10:42)
[2024-04-09] MEDS: NYSTATIN TOPICAL POWDER 15GM TOP SCH (22:00)
[2024-04-09] MEDS: MUPIROCIN 2% OINT 15gm or 22gm FOR MRSA NARES EACHNOSTRI SCH (23:08)
[2024-04-10] VITALS (7 sets, daily range): BP systolic 102–126; BP diastolic 52–62; PULSE 59–83; RESP 14–18; TEMP 97.8; O2SAT 96–100
--- NOTE | 2024-04-10 10:20 | DVHPN2 ---
Reviewed: Care Plan, H&P, Labs, Medications, Previous Orders, Radiology Changes from previous H/P or p: No Changes Eyes: No Pain, No Vision change, No Conjunctivae inflammation, No Eyelid inflammation, No Other, No Redness ENT: No Ear pain, No Ear discharge, No Nose pain, No Nose discharge, No Nose congestion, No Mouth pain, No Mouth swelling, No Throat pain, No Throat swelling, No Other Cardiovascular: No Chest Pain, No Palpitations, No Orthopnea, No Paroxysmal Noc. Dyspnea, No Edema, No Lt Headedness, No Other Respiratory: No Cough, No Dry, No Shortness of breath, No SOB with excertion, No Wheezing, No Hemoptysis, No Pleuritic Pain, No Sputum, No Other Gastrointestinal: No Nausea, No Vomiting, No Abdominal Pain, No Diarrhea, No Constipation, No Melena, No Hematochezia, No Other Genitourinary: No Dysuria, No Frequency, No Incontinence, No Hematuria, No Retention, No Other Musculoskeletal: No other, No neck pain, No shoulder pain, No arm pain, No back pain, No hand pain, No leg pain, No foot pain Skin: No Rash, No Lesions, No Jaundice, No Bruising, No Other Objective Vitals Vital Signs Date Time Temp Pulse Resp B/P (MAP) Pulse Ox O2 Delivery O2 Flow Rate FiO2 04/10/24 09:00 63 14 103/53 (70) 97 04/10/24 08:00 Nasal Cannula* 2 28 04/09/24 17:00 98.5 98.5 Intake/Output Intake and Output 04/10/24 07:00 Intake Total 2240 ml Output Total 675 ml Balance 1565 ml Intake Oral 1400 ml IV Total 840 ml Output Urine Total 675 ml Medications Current Medications Medications Dose Ordered Sig/Maylin Route Start Time Stop Time Status Last Admin Dose Admin Apixaban 2.5 mg BID PO 04/07/24 22:00 04/09/24 23:08 2.5 MG Atorvastatin Calcium 10 mg HS PO 04/07/24 22:00 04/09/24 23:08 10 MG Ondansetron HCl 4 mg Q4HP PRN IV 04/07/24 17:30 Docusate Sodium 100 mg BIDPRN PRN PO 04/07/24 17:30 Acetaminophen 650 mg Q6HP PRN PO 04/07/24 17:30 Ceftriaxone Sodium 50 ml @ 100 mls/hr DAILY@09 IV 04/08/24 09:00 04/09/24 08:30 100 MLS/HR Dextrose/Sodium Chloride 1,000 ml @ 125 mls/hr Q8H IV 04/09/24 09:30 04/09/24 23:18 125 MLS/HR Mupirocin 1 applic BID EACHNOSTRI 04/09/24 22:00 04/14/24 21:59 04/09/24 23:08 1 APPLIC Nystatin 1 applic BID TOP 04/09/24 22:00 Laboratory Results Laboratory Tests 04/08/24 04:55 Urinalysis Test 04/07/24 17:23 Urine Color Yellow (Yellow) Urine Clarity Turbid (Clear) H Urine pH 5.0 (5.0-9.0) Urine Specific [place] 1.020 (1.001-1.035) Urine Protein Trace (Negative) H Urine Ketones Negative (Negative) Urine Blood Trace /uL (Negative) H Urine Nitrite Negative (Negative) Urine Bilirubin Negative (Negative) Urine Urobilinogen Normal mg/dL (Negative) Urine Leukocyte Esterase 3+ /uL (Negative) Urine RBC 5 /hpf (0 - 4) Urine WBC 61 /hpf (0 - 5) Urine Squamous Epithelial Cells Few /hpf (<5) Urine Calcium Oxalate Crystals Few (None Seen) Urine Bacteria Few /hpf (None Seen) H Urine Hyaline Casts Mod /lpf (0 - 2) Urine Mucus Few (None Seen) Urine Glucose Normal mg/dL (Normal) Microbiology Microbiology Date/Time Source Procedure Growth Status 04/08/24 22:35 Nose MRSA Screen - Final Methicillin Resistant S.aureus Complete 04/07/24 17:23 Voided Urine Urine Culture - Final Complete 04/07/24 12:04 Blood Blood Culture - Preliminary NO GROWTH AFTER 48 HOURS OF INCUBATION. Resulted Labs and/or images reviewed: Labs reviewed by me, Image(s) reviewed by me Assessment/Plan Assessment/Plan # Metabolic encephalopathy secondary to acute cystitis # Sepsis likely secondary to pyelonephritis: ROCEPHIN, blood cultures negative, urine cultures negative # Acute cystitis with a history of recurrent UTIs # Sick sinus syndrome with tachy-afshan events # Sinus bradycardia with intermittent rapid atrial fibrillation # Atrial fibrillation secondary to likely zobzle-OJYUF-CDFi score 5, HAS BLED Score 1. # Heart failure with mildly reduced ejection fraction-EF 45-50% # Macrocytosis but no anemia # Symptomatic hypoglycemia secondary to sepsis # Dyslipidemia # Calcified leiomyoma # Ascending aortic aneurysm # Hypertension Heart disease # History of breast mass resection Time spent 65 minutes Patient is full code Advanced care planning time 20 minutes Discussed diagnosis management with the patient's daughter Antonette at bedside [phone] We will DC home tomorrow Sun on p.o. antibiotic Plan discussed with: Patient My Orders Orders - BOO TELLES MD Procedure Category Date Status Time Dietary NOTICE 04/09/24 Transmitted Recommendations 13:02 Mupirocin 2% Oint PHA 04/09/24 In Process Mrsa Nares (Bactroban 22:00 Apply Barrier Cream CHYNA 04/09/24 In Process 11:00 Nystatin Powder PHA 04/09/24 In Process (Mycostatin Powder) 22:00 Date of Service: Apr 10, 2024 Billing Provider: BOO TELLES MD Common Visit Codes: [id number] INP/OBS CARE(HIGH) BOO TELLES MD Apr 10, 2024 10:20
[2024-04-11] VITALS (10 sets, daily range): BP systolic 98–144; BP diastolic 47–78; PULSE 59–78; RESP 16–18; TEMP 97.5–97.8; O2SAT 92–97
[2024-04-11] MEDS ORDERED: CIPR-173 PO (11:15)
--- NOTE | 2024-04-11 11:17 | DVHPN2 ---
Reviewed: Care Plan, H&P, Labs, Medications, Previous Orders, Radiology Changes from previous H/P or p: No Changes Eyes: No Pain, No Vision change, No Conjunctivae inflammation, No Eyelid inflammation, No Other, No Redness ENT: No Ear pain, No Ear discharge, No Nose pain, No Nose discharge, No Nose congestion, No Mouth pain, No Mouth swelling, No Throat pain, No Throat swelling, No Other Cardiovascular: No Chest Pain, No Palpitations, No Orthopnea, No Paroxysmal Noc. Dyspnea, No Edema, No Lt Headedness, No Other Respiratory: No Cough, No Dry, No Shortness of breath, No SOB with excertion, No Wheezing, No Hemoptysis, No Pleuritic Pain, No Sputum, No Other Gastrointestinal: No Nausea, No Vomiting, No Abdominal Pain, No Diarrhea, No Constipation, No Melena, No Hematochezia, No Other Genitourinary: No Dysuria, No Frequency, No Incontinence, No Hematuria, No Retention, No Other Musculoskeletal: No other, No neck pain, No shoulder pain, No arm pain, No back pain, No hand pain, No leg pain, No foot pain Skin: No Rash, No Lesions, No Jaundice, No Bruising, No Other Objective Vitals Vital Signs Date Time Temp Pulse Resp B/P (MAP) Pulse Ox O2 Delivery O2 Flow Rate FiO2 04/11/24 08:57 97.7 78 16 127/68 (87) 97 97.7 04/11/24 08:00 Nasal Cannula* 2 28 Intake/Output Intake and Output 04/11/24 07:00 Intake Total 2200 ml Output Total 625 ml Balance 1575 ml Intake Oral 100 ml IV Total 2100 ml Output Urine Total 625 ml # Bowel Movements 1 Medications Current Medications Medications Dose Ordered Sig/Maylin Route Start Time Stop Time Status Last Admin Dose Admin Apixaban 2.5 mg BID PO 04/07/24 22:00 04/11/24 10:57 2.5 MG Atorvastatin Calcium 10 mg HS PO 04/07/24 22:00 04/10/24 21:40 10 MG Ondansetron HCl 4 mg Q4HP PRN IV 04/07/24 17:30 Docusate Sodium 100 mg BIDPRN PRN PO 04/07/24 17:30 Acetaminophen 650 mg Q6HP PRN PO 04/07/24 17:30 Ceftriaxone Sodium 50 ml @ 100 mls/hr DAILY@09 IV 04/08/24 09:00 04/10/24 10:17 100 MLS/HR Dextrose/Sodium Chloride 1,000 ml @ 125 mls/hr Q8H IV 04/09/24 09:30 04/11/24 05:43 125 MLS/HR Mupirocin 1 applic BID EACHNOSTRI 04/09/24 22:00 04/14/24 21:59 04/11/24 10:00 1 APPLIC Nystatin 1 applic BID TOP 04/09/24 22:00 04/11/24 10:58 1 APPLIC Laboratory Results Laboratory Tests 04/08/24 04:55 Urinalysis Test 04/07/24 17:23 Urine Color Yellow (Yellow) Urine Clarity Turbid (Clear) H Urine pH 5.0 (5.0-9.0) Urine Specific [place] 1.020 (1.001-1.035) Urine Protein Trace (Negative) H Urine Ketones Negative (Negative) Urine Blood Trace /uL (Negative) H Urine Nitrite Negative (Negative) Urine Bilirubin Negative (Negative) Urine Urobilinogen Normal mg/dL (Negative) Urine Leukocyte Esterase 3+ /uL (Negative) Urine RBC 5 /hpf (0 - 4) Urine WBC 61 /hpf (0 - 5) Urine Squamous Epithelial Cells Few /hpf (<5) Urine Calcium Oxalate Crystals Few (None Seen) Urine Bacteria Few /hpf (None Seen) H Urine Hyaline Casts Mod /lpf (0 - 2) Urine Mucus Few (None Seen) Urine Glucose Normal mg/dL (Normal) Microbiology Microbiology Date/Time Source Procedure Growth Status 04/08/24 22:35 Nose MRSA Screen - Final Methicillin Resistant S.aureus Complete 04/07/24 17:23 Voided Urine Urine Culture - Final Complete 04/07/24 12:04 Blood Blood Culture - Preliminary NO GROWTH AFTER 72 HOURS OF INCUBATION. Resulted Labs and/or images reviewed: Labs reviewed by me, Image(s) reviewed by me Assessment/Plan Assessment/Plan # Metabolic encephalopathy secondary to acute cystitis resolved # Sepsis likely secondary to pyelonephritis: ROCEPHIN, blood cultures negative, urine cultures negative # Acute cystitis with a history of recurrent UTIs # Sick sinus syndrome with tachy-afshan events # Sinus bradycardia with intermittent rapid atrial fibrillation # Atrial fibrillation secondary to likely bepiid-MGPND-CXFk score 5, HAS BLED Score 1. # Heart failure with mildly reduced ejection fraction-EF 45-50% # Macrocytosis but no anemia # Symptomatic hypoglycemia secondary to sepsis # Dyslipidemia # Calcified leiomyoma # Ascending aortic aneurysm # Hypertension Heart disease # History of breast mass resection Patient is more alert awake and oriented x3 wants to go home DC home on Cipro Plan discussed with: Patient My Orders Orders - BOO TELLES MD Procedure Category Date Status Time Insert Midline ORDERS 04/11/24 Transmitted 07:15 Date of Service: Apr 11, 2024 Billing Provider: BOO TELLES MD Common Visit Codes: [id number] INP/OBS CARE(HIGH) BOO TELLES MD Apr 11, 2024 11:17
--- NOTE | 2024-04-11 11:21 | DVHDS2 ---
Discharge Summary Date of Admission Apr 07, 2024 at 17:26 Date of Discharge: Apr 11, 2024 Admitting Diagnosis Altered mental status Wounds: None Labs/Diagnostic Data: Laboratory Results Test 04/08/24 04:55 04/07/24 20:38 04/07/24 17:23 04/07/24 16:30 White Blood Count 4.8 10^3/uL (4.4-10.8) Red Blood Count 3.43 10^6/uL (4.0-5.20) Hemoglobin 11.9 g/dL (12.2-16.2) Hematocrit 35.3 % (36.0-46.0) Mean Corpuscular Volume 102.7 fL (80.0-100.0) Mean Corpuscular Hemoglobin 34.7 pg (28.0-32.0) Mean Corpuscular Hemoglobin Concent 33.8 g/dL (32.0-36.0) Red Cell Distribution Width 15.8 % (11.8-14.3) Platelet Count 229 10^3/uL (140-450) Mean Platelet Volume 8.5 fL (6.9-10.8) Neutrophils (%) (Auto) 40.1 % (37.0-80.0) Lymphocytes (%) (Auto) 41.0 % (10.0-50.0) Monocytes (%) (Auto) 15.6 % (0.0-12.0) Eosinophils (%) (Auto) 2.8 % (0.0-7.0) Basophils (%) (Auto) 0.5 % (0.0-2.0) Neutrophils # (Auto) 1.9 10 ^3/uL (1.6-8.6) Lymphocytes # (Auto) 2.0 10 ^3/uL (0.4-5.4) Monocytes # (Auto) 0.7 10 ^3/uL (0-1.3) Eosinophils # (Auto) 0.1 10 ^3/uL (0-0.8) Basophils # (Auto) 0 10 ^3/uL (0-0.2) Nucleated Red Blood Cells 0.1 % Sodium Level 143 mmol/L (136-145) Potassium Level 4.1 mmol/L (3.5-5.1) Chloride Level 108 mmol/L (98-107) Carbon Dioxide Level 28 mmol/L (20-31) Anion Gap 7 (5-15) Blood Urea Nitrogen 28 mg/dL (9-23) Creatinine 0.73 mg/dL (0.550-1.02) Glomerular Filtration Rate Calc 82 mL/min (>90) BUN/Creatinine Ratio 38.4 (10.0-20.0) Serum Glucose 72 mg/dL (74-106) Calcium Level 10.5 mg/dL (8.7-10.4) Total Bilirubin 0.5 mg/dL (0.2-1.0) Aspartate Amino Transferase (AST) 25 U/L (13-40) Alanine Aminotransferase (ALT) 21 U/L (7-40) Alkaline Phosphatase 108 U/L (46-116) Total Protein 7.5 g/dL (5.7-8.2) Albumin 3.6 g/dL (3.2-4.8) POC Glucose 85 mg/dl (70-106) Urine Color Yellow (Yellow) Urine Clarity Turbid (Clear) Urine pH 5.0 (5.0-9.0) Urine Specific [place] 1.020 (1.001-1.035) Urine Protein Trace (Negative) Urine Ketones Negative (Negative) Urine Blood Trace /uL (Negative) Urine Nitrite Negative (Negative) Urine Bilirubin Negative (Negative) Urine Urobilinogen Normal mg/dL (Negative) Urine Leukocyte Esterase 3+ /uL (Negative) Urine RBC 5 /hpf (0 - 4) Urine WBC 61 /hpf (0 - 5) Urine Squamous Epithelial Cells Few /hpf (<5) Urine Calcium Oxalate Crystals Few (None Seen) Urine Bacteria Few /hpf (None Seen) Urine Hyaline Casts Mod /lpf (0 - 2) Urine Mucus Few (None Seen) Urine Glucose Normal mg/dL (Normal) Troponin I High Sensitivity 8 ng/L (</=34) Test 04/07/24 15:05 04/07/24 13:02 Lactic Acid Level 2.1 mmol/L (0.4-2.0) Magnesium Level 1.9 mg/dL (1.6-2.6) B-Type Natriuretic Peptide 47.73 pg/mL (0-100) Thyroid Stimulating Hormone (TSH) 1.12 uIU/mL (0.55-4.78) Other Laboratory Tests 04/08/24 04:55 Brief Hx & Hospital Course: 83-year-old female with a recurrent urinary tract infections sick sinus syndrome atrial fibrillation congestive heart failure hypercholesterolemia history of ascending aortic aneurysm hypertensive heart disease history of breast mass resection came in to the ER for altered level of consciousness elevated patient is admitted for sepsis secondary to urinary tract infection treated with Rocephin. Blood cultures came negative urine cultures came negative patient has significantly improved and is alert and awake oriented x3 at the time of discharge eating regular food and ambulating. Patient wants to go home discharged home on Cipro for UTI she will follow up with the primary Dr Hoffman. RN will call her daughter to garbage pick up man the patient Consults/Reason for consult None Operations or Procedures None Condition at Discharge: Fair Final Diagnosis/Problems List # Metabolic encephalopathy secondary to acute cystitis resolved # Sepsis likely secondary to pyelonephritis: ROCEPHIN, blood cultures negative, urine cultures negative # Acute cystitis with a history of recurrent UTIs # Sick sinus syndrome with tachy-afshan events # Sinus bradycardia with intermittent rapid atrial fibrillation # Atrial fibrillation secondary to likely [id number] score 5, HAS BLED Score 1. # Heart failure with mildly reduced ejection fraction-EF 45-50% # Macrocytosis but no anemia # Symptomatic hypoglycemia secondary to sepsis # Dyslipidemia # Calcified leiomyoma # Ascending aortic aneurysm # Hypertension Heart disease # History of breast mass resection Discharge Disposition: Home Discharge Instruct/Medications Diet: Cardiac 2g Na,low cholest Activity: Light activity Follow Up/Referral: Follow up with your primary Dr Hoffman in two weeks Resume all previous home medications Medications: Cipro 500 mg p.o. b.i.d. 20. Transmitted to [facility] 18 39 (Time taken for discharge summary 39 minutes) Discharge Statement: "Patient was advised to return to the ER or call 911 if any headaches, dizziness, shortness of breath, chest pain, abdominal pain, bleeding, fevers, or worsening of medical condition. Patient was counseled about treatment plan, medications, possible side effects, patientverbalized understanding. All questions were answered to the best of my ability. This discharge took greater then 30 minutes in planning, reviewing documentation, counseling the patient, and discussing with other team members." ASSESSMENT ASSESSMENT Hospital Course Improved Assessment # Metabolic encephalopathy secondary to acute cystitis resolved # Sepsis likely secondary to pyelonephritis: ROCEPHIN, blood cultures negative, urine cultures negative # Acute cystitis with a history of recurrent UTIs # Sick sinus syndrome with tachy-afshan events # Sinus bradycardia with intermittent rapid atrial fibrillation # Atrial fibrillation secondary to likely [id number] score 5, HAS BLED Score 1. # Heart failure with mildly reduced ejection fraction-EF 45-50% # Macrocytosis but no anemia # Symptomatic hypoglycemia secondary to sepsis # Dyslipidemia # Calcified leiomyoma # Ascending aortic aneurysm # Hypertension Heart disease # History of breast mass resection Date of Service: Apr 11, 2024 Billing Provider: BOO TELLES MD Common Visit Codes: 79080-AFT/OBS DISCH DAY >30min BOO TELLES MD Apr 11, 2024 11:21
[2024-04-11] MEDS: SODIUM CHLORIDE 0.9% 500 ML IV ONE (14:58)
== END 2024-04-11 17:55 | disposition home or self-care (01) | DRG 871 ==
LOC: EDUNIT# 10:49 → EDBD 10:49 → ER 10:49 → TELE 17:26 → TELE-EAST 04-08 02:22
PROVIDERS: ATTEND Family Medicine
DX: A41.9 Sepsis, unspecified organism (principal); G93.41 Metabolic encephalopathy; N17.9 Acute kidney failure, unspecified; N30.00 Acute cystitis without hematuria; B37.49 Other urogenital candidiasis; I50.42 Chronic combined systolic (congestive) and diastolic (congestive) heart failure; N12 Tubulo-interstitial nephritis, not specified as acute or chronic; I48.91 Unspecified atrial fibrillation; D21.9 Benign neoplasm of connective and other soft tissue, unspecified; I11.0 Hypertensive heart disease with heart failure; I49.5 Sick sinus syndrome; D75.89 Other specified diseases of blood and blood-forming organs; E78.00 Pure hypercholesterolemia, unspecified; E16.2 Hypoglycemia, unspecified; Z79.01 Long term (current) use of anticoagulants; Z87.440 Personal history of urinary (tract) infections; Z85.3 Personal history of malignant neoplasm of breast; W18.39XA Other fall on same level, initial encounter; Y93.89 Activity, other specified; Y92.89 Other specified places as the place of occurrence of the external cause; Y99.8 Other external cause status
CPT/HCPCS: 36415; 70450; 71045; 80053; 81001; 82962; 83605; 83735; 83880; 84443; 84484; 85025; 87040; 87081; 87086; 92507; 93005; 97116; 97163; 97530; G0378; J7042

== ENCOUNTER 2024-05-01 12:53 | Inpatient (IN) | payer MEDICARE, BC ==
[~2024-05-01] VITALS: Ht 154.9 cm; Wt 77.1 kg
[~2024-05-01 12:53] MED LIST changes: +CIPR-173 PO
[2024-05-01 13:55] LABS: Basophils # (auto) 0 10 ^3/uL (0-0.2); Basophils % (auto) 0.4 % (0.0-2.0); Eosinophils # (auto) 0.1 10 ^3/uL (0-0.8); Lymphocytes # (auto) 1.7 10 ^3/uL (0.4-5.4); Monocytes # (auto) 0.4 10 ^3/uL (0-1.3)
--- NOTE | 2024-05-01 13:56 | DVH ---
EXAM: XR Chest, 1 View CLINICAL INDICATION: ALOC, gen weak TECHNIQUE: Frontal view of the chest. COMPARISON: XY CHEST PORTABLE on DOS: 04/07/24, XY CHEST PORTABLE on DOS: 03/31/24, XY CHEST XRAY 1 VIEW on DOS: 03/27/24 FINDINGS: LUNGS AND PLEURAL SPACES: Unremarkable. No consolidation. No pneumothorax. HEART: Unremarkable. No cardiomegaly. MEDIASTINUM: Unremarkable. Normal mediastinal contour. BONES/JOINTS: Unremarkable. No acute fracture. OTHER FINDINGS: . . . IMPRESSION: No acute cardiopulmonary process.
[2024-05-01 13:58] LABS: Eosinophils % (auto) 1.8 % (0.0-7.0); Hematocrit 35.2 % (36.0-46.0); Hemoglobin 11.8 g/dL (12.2-16.2); Lymphocytes % (auto) 42.2 % (10.0-50.0); Mean Corpuscular Hemoglobin 34.4 pg (28.0-32.0); Mean Corpuscular Hgb Conc. 33.7 g/dL (32.0-36.0); Mean Corpuscular Volume 102.1 fL (80.0-100.0); Monocytes % (auto) 10.9 % (0.0-12.0); Neutrophils # (auto) 1.8 10 ^3/uL (1.6-8.6); Neutrophils % (auto) 44.7 % (37.0-80.0); Nucleated Red Blood Cells % 0.4 %; Platelet Count (auto) 110 10^3/uL (140-450); Red Blood Cells 3.45 10^6/uL (4.0-5.20); Red Cell Distribution Width 16.5 % (11.8-14.3)
--- NOTE | 2024-05-01 14:08 | ED.PDOC ---
History of Present Illness HPI Comments NAUN Mercedes: Poor Historian. 84-year-old female presents to the ED because her daughter thinks that she might be having a UTI and could be septic. She said the patient had history of multiple frequent UTIs in the past which presented similarly with the associated generalized weakness and some episodes of confusion. Patient herself is in no acute distress and denies any pain in her body or any urinary symptoms. VITALS: Temp: 97.9 F RR: 18 02 sat : 94 % on room air HR: 54 BP: 133/51 PMH: AFIB, hyperlipidemia, UTI, sepsis, CHF PSH: denies Social history: denies tobacco use, denies ETOH use, denies drug use Medications: furosemide, spironolactone, eliquis, atorvastatin Allergies: nkda REVIEW OF SYSTEMS: Patient denies any symptoms CONSTITUTIONAL: Denies acute: fever, diaphoresis, chills, HEAD: Denies acute: headache, photophobia Eyes: Denies acute: Double vision, vision loss, eye pain, eye discharge. EARS: Denies acute: tinnitus, hearing loss, ear discharge, ear pain, THROAT: Denies acute: sore throat, swelling, difficulty swallowing , pain with swallowing, change in voice. NECK: Denies acute: neck pain, neck swelling, stiff neck. HEART: Denies acute : chest pain, palpitations, LUNGS: Denies acute: SOB, wheezing, cough, hemoptysis ABDOMEN: Denies acute: abdominal pain, Nausea, Vomiting, diarrhea, melena , hematemesis, hematochezia SKIN: Denies acute: rash, redness, lesions, itchiness. EXTREMITIES: Denies acute: calf pain, numbness, tingling, weakness, denies pain in extremity. Denies acute: Low back pain. Neuro: Denies acute: focal neurological deficit, motor or sensory focal neurological deficit, tremors, seizure like activity, confusion, dizziness, change in mental status, loss of bowel or bladder function, cauda equina like symptoms. : Denies acute: dysuria, hematuria, flank pain, increase in urinary frequency. PSYCH: Denies acute: hallucination, suicidal ideation, homicidal ideation. FEMALE: Denies acute: abnormal vaginal bleeding, foul odor, unusual discharge. PHYSICAL EXAM: General: no acute distress, awake and alert. Head: normocephalic, atraumatic. Neck: supple, trachea is midline, no swelling. Throat: Normal phonation. Eyes:, no erythema, no purulent discharge, no proptosis, no icterus. Heart: regular rate, regular rhythm, no significant murmur appreciated. Lungs: no apparent respiratory distress, Able to speak in full sentences. No wheezing, no rhonchi, no crackles. No stridors Clear to auscultation bilaterally. Abdomen: non tender to palpation, non distended, soft, no guarding, no rebound, + bowel sounds. Neuro: Awake, Alert, oriented to name, self, situation, follows commands GCS=15. Speech is normal. Skin: no petechia, no purpura, no cyanosis, non-pale, not jaundice. Lower extremities: --trace bilateral- Pitting edema no deformity, no focal swelling, no calf TTP. Makes eye contact. moves all four extremities. Face: no apparent facial droop. Ambulating in the ED independently. Chief Complaint: General Weakness Time Seen by MD: 13:03 Primary Care Provider: MUSHTAQ Reviewed Notes: Nurses Notes, Allergies Allergies: Coded Allergies: NO KNOWN ALLERGIES (Unverified , 06/14/22) Home Meds Active Scripts Ciprofloxacin Hcl (Cipro) 500 Mg Tab, 1 TAB PO BID, #20 TAB Prov:BOO TELLES MD 04/11/24 Spironolactone (Aldactone) 25 Mg Tab, 12.5 MG PO DAILY for 30 Days, #15 TAB 1 Refill Prov:JU MCNEAL 04/05/24 Cefpodoxime Proxetil (Cefpodoxime Proxetil) 200 Mg Tab, 1 TAB PO BID for 7 Days, #14 TAB Prov:JU MCNEAL 04/05/24 Nystatin (Mycostatin) 1 Applic Ap, 1 APPLIC TOP BID for 10 Days, APPLIC Prov:JU MCNEAL 04/05/24 Furosemide (Furosemide) 20 Mg Tab, 1 TAB PO DAILY PRN for 30 Days, #30 TAB 1 Refill for leg swelling Prov:JU MCNEAL 04/05/24 Fluconazole (Fluconazole) 200 Mg Tab, 1 TAB PO DAILY for 10 Days, #10 TAB Prov:JU MCNEAL 04/05/24 Apixaban Base (ELIQUIS) 2.5 Mg Tab, 2.5 MG PO BID for 30 Days, #60 TAB 2 Refills Prov:JU MCNEAL RESIDENT 04/05/24 Reported Medications Atorvastatin Calcium (ATORVASTATIN CALCIUM) 10 Mg Tab, 1 TAB PO DAILY 03/29/24 Information Source: Patient, Emergency Med Personnel Mode of Arrival: EMS Past Medical History PAST MEDICAL HISTORY: Cancer, CHF, High Lipids, UTI'S Surgical History: Denies all surgeries BENCH MANAGER History: No Pertinent BENCH MANAGER History Family History Family History: Reviewed,noncontributory to illness Social History Smoker: Non-Smoker Alcohol: Denies ETOH Use Drugs: Denies Drug Use Lives In: Home Was a procedure done? Was a procedure done?: No X-Ray, Labs, Meds, VS Vital Signs Date Time Temp Pulse Resp B/P (MAP) Pulse Ox O2 Delivery O2 Flow Rate FiO2 05/01/24 13:01 97.9 54 18 133/51 (78) 94 Lab Test 05/01/24 17:18 05/01/24 16:43 05/01/24 14:57 05/01/24 13:33 Range/Units Urine Color Colorless Yellow Urine Clarity Clear Clear Urine pH 5.0 5.0-9.0 Urine Specific [place] 1.009 1.001-1.035 Urine Protein Negative Negative Urine Ketones Negative Negative Urine Blood Trace H Negative /uL Urine Nitrite Negative Negative Urine Bilirubin Negative Negative Urine Urobilinogen Normal Negative mg/dL Urine Leukocyte Esterase 1+ Negative /uL Urine RBC 3 0 - 4 /hpf Urine WBC 9 0 - 5 /hpf Urine Squamous Epithelial Cells Few <5 /hpf Urine Bacteria Few H None Seen /hpf Urine Hyaline Casts Few 0 - 2 /lpf Urine Glucose Normal Normal mg/dL Troponin I High Sensitivity 9 11 9 </=34 ng/L White Blood Count 4.0 L 4.4-10.8 10^3/uL Red Blood Count 3.45 L 4.0-5.20 10^6/uL Hemoglobin 11.8 L 12.2-16.2 g/dL Hematocrit 35.2 L 36.0-46.0 % Mean Corpuscular Volume 102.1 H 80.0-100.0 fL Mean Corpuscular Hemoglobin 34.4 H 28.0-32.0 pg Mean Corpuscular Hemoglobin Concent 33.7 32.0-36.0 g/dL Red Cell Distribution Width 16.5 H 11.8-14.3 % Platelet Count 110 L 140-450 10^3/uL Mean Platelet Volume 9.1 6.9-10.8 fL Neutrophils (%) (Auto) 44.7 37.0-80.0 % Lymphocytes (%) (Auto) 42.2 10.0-50.0 % Monocytes (%) (Auto) 10.9 0.0-12.0 % Eosinophils (%) (Auto) 1.8 0.0-7.0 % Basophils (%) (Auto) 0.4 0.0-2.0 % Neutrophils # (Auto) 1.8 1.6-8.6 10 ^3/uL Lymphocytes # (Auto) 1.7 0.4-5.4 10 ^3/uL Monocytes # (Auto) 0.4 0-1.3 10 ^3/uL Eosinophils # (Auto) 0.1 0-0.8 10 ^3/uL Basophils # (Auto) 0 0-0.2 10 ^3/uL Nucleated Red Blood Cells 0.4 % Sodium Level 139 136-145 mmol/L Potassium Level 5.2 H 3.5-5.1 mmol/L Chloride Level 108 H 98-107 mmol/L Carbon Dioxide Level 26 20-31 mmol/L Anion Gap 5 5-15 Blood Urea Nitrogen 32 H 9-23 mg/dL Creatinine 0.78 0.550-1.02 mg/dL Glomerular Filtration Rate Calc 75 >90 mL/min BUN/Creatinine Ratio 41.0 H 10.0-20.0 Serum Glucose 82 74-106 mg/dL Lactic Acid Level 0.8 0.4-2.0 mmol/L Calcium Level 10.4 8.7-10.4 mg/dL Magnesium Level 1.7 1.6-2.6 mg/dL Total Bilirubin 0.5 0.2-1.0 mg/dL Aspartate Amino Transferase (AST) 23 13-40 U/L Alanine Aminotransferase (ALT) 18 7-40 U/L Alkaline Phosphatase 92 46-116 U/L B-Type Natriuretic Peptide 204.95 0-100 pg/mL Total Protein 7.3 5.7-8.2 g/dL Albumin 3.6 3.2-4.8 g/dL Current Medications Medications (Trade) Dose Ordered Sig/Maylin Route Start Time Stop Time Status Last Admin Ceftriaxone Sodium 50 ml @ 100 mls/hr ONCE ONCE IV 05/01/24 18:00 05/01/24 18:29 DC 05/01/24 19:37 Atorvastatin Calcium (Lipitor) 10 mg HS PO 05/01/24 22:00 05/01/24 21:35 Apixaban (Eliquis) 2.5 mg BID PO 05/01/24 22:00 05/01/24 21:35 Sodium Chloride (Saline Lock Ns) 10 ml Q8HR IV 05/01/24 22:00 05/01/24 21:35 [place] [id number] Ph: [phone] DIAGNOSTIC IMAGING Diagnostic Imaging Report : [id number] Signed PATIENT: KIAH MERCEDESCCT: [id number] UNIT: [id number] : 1940 LOC: ER ROOM / BED: / AGE / SEX: 84 / F ADM STATUS: REG ER SERVICE 1303 ORDERING PHYSICIAN: MARIE FARIA DO PROCEDURE(s): CXRP - CHEST PORTABLE REASON: ALOC, gen weak ORDER NUMBER(s): [id number], ACCESSION NUMBER(s): [id number] EXAM: XR Chest, 1 View CLINICAL INDICATION: ALOC, gen weak TECHNIQUE: Frontal view of the chest. COMPARISON: XY CHEST PORTABLE on DOS: 04/07/24, XY CHEST PORTABLE on DOS: 03/31/24, XY CHEST XRAY 1 VIEW on DOS: 03/27/24 FINDINGS: LUNGS AND PLEURAL SPACES: Unremarkable. No consolidation. No pneumothorax. HEART: Unremarkable. No cardiomegaly. MEDIASTINUM: Unremarkable. Normal mediastinal contour. BONES/JOINTS: Unremarkable. No acute fracture. OTHER FINDINGS: . . . IMPRESSION: No acute cardiopulmonary process. ATED BY: CHARLOTTE CHAVIS MD DICTATED DATE/TIME: 05/01/24 1359 SIGNED BY: CHARLOTTE CHAVIS MD SIGNED DATE/TIME: 05/01/24 1354 CC: Patient Education/Counseling: Diagnosis, Treatment Family Education/Counseling: No Family Present Comments MDM: Patient presented with the above HPI.----- UTI and possible sepsis -workup was initiated. patient was found with the above mentioned diagnosis. the following medications were ordered: none the following tests were ordered: troponin x3, EKG x 1, chest x-ray, magnesium, lactic acid, UA, CBC, CMP, BNP Patient ED course and VS have been stabilized. Patient has been reassessed in the ED and remained in a stable condition. Patient has been observed in the ED adequate length of time to insure improvement/stability. Escalation of care considered: Consideration of escalation to observation or admission. patient was ADMITTED to the medicine team for further evaluation and treatment of their presentation. All the reports of any imaging studies that were ordered by myself were reviewed by myself. Departure 1 Departure Time of Disposition: 17:57 Impression: Primary Impression: UTI (urinary tract infection) Additional Impression: AMS (altered mental status) Disposition: ADMITTED INPATIENT Admit to: [facility] Condition: Guarded Discharged With: Self I personally scribed for MARIE FARIA DO ([email or web address]) on 05/01/24 at 14:08. Electronically submitted by Neil Hatch ([email or web address]). I personally scribed for MARIE FARIA DO (DVFARAL) on 05/01/24 at 16:53. Electronically submitted by Neil Hatch ([employer]). I personally scribed for MARIE FARIA DO ([email or web address]) on 05/01/24 at 21:51. Electronically submitted by Neil Hatch ([facility] MARIE FARIA DO May 01, 2024 14:08
[2024-05-01 14:30] LABS: Alanine Aminotransferase 18 U/L (7-40); Albumin 3.6 g/dL (3.2-4.8); Alkaline Phosphatase 92 U/L (46-116); Anion Gap 5 (5-15); Aspartate Aminotransferase 23 U/L (13-40); Bilirubin, Total 0.5 mg/dL (0.2-1.0); Calcium 10.4 mg/dL (8.7-10.4); Carbon Dioxide 26 mmol/L (20-31); Chloride 108 mmol/L (98-107); Glucose 82 mg/dL (74-106); Magnesium 1.7 mg/dL (1.6-2.6); Potassium 5.2 mmol/L (3.5-5.1); Sodium 139 mmol/L (136-145); Total Protein 7.3 g/dL (5.7-8.2)
[2024-05-01 14:31] LABS: Blood Urea Nitrogen 32 mg/dL (9-23)
[2024-05-01 17:34] LABS: Urine Bacteria FEW /hpf (None Seen); Urine Blood TRACE /uL (Negative); Urine Clarity Clear (Clear); Urine Color Colorless (Yellow); Urine Hyaline Cast FEW /lpf (0 - 2); Urine Protein, UAD Negative (Negative); Urine Specific Gravity 1.009 (1.001-1.035); Urine Urobilinogen Normal (Negative); Urine WBC 9 /hpf (0 - 5)
--- NOTE | 2024-05-01 19:01 | ECG ---
[facility] Test Date: 2024-05-01 Test Time: 12:57:26 Pat Name: KIAH MERCEDES Department: ED Room: 0215T Gender: F Concreter: JUANITA : 1940 Requested By: MARIE FARIA Order Number: [id number] Reading MD: Suleiman Solis Measurements Intervals [place] Rate: 60 P: 0 RI: 0 QRS: 29 QRSD: 124 T: 76 QT: 479 QTc: 479 Interpretive Statements Atrial fibrillation Left bundle branch block Artifact in lead(s) I,II,III,aVR,aVL,aVF,V1,V2 Electronically Signed On 05-07-2024 9:56:03 PST by Suleiman Solis Please click the below link to view image of tracing.
[2024-05-01] MEDS: cefTRIAXone 1GM/50ML D5W 50 ML IV ONE (19:37)
[2024-05-01] MEDS ORDERED: ONDANSETRON HCL 4 MG/2 ML VIAL IV PRN (19:45)
[2024-05-01] MEDS ORDERED: HYDROcodone-ACET 5/325MG TAB PO PRN (19:45)
[2024-05-01] MEDS ORDERED: DOCUSATE SOD 100 MG CAP PO PRN (19:45)
[2024-05-01] MEDS ORDERED: ACETAMINOPHEN 325 MG TAB PO PRN (19:45)
[2024-05-01] MEDS: APIXABAN 2.5 MG TAB PO SCH (21:35)
[2024-05-01] MEDS: SODIUM CHLOR 0.9% PF (SALINE LOCK) 10ML VIAL/SYR IV SCH (21:35)
[2024-05-01] MEDS: ATORVASTATIN 20 MG TAB PO SCH (21:35)
[2024-05-01] MEDS ORDERED: MORPHINE SULFATE INJ 2 MG/ml SYRG IV PRN (22:00)
[2024-05-01] MEDS ORDERED: NITROGLYCERIN 0.4 MG SL TAB SL PRN (22:00)
--- NOTE | 2024-05-01 22:12 | DVHHP2 ---
History of Present Illness Reason for Visit: Generalized weakness History of Present Illness The patient is a 84-year-old female with past medical history of AFib, cancer, CHF, hyperlipidemia, and UTIs presented to [facility] ED with complaint of generalized weakness with period confusion. Patient was seen and evaluated in the ED, laboratory data shows WBC 4.0, platelets 1 one 0, sodium 139, potassium 5.2, BUN 32, creatinine 0.78, glucose 82, troponin 9, BNP 204.95, blood pressure 133/57, heart rate 54, temperature 97.9 F, O2 saturation 94% on oxygen. Chest x-ray show no acute cardiopulmonary process. Urinalysis positive for urinary tract infection. Patient was started on IV antibiotic regimen Rocephin, please see medication orders section in the computer. On my assessment, patient denies chest pain, no headache, no dizziness, no diaphoresis, no nausea, no vomiting, no fever, no chills. Patient was admitted for further evaluation and medical management. Past Medical History AFib, Cancer, CHF, High Lipids, UTI'S Past Surgical History Denies all surgeries Family History Reviewed, noncontributory to the management of this case. Past Social History The patient lives at home, denies smoking, alcohol or illicit drugs abuse. Review of Systems Constitutional: Yes: Weakness; No: Fever, Chills, Sweats, Malaise, Other Eyes: No: Pain, Vision change, Conjunctivae inflammation, Eyelid inflammation, Other, Redness ENT: No: Ear pain, Ear discharge, Nose pain, Nose discharge, Nose congestion, Mouth pain, Mouth swelling, Throat pain, Throat swelling, Other Respiratory: No: Cough, Dry, Shortness of breath, SOB with excertion, Wheezing, Hemoptysis, Pleuritic Pain, Sputum, Wheezing, Other Cardiovascular: No: Chest Pain, Palpitations, Orthopnea, Paroxysmal Noc. Dyspnea, Edema, Lt Headedness, Other Gastrointestinal: No: Nausea, Vomiting, Abdominal Pain, Diarrhea, Constipation, Melena, Hematochezia, Other Genitourinary: No Dysuria, No Frequency, No Incontinence, No Hematuria, No Retention, No Other Musculoskeletal: No: other, neck pain, shoulder pain, arm pain, back pain, hand pain, leg pain, foot pain Skin: No: Rash, Lesions, Jaundice, Bruising, Other Neurological: Other (Confusion); No: Weakness, Numbness, Incoordination, Change in speech, Confusion, Seizures Allergies: Coded Allergies: NO KNOWN ALLERGIES (Unverified , 06/14/22) Medications Current Medications Medications Dose Ordered Sig/Maylin Route Start Time Stop Time Status Last Admin Dose Admin Ceftriaxone Sodium 50 ml @ 100 mls/hr HS IV 05/02/24 22:00 Furosemide 20 mg DAILY IV 05/02/24 10:00 Atorvastatin Calcium 10 mg HS PO 05/01/24 22:00 05/01/24 21:35 10 MG Apixaban 2.5 mg BID PO 05/01/24 22:00 05/01/24 21:35 2.5 MG Sodium Chloride 10 ml Q8HR IV 05/01/24 22:00 05/01/24 21:35 10 ML Acetaminophen/ Hydrocodone Bitart 1 tab Q4HP PRN PO 05/01/24 19:45 Ondansetron HCl 4 mg Q4HP PRN IV 05/01/24 19:45 Docusate Sodium 100 mg BIDPRN PRN PO 05/01/24 19:45 Acetaminophen 650 mg Q6HP PRN PO 05/01/24 19:45 Exam Vital Signs Vital Signs Date Time Temp Pulse Resp B/P (MAP) Pulse Ox O2 Delivery O2 Flow Rate FiO2 05/01/24 13:01 97.9 54 18 133/51 (78) 94 General Appearance: Alert, Oriented X3, Cooperative, No acute distress HEENT: Atraumatic, PERRLA, EOMI, Mucous membr. moist/pink Respiratory: Clear to auscultation, Normal air movement Cardiovascular: Regular rate, Normal S1, Normal S2, No murmurs Abdominal: Normal bowel sounds, Soft, No tenderness, No hepatospenomegaly, No masses Extremities: No clubbing, No cyanosis, No edema, Normal pulses, No tenderness/swelling Skin: No rashes, No breakdown, No significant lesion Neuro: Normal speech, Normal tone, Sensation intact, Cranial nerves 3-12 NL, Reflexes 2+, Other (Generalized weakness) Psych/Mental Status: Mood NL, Other (Altered mental status) Labs/Xrays Labs Test 05/01/24 17:18 05/01/24 16:43 05/01/24 13:33 Range/Units Urine Color Colorless Yellow Urine Clarity Clear Clear Urine pH 5.0 5.0-9.0 Urine Specific [place] 1.009 1.001-1.035 Urine Protein Negative Negative Urine Ketones Negative Negative Urine Blood Trace H Negative /uL Urine Nitrite Negative Negative Urine Bilirubin Negative Negative Urine Urobilinogen Normal Negative mg/dL Urine Leukocyte Esterase 1+ Negative /uL Urine RBC 3 0 - 4 /hpf Urine WBC 9 0 - 5 /hpf Urine Squamous Epithelial Cells Few <5 /hpf Urine Bacteria Few H None Seen /hpf Urine Hyaline Casts Few 0 - 2 /lpf Urine Glucose Normal Normal mg/dL Troponin I High Sensitivity 9 </=34 ng/L White Blood Count 4.0 L 4.4-10.8 10^3/uL Red Blood Count 3.45 L 4.0-5.20 10^6/uL Hemoglobin 11.8 L 12.2-16.2 g/dL Hematocrit 35.2 L 36.0-46.0 % Mean Corpuscular Volume 102.1 H 80.0-100.0 fL Mean Corpuscular Hemoglobin 34.4 H 28.0-32.0 pg Mean Corpuscular Hemoglobin Concent 33.7 32.0-36.0 g/dL Red Cell Distribution Width 16.5 H 11.8-14.3 % Platelet Count 110 L 140-450 10^3/uL Mean Platelet Volume 9.1 6.9-10.8 fL Neutrophils (%) (Auto) 44.7 37.0-80.0 % Lymphocytes (%) (Auto) 42.2 10.0-50.0 % Monocytes (%) (Auto) 10.9 0.0-12.0 % Eosinophils (%) (Auto) 1.8 0.0-7.0 % Basophils (%) (Auto) 0.4 0.0-2.0 % Neutrophils # (Auto) 1.8 1.6-8.6 10 ^3/uL Lymphocytes # (Auto) 1.7 0.4-5.4 10 ^3/uL Monocytes # (Auto) 0.4 0-1.3 10 ^3/uL Eosinophils # (Auto) 0.1 0-0.8 10 ^3/uL Basophils # (Auto) 0 0-0.2 10 ^3/uL Nucleated Red Blood Cells 0.4 % Sodium Level 139 136-145 mmol/L Potassium Level 5.2 H 3.5-5.1 mmol/L Chloride Level 108 H 98-107 mmol/L Carbon Dioxide Level 26 20-31 mmol/L Anion Gap 5 5-15 Blood Urea Nitrogen 32 H 9-23 mg/dL Creatinine 0.78 0.550-1.02 mg/dL Glomerular Filtration Rate Calc 75 >90 mL/min BUN/Creatinine Ratio 41.0 H 10.0-20.0 Serum Glucose 82 74-106 mg/dL Lactic Acid Level 0.8 0.4-2.0 mmol/L Calcium Level 10.4 8.7-10.4 mg/dL Magnesium Level 1.7 1.6-2.6 mg/dL Total Bilirubin 0.5 0.2-1.0 mg/dL Aspartate Amino Transferase (AST) 23 13-40 U/L Alanine Aminotransferase (ALT) 18 7-40 U/L Alkaline Phosphatase 92 46-116 U/L B-Type Natriuretic Peptide 204.95 0-100 pg/mL Total Protein 7.3 5.7-8.2 g/dL Albumin 3.6 3.2-4.8 g/dL PATIENT: KIAH MERCEDEST: [id number] UNIT: [id number] : 1940 LOC: ER ROOM / BED: / AGE / SEX: 84 / F ADM STATUS: REG ER SERVICE 1303 ORDERING PHYSICIAN: MARIE FARIA DO PROCEDURE(s): CXRP - CHEST PORTABLE REASON: ALOC, gen weak ORDER NUMBER(s): [id number], ACCESSION NUMBER(s): [id number] EXAM: XR Chest, 1 View CLINICAL INDICATION: gen ABDIRASHID weak TECHNIQUE: Frontal view of the chest. COMPARISON: XY CHEST PORTABLE on DOS: 04/07/24, XY CHEST PORTABLE on DOS: 03/31/24, XY CHEST XRAY 1 VIEW on DOS: 03/27/24 FINDINGS: LUNGS AND PLEURAL SPACES: Unremarkable. No consolidation. No pneumothorax. HEART: Unremarkable. No cardiomegaly. MEDIASTINUM: Unremarkable. Normal mediastinal contour. BONES/JOINTS: Unremarkable. No acute fracture. OTHER FINDINGS: IMPRESSION: No acute cardiopulmonary process. Assessment/Plan Assessment/Plan Altered mental status Urinary tract infection Generalized weakness Plan 1. Admit to telemetry unit 2. Breathing treatment 3. Pain control management 4. IV antibiotic management 5. Management of fluids and electrolytes 6. Consultation for hospitalist 7. Diagnostic test chest x-ray 8. DVT prophylaxis-on Eliquis 9. Repeat labs CBC, CMP in a.m. 10. Home medication reviewed and reconciled 11. Continue with current medical management 12. Treatment plan discussed with patient and RN. Patient verbalized understanding. Plan discussed with: Patient, Other (RN) My Orders Orders - TAVARES BOLTON DNP Procedure Category Date Status Time Urine Bacterial DARIELA 05/01/24 In Process Culture 19:43 Ceftriaxone 1gm/50ml PHA 05/02/24 In Process D5w (Rocephin) 22:00 Furosemide Injection PHA 05/02/24 In Process (Lasix Injection) 10:00 Atorvastatin (Lipitor) PHA 05/01/24 In Process 22:00 Apixaban (Eliquis) PHA 05/01/24 In Process 22:00 Allergies CHYNA 05/01/24 In Process 19:43 Code Status CODE 05/01/24 Transmitted 19:43 Sodium Chloride Lock PHA 05/01/24 In Process (Saline Lock Ns) 22:00 Oxygen Per Hour RT 05/01/24 Transmitted 19:43 Hydrocodone-Acet PHA 05/01/24 In Process 5/325mg Tab ([place] 19:45 Ondansetron Hcl PHA 05/01/24 In Process (Zofran) 19:45 Docusate Sodium PHA 05/01/24 In Process Capsule (Colace 19:45 Fall Risk Precautions CHYNA 05/01/[address] 19:43 Complete Blood Count LAB 05/02/24 Verified 04:00 Comprehensive LAB 05/02/24 Verified Metabolic Panel 04:00 Cardiac DIET 05/02/24 Transmitted Diet-2gna,Lofat,Lochol Breakfast Condition: Serious CHYNA 05/01/24 In Process 19:43 Acetaminophen Tablet PHA 05/01/24 In Process (Tylenol Tablet) 19:45 Sequential CHYNA 05/01/24 In Process Compression Device Admit ADMIT 05/01/24 Transmitted 21:58 Nitroglycerin PHA 05/01/24 Transmitted Sublingual (Ntrostat 22:00 Morphine Sulfate PHA 05/01/24 Transmitted Injection 22:00 Notify Of Changes CHYNA 05/01/24 Transmitted From Base 21:58 Aviation Program Manager For CHYNA 05/01/24 Transmitted 24 Hours 21:58 Emergency Dysrhythmia CHYNA 05/01/24 Transmitted Protocol 21:58 Rhythm Strips Once CHYNA 05/01/24 Transmitted Every Shift 21:58 Oxygen By Nasal RT 05/01/24 Transmitted Cannula 21:58 Problem List: (1) AMS (altered mental status) (2) UTI (urinary tract infection) (3) Generalized weakness Date of Service: May 01, 2024 Billing Provider: TAVARES BOLTON DNP Common Visit Codes: [id number] INP/OBS CARE (HIGH) TAVARES BOLTON DNP May 01, 2024 22:12
[2024-05-01 22:45] VITALS: PULSE 56; RESP 14; O2SAT 98
[2024-05-02 04:56] LABS: Basophils # (auto) 0 10 ^3/uL (0-0.2); Eosinophils # (auto) 0.1 10 ^3/uL (0-0.8); Lymphocytes # (auto) 1.1 10 ^3/uL (0.4-5.4); Neutrophils # (auto) 2.3 10 ^3/uL (1.6-8.6)
[2024-05-02 04:57] LABS: Mean Corpuscular Hemoglobin 34.5 pg (28.0-32.0)
[2024-05-02 04:59] LABS: Basophils % (auto) 0.4 % (0.0-2.0); Eosinophils % (auto) 2.6 % (0.0-7.0); Hematocrit 37.5 % (36.0-46.0); Hemoglobin 12.7 g/dL (12.2-16.2); Lymphocytes % (auto) 26.9 % (10.0-50.0); Mean Corpuscular Hgb Conc. 33.9 g/dL (32.0-36.0); Mean Corpuscular Volume 101.7 fL (80.0-100.0); Monocytes # (auto) 0.4 10 ^3/uL (0-1.3); Monocytes % (auto) 11.1 % (0.0-12.0); Nucleated Red Blood Cells % 0.3 %; Platelet Count (auto) 107 10^3/uL (140-450); Red Blood Cells 3.69 10^6/uL (4.0-5.20)
[2024-05-02 05:13] LABS: Alanine Aminotransferase 18 U/L (7-40); Albumin 3.7 g/dL (3.2-4.8); Alkaline Phosphatase 95 U/L (46-116); Anion Gap 7 (5-15); Aspartate Aminotransferase 22 U/L (13-40); BUN/Creatinine Ratio 35.3 (10.0-20.0); Carbon Dioxide 26 mmol/L (20-31); Glucose 75 mg/dL (74-106); Potassium 4.4 mmol/L (3.5-5.1); Sodium 140 mmol/L (136-145)
[2024-05-02 05:14] LABS: Bilirubin, Total 0.4 mg/dL (0.2-1.0); Blood Urea Nitrogen 30 mg/dL (9-23); Calcium 10.7 mg/dL (8.7-10.4); Chloride 107 mmol/L (98-107); Total Protein 7.6 g/dL (5.7-8.2)
[2024-05-02 07:30] VITALS: PULSE 63; RESP 16; O2SAT 98
[2024-05-02] MEDS: FUROSEMIDE 20 MG/2 ML VIAL IV SCH (10:11)
--- NOTE | 2024-05-02 10:28 | DVHPN2 ---
Assessment/Plan Assessment/Plan Progress note Subjective 84 yo F with afib admitted for altered mental status. On my assessment patient AOx3 however told me she is here because of her daughter finding out about her blood toxicity that has been going on for years. Objective Physical exam alert, oriented x3 disorganized thought clear breath sounds s1 s2 RRR systolic murmur abdomen soft nontender trace le edema Lab Hb 12 MCV 101 Plt 110 BNP 204 K 5.2 UA dirty EKG afib LBBB Imaging CXR clear Assessment and plan metabolic encephalopathy likely UTI? dementia? afib on eliquis chronic systolic heart failure heart failure with reduced ejection fraction not in exacerbation macrocytic anemia thrombocytopenia hyperkalemia c/w anticoagulation, GDMT lokelma cover with ceftriaxone tsh hiv rpr b12 folate delirium precaution fall precaution elopment precaution avoid benzo, anticholinergics, opioids Replete electrolytes Diet soft DVT prophylaxis on eliquis Plan discussed with: Patient Date of Service: May 02, 2024 Billing Provider: JUVENCIO MICHAEL MD Common Visit Codes: [id number] INP/OBS CARE(HIGH) JUVENCIO MICHAEL MD May 02, 2024 10:28
[2024-05-02 15:25] VITALS: PULSE 62
[2024-05-02 16:08] VITALS: BP 130/56; PULSE 63; RESP 17; TEMP 98.1; O2SAT 92
[2024-05-02 16:30] VITALS: BP 130/56; PULSE 63; RESP 17; TEMP 98.2; O2SAT 96
[2024-05-02 20:00] VITALS: PULSE 76; O2SAT 97
[2024-05-02] MEDS: cefTRIAXone 1GM/50ML D5W 50 ML IV SCH (21:28)
[2024-05-02 22:00] VITALS: BP 120/75; PULSE 72; RESP 19; TEMP 96.2; O2SAT 97
[2024-05-03] VITALS (9 sets, daily range): BP systolic 103–136; BP diastolic 53–93; PULSE 53–81; RESP 17–19; TEMP 97.3–97.5; O2SAT 94–98
[2024-05-03 05:53] LABS: Basophils # (auto) 0 10 ^3/uL (0-0.2); Basophils % (auto) 0.4 % (0.0-2.0); Eosinophils # (auto) 0.1 10 ^3/uL (0-0.8); Monocytes # (auto) 0.5 10 ^3/uL (0-1.3)
[2024-05-03 05:55] LABS: Hematocrit 37.4 % (36.0-46.0); Hemoglobin 12.7 g/dL (12.2-16.2); Lymphocytes # (auto) 1.3 10 ^3/uL (0.4-5.4); Lymphocytes % (auto) 29.2 % (10.0-50.0); Mean Corpuscular Hemoglobin 34.5 pg (28.0-32.0); Mean Corpuscular Hgb Conc. 33.9 g/dL (32.0-36.0); Mean Corpuscular Volume 101.6 fL (80.0-100.0); Monocytes % (auto) 11.9 % (0.0-12.0); Neutrophils # (auto) 2.5 10 ^3/uL (1.6-8.6); Neutrophils % (auto) 56.5 % (37.0-80.0); Nucleated Red Blood Cells % 0.5 %; Platelet Count (auto) 113 10^3/uL (140-450); Red Blood Cells 3.68 10^6/uL (4.0-5.20); Red Cell Distribution Width 16.1 % (11.8-14.3); White Blood Cell 4.4 10^3/uL (4.4-10.8)
[2024-05-03 10:24] LABS: Chloride 105 mmol/L (98-107); Potassium 4.5 mmol/L (3.5-5.1); Sodium 138 mmol/L (136-145)
[2024-05-03 10:25] LABS: Anion Gap 7 (5-15); Carbon Dioxide 26 mmol/L (20-31)
[2024-05-03 10:30] LABS: BUN/Creatinine Ratio 34.5 (10.0-20.0); Glucose 100 mg/dL (74-106)
[2024-05-03 10:47] LABS: Blood Urea Nitrogen 29 mg/dL (9-23); Calcium 10.8 mg/dL (8.7-10.4)
--- NOTE | 2024-05-03 20:52 | DVHPN2 ---
Assessment/Plan Assessment/Plan Progress note Subjective 84 yo F with afib admitted for altered mental status. On my assessment patient AOx3 however told me she is here because of her daughter finding out about her blood toxicity that has been going on for years. Seen by me today during rounds. baseline acquired from daughterpartially dependent on finances, driving and cooking, ambulating with cane, no prior falls, recurrent UTI. improving Objective Physical exam alert, oriented x3 disorganized thought clear breath sounds s1 s2 RRR systolic murmur abdomen soft nontender trace le edema Lab Hb 12 MCV 101 Plt 110 BNP 204 K 5.2 UA dirty EKG afib LBBB Imaging CXR clear Assessment and plan metabolic encephalopathy likely UTI? dementia? afib on eliquis chronic systolic heart failure heart failure with reduced ejection fraction not in exacerbation macrocytic anemia thrombocytopenia hyperkalemia c/w anticoagulation, GDMT lokelma cover with ceftriaxone tsh hiv rpr b12 folate delirium precaution fall precaution elopment precaution avoid benzo, anticholinergics, opioids Replete electrolytes Diet soft DVT prophylaxis on eliquis Plan discussed with: Daughter My Orders Orders - JUVENCIO MICHAEL MD Procedure Category Date Status Time * Wound Consult CONS 05/03/24 Transmitted Date of Service: May 03, 2024 Billing Provider: JUVENCIO MICHAEL MD Common Visit Codes: [id number] INP/OBS CARE(HIGH) JUVENCIO MICHAEL MD May 03, 2024 20:52
[2024-05-04] VITALS (8 sets, daily range): BP systolic 93–118; BP diastolic 46–77; PULSE 62–95; RESP 16–18; TEMP 97.7–99.1; O2SAT 94–98
[2024-05-04] MEDS: POLYETHYLENE GLYCOL 17 GM PWDR PO PRN (09:38)
--- NOTE | 2024-05-04 14:43 | DVHPN2 ---
Assessment/Plan Assessment/Plan Progress note Subjective 84 yo F with afib admitted for altered mental status. On my assessment patient AOx3 however told me she is here because of her daughter finding out about her blood toxicity that has been going on for years. Seen by me today during rounds. more lethargic, will reinforce delirium precaution, c/w abx follow culture Objective Physical exam alert, oriented x3 disorganized thought clear breath sounds s1 s2 RRR systolic murmur abdomen soft nontender trace le edema Lab Hb 12 MCV 101 Plt 110 BNP 204 K 5.2 UA dirty EKG afib LBBB Imaging CXR clear Assessment and plan metabolic encephalopathy likely UTI? dementia? afib on eliquis chronic systolic heart failure heart failure with reduced ejection fraction not in exacerbation macrocytic anemia thrombocytopenia hyperkalemia c/w anticoagulation, GDMT lokelma cover with ceftriaxone tsh hiv rpr b12 folate delirium precaution fall precaution elopment precaution avoid benzo, anticholinergics, opioids Replete electrolytes Diet soft DVT prophylaxis on eliquis Plan discussed with: Patient My Orders Orders - JUVENCIO MICHAEL MD Procedure Category Date Status Time * Wound Consult CONS 05/03/24 Transmitted Date of Service: May 04, 2024 Billing Provider: JUVENCIO MICHAEL MD Common Visit Codes: [id number] INP/OBS CARE(HIGH) JUVENCIO MICHAEL MD May 04, 2024 14:42
[2024-05-04] MEDS: HALOPERIDOL LACTATE 5 MG/ML INJ VIAL IM ONE (21:45)
[2024-05-05] VITALS (8 sets, daily range): BP systolic 64–150; BP diastolic 45–94; PULSE 59–85; RESP 17–20; TEMP 96.6–98.8; O2SAT 94–95
[2024-05-05 06:31] LABS: Basophils # (auto) 0 10 ^3/uL (0-0.2); Basophils % (auto) 0.3 % (0.0-2.0); Eosinophils # (auto) 0 10 ^3/uL (0-0.8); Eosinophils % (auto) 0.6 % (0.0-7.0); Hematocrit 39.5 % (36.0-46.0); Hemoglobin 13.5 g/dL (12.2-16.2); Lymphocytes # (auto) 2.2 10 ^3/uL (0.4-5.4); Lymphocytes % (auto) 41.1 % (10.0-50.0); Mean Corpuscular Hemoglobin 34.4 pg (28.0-32.0); Mean Corpuscular Hgb Conc. 34.1 g/dL (32.0-36.0); Mean Corpuscular Volume 100.9 fL (80.0-100.0); Monocytes # (auto) 0.8 10 ^3/uL (0-1.3); Monocytes % (auto) 15.4 % (0.0-12.0); Neutrophils # (auto) 2.3 10 ^3/uL (1.6-8.6); Neutrophils % (auto) 42.6 % (37.0-80.0); Nucleated Red Blood Cells % 0.2 %; Platelet Count (auto) 118 10^3/uL (140-450); Red Blood Cells 3.91 10^6/uL (4.0-5.20); White Blood Cell 5.4 10^3/uL (4.4-10.8)
[2024-05-05 06:40] LABS: Anion Gap 10 (5-15); Carbon Dioxide 23 mmol/L (20-31); Potassium 4.4 mmol/L (3.5-5.1); Sodium 140 mmol/L (136-145)
[2024-05-05 06:46] LABS: BUN/Creatinine Ratio 34.8 (10.0-20.0)
[2024-05-05 06:52] LABS: Blood Urea Nitrogen 47 mg/dL (9-23); Calcium 10.9 mg/dL (8.7-10.4); Chloride 107 mmol/L (98-107); Glucose 50 mg/dL (74-106)
--- NOTE | 2024-05-05 09:47 | ECG ---
[facility] Test Date: 2024-05-01 Test Time: 12:59:04 Pat Name: KIAH MERCEDES Department: ED Room: 0215T A Gender: F Plan Consultant: JUANITA : 1940 Requested By: MARIE FARIA Order Number: [id number] Reading MD: Suleiman Solis Measurements Intervals [place] Rate: 49 P: 0 [place]: 0 QRS: 23 QRSD: 129 T: 79 QT: 501 QTc: 453 Interpretive Statements Atrial fibrillation Nonspecific intraventricular conduction delay Probable lateral infarct, old Artifact in lead(s) I,II,aVR,aVL,aVF,V2 Electronically Signed On 05-07-2024 9:56:11 PST by Suleiman Solis Please click the below link to view image of tracing.
--- NOTE | 2024-05-05 15:36 | DVHPN2 ---
Assessment/Plan Assessment/Plan Progress note Subjective 84 yo F with afib admitted for altered mental status. On my assessment patient AOx3 however told me she is here because of her daughter finding out about her blood toxicity that has been going on for years. Seen by me today during rounds. agitated overnight, lethargic thougout day, unable to reach daughter on the phone. pt will need delirium precaution, stay up during the day and melatonin added for night Objective Physical exam lethargic clear breath sounds s1 s2 RRR systolic murmur abdomen soft nontender trace le edema Lab Hb 12 MCV 101 Plt 110 BNP 204 K 5.2 UA dirty EKG afib LBBB Imaging CXR clear Assessment and plan metabolic encephalopathy likely UTI? dementia? afib on eliquis chronic systolic heart failure heart failure with reduced ejection fraction not in exacerbation macrocytic anemia thrombocytopenia hyperkalemia tiera? c/w anticoagulation, GDMT lokelma cover with ceftriaxone tsh hiv rpr b12 folate delirium precaution fall precaution elopment precaution avoid benzo, anticholinergics, opioids dc lasix, ns 500 once Replete electrolytes Diet soft DVT prophylaxis on eliquis Plan discussed with: Other My Orders Orders - JUVENCIO MICHAEL MD Procedure Category Date Status Time Melatonin (Melatonin) PHA 05/05/24 In Process 22:00 Pt Request For Service PT 05/05/24 Logged 08:28 NS PHA 05/05/24 Transmitted 15:45 Date of Service: May 05, 2024 Billing Provider: JUVENCIO MICHAEL MD Common Visit Codes: [id number] INP/OBS CARE(HIGH) JUVENCIO MICHAEL MD May 05, 2024 15:36
[2024-05-05] MEDS: SODIUM CHLORIDE 0.9% 500 ML IV ONE (16:14)
[2024-05-05] MEDS: MELATONIN 5 MG TAB PO SCH (21:49)
[2024-05-06] VITALS (8 sets, daily range): BP systolic 98–129; BP diastolic 44–60; PULSE 52–61; RESP 16–20; TEMP 97.1–98; O2SAT 94–98
[2024-05-06 06:32] LABS: Chloride 106 mmol/L (98-107); Potassium 4.3 mmol/L (3.5-5.1); Sodium 141 mmol/L (136-145)
[2024-05-06 06:33] LABS: Anion Gap 7 (5-15); Carbon Dioxide 28 mmol/L (20-31)
[2024-05-06 06:38] LABS: BUN/Creatinine Ratio 54.6 (10.0-20.0); Blood Urea Nitrogen 59 mg/dL (9-23); Calcium 10.6 mg/dL (8.7-10.4); Glucose 81 mg/dL (74-106)
[2024-05-06 07:00] LABS: Basophils # (auto) 0 10 ^3/uL (0-0.2); Basophils % (auto) 0.4 % (0.0-2.0); Eosinophils # (auto) 0.2 10 ^3/uL (0-0.8); Eosinophils % (auto) 4.1 % (0.0-7.0); Hematocrit 38.8 % (36.0-46.0); Hemoglobin 13.3 g/dL (12.2-16.2); Lymphocytes # (auto) 2.2 10 ^3/uL (0.4-5.4); Lymphocytes % (auto) 36.7 % (10.0-50.0); Mean Corpuscular Hemoglobin 34.8 pg (28.0-32.0); Mean Corpuscular Hgb Conc. 34.3 g/dL (32.0-36.0); Mean Corpuscular Volume 101.5 fL (80.0-100.0); Monocytes # (auto) 0.9 10 ^3/uL (0-1.3); Monocytes % (auto) 14.5 % (0.0-12.0); Neutrophils # (auto) 2.7 10 ^3/uL (1.6-8.6); Neutrophils % (auto) 44.3 % (37.0-80.0); Nucleated Red Blood Cells % 0.2 %; Platelet Count (auto) 116 10^3/uL (140-450); Red Blood Cells 3.82 10^6/uL (4.0-5.20); Red Cell Distribution Width 16.1 % (11.8-14.3); White Blood Cell 6.1 10^3/uL (4.4-10.8)
--- NOTE | 2024-05-06 12:35 | DVHPN2 ---
Assessment/Plan Assessment/Plan Progress note Subjective 84 yo F with afib admitted for altered mental status. On my assessment patient AOx3 however told me she is here because of her daughter finding out about her blood toxicity that has been going on for years. Seen by me today during rounds. still lethargic, tiera worsening now improved, likely VMN. will give back fluid and hold lasix. alves, i&o Objective Physical exam lethargic clear breath sounds s1 s2 RRR systolic murmur abdomen soft nontender trace le edema Lab Hb 12 MCV 101 Plt 110 BNP 204 K 5.2 UA dirty EKG afib LBBB Imaging CXR clear Assessment and plan metabolic encephalopathy likely UTI? dementia? afib on eliquis chronic systolic heart failure heart failure with reduced ejection fraction not in exacerbation macrocytic anemia thrombocytopenia hyperkalemia tiera vmn improving c/w anticoagulation, GDMT lokelma cover with ceftriaxone tsh hiv rpr b12 folate delirium precaution fall precaution elopment precaution avoid benzo, anticholinergics, opioids dc lasix, ns 500 Replete electrolytes Diet soft DVT prophylaxis on eliquis Plan discussed with: Other My Orders Orders - JUVENCIO MICHAEL MD Procedure Category Date Status Time Cover Wound With Foam CHYNA 05/05/24 In Process Dressing 18:17 Cleanse Wound With CHYNA 05/05/24 In Process Mild Soap A 19:09 Insert/Manage Urinary CHYNA 05/06/24 In Process Catheter 12:32 Strict I&O ED NURSING 05/06/24 Transmitted NS PHA 05/06/24 Transmitted 12:45 Complete Blood Count LAB 05/07/24 Verified 04:00 Basic Metabolic Panel LAB 05/07/24 Verified 04:00 Date of Service: May 06, 2024 Billing Provider: JUVENCIO MICHAEL MD Common Visit Codes: [id number] INP/OBS CARE(HIGH) JUVENCIO MICHAEL MD May 06, 2024 12:35
[2024-05-06] MEDS: SODIUM CHLORIDE 0.9% 500 ML IV ONE (12:45)
[2024-05-07] VITALS (8 sets, daily range): BP systolic 95–117; BP diastolic 49–63; PULSE 59–73; RESP 16–20; TEMP 97.5–98.7; O2SAT 92–98
[2024-05-07 06:56] LABS: Basophils # (auto) 0 10 ^3/uL (0-0.2); Basophils % (auto) 0.2 % (0.0-2.0); Eosinophils # (auto) 0.2 10 ^3/uL (0-0.8); Eosinophils % (auto) 3.6 % (0.0-7.0); Hematocrit 38.1 % (36.0-46.0); Hemoglobin 13.1 g/dL (12.2-16.2); Lymphocytes # (auto) 1.6 10 ^3/uL (0.4-5.4); Lymphocytes % (auto) 31.3 % (10.0-50.0); Mean Corpuscular Hemoglobin 34.9 pg (28.0-32.0); Mean Corpuscular Hgb Conc. 34.5 g/dL (32.0-36.0); Mean Corpuscular Volume 101.3 fL (80.0-100.0); Monocytes # (auto) 0.6 10 ^3/uL (0-1.3); Monocytes % (auto) 12.2 % (0.0-12.0); Neutrophils # (auto) 2.6 10 ^3/uL (1.6-8.6); Neutrophils % (auto) 52.7 % (37.0-80.0); Nucleated Red Blood Cells % 0.1 %; Platelet Count (auto) 116 10^3/uL (140-450); Red Blood Cells 3.76 10^6/uL (4.0-5.20); Red Cell Distribution Width 15.9 % (11.8-14.3)
[2024-05-07 06:57] LABS: Chloride 107 mmol/L (98-107); Potassium 4.2 mmol/L (3.5-5.1); Sodium 139 mmol/L (136-145)
[2024-05-07 06:58] LABS: Anion Gap 5 (5-15); Calcium 10.2 mg/dL (8.7-10.4); Carbon Dioxide 27 mmol/L (20-31)
[2024-05-07 07:03] LABS: BUN/Creatinine Ratio 47.6 (10.0-20.0)
[2024-05-07 07:08] LABS: Blood Urea Nitrogen 39 mg/dL (9-23); Glucose 72 mg/dL (74-106)
[2024-05-07 07:29] LABS: Uric Acid 7.8 mg/dL (3.1-7.8)
--- NOTE | 2024-05-07 13:21 | DVHPN2 ---
Assessment/Plan Assessment/Plan Progress note Subjective 84 yo F with afib admitted for altered mental status. On my assessment patient AOx3 however told me she is here because of her daughter finding out about her blood toxicity that has been going on for years. Seen by me today during rounds. likely , will attempt to move to window room, melatonin at night, called daughter to be bedside during the day which she agrees. plan for dispo to home with services if she improves, ohterwise we will try SNF discharge if no improvement. PT eval today Objective Physical exam aox3 clear breath sounds s1 s2 RRR systolic murmur abdomen soft nontender trace le edema Lab Hb 12 MCV 101 Plt 110 BNP 204 K 5.2 UA dirty EKG afib LBBB Imaging CXR clear Assessment and plan metabolic encephalopathy likely UTI? dementia? afib on eliquis chronic systolic heart failure heart failure with reduced ejection fraction not in exacerbation macrocytic anemia thrombocytopenia hyperkalemia tiera vmn resolved c/w anticoagulation, GDMT lokelma cover with ceftriaxone tsh hiv rpr b12 folate delirium precaution fall precaution elopment precaution avoid benzo, anticholinergics, opioids window room melatonin PT eval Replete electrolytes Diet soft DVT prophylaxis on eliquis Plan discussed with: Patient, Daughter Date of Service: May 07, 2024 Billing Provider: JUVENCIO MICHAEL MD Common Visit Codes: [id number] INP/OBS CARE(HIGH) JUVENCIO MICHAEL MD May 07, 2024 13:21
[2024-05-08] VITALS (7 sets, daily range): BP systolic 97–118; BP diastolic 43–66; PULSE 57–69; RESP 16–61; TEMP 97.1–98.3; O2SAT 92–98
[2024-05-08 07:31] LABS: Potassium 4.2 mmol/L (3.5-5.1); Sodium 140 mmol/L (136-145)
[2024-05-08 07:32] LABS: Anion Gap 5 (5-15); Calcium 9.8 mg/dL (8.7-10.4); Carbon Dioxide 26 mmol/L (20-31)
[2024-05-08 07:33] LABS: Basophils # (auto) 0 10 ^3/uL (0-0.2); Basophils % (auto) 0.3 % (0.0-2.0); Eosinophils # (auto) 0.1 10 ^3/uL (0-0.8); Eosinophils % (auto) 2.8 % (0.0-7.0); Hematocrit 37.4 % (36.0-46.0); Hemoglobin 12.3 g/dL (12.2-16.2); Lymphocytes # (auto) 2.1 10 ^3/uL (0.4-5.4); Lymphocytes % (auto) 49.1 % (10.0-50.0); Mean Corpuscular Hemoglobin 33.8 pg (28.0-32.0); Mean Corpuscular Volume 102.4 fL (80.0-100.0); Monocytes # (auto) 0.5 10 ^3/uL (0-1.3); Monocytes % (auto) 12.5 % (0.0-12.0); Neutrophils # (auto) 1.5 10 ^3/uL (1.6-8.6); Neutrophils % (auto) 35.3 % (37.0-80.0); Nucleated Red Blood Cells % 0.2 %; Platelet Count (auto) 127 10^3/uL (140-450); Red Blood Cells 3.65 10^6/uL (4.0-5.20); Red Cell Distribution Width 16.2 % (11.8-14.3); White Blood Cell 4.2 10^3/uL (4.4-10.8)
[2024-05-08 07:37] LABS: BUN/Creatinine Ratio 32.9 (10.0-20.0); Glucose 77 mg/dL (74-106)
[2024-05-08 07:38] LABS: Magnesium 1.7 mg/dL (1.6-2.6)
[2024-05-08 07:39] LABS: Phosphorus 2.9 mg/dL (2.4-5.1)
[2024-05-08 07:41] LABS: Blood Urea Nitrogen 28 mg/dL (9-23); Chloride 109 mmol/L (98-107)
--- NOTE | 2024-05-08 13:20 | DVHPN2 ---
Reviewed: Care Plan, H&P, Labs, Medications, Previous Orders, Radiology Changes from previous H/P or p: No Changes Eyes: No Pain, No Vision change, No Conjunctivae inflammation, No Eyelid inflammation, No Other, No Redness ENT: No Ear pain, No Ear discharge, No Nose pain, No Nose discharge, No Nose congestion, No Mouth pain, No Mouth swelling, No Throat pain, No Throat swelling, No Other Cardiovascular: No Chest Pain, No Palpitations, No Orthopnea, No Paroxysmal Noc. Dyspnea, No Edema, No Lt Headedness, No Other Respiratory: No Cough, No Dry, No Shortness of breath, No SOB with excertion, No Wheezing, No Hemoptysis, No Pleuritic Pain, No Sputum, No Other Gastrointestinal: No Nausea, No Vomiting, No Abdominal Pain, No Diarrhea, No Constipation, No Melena, No Hematochezia, No Other Genitourinary: No Dysuria, No Frequency, No Incontinence, No Hematuria, No Retention, No Other Musculoskeletal: No other, No neck pain, No shoulder pain, No arm pain, No back pain, No hand pain, No leg pain, No foot pain Skin: No Rash, No Lesions, No Jaundice, No Bruising, No Other Objective Vitals Vital Signs Date Time Temp Pulse Resp B/P (MAP) Pulse Ox O2 Delivery O2 Flow Rate FiO2 05/08/24 13:00 97.6 61 61 111/66 (81) 96 97.6 05/08/24 08:00 Room Air* 0 21 Intake/Output Intake and Output 05/08/24 07:00 Intake Total 650 ml Output Total 850 ml Balance -200 ml Intake Oral 650 ml Output Urine Total 850 ml Medications Current Medications Medications Dose Ordered Sig/Maylin Route Start Time Stop Time Status Last Admin Dose Admin Ceftriaxone Sodium 50 ml @ 100 mls/hr HS IV 05/02/24 22:00 05/07/24 22:04 100 MLS/HR Atorvastatin Calcium 10 mg HS PO 05/01/24 22:00 05/07/24 22:04 10 MG Apixaban 2.5 mg BID PO 05/01/24 22:00 05/07/24 22:05 2.5 MG Acetaminophen 650 mg Q6HP PRN PO 05/01/24 19:45 Polyethylene Glycol 17 gm DAILYPRN PRN PO 05/02/24 14:00 05/04/24 09:38 17 GM Melatonin 10 mg HS PO 05/05/24 22:00 05/07/24 22:04 10 MG Laboratory Results Laboratory Tests 05/08/24 07:08 Chemistry Test 05/08/24 07:08 Calcium Level 9.8 mg/dL (8.7-10.4) Magnesium Level 1.7 mg/dL (1.6-2.6) Phosphorus Level 2.9 mg/dL (2.4-5.1) Urinalysis Test 05/01/24 17:18 Urine Color Colorless (Yellow) Urine Clarity Clear (Clear) Urine pH 5.0 (5.0-9.0) Urine Specific [place] 1.009 (1.001-1.035) Urine Protein Negative (Negative) Urine Ketones Negative (Negative) Urine Blood Trace /uL (Negative) H Urine Nitrite Negative (Negative) Urine Bilirubin Negative (Negative) Urine Urobilinogen Normal mg/dL (Negative) Urine Leukocyte Esterase 1+ /uL (Negative) Urine RBC 3 /hpf (0 - 4) Urine WBC 9 /hpf (0 - 5) Urine Squamous Epithelial Cells Few /hpf (<5) Urine Bacteria Few /hpf (None Seen) H Urine Hyaline Casts Few /lpf (0 - 2) Urine Glucose Normal mg/dL (Normal) Microbiology Microbiology Date/Time Source Procedure Growth Status 05/03/24 02:40 Nose MRSA Screen - Final Complete 05/01/24 17:18 Voided Urine Urine Culture - Final Complete Labs and/or images reviewed: Labs reviewed by me, Image(s) reviewed by me Assessment/Plan Assessment/Plan Sepsis secondary to UTI Acute urinary tract infection: Urine cultures mixed, continue Rocephin dementia? afib on eliquis chronic systolic heart failure heart failure with reduced ejection fraction not in exacerbation macrocytic anemia thrombocytopenia hyperkalemia tiera vmn resolved Plan discussed with: Patient My Orders Orders - BOO TELLES MD Procedure Category Date Status Time Speech Pathologist CHYNA 05/08/24 In Process Eval: Tuyet 11:04 Date of Service: May 08, 2024 Billing Provider: BOO TELLES MD Common Visit Codes: [id number] INP/OBS CARE(HIGH) BOO TELLES MD May 08, 2024 13:20
[2024-05-09] VITALS (7 sets, daily range): BP systolic 120–123; BP diastolic 56–71; PULSE 56–68; RESP 16–20; TEMP 97.6–98.6; O2SAT 93–96
--- NOTE | 2024-05-09 09:25 | DVHPN2 ---
Reviewed: Care Plan, H&P, Labs, Medications, Previous Orders, Radiology Changes from previous H/P or p: No Changes Eyes: No Pain, No Vision change, No Conjunctivae inflammation, No Eyelid inflammation, No Other, No Redness ENT: No Ear pain, No Ear discharge, No Nose pain, No Nose discharge, No Nose congestion, No Mouth pain, No Mouth swelling, No Throat pain, No Throat swelling, No Other Cardiovascular: No Chest Pain, No Palpitations, No Orthopnea, No Paroxysmal Noc. Dyspnea, No Edema, No Lt Headedness, No Other Respiratory: No Cough, No Dry, No Shortness of breath, No SOB with excertion, No Wheezing, No Hemoptysis, No Pleuritic Pain, No Sputum, No Other Gastrointestinal: No Nausea, No Vomiting, No Abdominal Pain, No Diarrhea, No Constipation, No Melena, No Hematochezia, No Other Genitourinary: No Dysuria, No Frequency, No Incontinence, No Hematuria, No Retention, No Other Musculoskeletal: No other, No neck pain, No shoulder pain, No arm pain, No back pain, No hand pain, No leg pain, No foot pain Skin: No Rash, No Lesions, No Jaundice, No Bruising, No Other Objective Vitals Vital Signs Date Time Temp Pulse Resp B/P (MAP) Pulse Ox O2 Delivery O2 Flow Rate FiO2 05/09/24 05:00 98.3 56 16 122/58 (79) 93 98.3 05/08/24 20:00 Room Air* 0 21 Intake/Output Intake and Output 05/09/24 07:00 Intake Total 100 ml Output Total 800 ml Balance -700 ml Intake Oral 100 ml Output Urine Total 800 ml Medications Current Medications Medications Dose Ordered Sig/Maylin Route Start Time Stop Time Status Last Admin Dose Admin Ceftriaxone Sodium 50 ml @ 100 mls/hr HS IV 05/02/24 22:00 05/08/24 21:48 100 MLS/HR Atorvastatin Calcium 10 mg HS PO 05/01/24 22:00 05/07/24 22:04 10 MG Apixaban 2.5 mg BID PO 05/01/24 22:00 05/07/24 22:05 2.5 MG Acetaminophen 650 mg Q6HP PRN PO 05/01/24 19:45 Polyethylene Glycol 17 gm DAILYPRN PRN PO 05/02/24 14:00 05/04/24 09:38 17 GM Melatonin 10 mg HS PO 05/05/24 22:00 05/07/24 22:04 10 MG Laboratory Results Laboratory Tests 05/08/24 07:08 Urinalysis Test 05/01/24 17:18 Urine Color Colorless (Yellow) Urine Clarity Clear (Clear) Urine pH 5.0 (5.0-9.0) Urine Specific [place] 1.009 (1.001-1.035) Urine Protein Negative (Negative) Urine Ketones Negative (Negative) Urine Blood Trace /uL (Negative) H Urine Nitrite Negative (Negative) Urine Bilirubin Negative (Negative) Urine Urobilinogen Normal mg/dL (Negative) Urine Leukocyte Esterase 1+ /uL (Negative) Urine RBC 3 /hpf (0 - 4) Urine WBC 9 /hpf (0 - 5) Urine Squamous Epithelial Cells Few /hpf (<5) Urine Bacteria Few /hpf (None Seen) H Urine Hyaline Casts Few /lpf (0 - 2) Urine Glucose Normal mg/dL (Normal) Microbiology Microbiology Date/Time Source Procedure Growth Status 05/03/24 02:40 Nose MRSA Screen - Final Complete 05/01/24 17:18 Voided Urine Urine Culture - Final Complete Labs and/or images reviewed: Labs reviewed by me, Image(s) reviewed by me Assessment/Plan Assessment/Plan Sepsis secondary to UTI Acute urinary tract infection: Urine cultures mixed, continue Rocephin dementia? afib on eliquis chronic systolic heart failure heart failure with reduced ejection fraction not in exacerbation macrocytic anemia thrombocytopenia hyperkalemia tiera vmn resolved Patient's daughter Antonette at bed side Plan discussed with: Patient My Orders Orders - BOO TELLES MD Procedure Category Date Status Time Speech Pathologist [facility] 05/08/24 In Process Eval: Tuyet 11:04 Date of Service: May 09, 2024 Billing Provider: BOO TELLES MD Common Visit Codes: [id number] INP/OBS CARE(HIGH) BOO TELLES MD May 09, 2024 09:25
--- NOTE | 2024-05-09 10:04 | DVHDS2 ---
Discharge Summary Date of Admission May 01, 2024 at 21:58 Date of Discharge: May 09, 2024 Admitting Diagnosis Altered mental status Wounds: None Labs/Diagnostic Data: Laboratory Results Test 05/08/24 07:08 05/07/24 04:50 05/02/24 04:24 05/01/24 17:18 White Blood Count 4.2 10^3/uL (4.4-10.8) Red Blood Count 3.65 10^6/uL (4.0-5.20) Hemoglobin 12.3 g/dL (12.2-16.2) Hematocrit 37.4 % (36.0-46.0) Mean Corpuscular Volume 102.4 fL (80.0-100.0) Mean Corpuscular Hemoglobin 33.8 pg (28.0-32.0) Mean Corpuscular Hemoglobin Concent 33.0 g/dL (32.0-36.0) Red Cell Distribution Width 16.2 % (11.8-14.3) Platelet Count 127 10^3/uL (140-450) Mean Platelet Volume 8.7 fL (6.9-10.8) Neutrophils (%) (Auto) 35.3 % (37.0-80.0) Lymphocytes (%) (Auto) 49.1 % (10.0-50.0) Monocytes (%) (Auto) 12.5 % (0.0-12.0) Eosinophils (%) (Auto) 2.8 % (0.0-7.0) Basophils (%) (Auto) 0.3 % (0.0-2.0) Neutrophils # (Auto) 1.5 10 ^3/uL (1.6-8.6) Lymphocytes # (Auto) 2.1 10 ^3/uL (0.4-5.4) Monocytes # (Auto) 0.5 10 ^3/uL (0-1.3) Eosinophils # (Auto) 0.1 10 ^3/uL (0-0.8) Basophils # (Auto) 0 10 ^3/uL (0-0.2) Nucleated Red Blood Cells 0.2 % Sodium Level 140 mmol/L (136-145) Potassium Level 4.2 mmol/L (3.5-5.1) Chloride Level 109 mmol/L (98-107) Carbon Dioxide Level 26 mmol/L (20-31) Anion Gap 5 (5-15) Blood Urea Nitrogen 28 mg/dL (9-23) Creatinine 0.85 mg/dL (0.550-1.02) Glomerular Filtration Rate Calc 68 mL/min (>90) BUN/Creatinine Ratio 32.9 (10.0-20.0) Serum Glucose 77 mg/dL (74-106) Calcium Level 9.8 mg/dL (8.7-10.4) Phosphorus Level 2.9 mg/dL (2.4-5.1) Magnesium Level 1.7 mg/dL (1.6-2.6) Uric Acid 7.8 mg/dL (3.1-7.8) Total Bilirubin 0.4 mg/dL (0.2-1.0) Aspartate Amino Transferase (AST) 22 U/L (13-40) Alanine Aminotransferase (ALT) 18 U/L (7-40) Alkaline Phosphatase 95 U/L (46-116) Total Protein 7.6 g/dL (5.7-8.2) Albumin 3.7 g/dL (3.2-4.8) Urine Color Colorless (Yellow) Urine Clarity Clear (Clear) Urine pH 5.0 (5.0-9.0) Urine Specific [place] 1.009 (1.001-1.035) Urine Protein Negative (Negative) Urine Ketones Negative (Negative) Urine Blood Trace /uL (Negative) Urine Nitrite Negative (Negative) Urine Bilirubin Negative (Negative) Urine Urobilinogen Normal mg/dL (Negative) Urine Leukocyte Esterase 1+ /uL (Negative) Urine RBC 3 /hpf (0 - 4) Urine WBC 9 /hpf (0 - 5) Urine Squamous Epithelial Cells Few /hpf (<5) Urine Bacteria Few /hpf (None Seen) Urine Hyaline Casts Few /lpf (0 - 2) Urine Glucose Normal mg/dL (Normal) Test 05/01/24 16:43 05/01/24 13:33 Troponin I High Sensitivity 9 ng/L (</=34) Lactic Acid Level 0.8 mmol/L (0.4-2.0) B-Type Natriuretic Peptide 204.95 pg/mL (0-100) Other Laboratory Tests 05/08/24 07:08 Brief Hx & Hospital Course: 84-year-old female with a history of AFib on Eliquis dementia chronic systolic heart failure thrombocytopenia microcytic anemia came in for altered mental status and confusion admitted to the hospital found to have sepsis secondary to UTI treated with Rocephin blood cultures negative urine cultures mixed patient has significantly improved and being discharged to longterm facility for two weeks of IV Rocephin. Patient's daughter Antonette at the bedside agrees with the plan Consults/Reason for consult None Operations or Procedures None Condition at Discharge: Fair Final Diagnosis/Problems List Sepsis secondary to UTI Acute urinary tract infection: Urine cultures mixed, continue Rocephin dementia? afib on eliquis chronic systolic heart failure heart failure with reduced ejection fraction not in exacerbation macrocytic anemia thrombocytopenia hyperkalemia tiera vmn resolved Discharge Disposition: [facility] Facility Discharge Instruct/Medications Diet: Cardiac 2g Na,low cholest Activity: Light activity Follow Up/Referral: Follow up with the custodial Medications: Rocephin 1 g IV daily for two weeks 39 (Time taken for discharge summary 39 minutes) Discharge Statement: "Patient was advised to return to the ER or call 911 if any headaches, dizziness, shortness of breath, chest pain, abdominal pain, bleeding, fevers, or worsening of medical condition. Patient was counseled about treatment plan, medications, possible side effects, patientverbalized understanding. All questions were answered to the best of my ability. This discharge took greater then 30 minutes in planning, reviewing documentation, counseling the patient, and discussing with other team members." ASSESSMENT ASSESSMENT Hospital Course Improved Assessment Sepsis secondary to UTI Acute urinary tract infection: Urine cultures mixed, continue Rocephin dementia? afib on eliquis chronic systolic heart failure heart failure with reduced ejection fraction not in exacerbation macrocytic anemia thrombocytopenia hyperkalemia tiera vmn resolved Date of Service: May 09, 2024 Billing Provider: BOO TELLES MD Common Visit Codes: 34000-DYH/[id number] DISCH DAY >30min BOO TELLES MD May 09, 2024 10:04
[2024-05-10 01:00] VITALS: BP 112/58; PULSE 63; RESP 18; TEMP 97.8; O2SAT 94
[2024-05-10 05:00] VITALS: BP 107/43; PULSE 59; RESP 17; TEMP 97.8; O2SAT 94
--- NOTE | 2024-05-10 09:09 | DVHPN2 ---
Reviewed: Care Plan, H&P, Labs, Medications, Previous Orders, Radiology Changes from previous H/P or p: No Changes Eyes: No Pain, No Vision change, No Conjunctivae inflammation, No Eyelid inflammation, No Other, No Redness ENT: No Ear pain, No Ear discharge, No Nose pain, No Nose discharge, No Nose congestion, No Mouth pain, No Mouth swelling, No Throat pain, No Throat swelling, No Other Cardiovascular: No Chest Pain, No Palpitations, No Orthopnea, No Paroxysmal Noc. Dyspnea, No Edema, No Lt Headedness, No Other Respiratory: No Cough, No Dry, No Shortness of breath, No SOB with excertion, No Wheezing, No Hemoptysis, No Pleuritic Pain, No Sputum, No Other Gastrointestinal: No Nausea, No Vomiting, No Abdominal Pain, No Diarrhea, No Constipation, No Melena, No Hematochezia, No Other Genitourinary: No Dysuria, No Frequency, No Incontinence, No Hematuria, No Retention, No Other Musculoskeletal: No other, No neck pain, No shoulder pain, No arm pain, No back pain, No hand pain, No leg pain, No foot pain Skin: No Rash, No Lesions, No Jaundice, No Bruising, No Other Objective Vitals Vital Signs Date Time Temp Pulse Resp B/P (MAP) Pulse Ox O2 Delivery O2 Flow Rate FiO2 05/10/24 05:00 97.8 59 17 107/43 (64) 94 97.8 05/09/24 20:00 Room Air* 0 21 Intake/Output Intake and Output 05/10/24 07:00 Intake Total 1085 ml Output Total 650 ml Balance 435 ml Intake Oral 1085 ml Output Urine Total 650 ml Medications Current Medications Medications Dose Ordered Sig/Maylin Route Start Time Stop Time Status Last Admin Dose Admin Ceftriaxone Sodium 50 ml @ 100 mls/hr HS IV 05/02/24 22:00 05/09/24 21:09 100 MLS/HR Atorvastatin Calcium 10 mg HS PO 05/01/24 22:00 05/09/24 21:09 10 MG Apixaban 2.5 mg BID PO 05/01/24 22:00 05/10/24 08:57 2.5 MG Acetaminophen 650 mg Q6HP PRN PO 05/01/24 19:45 Polyethylene Glycol 17 gm DAILYPRN PRN PO 05/02/24 14:00 05/04/24 09:38 17 GM Melatonin 10 mg HS PO 05/05/24 22:00 05/09/24 21:09 10 MG Laboratory Results Laboratory Tests 05/08/24 07:08 Urinalysis Test 05/01/24 17:18 Urine Color Colorless (Yellow) Urine Clarity Clear (Clear) Urine pH 5.0 (5.0-9.0) Urine Specific [place] 1.009 (1.001-1.035) Urine Protein Negative (Negative) Urine Ketones Negative (Negative) Urine Blood Trace /uL (Negative) H Urine Nitrite Negative (Negative) Urine Bilirubin Negative (Negative) Urine Urobilinogen Normal mg/dL (Negative) Urine Leukocyte Esterase 1+ /uL (Negative) Urine RBC 3 /hpf (0 - 4) Urine WBC 9 /hpf (0 - 5) Urine Squamous Epithelial Cells Few /hpf (<5) Urine Bacteria Few /hpf (None Seen) H Urine Hyaline Casts Few /lpf (0 - 2) Urine Glucose Normal mg/dL (Normal) Microbiology Microbiology Date/Time Source Procedure Growth Status 05/03/24 02:40 Nose MRSA Screen - Final Complete 05/01/24 17:18 Voided Urine Urine Culture - Final Complete Labs and/or images reviewed: Labs reviewed by me, Image(s) reviewed by me Assessment/Plan Assessment/Plan Sepsis secondary to UTI Acute urinary tract infection: Urine cultures mixed, continue Rocephin dementia? afib on eliquis chronic systolic heart failure heart failure with reduced ejection fraction not in exacerbation macrocytic anemia thrombocytopenia hyperkalemia tiera vmn resolved Patient's daughter Antonette at bed side Awaiting transportation to [facility] No new complaints. Plan discussed with: Patient My Orders Orders - BOO TELLES MD Procedure Category Date Status Time * Docking Saw Operator CONS 05/09/24 Transmitted Consult Discharge DISCHARGE 05/09/24 Transmitted 10:02 Discontinue Tele CHYNA 05/10/24 In Process 04:13 Transfer Orders XFER 05/10/24 Transmitted 04:13 Date of Service: May 10, 2024 Billing Provider: BOO TELLES MD Common Visit Codes: [id number] INP/OBS CARE(HIGH) BOO TELLES MD May 10, 2024 09:08
[2024-05-10 09:30] VITALS: BP 117/51; PULSE 63; RESP 18; TEMP 97.8; O2SAT 96
[2024-05-10 13:00] VITALS: BP 106/55; PULSE 64; RESP 18; TEMP 97.6; O2SAT 94
[2024-05-10 16:49] VITALS: BP 107/52; PULSE 69; RESP 20; TEMP 97.8; O2SAT 94
[2024-05-10 17:52] LABS: COVID19 ANTIGEN SOFIA FIA NEGATIVE (NEGATIVE)
[2024-05-10 18:37] VITALS: BP 131/53; PULSE 73
== END 2024-05-10 20:25 | DRG 689 ==
LOC: EDBD 12:53 → ER 12:53 → TELE 21:58 → TELE-EAST 05-02 15:15 → TELE-CENTR 05-03 22:20 → CENTRAL 05-10 04:38
PROVIDERS: ADMIT Nurse Practitioner Family; ATTEND Family Medicine
PROC: 05HD33Z Insertion of Infusion Device into Right Cephalic Vein, Percutaneous Approach (ICD-10-PCS; principal; 2024-05-09)
PROC: B54MZZA Ultrasonography of Right Upper Extremity Veins, Guidance (ICD-10-PCS; 2024-05-09)
DX: N30.00 Acute cystitis without hematuria (principal); G93.41 Metabolic encephalopathy; N17.0 Acute kidney failure with tubular necrosis; I50.22 Chronic systolic (congestive) heart failure; E87.5 Hyperkalemia; I48.91 Unspecified atrial fibrillation; Z20.822 Contact with and (suspected) exposure to COVID-19; D69.6 Thrombocytopenia, unspecified; F03.90 Unspecified dementia, unspecified severity, without behavioral disturbance, psychotic disturbance, mood disturbance, and anxiety; D50.9 Iron deficiency anemia, unspecified; E78.5 Hyperlipidemia, unspecified; D53.9 Nutritional anemia, unspecified; I11.0 Hypertensive heart disease with heart failure; Z87.440 Personal history of urinary (tract) infections; Z79.01 Long term (current) use of anticoagulants; Z79.2 Long term (current) use of antibiotics; Z79.899 Other long term (current) drug therapy
CPT/HCPCS: 36415; 71045; 80048; 80053; 81001; 83605; 83735; 83880; 84100; 84484; 84550; 85025; 87081; 87086; 87426; 93005; 97110; 97116; 97163; 97530; G0378

== ENCOUNTER 2024-08-27 09:50 | Inpatient (IN) | payer MEDICARE, BC ==
[~2024-08-27] VITALS: Ht 162.6 cm; Wt 82.2 kg
[~2024-08-27 09:50] MED LIST changes: -CEFP200T15 PO; -CIPR-173 PO; -FLUC200T50 PO; -NYS15PW TOP
--- NOTE | 2024-08-27 10:27 | ECG ---
[facility] Test Date: 2024-08-27 Test Time: 10:21:27 Pat Name: KIAH MERCEDES Department: ER Room: 0223 Gender: F Manager Of Drilling: JUAREZ : 1940 Requested By: THERESE PRESSLEY Order Number: [id number] Reading MD: Suleiman Solis Measurements Intervals [place] Rate: 55 P: 31 [place]: 226 QRS: -7 QRSD: 109 T: 85 QT: 438 QTc: 419 Interpretive Statements Sinus rhythm Supraventricular bigeminy Prolonged [place] interval Consider left atrial enlargement LVH with secondary repolarization abnormality Baseline wander in lead(s) V3 Electronically Signed On 09-01-2024 20:47:11 PDT by Suleiman Solis Please click the below link to view image of tracing.
--- NOTE | 2024-08-27 10:45 | ED.PDOC ---
History of Present Illness HPI Comments 84F presents to the ER in a wheelchair and being pushed by the daughter and has prior Hx of CHF, Recurring UTI w/ recent diagnosis, 2 weeks ago which may be associated to the c/c of Urinary. Daughter states that the pt has been altered via UTI. Daughter states that she has a UTI because the pt is currently altered. Daughter notes that the pt has bilateral Edema as well. PMHx of AFIB, High Lipids, and Sepsis. Denies chills, fever, N/V/D, SOB, CP or no other associated symptoms, modifiers, recent injuries or sick contacts at this time. Chief Complaint: Urinary Time Seen by MD: 10:10 Primary Care Provider: JESSICA Salvador Notes: Nurses Notes, Medications, Allergies Allergies: Coded Allergies: NO KNOWN ALLERGIES (Unverified , 06/14/22) Home Meds Active Scripts Spironolactone (Aldactone) 25 Mg Tab, 12.5 MG PO DAILY for 30 Days, #15 TAB 1 Refill Prov:UJ MCNEAL 04/05/24 Furosemide (Furosemide) 20 Mg Tab, 1 TAB PO DAILY PRN for 30 Days, #30 TAB 1 Refill for leg swelling Prov:JU MCNEAL 04/05/24 Apixaban Base (ELIQUIS) 2.5 Mg Tab, 2.5 MG PO BID for 30 Days, #60 TAB 2 Refills Prov:JU MCNEAL 04/05/24 Reported Medications Atorvastatin Calcium (ATORVASTATIN CALCIUM) 10 Mg Tab, 1 TAB PO DAILY for 90 Days, #90 03/29/24 Information Source: Patient, Relative (Child) Mode of Arrival: Ambulatory Severity: Moderate Timing: Hours Duration: Since onset, Hours Prehospital treatment: None Past Medical History PAST MEDICAL HISTORY: AFIB, CHF, High Lipids, UTI'S (Recurring and had 2 weeks ago) Past Medical History (Other): Sepsis Surgical History: Denies all surgeries PRINCIPLE INDUSTRIAL HYGIENIST History: No Pertinent PRINCIPLE INDUSTRIAL HYGIENIST History Family History Family History: Reviewed,noncontributory to illness, Unknown Social History Smoker: Non-Smoker Alcohol: Denies ETOH Use Drugs: Denies Drug Use Lives In: Home Constitutional: denies: chills, diaphoresis, fatigue, fever, malaise, sweats, weakness, others EENTM: denies: blurred vision, double vision, ear bleeding, ear discharge, ear drainage, ear pain, ear ringing, eye pain, eye redness, hearing loss, mouth pain, mouth swelling, nasal discharge, nose bleeding, nose congestion, nose pain, photophobia, tearing, throat pain, throat swelling, voice changes, others Respiratory: denies: cough, hemoptysis, orthopnea, SOB at rest, shortness of breath, SOB with excertion, stridor, wheezing, others Cardiovascular: reports: edema; denies: chest pain, dizzy spells, diaphoresis, Dyspnea on exertion, irregular heart beat, left arm pain, lightheadedness, palpitations, PND, syncope, others Gastrointestinal: denies: abdomen distended, abdominal pain, blood streaked bowels, constipated, diarrhea, dysphagia, difficulty swallowing, hematemesis, melena, nausea, poor appetite, poor fluid intake, rectal bleeding, rectal pain, vomiting, others Genitourinary: denies: abnormal vagina bleeding, burning, dyspareunia, dysuria, flank pain, frequency, hematuria, incontinence, pain, , vagina discharge, urgency Neurological: denies: dizziness, fainting, headache, left sided numbness, left sided weakness, numbness, paresthesia, pre-existing deficit, right sided numbness, right sided weakness, seizure, speech problems, tingling, tremors, weakness, others Musculoskeletal: denies: back pain, gout, joint pain, joint swelling, muscle pain, muscle stiffness, neck pain, others Integumetry: denies: bruises, change in color, change in hair/nails, dryness, laceration, lesions, lumps, rash, wounds, others Allergic/Immunocompromised: denies: Difficulty Healing, Frequent Infections, Hives, Itching, others Hematologic/Lymphatic: denies: anemia, blood clots, easy bleeding, easy bruising, swollen glands, others Endocrine: denies: excessive hunger, excessive sweating, excessive thirst, excessive urination, flushing, intolerance to cold, intolerance to heat, unexplained weight gain, unexplained weight loss, others Psychiatric: denies: anxiety, bipolar disorder, depression, hopeless, panic disorder, schizophrenia, sleepless, suicidal, others All Other Systems: Reviewed and Negative Physical Exam General Appearance: Moderate Distress, Normal HEENT: Normal ENT Inspection, Pharynx Normal, TMs Normal Neck: Full Range of Motion, Non-Tender, Normal, Normal Inspection Respiratory: Chest Non-Tender, Lungs Clear, No Accessory Muscle Use, No Respiratory Distress, Normal Breath Sounds Cardiovascular: No Edema, No JVD, No Murmur, No Gallop, Normal Peripheral Pulses, Regular Rate/Rhythm Breast Exam: Deferred Gastrointestinal: No Organomegaly, Non Tender, No Pulsatile Mass, Normal Bowel Sounds, Soft Genitalia: Deferred Pelvic: Deferred Rectal: Deferred Extremities: No calf tenderness, Normal capillary refill, Normal inspection, Normal range of motion, Non-tender, No pedal edema Musculoskeletal : Apperance: Normal Neurologic: Alert, adjunct 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 Was a procedure done?: No EKG EKG : Pulse Rate (adult): 55 [place]: Normal Cardiac Rhythm: NSR Block: None Hypertrophy: None ST: Normal Differential Dx Considerations may include: Urinary tract infection Electrolyte imbalance X-Ray, Labs, Meds, VS Vital Signs Date Time Temp Pulse Resp B/P (MAP) Pulse Ox O2 Delivery O2 Flow Rate FiO2 08/27/24 11:17 53 16 94 Room Air* 0 21 08/27/24 11:02 53 16 136/65 (88) 94 08/27/24 10:45 55 08/27/24 10:21 55 08/27/24 10:00 98.4 62 18 116/65 (82) 94 98.4 Lab Test 08/27/24 10:40 Range/Units White Blood Count 3.8 L 4.4-10.8 10^3/uL Red Blood Count 3.62 L 4.0-5.20 10^6/uL Hemoglobin 12.6 12.2-16.2 g/dL Hematocrit 38.1 36.0-46.0 % Mean Corpuscular Volume 105.3 H 80.0-100.0 fL Mean Corpuscular Hemoglobin 34.8 H 28.0-32.0 pg Mean Corpuscular Hemoglobin Concent 33.1 32.0-36.0 g/dL Red Cell Distribution Width 14.9 H 11.8-14.3 % Platelet Count 122 L 140-450 10^3/uL Mean Platelet Volume 8.8 6.9-10.8 fL Neutrophils (%) (Auto) 53.9 37.0-80.0 % Lymphocytes (%) (Auto) 29.6 10.0-50.0 % Monocytes (%) (Auto) 15.0 H 0.0-12.0 % Eosinophils (%) (Auto) 1.2 0.0-7.0 % Basophils (%) (Auto) 0.3 0.0-2.0 % Neutrophils # (Auto) 2.1 1.6-8.6 10 ^3/uL Lymphocytes # (Auto) 1.1 0.4-5.4 10 ^3/uL Monocytes # (Auto) 0.6 0-1.3 10 ^3/uL Eosinophils # (Auto) 0 0-0.8 10 ^3/uL Basophils # (Auto) 0 0-0.2 10 ^3/uL Nucleated Red Blood Cells 0.2 % Sodium Level 140 136-145 mmol/L Potassium Level 4.0 3.5-5.1 mmol/L Chloride Level 109 H 98-107 mmol/L Carbon Dioxide Level 24 20-31 mmol/L Anion Gap 7 5-15 Blood Urea Nitrogen 23 9-23 mg/dL Creatinine 0.90 0.550-1.02 mg/dL Glomerular Filtration Rate Calc 63 >90 mL/min BUN/Creatinine Ratio 25.6 H 10.0-20.0 Serum Glucose 83 74-106 mg/dL Calcium Level 10.0 8.7-10.4 mg/dL Current Medications Medications (Trade) Dose Ordered Sig/Maylin Route Start Time Stop Time Status Last Admin Ceftriaxone Sodium 50 ml @ 100 mls/hr ONCE ONCE IV 08/27/24 10:30 08/27/24 10:59 DC 08/27/24 11:10 Sodium Chloride 1,000 ml @ 150 mls/hr Q6H40M ONCE IV 08/27/24 10:30 08/27/24 17:09 08/27/24 11:10 Patient alert. Family states that she has been confused. She gets like this when she has urinary tract infection. Vitals stable. She is answering simple questions. Possible sepsis from urine. Establish intravenous access. Was given fluids. Was given Rocephin. EKG reviewed does show bradycardia. Reviewed her history. Explained to the family. Continue monitoring. Time of 1ST Reevaluation: 12:28 Reevaluation 1ST: Unchanged Patient Education/Counseling: Diagnosis, Treatment, Prognosis Family Education/Counseling: Diagnosis, Treatment, Prognosis Departure 1 Departure Time of Disposition: 12:30 Impression: Primary Impression: Sepsis due to urinary tract infection Disposition: ADMITTED INPATIENT Admit to: Med Surg Condition: Guarded Critical Care Note Critical Care Time?: No Stability Stability form required: No Heart Score Heart Score: Heart Score Response (Comments) Value History Slightly Suspicious 0 EKG Normal 0 Age >65 2 Risk Factors >3 or Hx ASHD 2 Troponin Normal limit 0 Total 4 I personally scribed for THERESE PRESSLEY MD ([email or web address]) on 08/27/24 at 10:45. Electronically submitted by Remy Walker ([email or web address]). THERESE PRESSLEY MD Aug 27, 2024 10:45
[2024-08-27 10:54] LABS: Basophils # (auto) 0 10 ^3/uL (0-0.2); Eosinophils # (auto) 0 10 ^3/uL (0-0.8); Hemoglobin 12.6 g/dL (12.2-16.2); Lymphocytes # (auto) 1.1 10 ^3/uL (0.4-5.4); Mean Corpuscular Hemoglobin 34.8 pg (28.0-32.0); Mean Corpuscular Hgb Conc. 33.1 g/dL (32.0-36.0); Monocytes # (auto) 0.6 10 ^3/uL (0-1.3); Neutrophils # (auto) 2.1 10 ^3/uL (1.6-8.6); Nucleated Red Blood Cells % 0.2 %; Platelet Count (auto) 122 10^3/uL (140-450); Red Blood Cells 3.62 10^6/uL (4.0-5.20)
[2024-08-27 10:55] LABS: Basophils % (auto) 0.3 % (0.0-2.0); Eosinophils % (auto) 1.2 % (0.0-7.0); Hematocrit 38.1 % (36.0-46.0); Lymphocytes % (auto) 29.6 % (10.0-50.0); Mean Corpuscular Volume 105.3 fL (80.0-100.0); Neutrophils % (auto) 53.9 % (37.0-80.0); Red Cell Distribution Width 14.9 % (11.8-14.3); White Blood Cell 3.8 10^3/uL (4.4-10.8)
[2024-08-27 11:03] LABS: Sodium 140 mmol/L (136-145)
[2024-08-27 11:04] LABS: Anion Gap 7 (5-15)
[2024-08-27 11:06] LABS: Chloride 109 mmol/L (98-107)
[2024-08-27 11:09] LABS: BUN/Creatinine Ratio 25.6 (10.0-20.0); Blood Urea Nitrogen 23 mg/dL (9-23); Glucose 83 mg/dL (74-106)
[2024-08-27] MEDS: cefTRIAXone 1GM/50ML D5W 50 ML IV ONE (11:10)
[2024-08-27] MEDS: SODIUM CHLORIDE 0.9% 1,000 ML IV ONE (11:10)
[2024-08-27 11:11] LABS: Carbon Dioxide 24 mmol/L (20-31)
[2024-08-27 11:17] VITALS: PULSE 53; RESP 16; O2SAT 94
[2024-08-27] MEDS ORDERED: HYDROcodone-ACET 5/325MG TAB PO PRN (15:45)
[2024-08-27] MEDS ORDERED: ACETAMINOPHEN 325 MG TAB PO PRN (15:45)
[2024-08-27] MEDS ORDERED: MORPHINE SULFATE INJ 2 MG/ml SYRG IV PRN (15:45)
[2024-08-27] MEDS ORDERED: ONDANSETRON HCL 4 MG/2 ML VIAL IV PRN (15:45)
[2024-08-27] MEDS ORDERED: NITROGLYCERIN 0.4 MG SL TAB SL PRN (15:45)
--- NOTE | 2024-08-27 16:04 | DVHHP2 ---
History of Present Illness Reason for Visit: Bilateral lower extremity edema and urinary frequency History of Present Illness Dot Jimenez is a 84-year-old female with past medical history of hyp erlipidemia, AFib, CHF, breast cancer status post radiation, frequent UTIs, bilateral knee surgery, and right femur surgery who presents to the ED with urinary frequency and bilateral lower extremity edema. Patient reports that she has been having this bilateral edema for the last 10 years. Patient states that she also uses a cane to ambulate and a wheelchair. Patient denies any chest pain, shortness of breath, fever, chills, lightheadedness, weakness, dizziness, hematemesis, hematochezia, melena, hematu zaira, recent sick contacts, recent travels, recent trauma or injury, abdominal pain, nausea, vomiting, or diarrhea. Cardiovascular: AFIB, CHF, hyperipidemia Renal/: UTI Past Medical History Breast cancer status post radiation Past Surgical History: Other (Bilateral knee surgery and right femur surgery) Smoke: No ALCOHOL: none Drugs: None Lives: with Family Domestic Violence: Neg Review of Systems Genitourinary: Frequency Musculoskeletal: other (Bilateral lower extremity edema) Allergies: Coded Allergies: NO KNOWN ALLERGIES (Unverified , 06/14/22) Medications Current Medications Medications Dose Ordered Sig/Maylin Route Start Time Stop Time Status Last Admin Dose Admin Ceftriaxone Sodium 50 ml @ 100 mls/hr DAILY@09 IV 08/27/24 15:45 UNV Acetaminophen/ Hydrocodone Bitart 1 tab Q4HP PRN PO 08/27/24 15:45 UNV Ondansetron HCl 4 mg Q4HP PRN IV 08/27/24 15:45 UNV Acetaminophen 650 mg Q6HP PRN PO 08/27/24 15:45 UNV Nitroglycerin 0.4 mg Q5MINP PRN SL 08/27/24 15:45 UNV Morphine Sulfate 2 mg Q30M PRN IV 08/27/24 15:45 UNV Exam Vital Signs Vital Signs Date Time Temp Pulse Resp B/P (MAP) Pulse Ox O2 Delivery O2 Flow Rate FiO2 08/27/24 13:27 53 16 124/74 (91) 94 08/27/24 11:17 Room Air* 0 21 08/27/24 10:00 98.4 98.4 General Appearance: Alert, Oriented X3, Cooperative, No acute distress HEENT: Atraumatic, PERRLA, EOMI, Mucous membr. moist/pink Respiratory: Normal air movement Cardiovascular: Normal S1, Normal S2, No murmurs Abdominal: Normal bowel sounds, Soft, No tenderness, No hepatospenomegaly, No masses Extremities: No cyanosis Neuro: Normal speech, Normal tone, Sensation intact Psych/Mental Status: Mental status NL, Mood NL Labs/Xrays Labs Test 08/27/24 10:40 Range/Units White Blood Count 3.8 L 4.4-10.8 10^3/uL Red Blood Count 3.62 L 4.0-5.20 10^6/uL Hemoglobin 12.6 12.2-16.2 g/dL Hematocrit 38.1 36.0-46.0 % Mean Corpuscular Volume 105.3 H 80.0-100.0 fL Mean Corpuscular Hemoglobin 34.8 H 28.0-32.0 pg Mean Corpuscular Hemoglobin Concent 33.1 32.0-36.0 g/dL Red Cell Distribution Width 14.9 H 11.8-14.3 % Platelet Count 122 L 140-450 10^3/uL Mean Platelet Volume 8.8 6.9-10.8 fL Neutrophils (%) (Auto) 53.9 37.0-80.0 % Lymphocytes (%) (Auto) 29.6 10.0-50.0 % Monocytes (%) (Auto) 15.0 H 0.0-12.0 % Eosinophils (%) (Auto) 1.2 0.0-7.0 % Basophils (%) (Auto) 0.3 0.0-2.0 % Neutrophils # (Auto) 2.1 1.6-8.6 10 ^3/uL Lymphocytes # (Auto) 1.1 0.4-5.4 10 ^3/uL Monocytes # (Auto) 0.6 0-1.3 10 ^3/uL Eosinophils # (Auto) 0 0-0.8 10 ^3/uL Basophils # (Auto) 0 0-0.2 10 ^3/uL Nucleated Red Blood Cells 0.2 % Sodium Level 140 136-145 mmol/L Potassium Level 4.0 3.5-5.1 mmol/L Chloride Level 109 H 98-107 mmol/L Carbon Dioxide Level 24 20-31 mmol/L Anion Gap 7 5-15 Blood Urea Nitrogen 23 9-23 mg/dL Creatinine 0.90 0.550-1.02 mg/dL Glomerular Filtration Rate Calc 63 >90 mL/min BUN/Creatinine Ratio 25.6 H 10.0-20.0 Serum Glucose 83 74-106 mg/dL Calcium Level 10.0 8.7-10.4 mg/dL Assessment/Plan Assessment/Plan Assessment Dysuria probable acute cystitis Acute on chronic CHF exacerbation Sinus bradycardia Obesity History of AFib History of hyperlipidemia History of breast cancer status post radiation History of frequent UTIs History of bilateral knee surgery History of right femur surgery Plan Admit to tele NS 1 L given ED IV antibiotics-ceftriaxone Urine bacterial culture EKG UA BNP Ultrasound bilateral lower extremity venous Chest x-ray Home medications reconciled DVT prophylaxis-patient on apixaban PUD prophylaxis-not indicated no history of GERD or GI bleed Discussed plan of care with patient and nurse Counseled patient on lifestyle modifications, diet, and exercise Plan discussed with: Patient My Orders Orders - GERALD VILLA [employer] Procedure Category Date Status Time Urinalysis LAB 08/27/24 Logged 15:33 Ceftriaxone 1gm/50ml PHA 08/27/24 Logged D5w (Rocephin) 15:45 Admit ADMIT 08/27/24 Transmitted 15:33 Allergies CHYNA 08/27/24 In Process 15:33 Code Status CODE 08/27/24 Transmitted 15:33 Hydrocodone-Acet PHA 08/27/24 Logged 5/325mg Tab (Lenorah 15:45 Ondansetron Hcl PHA 08/27/24 Logged (Zofran) 15:45 Complete Blood Count LAB 08/28/24 Verified 04:00 Comprehensive LAB 08/28/24 Verified Metabolic Panel 04:00 Cardiac DIET 08/27/24 Transmitted Diet-2gna,Lofat,Lochol Dinner Acetaminophen Tablet PHA 08/27/24 Logged (Tylenol Tablet) 15:45 Nitroglycerin PHA 08/27/24 Logged Sublingual (Ntrostat 15:45 Morphine Sulfate PHA 08/27/24 Transmitted Injection 15:45 Stat Ekg For Chest CHYNA 08/27/24 In Process Pain 15:33 Notify Md Of Changes CHYNA 08/27/24 In Process From Base 15:33 Weight Guesser For CHYNA 08/27/24 In Process 24 Hours 15:33 Emergency Dysrhythmia [facility] 08/27/24 In Process Protocol 15:33 Rhythm Strips Once CHYNA 08/27/24 In Process Every Shift 15:33 Oxygen By Nasal RT 08/27/24 Transmitted Cannula 15:33 B-Type Natriuretic LAB 08/27/24 Logged Peptide 15:33 Bilat Lower Dvt US 08/27/24 Logged 15:33 Apixaban (Eliquis) PHA 08/27/24 Transmitted 22:00 Spironolactone PHA 08/28/24 Transmitted (Aldactone) 10:00 (Nf) Atorvastatin PHA 08/28/24 Transmitted Calcium 10:00 Chest Xray 1 View XY 08/27/24 Verified 15:38 Date of Service: Aug 27, 2024 Billing Provider: GERALD VILLA Common Visit Codes: [id number] INP/OBS CARE (HIGH) GERALD VILLA Aug 27, 2024 16:04
--- NOTE | 2024-08-27 16:06 | DVH ---
EXAM: XY CHEST XRAY 1 VIEW TECHNIQUE: Single frontal chest radiograph CLINICAL HISTORY: chf COMPARISON: XY CHEST PORTABLE on DOS: 05/01/24, XY CHEST PORTABLE on DOS: 04/07/24, XY CHEST PORTABLE on DOS: 03/31/24 Findings/Impression: Frontal chest radiograph demonstrates no acute osseous or superficial soft tissue abnormalities. The trachea is midline. Cardiomegaly. No pneumothorax, pleural effusions, or consolidations.
--- NOTE | 2024-08-27 16:47 | DVH ---
Bilateral lower extremity venous duplex Clinical History: swelling Comparison: US BILAT LOWER DVT on DOS: 03/29/24, US BILAT LOWER DVT on DOS: 05/16/23 Technique: Duplex Doppler evaluation of the deep venous systems of both lower extremities from the co mmon femoral veins to the popliteal veins including color Doppler and spectral/pulsed waveform analys is was performed. Findings: RIGHT SIDE: The common femoral vein demonstrates appropriate compressibility and waveform variability . There is compressibility/patency of the great saphenous vein at the proximal thigh . The femoral vein demonstrates appropriate compressibility and waveform variability . The deep femoral vein demonstrates appropriate compressibility and waveform variability . The popliteal vein demonstrates appropriate compressibility and waveform variability . There is color flow at the tibioperoneal trunk and in the posterior tibial vein. LEFT SIDE: The common femoral vein demonstrates appropriate compressibility and waveform variability . There is compressibility/patency of the great saphenous vein at the proximal thigh . The femoral vein demonstrates appropriate compressibility and waveform variability . The deep femoral vein demonstrates appropriate compressibility and waveform variability . The popliteal vein demonstrates appropriate compressibility and waveform variability . There is color flow at the tibioperoneal trunk and in the posterior tibial vein. Impression: 1. No right or left femoropopliteal venous thrombosis.
[2024-08-27 17:49] LABS: Urine Bacteria FEW /hpf (None Seen); Urine Blood Negative /uL (Negative); Urine Clarity Turbid (Clear); Urine Color Dark-Yellow (Yellow); Urine Hyaline Cast FEW /lpf (0 - 2); Urine Mucus FEW (None Seen); Urine Protein, UAD Negative (Negative); Urine Specific Gravity 1.011 (1.001-1.035); Urine Squamous Epithelial Cell FEW /hpf (<5); Urine Urobilinogen Normal (Negative); Urine WBC 393 /HPF (0-5); Urine WBC Clumps PRESENT /hpf (None Seen)
[2024-08-27 19:30] VITALS: PULSE 62; RESP 17; O2SAT 94
[2024-08-27 22:33] VITALS: PULSE 59; RESP 16; O2SAT 96
[2024-08-27] MEDS: APIXABAN 2.5 MG TAB PO SCH (22:56)
[2024-08-27 23:27] VITALS: BP 135/70; PULSE 49; RESP 20; TEMP 95.3; O2SAT 98
[2024-08-28] VITALS (9 sets, daily range): BP systolic 109–124; BP diastolic 42–81; PULSE 44–60; RESP 12–20; TEMP 94–97.8; O2SAT 91–96
[2024-08-28 07:27] LABS: Basophils # (auto) 0 10 ^3/uL (0-0.2); Eosinophils # (auto) 0.1 10 ^3/uL (0-0.8); Monocytes # (auto) 0.4 10 ^3/uL (0-1.3); Neutrophils # (auto) 1.5 10 ^3/uL (1.6-8.6); White Blood Cell 2.9 10^3/uL (4.4-10.8)
[2024-08-28 07:29] LABS: Alanine Aminotransferase 15 U/L (7-40); Albumin 3.5 g/dL (3.2-4.8); Alkaline Phosphatase 96 U/L (46-116); Anion Gap 6 (5-15); Aspartate Aminotransferase 17 U/L (13-40); Bilirubin, Total 0.6 mg/dL (0.2-1.0); Calcium 9.8 mg/dL (8.7-10.4); Carbon Dioxide 26 mmol/L (20-31); Potassium 4.1 mmol/L (3.5-5.1); Sodium 141 mmol/L (136-145); Total Protein 6.9 g/dL (5.7-8.2)
[2024-08-28 07:30] LABS: Basophils % (auto) 0.6 % (0.0-2.0); Hematocrit 34.8 % (36.0-46.0); Hemoglobin 11.4 g/dL (12.2-16.2); Lymphocytes # (auto) 0.9 10 ^3/uL (0.4-5.4); Lymphocytes % (auto) 30.8 % (10.0-50.0); Mean Corpuscular Hemoglobin 34.3 pg (28.0-32.0); Mean Corpuscular Hgb Conc. 32.6 g/dL (32.0-36.0); Mean Corpuscular Volume 105.3 fL (80.0-100.0); Neutrophils % (auto) 51.6 % (37.0-80.0); Nucleated Red Blood Cells % 0.3 %; Platelet Count (auto) 121 10^3/uL (140-450); Red Blood Cells 3.31 10^6/uL (4.0-5.20)
[2024-08-28 07:46] LABS: Blood Urea Nitrogen 23 mg/dL (9-23); Chloride 109 mmol/L (98-107); Glucose 66 mg/dL (74-106)
[2024-08-28] MEDS: cefTRIAXone 1GM/50ML D5W 50 ML IV SCH (10:08)
[2024-08-28] MEDS: ATORVASTATIN 20 MG TAB PO SCH (10:08)
[2024-08-28] MEDS: SPIRONOLACTONE 25 MG TAB PO SCH (10:08)
--- NOTE | 2024-08-28 12:48 | DVHPN2 ---
Subjective Seen and examined at bedside. Patient known to me from past. Has h/o complicated UTI. Will treat with Merrem. Changes from previous H/P or p: No Changes Genitourinary: Frequency Musculoskeletal: other (Bilateral lower extremity edema) Objective Vitals Vital Signs Date Time Temp Pulse Resp B/P (MAP) Pulse Ox O2 Delivery O2 Flow Rate FiO2 08/28/24 08:21 Room Air* 0 21 08/28/24 06:38 97.4 97.4 08/28/24 05:00 57 16 112/81 (91) 91 Intake/Output Intake and Output 08/28/24 06:59 Intake Total 950 ml Balance 950 ml Intake IV Total 950 ml # Voids 2 General Appearance: Alert, Oriented X3, Cooperative HEENT: Atraumatic Lungs: Clear to auscultation Cardiovascular: Regular rate, Normal S1, Normal S2 Abdomen: Normal bowel sounds, Soft Psych/Mental Status: Mental status NL Medications Current Medications Medications Dose Ordered Sig/Maylin Route Start Time Stop Time Status Last Admin Dose Admin Ceftriaxone Sodium 50 ml @ 100 mls/hr DAILY@09 IV 08/28/24 09:00 08/28/24 10:08 100 MLS/HR Acetaminophen/ Hydrocodone Bitart 1 tab Q4HP PRN PO 08/27/24 15:45 Ondansetron HCl 4 mg Q4HP PRN IV 08/27/24 15:45 Acetaminophen 650 mg Q6HP PRN PO 08/27/24 15:45 Nitroglycerin 0.4 mg Q5MINP PRN SL 08/27/24 15:45 Morphine Sulfate 2 mg Q30M PRN IV 08/27/24 15:45 Apixaban 2.5 mg BID PO 08/27/24 22:00 08/28/24 10:08 2.5 MG Spironolactone 12.5 mg DAILY PO 08/28/24 10:00 08/28/24 10:08 12.5 MG Atorvastatin Calcium 10 mg DAILY PO 08/28/24 10:00 08/28/24 10:08 10 MG Laboratory Results Laboratory Tests 08/28/24 06:09 Chemistry Test 08/28/24 06:09 Albumin 3.5 g/dL (3.2-4.8) Calcium Level 9.8 mg/dL (8.7-10.4) Total Protein 6.9 g/dL (5.7-8.2) LFT Test 08/28/24 06:09 Alanine Aminotransferase (ALT) 15 U/L (7-40) Alkaline Phosphatase 96 U/L (46-116) Aspartate Amino Transferase (AST) 17 U/L (13-40) Total Bilirubin 0.6 mg/dL (0.2-1.0) Urinalysis Test 08/27/24 16:55 Urine Color Dark-yellow (Yellow) Urine Clarity Turbid (Clear) H Urine pH 5.0 (5.0-9.0) Urine Specific [place] 1.011 (1.001-1.035) Urine Protein Negative (Negative) Urine Ketones Negative (Negative) Urine Blood Negative /uL (Negative) Urine Nitrite 2+ (Negative) H Urine Bilirubin Negative (Negative) Urine Urobilinogen Normal mg/dL (Negative) Urine Leukocyte Esterase 3+ /uL (Negative) Urine RBC 2 /hpf (0 - 4) Urine WBC Clumps Present /hpf (None Seen) Urine Microscopic WBC 393 /HPF (0-5) H Urine Squamous Epithelial Cells Few /hpf (<5) Urine Bacteria Few /hpf (None Seen) H Urine Hyaline Casts Few /lpf (0 - 2) Urine Mucus Few (None Seen) Urine Glucose Normal mg/dL (Normal) Microbiology Microbiology Date/Time Source Procedure Growth Status 08/27/24 16:55 Voided Urine Urine Culture - Preliminary Resulted Assessment/Plan Assessment/Plan Complicated UTI Acute on chronic CHF exacerbation Sinus bradycardia Obesity History of AFib History of hyperlipidemia History of breast cancer status post radiation History of frequent UTIs History of bilateral knee surgery History of right femur surgery Plan: Merrem IV Lasix IV Plan discussed with: Patient My Orders Orders - NKECHI LOPEZ MD Procedure Category Date Status Time Discontinue Tele CHYNA 08/28/24 Verified 12:44 Meropenem 1gm PHA 08/28/24 Verified Q8h(Gfr>50) 14:00 Furosemide Injection PHA 08/28/24 Verified (Lasix Injection) 12:45 Furosemide Injection PHA 08/29/24 Verified (Lasix Injection) 10:00 Basic Metabolic Panel LAB 08/29/24 Verified 04:00 Complete Blood Count LAB 08/29/24 Verified 04:00 Magnesium LAB 08/29/24 Verified 04:00 Date of Service: Aug 28, 2024 Billing Provider: NKECHI OLPEZ MD Common Visit Codes: [id number] INP/OBS CARE(HIGH) NKECHI LOPEZ MD Aug 28, 2024 12:48
[2024-08-28] MEDS: MEROPENEM 1GM IVPB 50 ML IV SCH (13:17)
[2024-08-28] MEDS: FUROSEMIDE 20 MG/2 ML VIAL IV ONE (13:17)
[2024-08-29 01:00] VITALS: BP 120/82; PULSE 57; RESP 18; TEMP 98.2; O2SAT 97
[2024-08-29 05:00] VITALS: BP 119/81; PULSE 54; RESP 17; TEMP 97.4; O2SAT 94
[2024-08-29 06:29] LABS: Anion Gap 6 (5-15); Basophils # (auto) 0 10 ^3/uL (0-0.2); Basophils % (auto) 0.5 % (0.0-2.0); Carbon Dioxide 28 mmol/L (20-31); Chloride 106 mmol/L (98-107); Eosinophils # (auto) 0.1 10 ^3/uL (0-0.8); Hematocrit 35.1 % (36.0-46.0); Hemoglobin 11.9 g/dL (12.2-16.2); Lymphocytes # (auto) 1.6 10 ^3/uL (0.4-5.4); Neutrophils # (auto) 1.2 10 ^3/uL (1.6-8.6); Potassium 4.3 mmol/L (3.5-5.1); Sodium 140 mmol/L (136-145); White Blood Cell 3.5 10^3/uL (4.4-10.8)
[2024-08-29 06:31] LABS: Eosinophils % (auto) 3.1 % (0.0-7.0); Lymphocytes % (auto) 45.2 % (10.0-50.0); Mean Corpuscular Hemoglobin 35.5 pg (28.0-32.0); Mean Corpuscular Hgb Conc. 33.8 g/dL (32.0-36.0); Monocytes # (auto) 0.6 10 ^3/uL (0-1.3); Monocytes % (auto) 15.9 % (0.0-12.0); Neutrophils % (auto) 35.3 % (37.0-80.0); Nucleated Red Blood Cells % 0.2 %; Platelet Count (auto) 124 10^3/uL (140-450); Red Blood Cells 3.35 10^6/uL (4.0-5.20); Red Cell Distribution Width 15.1 % (11.8-14.3)
[2024-08-29 06:35] LABS: BUN/Creatinine Ratio 31.3 (10.0-20.0); Magnesium 1.8 mg/dL (1.6-2.6)
[2024-08-29 07:07] LABS: Blood Urea Nitrogen 26 mg/dL (9-23); Glucose 66 mg/dL (74-106)
[2024-08-29 09:00] VITALS: BP 145/44; PULSE 54; RESP 17; TEMP 97.5; O2SAT 96
[2024-08-29] MEDS: FUROSEMIDE 20 MG/2 ML VIAL IV SCH (11:01)
--- NOTE | 2024-08-29 12:45 | DVHPN2 ---
Subjective Seen and examined at bedside. Reports to be feeling better. Cont Abx, await cultures. Changes from previous H/P or p: No Changes Objective Vitals Vital Signs Date Time Temp Pulse Resp B/P (MAP) Pulse Ox O2 Delivery O2 Flow Rate FiO2 08/29/24 11:01 119/81 08/29/24 09:00 97.5 54 17 96 97.5 08/29/24 08:00 Room Air* 0 21 Intake/Output Intake and Output 08/29/24 07:00 Intake Total 780 ml Output Total 1400 ml Balance -620 ml Intake Oral 680 ml IV Total 100 ml Output Urine Total 1400 ml # Bowel Movements 1 General Appearance: Alert, Oriented X3, Cooperative HEENT: Atraumatic Lungs: Clear to auscultation Cardiovascular: Regular rate, Normal S1, Normal S2 Abdomen: Normal bowel sounds, Soft Psych/Mental Status: Mental status NL Medications Current Medications Medications Dose Ordered Sig/Maylin Route Start Time Stop Time Status Last Admin Dose Admin Acetaminophen/ Hydrocodone Bitart 1 tab Q4HP PRN PO 08/27/24 15:45 Ondansetron HCl 4 mg Q4HP PRN IV 08/27/24 15:45 Acetaminophen 650 mg Q6HP PRN PO 08/27/24 15:45 Nitroglycerin 0.4 mg Q5MINP PRN SL 08/27/24 15:45 Morphine Sulfate 2 mg Q30M PRN IV 08/27/24 15:45 Apixaban 2.5 mg BID PO 08/27/24 22:00 08/29/24 11:11 2.5 MG Spironolactone 12.5 mg DAILY PO 08/28/24 10:00 08/29/24 10:59 12.5 MG Atorvastatin Calcium 10 mg DAILY PO 08/28/24 10:00 08/29/24 10:59 10 MG Meropenem 50 ml @ 17 mls/hr Q12HR IV 08/28/24 13:07 08/29/24 10:59 17 MLS/HR Furosemide 20 mg DAILY IV 08/29/24 10:00 08/29/24 11:01 20 MG Laboratory Results Laboratory Tests 08/29/24 05:53 Chemistry Test 08/29/24 05:53 Calcium Level 10.0 mg/dL (8.7-10.4) Magnesium Level 1.8 mg/dL (1.6-2.6) Urinalysis Test 08/27/24 16:55 Urine Color Dark-yellow (Yellow) Urine Clarity Turbid (Clear) H Urine pH 5.0 (5.0-9.0) Urine Specific [place] 1.011 (1.001-1.035) Urine Protein Negative (Negative) Urine Ketones Negative (Negative) Urine Blood Negative /uL (Negative) Urine Nitrite 2+ (Negative) H Urine Bilirubin Negative (Negative) Urine Urobilinogen Normal mg/dL (Negative) Urine Leukocyte Esterase 3+ /uL (Negative) Urine RBC 2 /hpf (0 - 4) Urine WBC Clumps Present /hpf (None Seen) Urine Microscopic WBC 393 /HPF (0-5) H Urine Squamous Epithelial Cells Few /hpf (<5) Urine Bacteria Few /hpf (None Seen) H Urine Hyaline Casts Few /lpf (0 - 2) Urine Mucus Few (None Seen) Urine Glucose Normal mg/dL (Normal) Microbiology Microbiology Date/Time Source Procedure Growth Status 08/27/24 16:55 Voided Urine Urine Culture - Preliminary Resulted Assessment/Plan Assessment/Plan Complicated UTI Acute on chronic CHF exacerbation Sinus bradycardia Obesity History of AFib History of hyperlipidemia History of breast cancer status post radiation History of frequent UTIs History of bilateral knee surgery History of right femur surgery Plan: Merrem IV Lasix IV Out of bed to chair Plan discussed with: Patient My Orders Orders - NKECHI LOPEZ MD Procedure Category Date Status Time Discontinue Tele CHYNA 08/28/24 In Process 12:44 Meropenem 1gm Ivpb PHA 08/28/24 In Process (Merrem 1gm/ Ns) 13:07 Furosemide Injection PHA 08/29/24 In Process (Lasix Injection) 10:00 Date of Service: Aug 29, 2024 Billing Provider: NKECHI LOPEZ MD Common Visit Codes: [id number] INP/OBS CARE(MOD) NKECHI LOPEZ MD Aug 29, 2024 12:45
[2024-08-29 16:40] VITALS: BP 110/38; PULSE 53; RESP 17; TEMP 97.5; O2SAT 96
[2024-08-29 21:00] VITALS: BP 105/63; PULSE 53; RESP 17; TEMP 97.8; O2SAT 96
[2024-08-30 01:00] VITALS: BP 119/50; PULSE 56; RESP 17; TEMP 97.7; O2SAT 93
[2024-08-30 05:00] VITALS: BP 112/65; PULSE 62; RESP 17; TEMP 98.2; O2SAT 95
[2024-08-30 09:00] VITALS: BP 111/50; PULSE 61; RESP 18; TEMP 97.9; O2SAT 92
[2024-08-30 12:38] VITALS: BP 148/68; PULSE 57; RESP 20; TEMP 98.2; O2SAT 96
[2024-08-30] MEDS ORDERED: NITR-87 PO (13:16)
[2024-08-30] MEDS ORDERED: FURO1TAB33 PO (13:56)
[2024-08-30 15:28] VITALS: BP 111/50; PULSE 82; RESP 18; TEMP 36.8; O2SAT 94
--- NOTE | 2024-08-30 18:13 | DVHDSRES ---
Discharge Summary Date of Admission Resident Creating Document: [address] RESIDENT Aug 27, 2024 at 15:33 Date of Discharge: Aug 30, 2024 Admitting Diagnosis Complicated UTI Labs/Diagnostic Data: Laboratory Results Test 08/29/24 05:53 08/28/24 06:09 08/27/24 16:55 08/27/24 10:40 White Blood Count 3.5 10^3/uL (4.4-10.8) Red Blood Count 3.35 10^6/uL (4.0-5.20) Hemoglobin 11.9 g/dL (12.2-16.2) Hematocrit 35.1 % (36.0-46.0) Mean Corpuscular Volume 105.0 fL (80.0-100.0) Mean Corpuscular Hemoglobin 35.5 pg (28.0-32.0) Mean Corpuscular Hemoglobin Concent 33.8 g/dL (32.0-36.0) Red Cell Distribution Width 15.1 % (11.8-14.3) Platelet Count 124 10^3/uL (140-450) Mean Platelet Volume 8.7 fL (6.9-10.8) Neutrophils (%) (Auto) 35.3 % (37.0-80.0) Lymphocytes (%) (Auto) 45.2 % (10.0-50.0) Monocytes (%) (Auto) 15.9 % (0.0-12.0) Eosinophils (%) (Auto) 3.1 % (0.0-7.0) Basophils (%) (Auto) 0.5 % (0.0-2.0) Neutrophils # (Auto) 1.2 10 ^3/uL (1.6-8.6) Lymphocytes # (Auto) 1.6 10 ^3/uL (0.4-5.4) Monocytes # (Auto) 0.6 10 ^3/uL (0-1.3) Eosinophils # (Auto) 0.1 10 ^3/uL (0-0.8) Basophils # (Auto) 0 10 ^3/uL (0-0.2) Nucleated Red Blood Cells 0.2 % Sodium Level 140 mmol/L (136-145) Potassium Level 4.3 mmol/L (3.5-5.1) Chloride Level 106 mmol/L (98-107) Carbon Dioxide Level 28 mmol/L (20-31) Anion Gap 6 (5-15) Blood Urea Nitrogen 26 mg/dL (9-23) Creatinine 0.83 mg/dL (0.550-1.02) Glomerular Filtration Rate Calc 69 mL/min (>90) BUN/Creatinine Ratio 31.3 (10.0-20.0) Serum Glucose 66 mg/dL (74-106) Calcium Level 10.0 mg/dL (8.7-10.4) Magnesium Level 1.8 mg/dL (1.6-2.6) Total Bilirubin 0.6 mg/dL (0.2-1.0) Aspartate Amino Transferase (AST) 17 U/L (13-40) Alanine Aminotransferase (ALT) 15 U/L (7-40) Alkaline Phosphatase 96 U/L (46-116) Total Protein 6.9 g/dL (5.7-8.2) Albumin 3.5 g/dL (3.2-4.8) Urine Color Dark-yellow (Yellow) Urine Clarity Turbid (Clear) Urine pH 5.0 (5.0-9.0) Urine Specific [place] 1.011 (1.001-1.035) Urine Protein Negative (Negative) Urine Ketones Negative (Negative) Urine Blood Negative /uL (Negative) Urine Nitrite 2+ (Negative) Urine Bilirubin Negative (Negative) Urine Urobilinogen Normal mg/dL (Negative) Urine Leukocyte Esterase 3+ /uL (Negative) Urine RBC 2 /hpf (0 - 4) Urine WBC Clumps Present /hpf (None Seen) Urine Microscopic WBC 393 /HPF (0-5) Urine Squamous Epithelial Cells Few /hpf (<5) Urine Bacteria Few /hpf (None Seen) Urine Hyaline Casts Few /lpf (0 - 2) Urine Mucus Few (None Seen) Urine Glucose Normal mg/dL (Normal) B-Type Natriuretic Peptide 97.15 pg/mL (0-100) Other Laboratory Tests 08/29/24 05:53 Brief Hx & Hospital Course: Patient is 84 year female with past medical history of hyperlipidemia, AFib, CHF, breast cancer status post radiation, frequent UTI, bilateral knee and femur surgery who presented to ED with increased urine frequency, bilateral lower extremity edema. Patient is started on IV antibiotic meropenem. Urine culture was done which came positive Citrobacter. Which was sensitive to nitrofurantoin. After receiving IV antibiotic for two days, patient has symptoms significantly improved, mental status also significantly improved. Patient was given IV Lasix 20 mg daily for acute on chronic HFrEF with ejection fraction of 45%. Given patient is medically stable, patient will be discharged home with nitrofurantoin 100 mg p.o. b.i.d. for five days, prescribed Lasix 20 mg p.o. daily, continuous spironolactone 12.5 mg p.o. daily, given patient is continued on this medication, advised to follow with the primary care physician for regular follow up for medical management. Patient and daughter agreed with discharge plan and discharged to home. Condition at Discharge: Stable Final Diagnosis/Problems List Complicated UTI Acute on chronic HFmrEF Sinus bradycardia Obesity BMI 31.1 kg/m2 History of AFib History of hyperlipidemia History of breast cancer status post radiation History of frequent UTIs History of bilateral knee surgery History of right femur surgery Discharge Disposition: Home Discharge Instruct/Medications Diet: Regular, Cardiac 2g Na,low cholest Activity: No Restrictions, As Tolerated Follow Up/Referral: -follow up with pcp in 2 weeks Medications: see prescriptions macrobid 100 mg po twice daily for 5 days Discharge Statement: "Patient was advised to return to the ER or call 911 if any headaches, dizziness, shortness of breath, chest pain, abdominal pain, bleeding, fevers, or worsening of medical condition. Patient was counseled about treatment plan, medications, possible side effects, patientverbalized understanding. All questions were answered to the best of my ability. This discharge took greater then 30 minutes in planning, reviewing documentation, counseling the patient, and discussing with other team members." ASSESSMENT ASSESSMENT Assessment Complicated UTI Acute on chronic HFmrEF Date of Service: Aug 30, 2024 Billing Provider: NKECHI LOPEZ MD Common Visit Codes: [id number] DISCH DAY >30min [address] RESIDENT Aug 30, 2024 18:13 NKECHI LOPEZ MD Aug 30, 2024 19:12
== END 2024-08-30 16:55 | disposition home or self-care (01) | DRG 689 ==
LOC: ER 09:50 → OVERFLOW 15:33 → TELE-CENTR 21:52 → CENTRAL 08-28 12:59
PROVIDERS: ADMIT Internal Medicine; ATTEND Internal Medicine
DX: N39.0 Urinary tract infection, site not specified (principal); I50.23 Acute on chronic systolic (congestive) heart failure; E66.9 Obesity, unspecified; I48.91 Unspecified atrial fibrillation; E78.5 Hyperlipidemia, unspecified; R00.1 Bradycardia, unspecified; Z85.3 Personal history of malignant neoplasm of breast; Z92.3 Personal history of irradiation; Z87.440 Personal history of urinary (tract) infections; Z68.31 Body mass index [BMI] 31.0-31.9, adult; Z79.899 Other long term (current) drug therapy
CPT/HCPCS: 36415; 71045; 80048; 80053; 81001; 83735; 83880; 85025; 87086; 87088; 87186; 93005; 93970; 96365; 97163; G0378; J2185

== ENCOUNTER 2024-09-06 10:03 | Inpatient (IN) | payer MEDICARE, BC ==
[~2024-09-06] VITALS: Ht 162.6 cm; Wt 85.3 kg
[~2024-09-06 10:03] MED LIST changes: +FURO1TAB33 PO; -FURO20TA3 PO; +NITR-87 PO
--- NOTE | 2024-09-06 10:23 | ED.PDOC ---
History of Present Illness HPI Comments 84 y/o F, with a history of AFIB, CHF, HLD, and frequent UTI's, presents with daughter for c/o ALOC, today. Per daughter, patient is reported to have been noticed acting different from her usual baseline since yesterday and is suspected on contracted another UTI, again, due to history of becoming altered whenever she contracts UTI in the past. Patient is reported further to have been, recently, discharged from [facility] 1 week ago, with IV antibiotics for UTI. Patient has no reported nausea, vomiting, urinary symptoms, fever, chills, or other associated symptoms or modifiers at this time. Chief Complaint: ALOC Time Seen by MD: 10:15 Primary Care Provider: JESSICA Salvador Notes: Nurses Notes, Medications, Allergies Allergies: Coded Allergies: NO KNOWN ALLERGIES (Unverified , 06/14/22) Home Meds Active Scripts Furosemide (Lasix) 20 Mg Tb, 1 TAB PO DAILY, #30 TAB 5 Refills Prov:[address] RESIDENT 08/30/24 Nitrofurantoin Monohydrate Mac (Macrobid) 100 Mg Cap, 100 MG PO BID for 5 Days, #10 CAP Prov:RON[address]RE[address] RESIDENT 08/30/24 Spironolactone (Aldactone) 25 Mg Tab, 12.5 MG PO DAILY for 30 Days, #15 TAB 1 Refill Prov:JU MCNEAL RESIDENT 04/05/24 Apixaban Base (ELIQUIS) 2.5 Mg Tab, 2.5 MG PO BID for 30 Days, #60 TAB 2 Refills Prov:JU MCNEAL RESIDENT 04/05/24 Reported Medications Atorvastatin Calcium (ATORVASTATIN CALCIUM) 10 Mg Tab, 1 TAB PO DAILY for 90 Days, #90 03/29/24 Information Source: Patient, Relative (Child) Mode of Arrival: Ambulatory Severity: Moderate Timing: Days Duration: Since onset Prehospital treatment: None Past Medical History PAST MEDICAL HISTORY: AFIB, CHF, High Lipids, UTI'S Surgical History (Other): bilateral knee replacements and left femure repair [employer] History: No Pertinent [employer] History Family History Family History: Reviewed,noncontributory to illness, Unknown Social History Smoker: Non-Smoker Alcohol: Denies ETOH Use Drugs: Denies Drug Use Lives In: Home Constitutional: denies: chills, diaphoresis, fatigue, fever, malaise, sweats, weakness, others EENTM: denies: blurred vision, double vision, ear bleeding, ear discharge, ear drainage, ear pain, ear ringing, eye pain, eye redness, hearing loss, mouth pain, mouth swelling, nasal discharge, nose bleeding, nose congestion, nose p ain, photophobia, tearing, throat pain, throat swelling, voice changes, others Respiratory: denies: cough, hemoptysis, orthopnea, SOB at rest, shortness of breath, SOB with excertion, stridor, wheezing, others Cardiovascular: denies: chest pain, dizzy spells, diaphoresis, Dyspnea on exertion, edema, irregular heart beat, left arm pain, lightheadedness, palpitations, PND, syncope, others Gastrointestinal: denies: abdomen distended, abdominal pain, blood streaked bowels, constipated, diarrhea, dysphagia, difficulty swallowing, hematemesis, melena, nausea, poor appetite, poor fluid intake, rectal bleeding, rectal pain, vomiting, others Genitourinary: denies: abnormal vagina bleeding, burning, dyspareunia, dysuria, flank pain, frequency, hematuria, incontinence, pain, , vagina discharge, urgency, others Neurological: reports: others (ALOC); denies: dizziness, fainting, headache, left sided numbness, left sided weakness, numbness, paresthesia, pre-existing deficit, right sided numbness, right sided weakness, seizure, speech problems, tingling, tremors, weakness Musculoskeletal: denies: back pain, gout, joint pain, joint swelling, muscle pain, muscle stiffness, neck pain, others Integumetry: denies: bruises, change in color, change in hair/nails, dryness, laceration, lesions, lumps, rash, wounds, others Allergic/Immunocompromised: denies: Difficulty Healing, Frequent Infections, Hives, Itching, others Hematologic/Lymphatic: denies: anemia, blood clots, easy bleeding, easy bruising, swollen glands, others Endocrine: denies: excessive hunger, excessive sweating, excessive thirst, excessive urination, flushing, intolerance to cold, intolerance to heat, unexplained weight gain, unexplained weight loss, others Psychiatric: denies: anxiety, bipolar disorder, depression, hopeless, panic disorder, schizophrenia, sleepless, suicidal, others All Other Systems: Reviewed and Negative Physical Exam General Appearance: Moderate Distress, Obese HEENT: Normal ENT Inspection, Pharynx Normal, TMs Normal Neck: Full Range of Motion, Non-Tender, Normal, Normal Inspection Respiratory: Chest Non-Tender, Lungs Clear, No Accessory Muscle Use, No Respiratory Distress, Normal Breath Sounds Cardiovascular: No Edema, No JVD, No Murmur, No Gallop, Normal Peripheral Pul ses, Regular Rate/Rhythm Breast Exam: Deferred Gastrointestinal: No Organomegaly, No Pulsatile Mass, Normal Bowel Sounds, Soft, Suprapubic, Tenderness Genitalia: Deferred Pelvic: Deferred Rectal: Deferred Extremities: No calf tenderness, Normal capillary refill, Normal inspection, Normal range of motion, Non-tender, No pedal edema Musculoskeletal : Apperance: Normal Neurologic: Alert, hand coper II-XII nml as Tested, No Motor Deficits, Normal Affect, Normal Mood, No Sensory Deficits Cerebellar Function: Normal Reflexes: Normal Skin: Dry, Normal Color, Warm Lymphatic: No Adenopathy Was a procedure done? Was a procedure done?: No Differential Dx Considerations may include: UTI, encephalopathy, viral syndrome, electrolyte imbalance, dehydration, among others X-Ray, Labs, Meds, VS Vital Signs Date Time Temp Pulse Resp B/P (MAP) Pulse Ox O2 Delivery O2 Flow Rate FiO2 09/06/24 11:17 54 18 97 Room Air* 0 21 09/06/24 10:17 98.0 65 18 123/59 (80) 96 98.0 Lab Test 09/06/24 11:00 09/06/24 10:33 Range/Units Urine Color Yellow Yellow Urine Clarity Clear Clear Urine pH 5.0 5.0-9.0 Urine Specific [place] 1.011 1.001-1.035 Urine Protein Negative Negative Urine Ketones Negative Negative Urine Blood Negative Negative /uL Urine Nitrite Negative Negative Urine Bilirubin Negative Negative Urine Urobilinogen Normal Negative mg/dL Urine Leukocyte Esterase Trace Negative /uL Urine RBC 1 0 - 4 /hpf Urine Microscopic WBC 11 H 0-5 /HPF Urine Squamous Epithelial Cells Few <5 /hpf Urine Bacteria None seen None Seen /hpf Urine Glucose Normal Normal mg/dL White Blood Count 4.6 4.4-10.8 10^3/uL Red Blood Count 3.40 L 4.0-5.20 10^6/uL Hemoglobin 12.0 L 12.2-16.2 g/dL Hematocrit 34.7 L 36.0-46.0 % Mean Corpuscular Volume 102.0 H 80.0-100.0 fL Mean Corpuscular Hemoglobin 35.4 H 28.0-32.0 pg Mean Corpuscular Hemoglobin Concent 34.7 32.0-36.0 g/dL Red Cell Distribution Width 14.6 H 11.8-14.3 % Platelet Count 189 140-450 10^3/uL Mean Platelet Volume 8.4 6.9-10.8 fL Neutrophils (%) (Auto) 60.4 37.0-80.0 % Lymphocytes (%) (Auto) 27.4 10.0-50.0 % Monocytes (%) (Auto) 11.0 0.0-12.0 % Eosinophils (%) (Auto) 1.0 0.0-7.0 % Basophils (%) (Auto) 0.2 0.0-2.0 % Neutrophils # (Auto) 2.8 1.6-8.6 10 ^3/uL Lymphocytes # (Auto) 1.2 0.4-5.4 10 ^3/uL Monocytes # (Auto) 0.5 0-1.3 10 ^3/uL Eosinophils # (Auto) 0 0-0.8 10 ^3/uL Basophils # (Auto) 0 0-0.2 10 ^3/uL Nucleated Red Blood Cells 0.1 % Sodium Level 138 136-145 mmol/L Potassium Level 5.0 3.5-5.1 mmol/L Chloride Level 108 H 98-107 mmol/L Carbon Dioxide Level 22 20-31 mmol/L Anion Gap 8 5-15 Blood Urea Nitrogen 42 H 9-23 mg/dL Creatinine 1.15 H 0.550-1.02 mg/dL Glomerular Filtration Rate Calc 47 >90 mL/min BUN/Creatinine Ratio 36.5 H 10.0-20.0 Serum Glucose 84 74-106 mg/dL Lactic Acid Level 1.3 0.4-2.0 mmol/L Calcium Level 10.3 8.7-10.4 mg/dL Current Medications Medications (Trade) Dose Ordered Sig/Maylin Route Start Time Stop Time Status Last Admin Sodium Chloride 500 ml @ 500 mls/hr Q1H ONCE IVB 09/06/24 10:30 09/06/24 11:29 DC 4/21/25 11:09 IV Hep-Lock was established The patient was given normal saline at a 500 cc bolus The patient's CBC is within normal limits The chemistry panel is within normal limits except for an elevated BUN of 42 and the creatinine is 1.15 The urine test is positive for a UTI The patient was being placed on Rocephin 1 g IV piggyback The patient was being admitted at this time Images Reviewed?: Images reviewed and evaluated by me Time of 1ST Reevaluation: 10:45 Reevaluation 1ST: Unchanged Patient Education/Counseling: Diagnosis, Treatment, Prognosis Family Education/Counseling: Diagnosis, Treatment, Prognosis Departure 1 Departure Time of Disposition: 11:53 Impression: Primary Impression: Delirium due to general medical condition Additional Impressions: Metabolic encephalopathy UTI (urinary tract infection) Qualified Codes: N30.00 - Acute cystitis without hematuria Disposition: ADMITTED INPATIENT Admit to: Med Surg Condition: Fair Critical Care Note Critical Care Time?: No Stability Stability form required: Yes Unstable for transfer: ED Physician Assesment (Clinical assesment) Heart Score Heart Score: Heart Score Response (Comments) Value History N/A 0 EKG N/A 0 Age N/A 0 Risk Factors N/A 0 Troponin N/A 0 Total 0 I personally scribed for NATI THOMPSON MD ([email or web address]) on 09/06/24 at 10:23. Electronically submitted by Triston Nolan ([email or web address]). NATI THOMPSON MD Sep 06, 2024 10:23
[2024-09-06 10:52] LABS: Sodium 138 mmol/L (136-145)
[2024-09-06 10:53] LABS: Anion Gap 8 (5-15); Basophils # (auto) 0 10 ^3/uL (0-0.2); Basophils % (auto) 0.2 % (0.0-2.0); Calcium 10.3 mg/dL (8.7-10.4); Carbon Dioxide 22 mmol/L (20-31); Eosinophils # (auto) 0 10 ^3/uL (0-0.8); Hematocrit 34.7 % (36.0-46.0); Lymphocytes # (auto) 1.2 10 ^3/uL (0.4-5.4); Lymphocytes % (auto) 27.4 % (10.0-50.0); Mean Corpuscular Hemoglobin 35.4 pg (28.0-32.0); Mean Corpuscular Hgb Conc. 34.7 g/dL (32.0-36.0); Monocytes # (auto) 0.5 10 ^3/uL (0-1.3); Neutrophils # (auto) 2.8 10 ^3/uL (1.6-8.6); Neutrophils % (auto) 60.4 % (37.0-80.0); Nucleated Red Blood Cells % 0.1 %; Platelet Count (auto) 189 10^3/uL (140-450); Red Cell Distribution Width 14.6 % (11.8-14.3); White Blood Cell 4.6 10^3/uL (4.4-10.8)
[2024-09-06 10:58] LABS: BUN/Creatinine Ratio 36.5 (10.0-20.0); Glucose 84 mg/dL (74-106)
[2024-09-06 11:00] LABS: Blood Urea Nitrogen 42 mg/dL (9-23); Chloride 108 mmol/L (98-107)
[2024-09-06] MEDS: SODIUM CHLORIDE 0.9% 500 ML IVB ONE (11:09)
[2024-09-06 11:17] VITALS: PULSE 54; RESP 18; O2SAT 97
[2024-09-06 11:36] LABS: Urine Bacteria None Seen /hpf (None Seen); Urine Blood Negative /uL (Negative); Urine Clarity Clear (Clear); Urine Color Yellow (Yellow); Urine Protein, UAD Negative (Negative); Urine Specific Gravity 1.011 (1.001-1.035); Urine Squamous Epithelial Cell FEW /hpf (<5); Urine Urobilinogen Normal (Negative); Urine WBC 11 /HPF (0-5)
[2024-09-06] MEDS: cefTRIAXone 1GM/50ML D5W 50 ML IV ONE (12:04)
[2024-09-06] MEDS ORDERED: ACETAMINOPHEN 325 MG TAB PO PRN (13:30)
[2024-09-06] MEDS ORDERED: ONDANSETRON HCL 4 MG/2 ML VIAL IV PRN (13:30)
[2024-09-06] MEDS ORDERED: DOCUSATE SOD 100 MG CAP PO PRN (13:30)
[2024-09-06] MEDS ORDERED: HYDROcodone-ACET 5/325MG TAB PO PRN (13:30)
--- NOTE | 2024-09-06 13:48 | DVHHP2 ---
History of Present Illness Reason for Visit: ALOC History of Present Illness Dot Jimenez, is an 84-year-old female with past medical history of UTI, CHF, hyperlipidemia, and atrial fibrillation, who was brought in due to ALOC. The patient's daughter brought her in stating she was becoming more altered over the last couple of days. She states she usually becomes altered when she has a UTI. Patient was recently admitted her for UTI and sent home with PO antibiotics. Patient is alert and oriented on my assessment, denies any dysuria, flank or pelvic pain, or frequency. Patient states she did have a mechanical fall yesterday. States she just tripped over her feet. Denies any loss of consciousness, hitting her head, dizziness, or shortness of breath. Cardiovascular: AFIB, CHF, hyperipidemia Renal/: UTI Past Surgical History: Other (left femur), Total knee replacement (bilateral) Family History: None Smoke: No ALCOHOL: none Drugs: None Lives: with Family Domestic Violence: Neg Review of Systems Constitutional: No: Fever, Chills, Sweats, Weakness, Malaise, Other Eyes: No: Pain, Vision change, Conjunctivae inflammation, Eyelid inflammation, Other, Redness ENT: No: Ear pain, Ear discharge, Nose pain, Nose discharge, Nose congestion, Mouth pain, Mouth swelling, Throat pain, Throat swelling, Other Respiratory: No: Cough, Dry, Shortness of breath, SOB with excertion, Wheezing, Hemoptysis, Pleuritic Pain, Sputum, Wheezing, Other Cardiovascular: No: Chest Pain, Palpitations, Orthopnea, Paroxysmal Noc. Dyspnea, Edema, Lt Headedness, Other Gastrointestinal: No: Nausea, Vomiting, Abdominal Pain, Diarrhea, Constipation, Melena, Hematochezia, Other Genitourinary: No Dysuria, No Frequency, No Incontinence, No Hematuria, No Retention, No Other Musculoskeletal: No: other, neck pain, shoulder pain, arm pain, back pain, hand pain, leg pain, foot pain Skin: No: Rash, Lesions, Jaundice, Bruising, Other Neurological: Other (ALOC); No: Weakness, Numbness, Incoordination, Change in speech, Confusion, Seizures Allergies: Coded Allergies: NO KNOWN ALLERGIES (Unverified , 06/14/22) Exam Vital Signs Vital Signs Date Time Temp Pulse Resp B/P (MAP) Pulse Ox O2 Delivery O2 Flow Rate FiO2 09/06/24 12:00 54 11 121/79 (93) 97 09/06/24 11:17 Room Air* 0 21 09/06/24 10:41 98.1 98.1 General Appearance: Alert, Oriented X3, Cooperative, No acute distress HEENT: Atraumatic, PERRLA, Mucous membr. moist/pink Respiratory: Clear to auscultation, Normal air movement Cardiovascular: Regular rate, Normal S1, Normal S2, No murmurs Abdominal: Normal bowel sounds, Soft, No tenderness, No hepatospenomegaly Extremities: No clubbing, No cyanosis, Normal pulses, Other (bilateral lower extremity edema) Skin: No rashes, No breakdown, No significant lesion Neuro: Normal gait, Normal speech, Strength at 5/5 X4 ext, Normal tone Psych/Mental Status: Mental status NL, Mood NL Labs/Xrays Labs Test 09/06/24 11:00 09/06/24 10:33 Range/Units Urine Color Yellow Yellow Urine Clarity Clear Clear Urine pH 5.0 5.0-9.0 Urine Specific [place] 1.011 1.001-1.035 Urine Protein Negative Negative Urine Ketones Negative Negative Urine Blood Negative Negative /uL Urine Nitrite Negative Negative Urine Bilirubin Negative Negative Urine Urobilinogen Normal Negative mg/dL Urine Leukocyte Esterase Trace Negative /uL Urine RBC 1 0 - 4 /hpf Urine Microscopic WBC 11 H 0-5 /HPF Urine Squamous Epithelial Cells Few <5 /hpf Urine Bacteria None seen None Seen /hpf Urine Glucose Normal Normal mg/dL White Blood Count 4.6 4.4-10.8 10^3/uL Red Blood Count 3.40 L 4.0-5.20 10^6/uL Hemoglobin 12.0 L 12.2-16.2 g/dL Hematocrit 34.7 L 36.0-46.0 % Mean Corpuscular Volume 102.0 H 80.0-100.0 fL Mean Corpuscular Hemoglobin 35.4 H 28.0-32.0 pg Mean Corpuscular Hemoglobin Concent 34.7 32.0-36.0 g/dL Red Cell Distribution Width 14.6 H 11.8-14.3 % Platelet Count 189 140-450 10^3/uL Mean Platelet Volume 8.4 6.9-10.8 fL Neutrophils (%) (Auto) 60.4 37.0-80.0 % Lymphocytes (%) (Auto) 27.4 10.0-50.0 % Monocytes (%) (Auto) 11.0 0.0-12.0 % Eosinophils (%) (Auto) 1.0 0.0-7.0 % Basophils (%) (Auto) 0.2 0.0-2.0 % Neutrophils # (Auto) 2.8 1.6-8.6 10 ^3/uL Lymphocytes # (Auto) 1.2 0.4-5.4 10 ^3/uL Monocytes # (Auto) 0.5 0-1.3 10 ^3/uL Eosinophils # (Auto) 0 0-0.8 10 ^3/uL Basophils # (Auto) 0 0-0.2 10 ^3/uL Nucleated Red Blood Cells 0.1 % Sodium Level 138 136-145 mmol/L Potassium Level 5.0 3.5-5.1 mmol/L Chloride Level 108 H 98-107 mmol/L Carbon Dioxide Level 22 20-31 mmol/L Anion Gap 8 5-15 Blood Urea Nitrogen 42 H 9-23 mg/dL Creatinine 1.15 H 0.550-1.02 mg/dL Glomerular Filtration Rate Calc 47 >90 mL/min BUN/Creatinine Ratio 36.5 H 10.0-20.0 Serum Glucose 84 74-106 mg/dL Lactic Acid Level 1.3 0.4-2.0 mmol/L Calcium Level 10.3 8.7-10.4 mg/dL Assessment/Plan Assessment/Plan Assessment: UTI (urinary tract infection), Possible metabolic encephalopathy, Hyperlipidemia, CHF, Plan: Admit to Med-Surg, IV antibiotics, IV hydration, Physical therapy evaluation, Home medications reconciled, Held home eliquis, patient not sure if she is taking it. Plan discussed with: Patient My Orders Orders - LEIGH CARREON Procedure Category Date Status Time Admit ADMIT 09/06/24 Verified 13:28 Code Status CODE 09/06/24 Verified 13:28 Sodium Chloride Lock PHA 09/06/24 Verified (Saline Lock Ns) 14:00 Hydrocodone-Acet PHA 09/06/24 Verified 5/325mg Tab (Connell 13:30 Ondansetron Hcl PHA 09/06/24 Verified (Zofran) 13:30 Docusate Sodium PHA 09/06/24 Verified Capsule (Colace 13:30 Complete Blood Count LAB 09/07/24 Verified 04:00 Comprehensive LAB 09/07/24 Verified Metabolic Panel 04:00 Cardiac DIET 09/06/24 Verified Diet-2gna,Lofat,Lochol Lunch Condition: Serious CHYNA 09/06/24 Verified 13:28 Acetaminophen Tablet PHA 09/06/24 Verified (Tylenol Tablet) 13:30 Ceftriaxone Ivpb PHA 09/07/24 Verified Rocephin 09:00 Urine Bacterial DARIELA 09/06/24 Verified Culture 13:28 Furosemide Tablet PHA 09/07/24 Verified (Lasix Tablet) 10:00 Date of Service: Sep 06, 2024 Billing Provider: LEIGH CARREON Common Visit Codes: [id number] INP/OBS CARE (MOD) LEIGH CARREON Sep 06, 2024 13:48
[2024-09-06] MEDS: SODIUM CHLOR 0.9% PF (SALINE LOCK) 10ML VIAL/SYR IV SCH (14:17)
[2024-09-06] MEDS: FUROSEMIDE 40 MG/4 ML VIAL IV ONE (14:19)
[2024-09-06 19:23] VITALS: PULSE 59; RESP 12; O2SAT 100
[2024-09-06 22:00] VITALS: BP 105/43; PULSE 68; RESP 18; TEMP 97.9; O2SAT 94
[2024-09-06] MEDS: ATORVASTATIN 20 MG TAB PO SCH (22:00)
[2024-09-07] VITALS (8 sets, daily range): BP systolic 108–138; BP diastolic 41–62; PULSE 61–86; RESP 17–21; TEMP 97.5–99.1; O2SAT 94–97
[2024-09-07 06:36] LABS: Basophils # (auto) 0 10 ^3/uL (0-0.2); Eosinophils # (auto) 0.1 10 ^3/uL (0-0.8); Monocytes # (auto) 0.6 10 ^3/uL (0-1.3)
[2024-09-07 06:38] LABS: Basophils % (auto) 0.4 % (0.0-2.0); Eosinophils % (auto) 2.2 % (0.0-7.0); Hematocrit 37.2 % (36.0-46.0); Hemoglobin 12.6 g/dL (12.2-16.2); Lymphocytes # (auto) 1.6 10 ^3/uL (0.4-5.4); Lymphocytes % (auto) 32.9 % (10.0-50.0); Mean Corpuscular Hemoglobin 35.2 pg (28.0-32.0); Mean Corpuscular Hgb Conc. 33.8 g/dL (32.0-36.0); Monocytes % (auto) 12.3 % (0.0-12.0); Neutrophils # (auto) 2.6 10 ^3/uL (1.6-8.6); Neutrophils % (auto) 52.2 % (37.0-80.0); Nucleated Red Blood Cells % 0.1 %; Platelet Count (auto) 192 10^3/uL (140-450); Red Blood Cells 3.57 10^6/uL (4.0-5.20); Red Cell Distribution Width 14.9 % (11.8-14.3)
[2024-09-07 06:54] LABS: Alanine Aminotransferase 23 U/L (7-40); Albumin 4.1 g/dL (3.2-4.8); Anion Gap 9 (5-15); Aspartate Aminotransferase 24 U/L (13-40); BUN/Creatinine Ratio 29.7 (10.0-20.0); Bilirubin, Total 0.5 mg/dL (0.2-1.0); Carbon Dioxide 23 mmol/L (20-31); Chloride 106 mmol/L (98-107); Potassium 4.4 mmol/L (3.5-5.1); Sodium 138 mmol/L (136-145)
[2024-09-07 07:04] LABS: Alkaline Phosphatase 120 U/L (46-116); Blood Urea Nitrogen 35 mg/dL (9-23); Calcium 10.5 mg/dL (8.7-10.4); Glucose 65 mg/dL (74-106)
[2024-09-07] MEDS: FUROSEMIDE 20 MG TAB PO SCH (08:43)
[2024-09-07] MEDS: cefTRIAXone 1GM/50ML D5W 50 ML IV SCH (08:44)
--- NOTE | 2024-09-07 13:10 | DVHPN2 ---
Reviewed: Care Plan, H&P, Labs, Medications, Previous Orders, Radiology Changes from previous H/P or p: No Changes Eyes: No Pain, No Vision change, No Conjunctivae inflammation, No Eyelid inflammation, No Other, No Redness ENT: No Ear pain, No Ear discharge, No Nose pain, No Nose discharge, No Nose congestion, No Mouth pain, No Mouth swelling, No Throat pain, No Throat swelling, No Other Cardiovascular: No Chest Pain, No Palpitations, No Orthopnea, No Paroxysmal Noc. Dyspnea, No Edema, No Lt Headedness, No Other Respiratory: No Cough, No Dry, No Shortness of breath, No SOB with excertion, No Wheezing, No Hemoptysis, No Pleuritic Pain, No Sputum, No Other Gastrointestinal: No Nausea, No Vomiting, No Abdominal Pain, No Diarrhea, No Constipation, No Melena, No Hematochezia, No Other Genitourinary: No Dysuria, No Frequency, No Incontinence, No Hematuria, No Retention, No Other Musculoskeletal: No other, No neck pain, No shoulder pain, No arm pain, No back pain, No hand pain, No leg pain, No foot pain Skin: No Rash, No Lesions, No Jaundice, No Bruising, No Other Objective Vitals Vital Signs Date Time Temp Pulse Resp B/P (MAP) Pulse Ox O2 Delivery O2 Flow Rate FiO2 09/07/24 09:00 97.5 72 17 108/61 (77) 97 97.5 09/07/24 08:00 Room Air* 0 21 Intake/Output Intake and Output 09/07/24 07:00 Intake Total 800 ml Output Total 3450 ml Balance -2650 ml Intake Oral 250 ml IV Total 550 ml Output Urine Total 3450 ml Medications Current Medications Medications Dose Ordered Sig/Maylin Route Start Time Stop Time Status Last Admin Dose Admin Sodium Chloride 10 ml Q8HR IV 09/06/24 14:00 09/07/24 07:00 10 ML Acetaminophen/ Hydrocodone Bitart 1 tab Q4HP PRN PO 09/06/24 13:30 Ondansetron HCl 4 mg Q4HP PRN IV 09/06/24 13:30 Docusate Sodium 100 mg BIDPRN PRN PO 09/06/24 13:30 Acetaminophen 650 mg Q6HP PRN PO 09/06/24 13:30 Ceftriaxone Sodium 50 ml @ 100 mls/hr DAILY@09 IV 09/07/24 09:00 09/07/24 08:44 100 MLS/HR Furosemide 20 mg DAILY PO 09/07/24 10:00 09/07/24 08:43 20 MG Atorvastatin Calcium 10 mg HS PO 09/06/24 22:00 Laboratory Results Laboratory Tests 09/07/24 06:03 Chemistry Test 09/07/24 06:03 Albumin 4.1 g/dL (3.2-4.8) Calcium Level 10.5 mg/dL (8.7-10.4) H Total Protein 8.0 g/dL (5.7-8.2) LFT Test 09/07/24 06:03 Alanine Aminotransferase (ALT) 23 U/L (7-40) Alkaline Phosphatase 120 U/L (46-116) H Aspartate Amino Transferase (AST) 24 U/L (13-40) Total Bilirubin 0.5 mg/dL (0.2-1.0) Urinalysis Test 09/06/24 11:00 Urine Color Yellow (Yellow) Urine Clarity Clear (Clear) Urine pH 5.0 (5.0-9.0) Urine Specific [place] 1.011 (1.001-1.035) Urine Protein Negative (Negative) Urine Ketones Negative (Negative) Urine Blood Negative /uL (Negative) Urine Nitrite Negative (Negative) Urine Bilirubin Negative (Negative) Urine Urobilinogen Normal mg/dL (Negative) Urine Leukocyte Esterase Trace /uL (Negative) Urine RBC 1 /hpf (0 - 4) Urine Microscopic WBC 11 /HPF (0-5) H Urine Squamous Epithelial Cells Few /hpf (<5) Urine Bacteria None seen /hpf (None Seen) Urine Glucose Normal mg/dL (Normal) Microbiology Microbiology Date/Time Source Procedure Growth Status 09/06/24 10:33 Blood Blood Culture - Preliminary NO GROWTH AFTER 24 HOURS OF INCUBATION. Resulted Labs and/or images reviewed: Labs reviewed by me, Image(s) reviewed by me Assessment/Plan Assessment/Plan UTI (urinary tract infection), urine cultures Rocephin Acute metabolic encephalopathy, Hyperlipidemia, CHF Plan discussed with: Patient Date of Service: Sep 07, 2024 Billing Provider: BOO TELLES MD Common Visit Codes: [id number] INP/OBS CARE(HIGH) BOO TELLES MD Sep 07, 2024 13:10
[2024-09-07] MEDS: SODIUM CHLORIDE 0.9% 1,000 ML IV SCH (13:59)
[2024-09-08 01:00] VITALS: BP 107/90; PULSE 85; RESP 18; TEMP 98.4; O2SAT 95
[2024-09-08 05:00] VITALS: BP 113/56; PULSE 60; RESP 16; TEMP 98; O2SAT 97
[2024-09-08 08:00] VITALS: RESP 18
--- NOTE | 2024-09-08 08:09 | DVHPN2 ---
Reviewed: Care Plan, H&P, Labs, Medications, Previous Orders, Radiology Changes from previous H/P or p: No Changes Eyes: No Pain, No Vision change, No Conjunctivae inflammation, No Eyelid inflammation, No Other, No Redness ENT: No Ear pain, No Ear discharge, No Nose pain, No Nose discharge, No Nose congestion, No Mouth pain, No Mouth swelling, No Throat pain, No Throat swelling, No Other Cardiovascular: No Chest Pain, No Palpitations, No Orthopnea, No Paroxysmal Noc. Dyspnea, No Edema, No Lt Headedness, No Other Respiratory: No Cough, No Dry, No Shortness of breath, No SOB with excertion, No Wheezing, No Hemoptysis, No Pleuritic Pain, No Sputum, No Other Gastrointestinal: No Nausea, No Vomiting, No Abdominal Pain, No Diarrhea, No Constipation, No Melena, No Hematochezia, No Other Genitourinary: No Dysuria, No Frequency, No Incontinence, No Hematuria, No Retention, No Other Musculoskeletal: No other, No neck pain, No shoulder pain, No arm pain, No back pain, No hand pain, No leg pain, No foot pain Skin: No Rash, No Lesions, No Jaundice, No Bruising, No Other Objective Vitals Vital Signs Date Time Temp Pulse Resp B/P (MAP) Pulse Ox O2 Delivery O2 Flow Rate FiO2 09/08/24 05:00 98.0 60 16 113/56 (75) 97 98.0 09/07/24 20:00 Room Air* 0 21 Intake/Output Intake and Output 09/08/24 07:00 Intake Total 1840 ml Output Total 1800 ml Balance 40 ml Intake Oral 1290 ml IV Total 550 ml Output Urine Total 1800 ml Medications Current Medications Medications Dose Ordered Sig/Maylin Route Start Time Stop Time Status Last Admin Dose Admin Sodium Chloride 10 ml Q8HR IV 09/06/24 14:00 09/08/24 05:58 10 ML Acetaminophen/ Hydrocodone Bitart 1 tab Q4HP PRN PO 09/06/24 13:30 Ondansetron HCl 4 mg Q4HP PRN IV 09/06/24 13:30 Docusate Sodium 100 mg BIDPRN PRN PO 09/06/24 13:30 Acetaminophen 650 mg Q6HP PRN PO 09/06/24 13:30 Ceftriaxone Sodium 50 ml @ 100 mls/hr DAILY@09 IV 09/07/24 09:00 09/07/24 08:44 100 MLS/HR Furosemide 20 mg DAILY PO 09/07/24 10:00 09/07/24 08:43 20 MG Atorvastatin Calcium 10 mg HS PO 09/06/24 22:00 09/07/24 21:04 10 MG Sodium Chloride 1,000 ml @ 100 mls/hr Q10H IV 09/07/24 13:30 09/08/24 00:00 100 MLS/HR Laboratory Results Laboratory Tests 09/07/24 06:03 Urinalysis Test 09/06/24 11:00 Urine Color Yellow (Yellow) Urine Clarity Clear (Clear) Urine pH 5.0 (5.0-9.0) Urine Specific [place] 1.011 (1.001-1.035) Urine Protein Negative (Negative) Urine Ketones Negative (Negative) Urine Blood Negative /uL (Negative) Urine Nitrite Negative (Negative) Urine Bilirubin Negative (Negative) Urine Urobilinogen Normal mg/dL (Negative) Urine Leukocyte Esterase Trace /uL (Negative) Urine RBC 1 /hpf (0 - 4) Urine Microscopic WBC 11 /HPF (0-5) H Urine Squamous Epithelial Cells Few /hpf (<5) Urine Bacteria None seen /hpf (None Seen) Urine Glucose Normal mg/dL (Normal) Microbiology Microbiology Date/Time Source Procedure Growth Status 09/06/24 11:00 Voided Urine Urine Culture - Preliminary Resulted 09/06/24 10:33 Blood Blood Culture - Preliminary NO GROWTH AFTER 24 HOURS OF INCUBATION. Resulted Labs and/or images reviewed: Labs reviewed by me, Image(s) reviewed by me Assessment/Plan Assessment/Plan Acute urinary tract infection: Blood cultures negative, urine cultures mixed, will repeat urine cultures, continue Rocephin Acute metabolic encephalopathy secondary to urinary tract infection Hyperlipidemia: Lipitor CHF: Lasix Plan discussed with: Patient My Orders Orders - BOO TELLES MD Procedure Category Date Status Time Sodium Chloride 0.9% PHA 09/07/24 In Process 13:30 Mrsa Screen DARIELA 09/07/24 In Process 13:19 Communication Order ORDERS 09/08/24 Transmitted 08:03 Urine Bacterial DARIELA 09/08/24 Logged Culture 08:04 Date of Service: Sep 08, 2024 Billing Provider: BOO TELLES MD Common Visit Codes: [id number] INP/OBS CARE(HIGH) BOO TELLES MD Sep 08, 2024 08:09
[2024-09-08 09:00] VITALS: BP 147/49; PULSE 58; RESP 16; TEMP 98; O2SAT 94
[2024-09-08 17:00] VITALS: BP 115/35; PULSE 58; RESP 17; TEMP 98.3; O2SAT 95
[2024-09-08 21:00] VITALS: BP 113/63; PULSE 51; RESP 19; TEMP 97.6; O2SAT 95
[2024-09-08] MEDS: MUPIROCIN 2% OINT 15gm or 22gm FOR MRSA NARES EACHNOSTRI SCH (22:00)
[2024-09-09] VITALS (8 sets, daily range): BP systolic 100–132; BP diastolic 24–64; PULSE 50–59; RESP 16–20; TEMP 97–98.1; O2SAT 93–98
--- NOTE | 2024-09-09 08:22 | DVHPN2 ---
Reviewed: Care Plan, H&P, Labs, Medications, Previous Orders, Radiology Changes from previous H/P or p: No Changes Eyes: No Pain, No Vision change, No Conjunctivae inflammation, No Eyelid inflammation, No Other, No Redness ENT: No Ear pain, No Ear discharge, No Nose pain, No Nose discharge, No Nose congestion, No Mouth pain, No Mouth swelling, No Throat pain, No Throat swelling, No Other Cardiovascular: No Chest Pain, No Palpitations, No Orthopnea, No Paroxysmal Noc. Dyspnea, No Edema, No Lt Headedness, No Other Respiratory: No Cough, No Dry, No Shortness of breath, No SOB with excertion, No Wheezing, No Hemoptysis, No Pleuritic Pain, No Sputum, No Other Gastrointestinal: No Nausea, No Vomiting, No Abdominal Pain, No Diarrhea, No Constipation, No Melena, No Hematochezia, No Other Genitourinary: No Dysuria, No Frequency, No Incontinence, No Hematuria, No Retention, No Other Musculoskeletal: No other, No neck pain, No shoulder pain, No arm pain, No back pain, No hand pain, No leg pain, No foot pain Skin: No Rash, No Lesions, No Jaundice, No Bruising, No Other Objective Vitals Vital Signs Date Time Temp Pulse Resp B/P (MAP) Pulse Ox O2 Delivery O2 Flow Rate FiO2 09/09/24 05:00 97.9 52 20 115/64 (81) 96 97.9 09/08/24 20:00 Room Air* 0 21 Intake/Output Intake and Output 09/09/24 07:00 Intake Total 1690 ml Output Total 1700 ml Balance -10 ml Intake Oral 640 ml IV Total 1050 ml Output Urine Total 1700 ml Medications Current Medications Medications Dose Ordered Sig/Maylin Route Start Time Stop Time Status Last Admin Dose Admin Sodium Chloride 10 ml Q8HR IV 09/06/24 14:00 09/09/24 05:34 10 ML Acetaminophen/ Hydrocodone Bitart 1 tab Q4HP PRN PO 09/06/24 13:30 Ondansetron HCl 4 mg Q4HP PRN IV 09/06/24 13:30 Docusate Sodium 100 mg BIDPRN PRN PO 09/06/24 13:30 Acetaminophen 650 mg Q6HP PRN PO 09/06/24 13:30 Ceftriaxone Sodium 50 ml @ 100 mls/hr DAILY@09 IV 09/07/24 09:00 09/08/24 09:06 100 MLS/HR Furosemide 20 mg DAILY PO 09/07/24 10:00 09/08/24 09:50 20 MG Atorvastatin Calcium 10 mg HS PO 09/06/24 22:00 09/07/24 21:04 10 MG Sodium Chloride 1,000 ml @ 100 mls/hr Q10H IV 09/07/24 13:30 09/08/24 19:30 100 MLS/HR Mupirocin 1 applic BID EACHNOSTRI 09/08/24 22:00 09/13/24 21:59 Laboratory Results Laboratory Tests 09/07/24 06:03 Urinalysis Test 09/06/24 11:00 Urine Color Yellow (Yellow) Urine Clarity Clear (Clear) Urine pH 5.0 (5.0-9.0) Urine Specific [place] 1.011 (1.001-1.035) Urine Protein Negative (Negative) Urine Ketones Negative (Negative) Urine Blood Negative /uL (Negative) Urine Nitrite Negative (Negative) Urine Bilirubin Negative (Negative) Urine Urobilinogen Normal mg/dL (Negative) Urine Leukocyte Esterase Trace /uL (Negative) Urine RBC 1 /hpf (0 - 4) Urine Microscopic WBC 11 /HPF (0-5) H Urine Squamous Epithelial Cells Few /hpf (<5) Urine Bacteria None seen /hpf (None Seen) Urine Glucose Normal mg/dL (Normal) Microbiology Microbiology Date/Time Source Procedure Growth Status 09/07/24 20:00 Nose MRSA Screen - Final Methicillin Resistant S.aureus Complete 09/06/24 11:00 Voided Urine Urine Culture - Preliminary Resulted 09/06/24 10:33 Blood Blood Culture - Preliminary NO GROWTH AFTER 48 HOURS OF INCUBATION. Resulted Labs and/or images reviewed: Labs reviewed by me, Image(s) reviewed by me Assessment/Plan Assessment/Plan Acute urinary tract infection: Blood cultures negative, urine cultures mixed, repeat urine cultures report pending, continue Rocephin Acute metabolic encephalopathy secondary to urinary tract infection Hyperlipidemia: Lipitor CHF: Lasix MRSA screen positive: Bactroban nasal ointment Plan discussed with: Patient My Orders Orders - BOO TELLES MD Procedure Category Date Status Time Mupirocin 2% Oint PHA 09/08/24 In Process Mrsa Nares (Bactroban 22:00 Cover Wound With Foam CHYNA 09/08/24 In Process Dressing 19:00 Date of Service: Sep 09, 2024 Billing Provider: BOO TELLES MD Common Visit Codes: [id number] INP/OBS CARE(HIGH) BOO TELLES MD Sep 09, 2024 08:22
[2024-09-10] VITALS (7 sets, daily range): BP systolic 114–145; BP diastolic 41–67; PULSE 51–62; RESP 16–18; TEMP 97.9–98.3; O2SAT 93–97
--- NOTE | 2024-09-10 08:11 | DVHPN2 ---
Reviewed: Care Plan, H&P, Labs, Medications, Previous Orders, Radiology Changes from previous H/P or p: No Changes Eyes: No Pain, No Vision change, No Conjunctivae inflammation, No Eyelid inflammation, No Other, No Redness ENT: No Ear pain, No Ear discharge, No Nose pain, No Nose discharge, No Nose congestion, No Mouth pain, No Mouth swelling, No Throat pain, No Throat swelling, No Other Cardiovascular: No Chest Pain, No Palpitations, No Orthopnea, No Paroxysmal Noc. Dyspnea, No Edema, No Lt Headedness, No Other Respiratory: No Cough, No Dry, No Shortness of breath, No SOB with excertion, No Wheezing, No Hemoptysis, No Pleuritic Pain, No Sputum, No Other Gastrointestinal: No Nausea, No Vomiting, No Abdominal Pain, No Diarrhea, No Constipation, No Melena, No Hematochezia, No Other Genitourinary: No Dysuria, No Frequency, No Incontinence, No Hematuria, No Retention, No Other Musculoskeletal: No other, No neck pain, No shoulder pain, No arm pain, No back pain, No hand pain, No leg pain, No foot pain Skin: No Rash, No Lesions, No Jaundice, No Bruising, No Other Objective Vitals Vital Signs Date Time Temp Pulse Resp B/P (MAP) Pulse Ox O2 Delivery O2 Flow Rate FiO2 09/10/24 05:00 98.2 52 16 115/41 (65) 96 98.2 09/09/24 20:00 Room Air* 0 21 Intake/Output Intake and Output 09/10/24 07:00 Intake Total 1300 ml Output Total 2900 ml Balance -1600 ml Intake Oral 1250 ml IV Total 50 ml Output Urine Total 2900 ml # Bowel Movements 2 Medications Current Medications Medications Dose Ordered Sig/Maylin Route Start Time Stop Time Status Last Admin Dose Admin Sodium Chloride 10 ml Q8HR IV 09/06/24 14:00 09/10/24 06:05 10 ML Acetaminophen/ Hydrocodone Bitart 1 tab Q4HP PRN PO 09/06/24 13:30 Ondansetron HCl 4 mg Q4HP PRN IV 09/06/24 13:30 Docusate Sodium 100 mg BIDPRN PRN PO 09/06/24 13:30 Acetaminophen 650 mg Q6HP PRN PO 09/06/24 13:30 Ceftriaxone Sodium 50 ml @ 100 mls/hr DAILY@09 IV 09/07/24 09:00 09/09/24 09:10 100 MLS/HR Furosemide 20 mg DAILY PO 09/07/24 10:00 09/09/24 09:15 20 MG Atorvastatin Calcium 10 mg HS PO 09/06/24 22:00 09/09/24 21:24 10 MG Sodium Chloride 1,000 ml @ 100 mls/hr Q10H IV 09/07/24 13:30 09/10/24 01:32 100 MLS/HR Mupirocin 1 applic BID EACHNOSTRI 09/08/24 22:00 09/13/24 21:59 09/09/24 21:25 1 APPLIC Laboratory Results Laboratory Tests 09/07/24 06:03 Urinalysis Test 09/06/24 11:00 Urine Color Yellow (Yellow) Urine Clarity Clear (Clear) Urine pH 5.0 (5.0-9.0) Urine Specific [place] 1.011 (1.001-1.035) Urine Protein Negative (Negative) Urine Ketones Negative (Negative) Urine Blood Negative /uL (Negative) Urine Nitrite Negative (Negative) Urine Bilirubin Negative (Negative) Urine Urobilinogen Normal mg/dL (Negative) Urine Leukocyte Esterase Trace /uL (Negative) Urine RBC 1 /hpf (0 - 4) Urine Microscopic WBC 11 /HPF (0-5) H Urine Squamous Epithelial Cells Few /hpf (<5) Urine Bacteria None seen /hpf (None Seen) Urine Glucose Normal mg/dL (Normal) Microbiology Microbiology Date/Time Source Procedure Growth Status 09/08/24 11:52 Urine - Midstream Clean Catch Urine Culture - Preliminary Resulted 09/07/24 20:00 Nose MRSA Screen - Final Methicillin Resistant S.aureus Complete 09/06/24 10:33 Blood Blood Culture - Preliminary NO GROWTH AFTER 72 HOURS OF INCUBATION. Resulted Labs and/or images reviewed: Labs reviewed by me, Image(s) reviewed by me Assessment/Plan Assessment/Plan Acute urinary tract infection: Blood cultures negative, urine cultures mixed, repeat urine cultures showing Gram-positive christos, continue Rocephin Acute metabolic encephalopathy secondary to urinary tract infection Hyperlipidemia: Lipitor CHF: Lasix MRSA screen positive: Bactroban nasal ointment Plan discussed with: Patient My Orders Orders - BOO TELLES MD Procedure Category Date Status Time D/C Sitter ORDERS 09/09/24 Transmitted 08:22 Communication Order ORDERS 09/09/24 Transmitted 08:22 Date of Service: Sep 10, 2024 Billing Provider: BOO TELLES MD Common Visit Codes: [id number] INP/OBS CARE(HIGH) BOO TELLES MD Sep 10, 2024 08:11
[2024-09-11] VITALS (7 sets, daily range): BP systolic 118–141; BP diastolic 40–64; PULSE 53–64; RESP 15–18; TEMP 97.4–98.6; O2SAT 92–99
--- NOTE | 2024-09-11 08:16 | DVHPN2 ---
Reviewed: Care Plan, H&P, Labs, Medications, Previous Orders, Radiology Changes from previous H/P or p: No Changes Eyes: No Pain, No Vision change, No Conjunctivae inflammation, No Eyelid inflammation, No Other, No Redness ENT: No Ear pain, No Ear discharge, No Nose pain, No Nose discharge, No Nose congestion, No Mouth pain, No Mouth swelling, No Throat pain, No Throat swelling, No Other Cardiovascular: No Chest Pain, No Palpitations, No Orthopnea, No Paroxysmal Noc. Dyspnea, No Edema, No Lt Headedness, No Other Respiratory: No Cough, No Dry, No Shortness of breath, No SOB with excertion, No Wheezing, No Hemoptysis, No Pleuritic Pain, No Sputum, No Other Gastrointestinal: No Nausea, No Vomiting, No Abdominal Pain, No Diarrhea, No Constipation, No Melena, No Hematochezia, No Other Genitourinary: No Dysuria, No Frequency, No Incontinence, No Hematuria, No Retention, No Other Musculoskeletal: No other, No neck pain, No shoulder pain, No arm pain, No back pain, No hand pain, No leg pain, No foot pain Skin: No Rash, No Lesions, No Jaundice, No Bruising, No Other Objective Vitals Vital Signs Date Time Temp Pulse Resp B/P (MAP) Pulse Ox O2 Delivery O2 Flow Rate FiO2 09/11/24 05:00 98.6 55 16 124/45 (71) 97 98.6 09/10/24 20:00 Room Air* 0 21 Intake/Output Intake and Output 09/11/24 07:00 Intake Total 2300 ml Output Total 2400 ml Balance -100 ml Intake Oral 1150 ml IV Total 1150 ml Output Urine Total 2400 ml # Bowel Movements 1 Medications Current Medications Medications Dose Ordered Sig/Maylin Route Start Time Stop Time Status Last Admin Dose Admin Sodium Chloride 10 ml Q8HR IV 09/06/24 14:00 09/11/24 06:04 10 ML Acetaminophen/ Hydrocodone Bitart 1 tab Q4HP PRN PO 09/06/24 13:30 Ondansetron HCl 4 mg Q4HP PRN IV 09/06/24 13:30 Docusate Sodium 100 mg BIDPRN PRN PO 09/06/24 13:30 Acetaminophen 650 mg Q6HP PRN PO 09/06/24 13:30 Ceftriaxone Sodium 50 ml @ 100 mls/hr DAILY@09 IV 09/07/24 09:00 09/10/24 10:15 100 MLS/HR Furosemide 20 mg DAILY PO 09/07/24 10:00 09/10/24 10:14 20 MG Atorvastatin Calcium 10 mg HS PO 09/06/24 22:00 09/10/24 21:08 10 MG Sodium Chloride 1,000 ml @ 100 mls/hr Q10H IV 09/07/24 13:30 09/10/24 21:11 100 MLS/HR Mupirocin 1 applic BID EACHNOSTRI 09/08/24 22:00 09/13/24 21:59 09/10/24 21:09 1 APPLIC Laboratory Results Laboratory Tests 09/07/24 06:03 Urinalysis Test 09/06/24 11:00 Urine Color Yellow (Yellow) Urine Clarity Clear (Clear) Urine pH 5.0 (5.0-9.0) Urine Specific [place] 1.011 (1.001-1.035) Urine Protein Negative (Negative) Urine Ketones Negative (Negative) Urine Blood Negative /uL (Negative) Urine Nitrite Negative (Negative) Urine Bilirubin Negative (Negative) Urine Urobilinogen Normal mg/dL (Negative) Urine Leukocyte Esterase Trace /uL (Negative) Urine RBC 1 /hpf (0 - 4) Urine Microscopic WBC 11 /HPF (0-5) H Urine Squamous Epithelial Cells Few /hpf (<5) Urine Bacteria None seen /hpf (None Seen) Urine Glucose Normal mg/dL (Normal) Microbiology Microbiology Date/Time Source Procedure Growth Status 09/08/24 11:52 Urine - Midstream Clean Catch Urine Culture - Final Enterococcus faecalis Complete 09/07/24 20:00 Nose MRSA Screen - Final Methicillin Resistant S.aureus Complete 09/06/24 10:33 Blood Blood Culture - Preliminary NO GROWTH AFTER 72 HOURS OF INCUBATION. Resulted Labs and/or images reviewed: Labs reviewed by me, Image(s) reviewed by me Assessment/Plan Assessment/Plan Acute urinary tract infection: Blood cultures negative, urine cultures show E faecalis: Stopped Rocephin, start Zyvox 600 mg IV q.12h Acute metabolic encephalopathy secondary to urinary tract infection Hyperlipidemia: Lipitor CHF: Lasix MRSA screen positive: Bactroban nasal ointment Plan discussed with: Patient My Orders Orders - BOO TELLES MD Procedure Category Date Status Time Linzeolid 600 Mg Ivpb PHA 09/11/24 Verified 10:00 Date of Service: Sep 11, 2024 Billing Provider: BOO TELLES MD Common Visit Codes: [id number] INP/OBS CARE(HIGH) BOO TELLES MD Sep 11, 2024 08:16
[2024-09-11] MEDS: LINEZOLID 600MG/300ML 300 ML IV SCH (10:15)
[2024-09-12] VITALS (7 sets, daily range): BP systolic 100–131; BP diastolic 43–73; PULSE 54–62; RESP 14–18; TEMP 97.3–98.2; O2SAT 93–97
--- NOTE | 2024-09-12 09:12 | DVHPN2 ---
Reviewed: Care Plan, H&P, Labs, Medications, Previous Orders, Radiology Changes from previous H/P or p: No Changes Eyes: No Pain, No Vision change, No Conjunctivae inflammation, No Eyelid inflammation, No Other, No Redness ENT: No Ear pain, No Ear discharge, No Nose pain, No Nose discharge, No Nose congestion, No Mouth pain, No Mouth swelling, No Throat pain, No Throat swelling, No Other Cardiovascular: No Chest Pain, No Palpitations, No Orthopnea, No Paroxysmal Noc. Dyspnea, No Edema, No Lt Headedness, No Other Respiratory: No Cough, No Dry, No Shortness of breath, No SOB with excertion, No Wheezing, No Hemoptysis, No Pleuritic Pain, No Sputum, No Other Gastrointestinal: No Nausea, No Vomiting, No Abdominal Pain, No Diarrhea, No Constipation, No Melena, No Hematochezia, No Other Genitourinary: No Dysuria, No Frequency, No Incontinence, No Hematuria, No Retention, No Other Musculoskeletal: No other, No neck pain, No shoulder pain, No arm pain, No back pain, No hand pain, No leg pain, No foot pain Skin: No Rash, No Lesions, No Jaundice, No Bruising, No Other Objective Vitals Vital Signs Date Time Temp Pulse Resp B/P (MAP) Pulse Ox O2 Delivery O2 Flow Rate FiO2 09/12/24 07:53 97.3 54 18 131/64 (86) 97 97.3 09/11/24 20:00 Room Air* 0 21 Intake/Output Intake and Output 09/12/24 07:00 Intake Total 1320 ml Output Total 2100 ml Balance -780 ml Intake Oral 1020 ml IV Total 300 ml Output Urine Total 2100 ml # Bowel Movements 1 Medications Current Medications Medications Dose Ordered Sig/Maylin Route Start Time Stop Time Status Last Admin Dose Admin Sodium Chloride 10 ml Q8HR IV 09/06/24 14:00 09/12/24 06:06 10 ML Acetaminophen/ Hydrocodone Bitart 1 tab Q4HP PRN PO 09/06/24 13:30 Ondansetron HCl 4 mg Q4HP PRN IV 09/06/24 13:30 Docusate Sodium 100 mg BIDPRN PRN PO 09/06/24 13:30 Acetaminophen 650 mg Q6HP PRN PO 09/06/24 13:30 Furosemide 20 mg DAILY PO 09/07/24 10:00 09/10/24 10:14 20 MG Atorvastatin Calcium 10 mg HS PO 09/06/24 22:00 09/11/24 21:10 10 MG Mupirocin 1 applic BID EACHNOSTRI 09/08/24 22:00 09/13/24 21:59 09/11/24 21:10 1 APPLIC Linezolid 300 ml @ 150 mls/hr Q12HR IV 09/11/24 10:00 09/11/24 21:10 150 MLS/HR Laboratory Results Laboratory Tests 09/07/24 06:03 Urinalysis Test 09/06/24 11:00 Urine Color Yellow (Yellow) Urine Clarity Clear (Clear) Urine pH 5.0 (5.0-9.0) Urine Specific [place] 1.011 (1.001-1.035) Urine Protein Negative (Negative) Urine Ketones Negative (Negative) Urine Blood Negative /uL (Negative) Urine Nitrite Negative (Negative) Urine Bilirubin Negative (Negative) Urine Urobilinogen Normal mg/dL (Negative) Urine Leukocyte Esterase Trace /uL (Negative) Urine RBC 1 /hpf (0 - 4) Urine Microscopic WBC 11 /HPF (0-5) H Urine Squamous Epithelial Cells Few /hpf (<5) Urine Bacteria None seen /hpf (None Seen) Urine Glucose Normal mg/dL (Normal) Microbiology Microbiology Date/Time Source Procedure Growth Status 09/08/24 11:52 Urine - Midstream Clean Catch Urine Culture - Final Enterococcus faecalis Complete 09/07/24 20:00 Nose MRSA Screen - Final Methicillin Resistant S.aureus Complete 09/06/24 10:33 Blood Blood Culture - Final NO GROWTH AFTER 5 DAYS OF INCUBATION. Complete Labs and/or images reviewed: Labs reviewed by me, Image(s) reviewed by me Assessment/Plan Assessment/Plan Acute urinary tract infection: Blood cultures negative, urine cultures show E faecalis: Continue Zyvox 600 mg IV q.12h Acute metabolic encephalopathy secondary to urinary tract infection Hyperlipidemia: Lipitor CHF: Lasix MRSA screen positive: Bactroban nasal ointment Plan discussed with: Patient Date of Service: Sep 12, 2024 Billing Provider: BOO TELLES MD Common Visit Codes: [id number] INP/OBS CARE(HIGH) BOO TELLES MD Sep 12, 2024 09:12
[2024-09-13 00:54] VITALS: BP 110/55; PULSE 56; RESP 16; TEMP 98; O2SAT 94
[2024-09-13 05:00] VITALS: BP 111/55; PULSE 59; RESP 16; TEMP 98; O2SAT 96
[2024-09-13 06:22] LABS: Basophils # (auto) 0 10 ^3/uL (0-0.2); Eosinophils # (auto) 0.1 10 ^3/uL (0-0.8); Eosinophils % (auto) 3.6 % (0.0-7.0); Lymphocytes # (auto) 1.8 10 ^3/uL (0.4-5.4); Monocytes # (auto) 0.4 10 ^3/uL (0-1.3); Neutrophils # (auto) 1.3 10 ^3/uL (1.6-8.6); White Blood Cell 3.6 10^3/uL (4.4-10.8)
[2024-09-13 06:24] LABS: Basophils % (auto) 0.3 % (0.0-2.0); Hematocrit 35.7 % (36.0-46.0); Hemoglobin 12.2 g/dL (12.2-16.2); Lymphocytes % (auto) 48.7 % (10.0-50.0); Mean Corpuscular Hgb Conc. 34.1 g/dL (32.0-36.0); Mean Corpuscular Volume 102.4 fL (80.0-100.0); Monocytes % (auto) 10.2 % (0.0-12.0); Neutrophils % (auto) 37.2 % (37.0-80.0); Nucleated Red Blood Cells % 0.1 %; Platelet Count (auto) 168 10^3/uL (140-450); Red Blood Cells 3.48 10^6/uL (4.0-5.20); Red Cell Distribution Width 14.2 % (11.8-14.3)
[2024-09-13] MEDS ORDERED: LINE1TAB6 PO (08:09)
--- NOTE | 2024-09-13 08:13 | DVHDS2 ---
Discharge Summary Date of Admission Sep 06, 2024 at 13:28 Date of Discharge: Sep 13, 2024 Admitting Diagnosis Altered mental status Wounds: None Labs/Diagnostic Data: Laboratory Results Test 09/13/24 05:25 09/07/24 06:03 09/06/24 11:00 09/06/24 10:33 White Blood Count 3.6 10^3/uL (4.4-10.8) Red Blood Count 3.48 10^6/uL (4.0-5.20) Hemoglobin 12.2 g/dL (12.2-16.2) Hematocrit 35.7 % (36.0-46.0) Mean Corpuscular Volume 102.4 fL (80.0-100.0) Mean Corpuscular Hemoglobin 35.0 pg (28.0-32.0) Mean Corpuscular Hemoglobin Concent 34.1 g/dL (32.0-36.0) Red Cell Distribution Width 14.2 % (11.8-14.3) Platelet Count 168 10^3/uL (140-450) Mean Platelet Volume 8.6 fL (6.9-10.8) Neutrophils (%) (Auto) 37.2 % (37.0-80.0) Lymphocytes (%) (Auto) 48.7 % (10.0-50.0) Monocytes (%) (Auto) 10.2 % (0.0-12.0) Eosinophils (%) (Auto) 3.6 % (0.0-7.0) Basophils (%) (Auto) 0.3 % (0.0-2.0) Neutrophils # (Auto) 1.3 10 ^3/uL (1.6-8.6) Lymphocytes # (Auto) 1.8 10 ^3/uL (0.4-5.4) Monocytes # (Auto) 0.4 10 ^3/uL (0-1.3) Eosinophils # (Auto) 0.1 10 ^3/uL (0-0.8) Basophils # (Auto) 0 10 ^3/uL (0-0.2) Nucleated Red Blood Cells 0.1 % Creatinine 0.93 mg/dL (0.550-1.02) Glomerular Filtration Rate Calc 61 mL/min (>90) Sodium Level 138 mmol/L (136-145) Potassium Level 4.4 mmol/L (3.5-5.1) Chloride Level 106 mmol/L (98-107) Carbon Dioxide Level 23 mmol/L (20-31) Anion Gap 9 (5-15) Blood Urea Nitrogen 35 mg/dL (9-23) BUN/Creatinine Ratio 29.7 (10.0-20.0) Serum Glucose 65 mg/dL (74-106) Calcium Level 10.5 mg/dL (8.7-10.4) Total Bilirubin 0.5 mg/dL (0.2-1.0) Aspartate Amino Transferase (AST) 24 U/L (13-40) Alanine Aminotransferase (ALT) 23 U/L (7-40) Alkaline Phosphatase 120 U/L (46-116) Total Protein 8.0 g/dL (5.7-8.2) Albumin 4.1 g/dL (3.2-4.8) Urine Color Yellow (Yellow) Urine Clarity Clear (Clear) Urine pH 5.0 (5.0-9.0) Urine Specific [place] 1.011 (1.001-1.035) Urine Protein Negative (Negative) Urine Ketones Negative (Negative) Urine Blood Negative /uL (Negative) Urine Nitrite Negative (Negative) Urine Bilirubin Negative (Negative) Urine Urobilinogen Normal mg/dL (Negative) Urine Leukocyte Esterase Trace /uL (Negative) Urine RBC 1 /hpf (0 - 4) Urine Microscopic WBC 11 /HPF (0-5) Urine Squamous Epithelial Cells Few /hpf (<5) Urine Bacteria None seen /hpf (None Seen) Urine Glucose Normal mg/dL (Normal) Lactic Acid Level 1.3 mmol/L (0.4-2.0) Other Laboratory Tests 09/13/24 05:25 09/07/24 06:03 Brief Hx & Hospital Course: 84-year-old female admitted for sepsis secondary to urinary tract infection treated with Rocephin blood cultures came positive for E faecalis converted to Zyvox 600 mg IV q.12h. Bactroban ointment was MRSA positive screen. At the time of discharge patient is afebrile stable vital signs alert and awake found eating breakfast. I spoke with the patient's daughter Antonette and patient being discharged home on Zyvox p.o. Consults/Reason for consult None Operations or Procedures None Condition at Discharge: Fair Final Diagnosis/Problems List Acute urinary tract infection: Blood cultures negative, urine cultures show E faecalis: Continue Zyvox 600 mg IV q.12h Acute metabolic encephalopathy secondary to urinary tract infection Hyperlipidemia: Lipitor CHF: Lasix MRSA screen positive: Bactroban nasal ointment Discharge Disposition: Home Discharge Instruct/Medications Diet: Cardiac 2g Na,low cholest Activity: Light activity Follow Up/Referral: Resume all previous home medications Use new medications as prescribed Medications: Zyvox 600 mg p.o. b.i.d. 14. Transmitted to [facility] 18 35 (Time taken for discharge summary 35 minutes) Discharge Statement: "Patient was advised to return to the ER or call 911 if any headaches, dizziness, shortness of breath, chest pain, abdominal pain, bleeding, fevers, or worsening of medical condition. Patient was counseled about treatment plan, medications, possible side effects, patientverbalized understanding. All questions were answered to the best of my ability. This discharge took greater then 30 minutes in planning, reviewing documentation, counseling the patient, and discussing with other team members." ASSESSMENT ASSESSMENT Hospital Course Improved Assessment Acute urinary tract infection: Blood cultures negative, urine cultures show E faecalis: Continue Zyvox 600 mg IV q.12h Acute metabolic encephalopathy secondary to urinary tract infection Hyperlipidemia: Lipitor CHF: Lasix MRSA screen positive: Bactroban nasal ointment Date of Service: Sep 13, 2024 Billing Provider: BOO TELLES MD Common Visit Codes: [id number] DISCH DAY >30min BOO TELLES MD Sep 13, 2024 08:13
[2024-09-13 08:27] VITALS: PULSE 62; RESP 16; O2SAT 93
[2024-09-13 08:31] VITALS: BP 124/67; PULSE 62; RESP 16; TEMP 97.3; O2SAT 93
[2024-09-13 08:55] VITALS: BP 124/67; PULSE 62; RESP 16; TEMP 97.3; O2SAT 93
[2024-09-13 12:51] VITALS: BP 104/53; PULSE 69; RESP 18; TEMP 97.2; O2SAT 98
== END 2024-09-13 14:30 | disposition home or self-care (01) | DRG 871 ==
LOC: ER 10:03 → OVERFLOW 13:28 → CENTRAL 20:55
PROVIDERS: ADMIT Family Medicine; ATTEND Family Medicine
DX: A41.9 Sepsis, unspecified organism (principal); G93.41 Metabolic encephalopathy; N39.0 Urinary tract infection, site not specified; F05 Delirium due to known physiological condition; I50.22 Chronic systolic (congestive) heart failure; E78.5 Hyperlipidemia, unspecified; I48.91 Unspecified atrial fibrillation; Z96.653 Presence of artificial knee joint, bilateral; Z79.01 Long term (current) use of anticoagulants; Z79.899 Other long term (current) drug therapy
CPT/HCPCS: 36415; 80048; 80053; 81001; 82565; 83605; 85025; 87040; 87081; 87086; 87088; 87186; 96361; 96365; 96375; 97110; 97116; 97163; G0378

== ENCOUNTER 2024-11-20 07:46 | Emergency (ER) | payer MEDICARE, BC ==
[~2024-11-20] VITALS: Ht 162.6 cm; Wt 79.0 kg
[~2024-11-20 07:46] MED LIST changes: +LINE1TAB6 PO
--- NOTE | 2024-11-20 08:24 | ED.PDOC ---
History of Present Illness HPI Comments 84-year-old female presents with a chief complaint of request for Borden catheter change. Patients daughter reports that this morning patient's Borden catheter fell out of her urethra and is requesting a new one be placed. Patient had Borden initially placed on 11/04/[address] Durham. Patient is also on antibiotics for a UTI. Chief Complaint: Tube Replacement Time Seen by MD: 08:19 Primary Care Provider: JESSICA Salvador Notes: Medications, Allergies Allergies: Coded Allergies: NO KNOWN ALLERGIES (Unverified , 06/14/22) Home Meds Active Scripts Linezolid (Zyvox) 600 Mg Tab, 600 MG PO BID, #14 TAB Prov:BOO TELLES MD 09/13/24 Furosemide (Lasix) 20 Mg Tb, 1 TAB PO DAILY, #30 TAB 5 Refills Prov:RONAN STRE[address] 08/30/24 Nitrofurantoin Monohydrate Mac (Macrobid) 100 Mg Cap, 100 MG PO BID for 5 Days, #10 CAP Prov:RONAN [address] 08/30/24 Spironolactone (Aldactone) 25 Mg Tab, 12.5 MG PO DAILY for 30 Days, #15 TAB 1 Refill Prov:JU MCNEAL 04/05/24 Apixaban Base (ELIQUIS) 2.5 Mg Tab, 2.5 MG PO BID for 30 Days, #60 TAB 2 Refills Prov:JU MCNEAL 04/05/24 Reported Medications Atorvastatin Calcium (ATORVASTATIN CALCIUM) 10 Mg Tab, 1 TAB PO DAILY for 90 Days, #90 03/29/24 Information Source: Patient, Relative (Child) Mode of Arrival: Wheelchair Severity: Moderate Timing: Hours Duration: Since onset Prehospital treatment: None Past Medical History PAST MEDICAL HISTORY: AFIB, CHF, High Lipids, UTI'S CAFETERIA HELPER History: No Pertinent CAFETERIA HELPER History Family History Family History: Reviewed,noncontributory to illness, Unknown Social History Smoker: Non-Smoker Alcohol: Denies ETOH Use Drugs: Denies Drug Use Lives In: Home Constitutional: denies: chills, diaphoresis, fatigue, fever, malaise, sweats, weakness, others EENTM: denies: blurred vision, double vision, ear bleeding, ear discharge, ear drainage, ear pain, ear ringing, eye pain, eye redness, hearing loss, mouth pain, mouth swelling, nasal discharge, nose bleeding, nose congestion, nose pain, photophobia, tearing, throat pain, throat swelling, voice changes, others Respiratory: denies: cough, hemoptysis, orthopnea, SOB at rest, shortness of breath, SOB with excertion, stridor, wheezing, others Cardiovascular: denies: chest pain, dizzy spells, diaphoresis, Dyspnea on exertion, edema, irregular heart beat, left arm pain, lightheadedness, palpitations, PND, syncope, others Gastrointestinal: denies: abdomen distended, abdominal pain, blood streaked bowels, constipated, diarrhea, dysphagia, difficulty swallowing, hematemesis, melena, nausea, poor appetite, poor fluid intake, rectal bleeding, rectal pain, vomiting, others Genitourinary: denies: abnormal vagina bleeding, burning, dyspareunia, dysuria, flank pain, frequency, hematuria, incontinence, pain, , vagina discharge, urgency, others Neurological: denies: dizziness, fainting, headache, left sided numbness, left sided weakness, numbness, paresthesia, pre-existing deficit, right sided numbness, right sided weakness, seizure, speech problems, tingling, tremors, weakness, others Musculoskeletal: denies: back pain, gout, joint pain, joint swelling, muscle pain, muscle stiffness, neck pain, others Integumetry: denies: bruises, change in color, change in hair/nails, dryness, laceration, lesions, lumps, rash, wounds, others Allergic/Immunocompromised: denies: Difficulty Healing, Frequent Infections, Hives, Itching, others Hematologic/Lymphatic: denies: anemia, blood clots, easy bleeding, easy bruising, swollen glands, others Endocrine: denies: excessive hunger, excessive sweating, excessive thirst, excessive urination, flushing, intolerance to cold, intolerance to heat, unexplained weight gain, unexplained weight loss, others Psychiatric: denies: anxiety, bipolar disorder, depression, hopeless, panic disorder, schizophrenia, sleepless, suicidal, others All Other Systems: Reviewed and Negative ( PER HPI) Physical Exam General Appearance: Moderate Distress, Normal HEENT: Normal ENT Inspection, Pharynx Normal, TMs Normal Neck: Full Range of Motion, Non-Tender, Normal, Normal Inspection Respiratory: Chest Non-Tender, Lungs Clear, No Accessory Muscle Use, No Respiratory Distress, Normal Breath Sounds Cardiovascular: No Edema, No JVD, No Murmur, No Gallop, Normal Peripheral Pulses, Regular Rate/Rhythm Breast Exam: Deferred Gastrointestinal: No Organomegaly, Non Tender, No Pulsatile Mass, Normal Bowel Sounds, Soft Genitalia: Deferred Pelvic: Deferred Rectal: Deferred Extremities: No calf tenderness, Normal capillary refill, Normal inspection, Normal range of motion, Non-tender, No pedal edema Musculoskeletal : Apperance: Normal Neurologic: Alert, barrel finisher II-XII nml as Tested, No Motor Deficits, Normal Affect, Normal Mood, No Sensory Deficits Cerebellar Function: Normal Reflexes: Normal Skin: Dry, Normal Color, Warm Peripheral Pulses: 3+ Radial (R), 3+ Radial (L) Lymphatic: No Adenopathy Was a procedure done? Was a procedure done?: No Differential Dx Considerations may include: Borden catheter X-Ray, Labs, Meds, VS Vital Signs Date Time Temp Pulse Resp B/P (MAP) Pulse Ox O2 Delivery O2 Flow Rate FiO2 11/20/24 08:02 98.2 64 16 112/55 (74) 97 98.2 Patient alert. Vitals stable. Had a Borden catheter that was dislodged. Answering questions pain Family just wanted the Borden catheter placed. She is taking antibiotics for urinary tract infection. Urine clear. Abdomen is soft nontender. Insists on going home. Did not want any other tests done. Explained to the family. Was told to follow up with her urologist. Was told to follow up with her primary care physician. Was told to come back if there is any problem. Time of 1ST Reevaluation: 08:49 Reevaluation 1ST: Improved Patient Education/Counseling: Diagnosis, Treatment, Need For Follow Up Family Education/Counseling: No Family Present SEPSIS Sepsis Screen Date sepsis recognized/suspect: Nov 20, 2024 Time Sepsis recognized/suspect: 075 Recent Procedure: No On Antibiotic Therapy: No Respiratory Rate >20: No Heart Rate >90: No Temp<36 C (96.8 F) or >38.3 C: No SBP <90 or MAP <65 mmHG: No New Acute Mental Status Change: No Is the patient on CPAP, BIPAP,: No Physician Orders Insert Borden Catheter QSHIFT (11/20/24 08:22) Vital Signs Date Time Temp Pulse Resp B/P (MAP) Pulse Ox O2 Delivery O2 Flow Rate FiO2 11/20/24 08:02 98.2 64 16 112/55 (74) 97 98.2 Departure 1 Departure Time of Disposition: 08:30 Impression: Primary Impression: Borden catheter in place Disposition: 01 HOME / SELF CARE / HOMELESS Condition: Good Discharged With: Self Critical Care Note Critical Care Time?: No Stability Stability form required: No Heart Score Heart Score: Heart Score Response (Comments) Value History N/A 0 EKG N/A 0 Age N/A 0 Risk Factors N/A 0 Troponin N/A 0 Total 0 I personally scribed for THERESE PRESSLEY MD ([email or web address]) on 11/20/24 at 08:24. Electronically submitted by Edin Montes ([email or web address]). THERESE PRESSLEY MD Nov 20, 2024 08:24
[2024-11-20 10:02] VITALS: BP 123/42; TEMP 97.8
[2024-11-20 10:03] VITALS: PULSE 57; RESP 16; O2SAT 99
== END 2024-11-20 10:07 | disposition home or self-care (01) ==
LOC: ER 07:46
DX: Z46.6 Encounter for fitting and adjustment of urinary device (principal); I48.91 Unspecified atrial fibrillation; I50.9 Heart failure, unspecified; E78.5 Hyperlipidemia, unspecified; Z79.01 Long term (current) use of anticoagulants; Z79.899 Other long term (current) drug therapy
CPT/HCPCS: 51702; 87086

== ENCOUNTER 2025-01-03 06:23 | Outpatient (CLI) | payer MEDICARE, BC ==
[2025-01-03 07:02] LABS: Alanine Aminotransferase 15 U/L (7-40); Albumin 3.9 g/dL (3.2-4.8); Alkaline Phosphatase 99 U/L (46-116); Anion Gap 6 (5-15); BUN/Creatinine Ratio 26.2 (10.0-20.0); Bilirubin, Total 0.5 mg/dL (0.2-1.0); Blood Urea Nitrogen 22 mg/dL (9-23); Calcium 9.7 mg/dL (8.7-10.4); Carbon Dioxide 31 mmol/L (20-31); Chloride 104 mmol/L (98-107); Glucose 75 mg/dL (74-106); Potassium 4.3 mmol/L (3.5-5.1); Sodium 141 mmol/L (136-145); Total Protein 7.3 g/dL (5.7-8.2)
== END 2025-01-03 17:00 | disposition home or self-care (01) ==
LOC: LAB 06:23
PROVIDERS: ATTEND Internal Medicine
DX: Z01.812 Encounter for preprocedural laboratory examination (principal)
CPT/HCPCS: 36415; 80053

== ENCOUNTER 2025-01-18 10:35 | Outpatient (CLI) | payer MEDICARE, BC ==
[2025-01-18 10:54] LABS: Urine Amorphous Crystal FEW /hpf (None Seen); Urine Budding Yeast MODERATE /hpf (None Seen); Urine Protein, UAD TRACE (Negative); Urine WBC Clumps PRESENT /hpf (None Seen)
== END 2025-01-18 17:00 | disposition home or self-care (01) ==
LOC: LAB 10:35
PROVIDERS: ATTEND Urology
DX: R32 Unspecified urinary incontinence (principal)
CPT/HCPCS: 81001; 87086

== ENCOUNTER 2025-02-02 06:58 | Outpatient (CLI) | payer MEDICARE, BC ==
[2025-02-02 07:42] LABS: Hematocrit 35.5 % (36.0-46.0); Hemoglobin 12.2 g/dL (12.2-16.2); Mean Corpuscular Hemoglobin 35.0 pg (28.0-32.0); Mean Corpuscular Volume 101.9 fL (80.0-100.0); Nucleated Red Blood Cells % 0.1 %
[2025-02-02 07:55] LABS: INR 1.03 (0.9-1.15); Partial Thromboplastin Time 31.0 SEC (24.5-34.5); Prothrombin Time 10.9 sec (9.3-11.8)
[2025-02-02 08:01] LABS: Alanine Aminotransferase 12 U/L (7-40); Albumin 3.6 g/dL (3.2-4.8); Alkaline Phosphatase 93 U/L (46-116); Anion Gap 8 (5-15); BUN/Creatinine Ratio 25.3 (10.0-20.0); Bilirubin, Total 0.4 mg/dL (0.2-1.0); Blood Urea Nitrogen 21 mg/dL (9-23); Calcium 9.1 mg/dL (8.7-10.4); Carbon Dioxide 28 mmol/L (20-31); Chloride 106 mmol/L (98-107); Cholesterol 150 mg/dL (< 200); HDL Cholesterol 53 mg/dL (40-59); Potassium 3.9 mmol/L (3.5-5.1); Sodium 142 mmol/L (136-145); Total Protein 7.4 g/dL (5.7-8.2); Triglycerides 41 mg/dL (< 150)
[2025-02-02 08:03] LABS: Glucose 73 mg/dL (74-106)
[2025-02-04 13:52] LABS: Urine Budding Yeast FEW /hpf (None Seen); Urine Protein, UAD Negative (Negative); Urine WBC Clumps PRESENT /hpf (None Seen)
== END 2025-02-02 17:00 | disposition home or self-care (01) ==
LOC: LAB 06:58
PROVIDERS: ATTEND Internal Medicine
DX: N39.0 Urinary tract infection, site not specified (principal); I71.9 Aortic aneurysm of unspecified site, without rupture; I48.91 Unspecified atrial fibrillation
CPT/HCPCS: 36415; 80053; 80061; 81001; 85025; 85610; 85730

== ENCOUNTER 2025-02-26 12:21 | Emergency (ER) | payer MEDICARE, BC ==
[~2025-02-26] VITALS: Ht 162.6 cm; Wt 90.8 kg
--- NOTE | 2025-02-26 15:16 | ED.PDOC ---
General HPI Comments 84 y/o obese F presents with c/c of urinary discomfort. Patient endorses on coming to the ED for ongoing discomfort with urination following UTI and Macrobid antibiotic placement 2x weeks ago. Patient has a long-term Borden catheter in place due to bladder outlet obstruction concerns. Patient has regular maintenance on that catheter and states that it has changed out every few weeks. Significant history of AFib, CHF, HLD, and UTI's. Denial of any further acute symptoms at this time. Signs were stable on arrival. Chief Complaint: Urinary Time Seen by MD: 15:00 Primary Care Provider: JESSICA Salvador notes: Nurses Notes, Medications, Allergies Allergies: Coded Allergies: NO KNOWN ALLERGIES (Unverified , 06/14/22) Home Meds Active Scripts Linezolid (Zyvox) 600 Mg Tab, 600 MG PO BID, #14 TAB Prov:BOO TELLES MD 09/13/24 Furosemide (Lasix) 20 Mg Tb, 1 TAB PO DAILY, #30 TAB 5 Refills Prov:RONAN STRE[address] 08/30/24 Nitrofurantoin Monohydrate Mac (Macrobid) 100 Mg Cap, 100 MG PO BID for 5 Days, #10 CAP Prov:RONAN [address]REET 08/30/24 Spironolactone (Aldactone) 25 Mg Tab, 12.5 MG PO DAILY for 30 Days, #15 TAB 1 Refill Prov:JU MCNEAL 04/05/24 Apixaban Base (ELIQUIS) 2.5 Mg Tab, 2.5 MG PO BID for 30 Days, #60 TAB 2 Refills Prov:JU MCNEAL 04/05/24 Reported Medications Atorvastatin Calcium (ATORVASTATIN CALCIUM) 10 Mg Tab, 1 TAB PO DAILY for 90 Days, #90 03/29/24 Information Source: Patient Mode of Arrival: Ambulatory Severity: Moderate Timing: Weeks Duration: Since onset Prehospital treatment: Treatment Onset: Spontaneous Symptoms: Dysuria History of: UTI Location: Suprapubic associated signs and symptoms: Dysuria Past Medical History PAST MEDICAL HISTORY: AFIB, CHF, High Lipids, UTI'S Past Medical History (Other): Recent history of bladder outlet obstruction Surgical History: Denies all surgeries HEALTH INFORMATICS ADVISOR History: No Pertinent HEALTH INFORMATICS ADVISOR History Family History Family History: Reviewed,noncontributory to illness, Unknown Social History Smoker: Non-Smoker Alcohol: Denies ETOH Use Drugs: Denies Drug Use Lives In: Home Constitutional: denies: chills, diaphoresis, fatigue, fever, malaise, sweats, weakness, others EENTM: denies: blurred vision, double vision, ear bleeding, ear discharge, ear drainage, ear pain, ear ringing, eye pain, eye redness, hearing loss, mouth pain, mouth swelling, nasal discharge, nose bleeding, nose congestion, nose pain, photophobia, tearing, throat pain, throat swelling, voice changes, others Respiratory: denies: cough, hemoptysis, orthopnea, SOB at rest, shortness of breath, SOB with excertion, stridor, wheezing, others Cardiovascular: denies: chest pain, dizzy spells, diaphoresis, Dyspnea on exertion, edema, irregular heart beat, left arm pain, lightheadedness, palpitations, PND, syncope, others Gastrointestinal: denies: abdomen distended, abdominal pain, blood streaked bowels, constipated, diarrhea, dysphagia, difficulty swallowing, hematemesis, melena, nausea, poor appetite, poor fluid intake, rectal bleeding, rectal pain, vomiting, others Genitourinary: reports: dysuria; denies: abnormal vagina bleeding, burning, dyspareunia, flank pain, frequency, hematuria, incontinence, pain, , vagina discharge, urgency, others Neurological: denies: dizziness, fainting, headache, left sided numbness, left sided weakness, numbness, paresthesia, pre-existing deficit, right sided num bness, right sided weakness, seizure, speech problems, tingling, tremors, weakness, others Musculoskeletal: denies: back pain, gout, joint pain, joint swelling, muscle pain, muscle stiffness, neck pain, others Integumetry: denies: bruises, change in color, change in hair/nails, dryness, laceration, lesions, lumps, rash, wounds, others Allergic/Immunocompromised: denies: Difficulty Healing, Frequent Infections, Hives, Itching, others Hematologic/Lymphatic: denies: anemia, blood clots, easy bleeding, easy bruising, swollen glands, others Endocrine: denies: excessive hunger, excessive sweating, excessive thirst, excessive urination, flushing, intolerance to cold, intolerance to heat, unexplained weight gain, unexplained weight loss, others Psychiatric: denies: anxiety, bipolar disorder, depression, hopeless, panic disorder, schizophrenia, sleepless, suicidal, others All Other Systems: Reviewed and Negative (Comprehensive review of systems are negative unless stated in HPI) Physical Exam General Appearance: Mild Distress (Moderate distress due to urinary discomfort.), Normal HEENT: Normal ENT Inspection, Pharynx Normal, TMs Normal Neck: Full Range of Motion, Non-Tender, Normal, Normal Inspection Respiratory: Chest Non-Tender, Lungs Clear, No Accessory Muscle Use, No Respiratory Distress, Normal Breath Sounds Cardiovascular: No Edema, No JVD, No Murmur, No Gallop, Normal Peripheral Pulses, Regular Rate/Rhythm Breast Exam: Deferred Gastrointestinal: No Pulsatile Mass, Normal Bowel Sounds, Soft Genitalia: Other (Borden catheter in place. Collected urine is unremarkable.) Pelvic: Deferred Rectal: Deferred Extremities: Non-tender Neurologic: Alert Cerebellar Function: NOT DONE Reflexes: NOT DONE Skin: Dry, Normal Color, Warm Lymphatic: No Adenopathy Was a procedure done? Was a procedure done?: No Differential Diagnosis Kidney stone (Female): N/A Kidney stone (Male): N/A Penile/Scrotal: N/A Urinary Problem (Male): N/A Urinary Problem (Female): Other (UTI, pyelonephritis, urethritis, sepsis, electrolyte abnormality) X-Ray, Labs, Meds, VS Vital Signs Date Time Temp Pulse Resp B/P (MAP) Pulse Ox O2 Delivery O2 Flow Rate FiO2 02/26/25 16:47 58 18 129/69 (89) 98 02/26/25 14:00 98.6 64 18 118/83 (95) 95 98.6 02/26/25 12:22 97.8 65 18 160/57 95 97.8 Lab Test 02/26/25 18:05 02/26/25 16:21 02/26/25 16:05 Range/Units Troponin I High Sensitivity 13 14 </=34 ng/L Urine Color Light-orange Yellow Urine Clarity Ex.turbid Clear Urine pH 8.5 5.0-9.0 Urine Specific [place] 1.019 1.001-1.035 Urine Protein 4+ H Negative Urine Ketones Negative Negative Urine Blood Negative Negative /uL Urine Nitrite 2+ H Negative Urine Bilirubin 1+ H Negative Urine Urobilinogen Normal Negative mg/dL Urine Leukocyte Esterase 3+ Negative /uL Urine RBC 7 0 - 4 /hpf Urine WBC Clumps Present None Seen /hpf Urine Microscopic WBC 25 H 0-5 /HPF Urine Squamous Epithelial Cells Few <5 /hpf Urine Triple Phosphate Crystals Mod None Seen /hpf Urine Bacteria Few H None Seen /hpf Urine Mucus Few None Seen Urine Glucose Normal Normal mg/dL White Blood Count 5.2 4.4-10.8 10^3/uL Red Blood Count 3.67 L 4.0-5.20 10^6/uL Hemoglobin 12.7 12.2-16.2 g/dL Hematocrit 37.7 36.0-46.0 % Mean Corpuscular Volume 102.9 H 80.0-100.0 fL Mean Corpuscular Hemoglobin 34.6 H 28.0-32.0 pg Mean Corpuscular Hemoglobin Concent 33.7 32.0-36.0 g/dL Red Cell Distribution Width 13.8 11.8-14.3 % Platelet Count 156 140-450 10^3/uL Mean Platelet Volume 8.0 6.9-10.8 fL Neutrophils (%) (Auto) 45.7 37.0-80.0 % Lymphocytes (%) (Auto) 41.8 10.0-50.0 % Monocytes (%) (Auto) 10.2 0.0-12.0 % Eosinophils (%) (Auto) 2.0 0.0-7.0 % Basophils (%) (Auto) 0.3 0.0-2.0 % Neutrophils # (Auto) 2.4 1.6-8.6 10 ^3/uL Lymphocytes # (Auto) 2.2 0.4-5.4 10 ^3/uL Monocytes # (Auto) 0.5 0-1.3 10 ^3/uL Eosinophils # (Auto) 0.1 0-0.8 10 ^3/uL Basophils # (Auto) 0 0-0.2 10 ^3/uL Nucleated Red Blood Cells 0.1 % Sodium Level 141 136-145 mmol/L Potassium Level 4.5 3.5-5.1 mmol/L Chloride Level 105 98-107 mmol/L Carbon Dioxide Level 27 20-31 mmol/L Anion Gap 9 5-15 Blood Urea Nitrogen 21 9-23 mg/dL Creatinine 0.79 0.550-1.02 mg/dL Glomerular Filtration Rate Calc 74 >90 mL/min BUN/Creatinine Ratio 26.6 H 10.0-20.0 Serum Glucose 81 74-106 mg/dL Lactic Acid Level 1.5 0.4-2.0 mmol/L Calcium Level 9.4 8.7-10.4 mg/dL Lipase 36 12-53 U/L X-Ray, Labs, Meds, VS Comment All studies performed the ED were evaluated by me personally. Serum studies were unremarkable for any systemic concerns, but urinalysis confirmed a UTI. Advised patient utilize antibiotics as directed until completion. Additionally, advised patient that a urine bacterial culture has been ordered today and if the antibiotics that she is on are not effective in eradicating her urinary tract infection, this facility will contact her and change her to the appropriate antibiotic. Time of 1ST Reevaluation: 20:29 Reevaluation 1ST: Improved Consultation: PCP Patient Education/Counseling: Diagnosis, Treatment Family Education/Counseling: Diagnosis, Treatment, No Family Present SEPSIS Sepsis Screen Date sepsis recognized/suspect: Feb 26, 2025 Time Sepsis recognized/suspect: 5 Recent Procedure: No On Antibiotic Therapy: No Respiratory Rate >20: No Heart Rate >90: No Temp<36 C (96.8 F) or >38.3 C: No SBP <90 or MAP <65 mmHG: No New Acute Mental Status Change: No Is the patient on CPAP, BIPAP,: No Physician Orders Urine Bacterial Culture (02/26/25 15:11) Electrocardigram (02/26/25 15:11) Vital Signs Date Time Temp Pulse Resp B/P (MAP) Pulse Ox O2 Delivery O2 Flow Rate FiO2 02/26/25 16:47 58 18 129/69 (89) 98 02/26/25 14:00 98.6 64 18 118/83 (95) 95 98.6 02/26/25 12:22 97.8 65 18 160/57 95 97.8 Laboratory Tests Test 02/26/25 16:05 Lactic Acid Level 1.5 mmol/L (0.4-2.0) White Blood Count 5.2 10^3/uL (4.4-10.8) Departure 1 Departure Time of Disposition: 20:30 Impression: Primary Impression: Urinary tract infection Disposition: HOME / SELF CARE / HOMELESS Condition: Stable Additional Instructions: Advise utilizing antibiotics as directed until completion as well as additional medication as needed. Patient should follow up with primary care provider and urologist for continued evaluation of urine retention concerns. e-Prescriptions Acetaminophen (Acetaminophen) 500 Mg Tab 500 MG PO Q4HP PRN, #30 TAB Prov: CHARLOTTE PATEL PAC 02/26/25 Phenazopyridine HCl (Phenazopyridine Hydrochlo) 100 Mg Tab 100 MG PO Q8HP PRN, #9 TAB Prov: CHARLOTTE PATEL PAC 02/26/25 Sulfamethoxazole W/Trimethopri (Bactrim Ds Tablet) 1 Tab Tb 1 TAB PO BID for 7 Days, #14 TAB Prov: CHARLOTTE PATEL PAC 02/26/25 Discharged With: Self, Friend Critical Care Note Critical Care Time?: No Stability Stability form required: No Heart Score Heart Score: Heart Score Response (Comments) Value History N/A 0 EKG N/A 0 Age N/A 0 Risk Factors N/A 0 Troponin N/A 0 Total 0 I personally scribed for CHARLOTTE PATEL PAC ([email or web address]) on 02/26/25 at 15:16. Electronically submitted by Triston Nolan ([email or web address]). CHARLOTTE PATEL PAC Feb 26, 2025 15:16
[2025-02-26 16:30] LABS: Hematocrit 37.7 % (36.0-46.0); Hemoglobin 12.7 g/dL (12.2-16.2); Mean Corpuscular Hemoglobin 34.6 pg (28.0-32.0); Mean Corpuscular Volume 102.9 fL (80.0-100.0); Nucleated Red Blood Cells % 0.1 %
[2025-02-26 16:40] LABS: Chloride 105 mmol/L (98-107); Potassium 4.5 mmol/L (3.5-5.1); Sodium 141 mmol/L (136-145)
[2025-02-26 16:40] LABS: Urine Protein, UAD 4+ (Negative); Urine WBC Clumps PRESENT /hpf (None Seen)
[2025-02-26 16:41] LABS: Anion Gap 9 (5-15); Carbon Dioxide 27 mmol/L (20-31)
[2025-02-26 16:42] LABS: Calcium 9.4 mg/dL (8.7-10.4)
[2025-02-26 16:46] LABS: BUN/Creatinine Ratio 26.6 (10.0-20.0); Blood Urea Nitrogen 21 mg/dL (9-23); Glucose 81 mg/dL (74-106)
[2025-02-26 16:47] LABS: Lipase 36 U/L (12-53)
[2025-02-26 19:55] VITALS: PULSE 84; RESP 18; TEMP 97.8; O2SAT 94
[2025-02-26] MEDS ORDERED: ACET500T58 PO (20:31)
[2025-02-26] MEDS ORDERED: PHEN-1044 PO (20:31)
[2025-02-26] MEDS ORDERED: BACDST PO (20:31)
[2025-02-26 20:52] VITALS: BP 143/56
[2025-02-26] MEDS: SULFAMETHOX W/TRIMETH(800/160MG) DS TAB PO ONE (21:00)
[2025-02-26] MEDS: PHENAZOPYRIDINE HCL 100 MG TAB PO ONE (21:00)
[2025-02-26] MEDS: ACETAMINOPHEN 325 MG TAB PO ONE (21:00)
== END 2025-02-26 21:04 | disposition home or self-care (01) ==
LOC: ER 12:21
DX: N39.0 Urinary tract infection, site not specified (principal); I48.91 Unspecified atrial fibrillation; I50.9 Heart failure, unspecified; Z79.899 Other long term (current) drug therapy; Z87.440 Personal history of urinary (tract) infections
CPT/HCPCS: 36415; 80048; 81001; 83605; 83690; 84484; 85025; 87086

== ENCOUNTER 2025-03-03 12:45 | Inpatient (IN) | payer MEDICARE, BC ==
[~2025-03-03] VITALS: Ht 162.6 cm; Wt 88.5 kg
[~2025-03-03 12:45] MED LIST changes: +ACET500T58 PO; +BACDST PO; +PHEN-1044 PO
--- NOTE | 2025-03-03 13:16 | ED.PDOC ---
Altered Mental Status HPI Comments This is a 84 year old female SENDYA presenting to the ED with chief complaint of ALOC. EMS reports patient's family has noticed patient become more and more altered for the past few days since being diagnosed with a UTI. EMS relays patient is currently on Bactrim and she also has a Borden catheter in place with some cloudy urine. EMS notes patient is alert, but confused. Patient able to answer only simple questions and does not know why she is in the hospital at this time. Chief Complaint: ALOC Time Seen by MD: 13:09 Primary Care Provider: JESSICA Reviewed Notes: Nurses Notes, Medications, Allergies Allergies: Coded Allergies: NO KNOWN ALLERGIES (Unverified , 06/14/22) Home Meds Active Scripts Acetaminophen (Acetaminophen) 500 Mg Tab, 500 MG PO Q4HP PRN, #30 TAB Prov:CHARLOTTE PATEL PAC 02/26/25 Phenazopyridine HCl (Phenazopyridine Hydrochlo) 100 Mg Tab, 100 MG PO Q8HP PRN, #9 TAB Prov:CHARLOTTE PATEL PAC 02/26/25 Sulfamethoxazole W/Trimethopri (Bactrim Ds Tablet) 1 Tab Tb, 1 TAB PO BID for 7 Days, #14 TAB Prov:CHARLOTTE PATEL PAC 02/26/25 Linezolid (Zyvox) 600 Mg Tab, 600 MG PO BID, #14 TAB Prov:BOO TELLES MD 09/13/24 Furosemide (Lasix) 20 Mg Tb, 1 TAB PO DAILY, #30 TAB 5 Refills Prov:[address] RESIDENT 08/30/24 Nitrofurantoin Monohydrate Mac (Macrobid) 100 Mg Cap, 100 MG PO BID for 5 Days, #10 CAP Prov:[address]RE[address] RESIDENT 08/30/24 Spironolactone (Aldactone) 25 Mg Tab, 12.5 MG PO DAILY for 30 Days, #15 TAB 1 Refill Prov:JU MCNEAL RESIDENT 04/05/24 Apixaban Base (ELIQUIS) 2.5 Mg Tab, 2.5 MG PO BID for 30 Days, #60 TAB 2 Refills Prov:JU MCNEAL RESIDENT 04/05/24 Reported Medications Atorvastatin Calcium (ATORVASTATIN CALCIUM) 10 Mg Tab, 1 TAB PO DAILY for 90 Days, #90 03/29/24 Information Source: Patient Mode of Arrival: EMS Severity: Moderate Timing: Days Duration: Since onset Prehospital treatment: None Quality: None History of: Indwelling Borden Past Medical History PAST MEDICAL HISTORY: AFIB, CHF, High Lipids, UTI'S Surgical History: Denies all surgeries BOOKMOBILE CLERK History: No Pertinent 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 CLERK History Family History Family History: Reviewed,noncontributory to illness, Unknown Social History Smoker: Non-Smoker Alcohol: Denies ETOH Use Drugs: Denies Drug Use Lives In: Home Constitutional: denies: chills, diaphoresis, fatigue, fever, malaise, sweats, weakness, others EENTM: denies: blurred vision, double vision, ear bleeding, ear discharge, ear drainage, ear pain, ear ringing, eye pain, eye redness, hearing loss, mouth pain, mouth swelling, nasal discharge, nose bleeding, nose congestion, nose pain, photophobia, tearing, throat pain, throat swelling, voice changes, others Respiratory: denies: cough, hemoptysis, orthopnea, SOB at rest, shortness of breath, SOB with excertion, stridor, wheezing, others Cardiovascular: denies: chest pain, dizzy spells, diaphoresis, Dyspnea on exertion, edema, irregular heart beat, left arm pain, lightheadedness, palpitations, PND, syncope, others Gastrointestinal: denies: abdomen distended, abdominal pain, blood streaked bowels, constipated, diarrhea, dysphagia, difficulty swallowing, hematemesis, melena, nausea, poor appetite, poor fluid intake, rectal bleeding, rectal pain, vomiting, others Genitourinary: denies: abnormal vagina bleeding, burning, dyspareunia, dysuria, flank pain, frequency, hematuria, incontinence, pain, , vagina discharge, urgency, others Neurological: denies: dizziness, fainting, headache, left sided numbness, left sided weakness, numbness, paresthesia, pre-existing deficit, right sided numbness, right sided weakness, seizure, speech problems, tingling, tremors, weakness, others Musculoskeletal: denies: back pain, gout, joint pain, joint swelling, muscle pain, muscle stiffness, neck pain, others Integumetry: denies: bruises, change in color, change in hair/nails, dryness, laceration, lesions, lumps, rash, wounds, others Allergic/Immunocompromised: denies: Difficulty Healing, Frequent Infections, Hives, Itching, others Hematologic/Lymphatic: denies: anemia, blood clots, easy bleeding, easy bruising, swollen glands, others Endocrine: denies: excessive hunger, excessive sweating, excessive thirst, excessive urination, flushing, intolerance to cold, intolerance to heat, unexplained weight gain, unexplained weight loss, others Psychiatric: denies: anxiety, bipolar disorder, depression, hopeless, panic disorder, schizophrenia, sleepless, suicidal, others Unable to Obtain due to: Altered Mental Status All Other Systems: Reviewed and Negative Physical Exam General Appearance: Moderate Distress, Normal HEENT: Normal ENT Inspection, Pharynx Normal, TMs Normal Neck: Full Range of Motion, Non-Tender, Normal, Normal Inspection Respiratory: Chest Non-Tender, Lungs Clear, No Accessory Muscle Use, No Respiratory Distress, Normal Breath Sounds Cardiovascular: No Edema, No JVD, No Murmur, No Gallop, Normal Peripheral Pulses, Regular Rate/Rhythm Breast Exam: Deferred Gastrointestinal: No Organomegaly, Non Tender, No Pulsatile Mass, Normal Bowel Sounds, Soft Genitalia: Deferred Pelvic: Deferred Rectal: Deferred Extremities: No calf tenderness, Normal capillary refill, No pedal edema Musculoskeletal : Apperance: Normal Neurologic: Alert, billing associate II-XII nml as Tested, No Motor Deficits, Normal Affect, Normal Mood, No Sensory Deficits Cerebellar Function: NOT DONE Reflexes: NOT DONE Skin: Dry, Normal Color, Warm Peripheral Pulses: 3+ Radial (R), 3+ Radial (L) Lymphatic: No Adenopathy Was a procedure done? Was a procedure done?: No Differential Diagnosis (ALOC) Differential Diagnosis: Dehydration, Encephalopathy X-Ray, Labs, Meds, VS Vital Signs Date Time Temp Pulse Resp B/P (MAP) Pulse Ox O2 Delivery O2 Flow Rate FiO2 03/03/25 14:49 155/57 03/03/25 14:42 16 95 Room Air* 0 21 03/03/25 12:50 53 16 155/57 (89) 98 03/03/25 12:49 98.0 60 16 138/78 96 98.0 03/03/25 12:49 55 Lab Test 03/03/25 15:10 03/03/25 13:25 Range/Units Urine Color Dark-yellow Yellow Urine Clarity Turbid H Clear Urine pH 8.0 5.0-9.0 Urine Specific [place] 1.018 1.001-1.035 Urine Protein Negative Negative Urine Ketones Trace Negative Urine Blood Negative Negative /uL Urine Nitrite 1+ H Negative Urine Bilirubin Negative Negative Urine Urobilinogen Normal Negative mg/dL Urine Leukocyte Esterase 3+ Negative /uL Urine RBC 5 0 - 4 /hpf Urine Microscopic WBC 47 H 0-5 /HPF Urine Squamous Epithelial Cells Few <5 /hpf Urine Triple Phosphate Crystals Few None Seen /hpf Urine Bacteria None seen None Seen /hpf Urine Glucose Normal Normal mg/dL White Blood Count 5.2 4.4-10.8 10^3/uL Red Blood Count 3.54 L 4.0-5.20 10^6/uL Hemoglobin 12.3 12.2-16.2 g/dL Hematocrit 35.8 L 36.0-46.0 % Mean Corpuscular Volume 101.0 H 80.0-100.0 fL Mean Corpuscular Hemoglobin 34.8 H 28.0-32.0 pg Mean Corpuscular Hemoglobin Concent 34.4 32.0-36.0 g/dL Red Cell Distribution Width 14.0 11.8-14.3 % Platelet Count 154 140-450 10^3/uL Mean Platelet Volume 7.9 6.9-10.8 fL Neutrophils (%) (Auto) 59.9 37.0-80.0 % Lymphocytes (%) (Auto) 27.6 10.0-50.0 % Monocytes (%) (Auto) 11.1 0.0-12.0 % Eosinophils (%) (Auto) 1.2 0.0-7.0 % Basophils (%) (Auto) 0.2 0.0-2.0 % Neutrophils # (Auto) 3.1 1.6-8.6 10 ^3/uL Lymphocytes # (Auto) 1.4 0.4-5.4 10 ^3/uL Monocytes # (Auto) 0.6 0-1.3 10 ^3/uL Eosinophils # (Auto) 0.1 0-0.8 10 ^3/uL Basophils # (Auto) 0 0-0.2 10 ^3/uL Nucleated Red Blood Cells 0.0 % Sodium Level 137 136-145 mmol/L Potassium Level 6.2 *H 3.5-5.1 mmol/L Chloride Level 107 98-107 mmol/L Carbon Dioxide Level 25 20-31 mmol/L Anion Gap 5 5-15 Blood Urea Nitrogen 19 9-23 mg/dL Creatinine 0.86 0.550-1.02 mg/dL Glomerular Filtration Rate Calc 67 >90 mL/min BUN/Creatinine Ratio 22.1 H 10.0-20.0 Serum Glucose 74 74-106 mg/dL Calcium Level 9.8 8.7-10.4 mg/dL Total Bilirubin 0.4 0.2-1.0 mg/dL Aspartate Amino Transferase (AST) 28 13-40 U/L Alanine Aminotransferase (ALT) 20 7-40 U/L Alkaline Phosphatase 92 46-116 U/L Total Protein 7.6 5.7-8.2 g/dL Albumin 3.8 3.2-4.8 g/dL Current Medications Medications (Trade) Dose Ordered Sig/Maylin Route Start Time Stop Time Status Last Admin Insulin Human Regular (InsuLIN R) 10 units ONCE ONCE IV 03/03/25 14:15 03/03/25 14:16 DC 03/03/25 14:50 Dextrose 50 ml ONCE ONCE IV 03/03/25 14:15 03/03/25 14:16 DC 03/03/25 14:50 Albuterol (Ventolin Medneb) 20 mg ONCE ONCE NEB 03/03/25 14:15 03/03/25 14:16 DC 03/03/25 14:41 Sodium Bicarbonate 50 ml ONCE ONCE IV 03/03/25 14:15 03/03/25 14:16 DC 03/03/25 14:50 Furosemide (Lasix Injection) 20 mg ONCE ONCE IV 03/03/25 14:15 03/03/25 14:16 DC 03/03/25 14:49 Calcium Gluconate/ Sodium Chloride 50 ml @ 120 mls/hr ONCE ONCE IV 03/03/25 14:15 03/03/25 14:39 DC 03/03/25 14:43 Patient does answer simple questions. Vitals stable. She is currently taking antibiotics for urinary tract infection. WBC within normal limits. Urinalysis shows UTI. Establish intravenous access. Was given fluids. Was given Rocephin. Potassium is elevated. Was given hyperkalemia treatment. Continue to monitor. Time of 1ST Reevaluation: 14:00 Reevaluation 1ST: Unchanged Patient Education/Counseling: Diagnosis, Treatment Family Education/Counseling: No Family Present SEPSIS Sepsis Screen Date sepsis recognized/suspect: Mar 03, 2025 Time Sepsis recognized/suspect: 1253 Recent Procedure: No On Antibiotic Therapy: No Respiratory Rate >20: No Heart Rate >90: No Temp<36 C (96.8 F) or >38.3 C: No SBP <90 or MAP <65 mmHG: No New Acute Mental Status Change: No Is the patient on CPAP, BIPAP,: No Physician Orders Chest Portable (03/03/25 13:05) Potassium (03/03/25 18:04) Vital Signs Date Time Temp Pulse Resp B/P (MAP) Pulse Ox O2 Delivery O2 Flow Rate FiO2 03/03/25 14:49 155/57 03/03/25 14:42 16 95 Room Air* 0 21 03/03/25 12:50 53 16 155/57 (89) 98 03/03/25 12:49 98.0 60 16 138/78 96 98.0 03/03/25 12:49 55 Laboratory Tests Test 03/03/25 13:25 White Blood Count 5.2 10^3/uL (4.4-10.8) Medications Medications Dose Ordered Sig/Maylin Route Start Time Stop Time Status Last Admin Dose Admin Albuterol 20 mg ONCE ONCE NEB 03/03/25 14:15 03/03/25 14:16 DC 03/03/25 14:41 Calcium Gluconate/ Sodium Chloride 50 ml @ 120 mls/hr ONCE ONCE IV 03/03/25 14:15 03/03/25 14:39 DC 03/03/25 14:43 Dextrose 50 ml ONCE ONCE IV 03/03/25 14:15 03/03/25 14:16 DC 03/03/25 14:50 Furosemide 20 mg ONCE ONCE IV 03/03/25 14:15 03/03/25 14:16 DC 03/03/25 14:49 Insulin Human Regular 10 units ONCE ONCE IV 03/03/25 14:15 03/03/25 14:16 DC 03/03/25 14:50 Sodium Bicarbonate 50 ml ONCE ONCE IV 03/03/25 14:15 03/03/25 14:16 DC 03/03/25 14:50 Departure 1 Departure Time of Disposition: 15:27 Impression: Primary Impression: Hyperkalemia Additional Impression: Sepsis due to urinary tract infection Disposition: 09 ADMITTED INPATIENT Admit to: Med Surg Condition: Guarded Critical Care Note Critical Care Time?: Yes (90 min-critical care time only) Stability Stability form required: No Heart Score Heart Score: Heart Score Response (Comments) Value History Slightly Suspicious 0 EKG Normal 0 Age >65 2 Risk Factors >3 or Hx ASHD 2 Troponin Normal limit 0 Total 4 I personally scribed for THERESE PRESSLEY MD ([email or web address]) on 03/03/25 at 13:16. Electronically submitted by Ravin Shell [email or web address]). THERESE PRESSLEY MD Mar 03, 2025 13:16
[2025-03-03 13:33] LABS: Hematocrit 35.8 % (36.0-46.0); Hemoglobin 12.3 g/dL (12.2-16.2); Mean Corpuscular Hemoglobin 34.8 pg (28.0-32.0); Mean Corpuscular Volume 101.0 fL (80.0-100.0); Nucleated Red Blood Cells % 0.0 %
--- NOTE | 2025-03-03 13:43 | DVH ---
XY CHEST PORTABLE, HISTORY: sob COMPARISON: XY CHEST XRAY 1 VIEW on DOS: 08/27/24, XY CHEST PORTABLE on DOS: 05/01/24, XY CHEST PORTAB LE on DOS: 04/07/24 XY CHEST XRAY 1 VIEW on DOS: 08/27/24, XY CHEST PORTABLE on DOS: 05/01/24, XY CHEST PORTABLE on DOS: 1 06/07/23 TECHNICAL DATA: 1 view of the chest was obtained. FINDINGS: Lines and tubes: None Cardiomediastinal silhouette: normal Pulmonary vasculature: prominent Lung expansion: normal Lung airspace: normal Lung interstitium: normal Pleura: normal Pneumothorax: no Bones: Unremarkable Other: no IMPRESSION: Pulmonary vascular congestion.
[2025-03-03 13:47] LABS: Alanine Aminotransferase 20 U/L (7-40); Albumin 3.8 g/dL (3.2-4.8); Alkaline Phosphatase 92 U/L (46-116); Anion Gap 5 (5-15); BUN/Creatinine Ratio 22.1 (10.0-20.0); Blood Urea Nitrogen 19 mg/dL (9-23); Calcium 9.8 mg/dL (8.7-10.4); Carbon Dioxide 25 mmol/L (20-31); Chloride 107 mmol/L (98-107); Glucose 74 mg/dL (74-106); Sodium 137 mmol/L (136-145); Total Protein 7.6 g/dL (5.7-8.2)
[2025-03-03 13:48] LABS: Bilirubin, Total 0.4 mg/dL (0.2-1.0)
[2025-03-03 13:51] LABS: Potassium 6.2 mmol/L (3.5-5.1)
--- NOTE | 2025-03-03 14:11 | ECG ---
[facility] Test Date: 2025-03-03 Test Time: 12:49:32 Pat Name: KIAH MERCEDES Department: [facility] ED Patient ID: [id number] Room: 0288T Gender: F Motor Checker: aur[place] : 1940 Requested By: THERESE PRESSLEY Order Number: [id number] Reading MD: Suleiman Solis Measurements Intervals [place] Rate: 55 P: 0 UT: 0 QRS: 2 QRSD: 116 T: 71 QT: 476 QTc: 456 Interpretive Statements Junctional rhythm Nonspecific intraventricular conduction delay Low voltage, precordial leads Electronically Signed On 03-05-2025 18:44:35 PDT by Suleiman Solis Please click the below link to view image of tracing.
[2025-03-03] MEDS: ALBUTEROL SULF 2.5 MG/0.5ML(0.5%) NEB SOLN NEB ONE (14:41)
[2025-03-03] MEDS: CALCIUM GLUC 1,000mg/50ml-NS 50 ML IV ONE (14:43)
[2025-03-03] MEDS: FUROSEMIDE 20 MG/2 ML VIAL IV ONE (14:49)
[2025-03-03] MEDS: InsuLIN REG 1unit/0.01ml Soln (100units/ml) IV ONE (14:50)
[2025-03-03] MEDS: DEXTROSE (50%) 50ML SYRG IV ONE (14:50)
[2025-03-03] MEDS: SODIUM BICARB 8.4% 50Meq/50ml SYR INJ IV ONE (14:50)
[2025-03-03] MEDS: SODIUM ZIRCONIUM CYCL 10 GM PAK PO ONE (14:52)
[2025-03-03 15:20] LABS: Urine Protein, UAD Negative (Negative)
[2025-03-03] MEDS: LORazepam 2MG/ML-1ML VIAL IV ONE (16:59)
[2025-03-03] MEDS ORDERED: LORazepam 0.5 MG TAB PO ONE (17:00)
[2025-03-03] MEDS: SODIUM CHLORIDE 0.9% 1,000 ML IV ONE ×2 (17:30→23:32)
[2025-03-03] MEDS ORDERED: ONDANSETRON HCL 4 MG/2 ML VIAL IV PRN (21:30)
[2025-03-03] MEDS ORDERED: MORPHINE SULFATE INJ 2 MG/ml SYRG IV PRN (21:30)
[2025-03-03] MEDS ORDERED: ACETAMINOPHEN 325 MG TAB PO PRN (21:30)
--- NOTE | 2025-03-03 21:32 | DVHHPRES ---
History of Present Illness Resident Creating Document: BRADEN ONEIL History of Present Illness Dot Jimenez is a 84-year-old female patient who presents to the ER via EMS with chief complaint of altered mental status. EMS reports patient's family has noticed patient become more altered these past few days since being diagnosed with a UTI (currently on Bactrim). Patient has been in this facility multiple times due to similar complaints and she has been diagnosed with yeast, Citrobacter, Enterococcus UTI previously, has a chronic Borden catheter. Patient is somnolent, responding to simple questions, oriented only to person. Could not obtain review of systems due to clinical status, obtained past history from EMR. Past medical history: Hypertension, dyslipidemia, obesity, recurrent UTIs, sick sinus syndrome (no pacemaker), paroxysmal atrial fibrillation (Chads vasc 6), HFpEF (last echocardiogram 01/2025 LVEF 50%, mild global hypokinesis, mild AR and MR, concentric LVH, aortic root enlargement), ascending aortic aneurysm, macrocytosis with no anemia, history of breast mass s/p resection, Surgical history: Breast mass resection Family history: Unknown Social history: Lives in [place] with daughter (JAZZ). Unknown history of tobacco, alcohol and other drug abuse Allergies: Denies Home medications: Patient seen and examined at bedside. Currently somnolent, responds simple questions. GCS 12/15. Patient will be admitted for further management. Past Medical History Per HPI Past Surgical History Per HPI Family History Per HPI Past Social History Per HPI Review of Systems Review of Systems Per HPI Allergies: Coded Allergies: NO KNOWN ALLERGIES (Unverified , 06/14/22) Exam Vital Signs Vital Signs Date Time Temp Pulse Resp B/P (MAP) Pulse Ox O2 Delivery O2 Flow Rate FiO2 03/03/25 19:56 Room Air* 0 21 03/03/25 19:33 98.9 81 12 96/71 (79) 97 98.9 Exam Patient lying in bed, in no acute distress General: Best, somnolent, afebrile, mucosae are moist Cardiovascular: Normal S1 and S2. No murmurs, gallops or rubs Respiratory: Normal ventilation mechanics. Clear lung sounds on auscultation Abdomen: Soft, nontender, no organomegaly, normal bowel sounds MSK/skin: Mobilizes 4 limbs. Skin is dry and warm Neurological: Oriented in 1 spheres (only person). No motor no sensitive deficits. Pupils are isocoric and reactive Labs/Xrays Labs Test 03/03/25 17:58 03/03/25 15:10 03/03/25 13:25 Range/Units Potassium Level 4.1 # 3.5-5.1 mmol/L Urine Color Dark-yellow Yellow Urine Clarity Turbid H Clear Urine pH 8.0 5.0-9.0 Urine Specific [place] 1.018 1.001-1.035 Urine Protein Negative Negative Urine Ketones Trace Negative Urine Blood Negative Negative /uL Urine Nitrite 1+ H Negative Urine Bilirubin Negative Negative Urine Urobilinogen Normal Negative mg/dL Urine Leukocyte Esterase 3+ Negative /uL Urine RBC 5 0 - 4 /hpf Urine Microscopic WBC 47 H 0-5 /HPF Urine Squamous Epithelial Cells Few <5 /hpf Urine Triple Phosphate Crystals Few None Seen /hpf Urine Bacteria None seen None Seen /hpf Urine Glucose Normal Normal mg/dL White Blood Count 5.2 4.4-10.8 10^3/uL Red Blood Count 3.54 L 4.0-5.20 10^6/uL Hemoglobin 12.3 12.2-16.2 g/dL Hematocrit 35.8 L 36.0-46.0 % Mean Corpuscular Volume 101.0 H 80.0-100.0 fL Mean Corpuscular Hemoglobin 34.8 H 28.0-32.0 pg Mean Corpuscular Hemoglobin Concent 34.4 32.0-36.0 g/dL Red Cell Distribution Width 14.0 11.8-14.3 % Platelet Count 154 140-450 10^3/uL Mean Platelet Volume 7.9 6.9-10.8 fL Neutrophils (%) (Auto) 59.9 37.0-80.0 % Lymphocytes (%) (Auto) 27.6 10.0-50.0 % Monocytes (%) (Auto) 11.1 0.0-12.0 % Eosinophils (%) (Auto) 1.2 0.0-7.0 % Basophils (%) (Auto) 0.2 0.0-2.0 % Neutrophils # (Auto) 3.1 1.6-8.6 10 ^3/uL Lymphocytes # (Auto) 1.4 0.4-5.4 10 ^3/uL Monocytes # (Auto) 0.6 0-1.3 10 ^3/uL Eosinophils # (Auto) 0.1 0-0.8 10 ^3/uL Basophils # (Auto) 0 0-0.2 10 ^3/uL Nucleated Red Blood Cells 0.0 % Sodium Level 137 136-145 mmol/L Chloride Level 107 98-107 mmol/L Carbon Dioxide Level 25 20-31 mmol/L Anion Gap 5 5-15 Blood Urea Nitrogen 19 9-23 mg/dL Creatinine 0.86 0.550-1.02 mg/dL Glomerular Filtration Rate Calc 67 >90 mL/min BUN/Creatinine Ratio 22.1 H 10.0-20.0 Serum Glucose 74 74-106 mg/dL Calcium Level 9.8 8.7-10.4 mg/dL Total Bilirubin 0.4 0.2-1.0 mg/dL Aspartate Amino Transferase (AST) 28 13-40 U/L Alanine Aminotransferase (ALT) 20 7-40 U/L Alkaline Phosphatase 92 46-116 U/L Total Protein 7.6 5.7-8.2 g/dL Albumin 3.8 3.2-4.8 g/dL SEPSIS Sepsis Screen Date sepsis recognized/suspect: Mar 03, 2025 Time Sepsis recognized/suspect: 1932 Recent Procedure: No On Antibiotic Therapy: No Respiratory Rate >20: No Heart Rate >90: No Temp<36 C (96.8 F) or >38.3 C: No SBP <90 or MAP <65 mmHG: No New Acute Mental Status Change: No Is the patient on CPAP, BIPAP,: No Physician Orders Urine Bacterial Culture (03/03/25 15:28) Admit (03/03/25 21:27) Code Status (03/03/25 21:27) Acetaminophen Tablet (Tylenol Tablet) (03/03/25 21:30) Ondansetron Hcl (Zofran) (03/03/25 21:30) Complete Blood Count (03/04/25 04:00) Comprehensive Metabolic Panel (03/04/25 04:00) Npo (Nothing By Mouth) Diet (03/04/25 Breakfast) Morphine Sulfate Injection (03/03/25 21:30) Lovenox 40mg (03/04/25 10:00) Oxygen By Nasal Cannula (03/03/25 21:27) Stat Ekg For Chest Pain (03/03/25 21:27) Notify Of Changes From Base (03/03/25 21:27) Replenishment Associate For 24 Hours (03/03/25 21:27) Emergency Dysrhythmia Protocol (03/03/25 21:) Rhythm Strips Once Every Shift (03/03/25 21:27) Vitamin D, 25-Hydroxy (03/03/25 21:27) Vitamin B12 (03/03/25 21:27) Thyroid Stimulating Hormone (03/03/25 21:27) PTPTT (03/03/25 21:) Phosphorus (03/03/25 21:) Magnesium (03/03/25 21:27) Lipid Panel (03/03/25:) Lipase (03/03/25 21:) Lactic Acid W/ Reflex Order (03/03/25 21:) Hemoglobin A1c (03/03/25 21:) Drug Screen (03/03/25 21:27) Blood Culture (03/03/25 21:27) Respiratory Culture W/ Gs (03/03/25 21:27) Ceftriaxone Ivpb Rocephin (03/04/25 09:00) Pantoprazole (Protonix) (03/04/25 10:00) Pantoprazole (Protonix) (03/03/25 21:30) Vital Signs Date Time Temp Pulse Resp B/P (MAP) Pulse Ox O2 Delivery O2 Flow Rate FiO2 03/03/25 19:56 Room Air* 0 21 03/03/25 19:33 98.9 81 12 96/71 (79) 97 98.9 03/03/25 18:33 101 16 91/40 (57) 98 03/03/25 16:30 101 16 101/53 (69) 98 03/03/25 14:49 155/57 03/03/25 14:42 16 95 Room Air* 0 21 Laboratory Tests Test 03/03/25 13:25 White Blood Count 5.2 10^3/uL (4.4-10.8) Medications Medications Dose Ordered Sig/Maylin Route Start Time Stop Time Status Last Admin Dose Admin Albuterol 20 mg ONCE ONCE NEB 03/03/25 14:15 03/03/25 14:16 DC 03/03/25 14:41 20 MG Calcium Gluconate/ Sodium Chloride 50 ml @ 120 mls/hr ONCE ONCE IV 03/03/25 14:15 03/03/25 14:39 DC 03/03/25 14:43 120 MLS/HR Ceftriaxone Sodium 50 ml @ 100 mls/hr ONCE ONCE IV 03/03/25 15:30 03/03/25 15:59 DC 03/03/25 15:52 100 MLS/HR Dextrose 50 ml ONCE ONCE IV 03/03/25 14:15 03/03/25 14:16 DC 03/03/25 14:50 50 ML Furosemide 20 mg ONCE ONCE IV 03/03/25 14:15 03/03/25 14:16 DC 03/03/25 14:49 20 MG Insulin Human Regular 10 units ONCE ONCE IV 03/03/25 14:15 03/03/25 14:16 DC 03/03/25 14:50 10 UNITS Lorazepam 0.5 mg ONCE ONCE IV 03/03/25 17:00 03/03/25 17:01 DC 03/03/25 16:59 0.5 MG Sodium Bicarbonate 50 ml ONCE ONCE IV 03/03/25 14:15 03/03/25 14:16 DC 03/03/25 14:50 50 ML Sodium Chloride 1,000 ml @ 1,000 mls/hr Q1H ONCE IV 03/03/25 17:30 03/03/25 18:46 DC 03/03/25 18:48 1,000 MLS/HR Assessment/Plan Assessment/Plan ASSESSMENT Metabolic encephalopathy secondary to sepsis Sepsis likely secondary to complicated UTI Acute cystitis with a history of recurrent UTIs Hyperlactacidemia Hyperkalemia - resolved Chronic diastolic heart failure (LVEF 50%) Sick sinus syndrome with tachy-afshan events Paroxysmal Atrial fibrillation -CHADS-VASc score 6 Ascending aortic aneurysm measuring 4.5 cm Macrocytosis but no anemia Probable Dementia Dyslipidemia Hypertension Diabetes Obesity Vitamin D deficiency History of breast mass - s/p resection PLAN Patient has a history of Citrobacter, yeast, Enterococcus UTI. UA compatible with UTI. Currently under broad spectrum empiric IV antibiotics (Meropenem) Ordered pancultures (blood, urine, sputum). Pending result Completed head CT which ruled out acute intracranial pathology Completed hyperkalemia protocol. Resolved. On therapeutic Lovenox due to history of A-fib. NPO. Ordered swallow evaluation. Once cleared, can restart home medication and add Vitamin D. Goals of care cannot be discussed with patient. Per previous notes patient is Full code. Pending discussion with family. Case discussed with Dr. Wilkes and nurses: Admitted to telemetry. Currently under broad spectrum empiric IV antibiotics, IV fluids, NPO and hyperkalemia protocol. Patient has poor prognosis Plan discussed with: Other (Nurses) My Orders Orders - BRADEN ONEIL RESIDENT Procedure Category Date Status Time Admit ADMIT 03/03/25 Verified 21:27 Code Status CODE 03/03/25 Verified 21:27 Acetaminophen Tablet PHA 03/03/25 Verified (Tylenol Tablet) 21:30 Ondansetron Hcl PHA 03/03/25 Verified (Zofran) 21:30 Complete Blood Count LAB 03/04/25 Verified 04:00 Comprehensive LAB 03/04/25 Verified Metabolic Panel 04:00 Npo (Nothing By DIET 03/04/25 Verified Mouth) Diet Breakfast Morphine Sulfate PHA 03/03/25 Verified Injection 21:30 Lovenox 40mg PHA 03/04/25 Verified 10:00 Oxygen By Nasal RT 03/03/25 Verified Cannula 21:27 Stat Ekg For Chest [facility] 03/03/25 Verified Pain 21:27 Notify Md Of Changes [facility] 03/03/25 Verified From Base 21:27 Replenishment Associate For [facility] 03/03/25 Verified 24 Hours 21:27 [address] [facility] 03/03/25 Verified Protocol 21:27 Rhythm [address]ps [address] [facility] 03/03/25 Verified Every Shift 21:27 Vitamin D, 25-Hydroxy LAB 03/03/25 Verified 21:27 Vitamin B12 LAB 03/03/25 Verified 21:27 Thyroid Stimulating LAB 03/03/25 Verified Hormone 21:27 PTPTT LAB 03/03/25 Verified 21:27 Phosphorus LAB 03/03/25 Verified 21:27 Magnesium LAB 03/03/25 Verified 21:27 Lipid Panel LAB 03/03/25 Verified 21:27 Lipase LAB 03/03/25 Verified 21:27 Lactic Acid W/ Reflex LAB 03/03/25 Verified Order 21:27 Hemoglobin A1c LAB 03/03/25 Verified 21:27 Drug Screen LAB 03/03/25 Verified 21:27 Blood Culture DARIELA 03/03/25 Verified 21:27 Respiratory Culture DARIELA 03/03/25 Verified W/ Gs 21:27 Ceftriaxone Ivpb PHA 03/04/25 Verified Rocephin 09:00 Pantoprazole PHA 03/04/25 Verified (Protonix) 10:00 Pantoprazole PHA 03/03/25 Verified (Protonix) 21:30 Date of Service: Mar 03, 2025 Billing Provider: NKECHI WILKES MD Common Visit Codes: [id number] INP/OBS CARE (HIGH) Secondary Visit Codes: [id number] CARE PLAN 30 MINUTES BRADEN ONEIL RESIDENT Mar 03, 2025 21:32
[2025-03-03] MEDS: PANTOPRAZOLE 40 MG/10 ML VIAL INJ IV ONE (21:58)
[2025-03-03 22:23] LABS: Triglycerides 64.0 mg/dL (< 150)
[2025-03-03 22:24] LABS: Magnesium 1.7 mg/dL (1.6-2.6)
[2025-03-03 22:26] LABS: Cholesterol 163.0 mg/dL (< 200); HDL Cholesterol 66.0 mg/dL (40-59)
[2025-03-03 22:36] LABS: Lipase 30.0 U/L (12-53)
[2025-03-03 23:01] LABS: INR 1.0 (0.9-1.15); Partial Thromboplastin Time 29.6 SEC (24.5-34.5); Prothrombin Time 10.6 sec (9.3-11.8)
[2025-03-03 23:22] LABS: Lactic Acid w/Reflex 2.7 mmol/L (0.4-2.0)
--- NOTE | 2025-03-03 23:26 | DVH ---
EXAM: CT HEAD WITHOUT CONTRAST INDICATION: ALOC TECHNIQUE: CT of the head without intravenous contrast. Radiation Dose Information: CT Dose: CTDI volume is 57.92 mGy. Dose-length product is 3420.86 mGy*cm The dose indicators for CT are the volume Computed Tomography (CT) Dose Index (CTDIvol) and the Dose Length Product (DLP), and are measured in units of mGy and mGy-cm, respectively. These indicators are not patient dose, but values generated from the CT scanner acquisition factors. The report includes radiation exposure data for exposures received during this examination. COMPARISON: CT HEAD WITHOUT CONTRAST on DOS: 04/07/24, MRI BRAIN HEAD WO CONTRAST on DOS: 04/02/24, C T HEAD WITHOUT CONTRAST on DOS: 03/28/24, CT HEAD WITHOUT CONTRAST on DOS: 06/04/23, CT HEAD WITHOUT C ONTRAST on DOS: 05/16/23 FINDINGS: There is no evidence of acute intracranial hemorrhage, extra-axial collection, mass effect, midline s hift, herniation or hydrocephalus. The ventricles, sulci and cisterns are age appropriate. The crespo-white differentiation is intact. Patchy periventricular and subcortical white matter hypoattenuation is nonspecific but may be related to small vessel ischemic disease. The visualized paranasal sinuses and mastoid air cells are clear. The surrounding soft tissues and osseous structures are unremarkable. IMPRESSION: No acute intracranial abnormality.
[2025-03-04] VITALS (7 sets, daily range): BP systolic 134–164; BP diastolic 76–87; PULSE 61–75; RESP 12–18; TEMP 97.6–98.2; O2SAT 96–100
[2025-03-04 06:04] LABS: Mean Corpuscular Volume 100.7 fL (80.0-100.0)
[2025-03-04 06:07] LABS: Hematocrit 30.9 % (36.0-46.0); Hemoglobin 10.6 g/dL (12.2-16.2); Mean Corpuscular Hemoglobin 34.4 pg (28.0-32.0); Nucleated Red Blood Cells % 0.1 %
[2025-03-04 06:21] LABS: Alanine Aminotransferase 19 U/L (7-40); Albumin 3.3 g/dL (3.2-4.8); Alkaline Phosphatase 77 U/L (46-116); Anion Gap 9 (5-15); BUN/Creatinine Ratio 21.3 (10.0-20.0); Blood Urea Nitrogen 20 mg/dL (9-23); Calcium 8.9 mg/dL (8.7-10.4); Carbon Dioxide 24 mmol/L (20-31); Potassium 5.1 mmol/L (3.5-5.1); Sodium 142 mmol/L (136-145); Total Protein 6.6 g/dL (5.7-8.2)
[2025-03-04 06:22] LABS: Bilirubin, Total 0.4 mg/dL (0.2-1.0)
[2025-03-04 06:24] LABS: Chloride 109 mmol/L (98-107); Glucose 60 mg/dL (74-106)
[2025-03-04] MEDS: ENOXAPARIN SOD 40 MG/0.4 ML SYRINGE SC SCH (10:16)
[2025-03-04] MEDS: PANTOPRAZOLE 40 MG/10 ML VIAL INJ IV SCH (10:16)
--- NOTE | 2025-03-04 15:03 | DVHPN2 ---
Changes from previous H/P or p: No Changes Objective Vitals Vital Signs Date Time Temp Pulse Resp B/P (MAP) Pulse Ox O2 Delivery O2 Flow Rate FiO2 03/04/25 13:05 72 12 98 Nasal Cannula* 2 28 03/04/25 13:00 98.9 127/48 (74) 98.9 Intake/Output Intake and Output 03/04/25 07:00 Intake Total 100 ml Balance 100 ml Intake IV Total 100 ml Medications Current Medications Medications Dose Ordered Sig/Maylin Route Start Time Stop Time Status Last Admin Dose Admin Acetaminophen 325 mg Q4HP PRN PO 03/03/25 21:30 Ondansetron HCl 4 mg Q4HP PRN IV 03/03/25 21:30 Morphine Sulfate 2 mg Q4HPRN PRN IV 03/03/25 21:30 Pantoprazole Sodium 40 mg DAILY IV 03/04/25 10:00 03/04/25 10:16 40 MG Meropenem 50 ml @ 17 mls/hr Q8HR IV 03/04/25 14:00 Enoxaparin Sodium 90 mg Q12HR SC 03/04/25 22:00 Fluconazole 100 ml @ 100 mls/hr DAILY IV 03/05/25 10:00 Laboratory Results Laboratory Tests 03/04/25 05:22 Chemistry Test 03/03/25 17:58 03/04/25 05:22 Magnesium Level 1.7 mg/dL (1.6-2.6) Phosphorus Level 3.0 mg/dL (2.4-5.1) Albumin 3.3 g/dL (3.2-4.8) Calcium Level 8.9 mg/dL (8.7-10.4) Total Protein 6.6 g/dL (5.7-8.2) Coagulation Test 03/03/25 21:50 Prothrombin Time 10.6 sec (9.3-11.8) Prothrombin Time INR 1.00 (0.9-1.15) Activated Partial Thromboplast Time 29.6 SEC (24.5-34.5) Lipid panel Test 03/03/25 17:58 Cholesterol Level 163 mg/dL (< 200) HDL Cholesterol 66 mg/dL (40-59) H Lipase 30 U/L (12-53) Triglycerides Level 64 mg/dL (< 150) LFT Test 03/04/25 05:22 Alanine Aminotransferase (ALT) 19 U/L (7-40) Alkaline Phosphatase 77 U/L (46-116) Aspartate Amino Transferase (AST) 27 U/L (13-40) Total Bilirubin 0.4 mg/dL (0.2-1.0) HgA1c, TSH Test 03/03/25 17:58 Thyroid Stimulating Hormone (TSH) 1.49 uIU/mL (0.55-4.78) Urinalysis Test 03/03/25 15:10 Urine Color Dark-yellow (Yellow) Urine Clarity Turbid (Clear) H Urine pH 8.0 (5.0-9.0) Urine Specific [place] 1.018 (1.001-1.035) Urine Protein Negative (Negative) Urine Ketones Trace (Negative) Urine Blood Negative /uL (Negative) Urine Nitrite 1+ (Negative) H Urine Bilirubin Negative (Negative) Urine Urobilinogen Normal mg/dL (Negative) Urine Leukocyte Esterase 3+ /uL (Negative) Urine RBC 5 /hpf (0 - 4) Urine Microscopic WBC 47 /HPF (0-5) H Urine Squamous Epithelial Cells Few /hpf (<5) Urine Triple Phosphate Crystals Few /hpf (None Seen) Urine Bacteria None seen /hpf (None Seen) Urine Glucose Normal mg/dL (Normal) Microbiology Microbiology Date/Time Source Procedure Growth Status 03/03/25 15:10 Urine - [place] Urine Culture - Preliminary Resulted Labs and/or images reviewed: Labs reviewed by me, Image(s) reviewed by me Assessment/Plan Assessment/Plan Metabolic encephalopathy secondary to sepsis Sepsis likely secondary to complicated UTI blood cultures urine cultures meropenem Yeast in urine: Diflucan Acute cystitis with a history of recurrent UTIs Hyperlactacidemia Hyperkalemia - resolved Chronic diastolic heart failure (LVEF 50%) Sick sinus syndrome with tachy-afshan events Paroxysmal Atrial fibrillation -CHADS-VASc score 6 Ascending aortic aneurysm measuring 4.5 cm Macrocytosis but no anemia Probable Dementia Dyslipidemia Hypertension Diabetes Obesity Vitamin D deficiency History of breast mass - s/p resection Time spent 70 minutes Advanced care planning time 20 mts Patient is full code Plan discussed with: Patient Date of Service: Mar 04, 2025 Billing Provider: BOO TELLES MD Common Visit Codes: [id number] CARE 30-74 MIN BOO TELLES MD Mar 04, 2025 15:03
[2025-03-04] MEDS: FLUCONAZOLE 200MG/100ML 100 ML IV ONE (15:23)
[2025-03-04] MEDS: MEROPENEM 1GM IVPB 50 ML IV SCH (17:35)
[2025-03-04] MEDS: ENOXAPARIN SOD 100 MG/1 ML SYRINGE SC SCH (22:17)
[2025-03-04 23:53] LABS: Opiate Scree,Urine Neg (NEGATIVE)
[2025-03-05] VITALS (8 sets, daily range): BP systolic 118–150; BP diastolic 61–97; PULSE 62–85; RESP 14–20; TEMP 96.3–98.1; O2SAT 93–100
[2025-03-05 00:02] LABS: Amphetamine Screen, Urine Neg (NEGATIVE); Barbiturate Scree,Urine Neg (NEGATIVE); Benzodiazephine Screen, Urine Neg (NEGATIVE); Cannabinoid Screen, Urine Neg (NEGATIVE); Cocaine Screen, Urine Neg (NEGATIVE); Phencyclidine Screen, Urine Neg (NEGATIVE)
[2025-03-05] MEDS: FLUCONAZOLE 200MG/100ML 100 ML IV SCH (09:24)
--- NOTE | 2025-03-05 13:43 | DVHPN2 ---
Reviewed: Care Plan, H&P, Labs, Medications, Previous Orders, Radiology Changes from previous H/P or p: No Changes Objective Vitals Vital Signs Date Time Temp Pulse Resp B/P (MAP) Pulse Ox O2 Delivery O2 Flow Rate FiO2 03/05/25 09:00 97.4 65 14 138/97 (111) 96 97.4 03/05/25 08:00 Nasal Cannula* 2 28 Intake/Output Intake and Output 03/05/25 07:00 Intake Total 270 ml Output Total 2055 ml Balance -1785 ml Intake Oral 0 ml IV Total 270 ml Output Urine Total 2055 ml Medications Current Medications Medications Dose Ordered Sig/Maylin Route Start Time Stop Time Status Last Admin Dose Admin Acetaminophen 325 mg Q4HP PRN PO 03/03/25 21:30 Ondansetron HCl 4 mg Q4HP PRN IV 03/03/25 21:30 Morphine Sulfate 2 mg Q4HPRN PRN IV 03/03/25 21:30 Pantoprazole Sodium 40 mg DAILY IV 03/04/25 10:00 03/05/25 09:24 40 MG Meropenem 50 ml @ 17 mls/hr Q8HR IV 03/04/25 14:00 03/05/25 05:14 17 MLS/HR Enoxaparin Sodium 90 mg Q12HR SC 03/04/25 22:00 03/05/25 09:24 90 MG Fluconazole 100 ml @ 100 mls/hr DAILY IV 03/05/25 10:00 03/05/25 09:24 100 MLS/HR Laboratory Results Laboratory Tests 03/04/25 05:22 Urinalysis Test 03/03/25 15:10 Urine Color Dark-yellow (Yellow) Urine Clarity Turbid (Clear) H Urine pH 8.0 (5.0-9.0) Urine Specific [place] 1.018 (1.001-1.035) Urine Protein Negative (Negative) Urine Ketones Trace (Negative) Urine Blood Negative /uL (Negative) Urine Nitrite 1+ (Negative) H Urine Bilirubin Negative (Negative) Urine Urobilinogen Normal mg/dL (Negative) Urine Leukocyte Esterase 3+ /uL (Negative) Urine RBC 5 /hpf (0 - 4) Urine Microscopic WBC 47 /HPF (0-5) H Urine Squamous Epithelial Cells Few /hpf (<5) Urine Triple Phosphate Crystals Few /hpf (None Seen) Urine Bacteria None seen /hpf (None Seen) Urine Glucose Normal mg/dL (Normal) Microbiology Microbiology Date/Time Source Procedure Growth Status 03/03/25 22:10 Blood Blood Culture - Preliminary NO GROWTH AFTER 24 HOURS OF INCUBATION. Resulted 03/03/25 15:10 Urine - [place] Urine Culture - Preliminary Resulted Labs and/or images reviewed: Labs reviewed by me, Image(s) reviewed by me Assessment/Plan Assessment/Plan Acute Metabolic encephalopathy secondary to sepsis Sepsis likely secondary to complicated UTI blood cultures urine cultures meropenem Yeast in urine: Diflucan Acute cystitis with a history of recurrent UTIs Hyperlactacidemia Hyperkalemia - resolved Chronic diastolic heart failure (LVEF 50%) Sick sinus syndrome with tachy-afshan events Paroxysmal Atrial fibrillation -CHADS-VASc score 6 Ascending aortic aneurysm measuring 4.5 cm Macrocytosis but no anemia Probable Dementia Dyslipidemia Hypertension Diabetes Obesity Vitamin D deficiency History of breast mass - s/p resection Time spent 50 minutes Advanced care planning time 20 mts Patient is full code Plan discussed with: Patient Date of Service: Mar 05, 2025 Billing Provider: BOO TELLES MD Common Visit Codes: [id number] INP/OBS CARE(HIGH) BOO TELLES MD Mar 05, 2025 13:43
[2025-03-06] VITALS (7 sets, daily range): BP systolic 102–146; BP diastolic 49–92; PULSE 53–69; RESP 16–18; TEMP 97.1–97.5; O2SAT 93–99
--- NOTE | 2025-03-06 12:16 | DVHPN2 ---
Reviewed: Care Plan, H&P, Labs, Medications, Previous Orders, Radiology Changes from previous H/P or p: No Changes Objective Vitals Vital Signs Date Time Temp Pulse Resp B/P (MAP) Pulse Ox O2 Delivery O2 Flow Rate FiO2 03/06/25 09:00 97.3 54 16 145/68 (93) 98 97.3 03/06/25 08:00 Nasal Cannula* 2 28 Intake/Output Intake and Output 03/06/25 07:00 Intake Total 810 ml Output Total 950 ml Balance -140 ml Intake Oral 540 ml IV Total 270 ml Output Urine Total 950 ml # Voids 2 Medications Current Medications Medications Dose Ordered Sig/Maylin Route Start Time Stop Time Status Last Admin Dose Admin Acetaminophen 325 mg Q4HP PRN PO 03/03/25 21:30 Ondansetron HCl 4 mg Q4HP PRN IV 03/03/25 21:30 Morphine Sulfate 2 mg Q4HPRN PRN IV 03/03/25 21:30 Pantoprazole Sodium 40 mg DAILY IV 03/04/25 10:00 03/06/25 10:13 40 MG Meropenem 50 ml @ 17 mls/hr Q8HR IV 03/04/25 14:00 03/06/25 05:16 17 MLS/HR Enoxaparin Sodium 90 mg Q12HR SC 03/04/25 22:00 03/06/25 10:13 90 MG Fluconazole 100 ml @ 100 mls/hr DAILY IV 03/05/25 10:00 03/06/25 10:13 100 MLS/HR Laboratory Results Laboratory Tests 03/04/25 05:22 Urinalysis Test 03/03/25 15:10 Urine Color Dark-yellow (Yellow) Urine Clarity Turbid (Clear) H Urine pH 8.0 (5.0-9.0) Urine Specific [place] 1.018 (1.001-1.035) Urine Protein Negative (Negative) Urine Ketones Trace (Negative) Urine Blood Negative /uL (Negative) Urine Nitrite 1+ (Negative) H Urine Bilirubin Negative (Negative) Urine Urobilinogen Normal mg/dL (Negative) Urine Leukocyte Esterase 3+ /uL (Negative) Urine RBC 5 /hpf (0 - 4) Urine Microscopic WBC 47 /HPF (0-5) H Urine Squamous Epithelial Cells Few /hpf (<5) Urine Triple Phosphate Crystals Few /hpf (None Seen) Urine Bacteria None seen /hpf (None Seen) Urine Glucose Normal mg/dL (Normal) Microbiology Microbiology Date/Time Source Procedure Growth Status 03/04/25 23:19 Nose MRSA Screen - Final Complete 03/03/25 22:10 Blood Blood Culture - Preliminary NO GROWTH AFTER 48 HOURS OF INCUBATION. Resulted 03/03/25 15:10 Urine - [place] Urine Culture - Final Escherichia coli Presumptive Lora albicans Complete Labs and/or images reviewed: Labs reviewed by me, Image(s) reviewed by me Assessment/Plan Assessment/Plan Acute Metabolic encephalopathy secondary to sepsis Sepsis likely secondary to complicated UTI blood cultures pending, urine cultures growing coli sensitive to Rocephin and meropenem Yeast in urine: Diflucan Acute cystitis with a history of recurrent UTIs Hyperlactacidemia Hyperkalemia - resolved Chronic diastolic heart failure (LVEF 50%): Lasix potassium Sick sinus syndrome with tachy-afshan events Paroxysmal Atrial fibrillation -CHADS-VASc score 6 Ascending aortic aneurysm measuring 4.5 cm Macrocytosis but no anemia Probable Dementia Dyslipidemia Hypertension Diabetes Obesity Vitamin D deficiency History of breast mass - s/p resection Time spent 50 minutes Advanced care planning time 20 mts Patient is full code Plan discussed with: Patient My Orders Orders - BOO TELLES MD Procedure Category Date Status Time Cardiac DIET 03/05/25 Transmitted Diet-2gna,Lofat,Lochol Lunch Date of Service: Mar 06, 2025 Billing Provider: BOO TELLES MD Common Visit Codes: [id number] INP/OBS CARE(HIGH) BOO TELLES MD Mar 06, 2025 12:16
[2025-03-06] MEDS: FUROSEMIDE 20 MG TAB PO SCH (17:08)
[2025-03-07] VITALS (8 sets, daily range): BP systolic 102–134; BP diastolic 50–66; PULSE 52–67; RESP 14–19; TEMP 96.9–98.1; O2SAT 90–100
[2025-03-07] MEDS: POTASSIUM CHL 20 Meq TABLET PO SCH (10:00)
--- NOTE | 2025-03-07 13:22 | DVHPN2 ---
Reviewed: Care Plan, H&P, Labs, Medications, Previous Orders, Radiology Changes from previous H/P or p: No Changes Objective Vitals Vital Signs Date Time Temp Pulse Resp B/P (MAP) Pulse Ox O2 Delivery O2 Flow Rate FiO2 03/07/25 12:50 97.2 66 14 102/63 (76) 100 97.2 03/06/25 20:10 Nasal Cannula* 2 28 Intake/Output Intake and Output 03/07/25 07:00 Intake Total 3000 ml Output Total 4050 ml Balance -1050 ml Intake Oral 2700 ml IV Total 300 ml Output Urine Total 4050 ml # Voids 3 Medications Current Medications Medications Dose Ordered Sig/Maylin Route Start Time Stop Time Status Last Admin Dose Admin Acetaminophen 325 mg Q4HP PRN PO 03/03/25 21:30 Ondansetron HCl 4 mg Q4HP PRN IV 03/03/25 21:30 Morphine Sulfate 2 mg Q4HPRN PRN IV 03/03/25 21:30 Pantoprazole Sodium 40 mg DAILY IV 03/04/25 10:00 03/07/25 08:52 40 MG Meropenem 50 ml @ 17 mls/hr Q8HR IV 03/04/25 14:00 03/07/25 06:08 17 MLS/HR Enoxaparin Sodium 90 mg Q12HR SC 03/04/25 22:00 03/07/25 08:53 90 MG Fluconazole 100 ml @ 100 mls/hr DAILY IV 03/05/25 10:00 03/06/25 10:13 100 MLS/HR Furosemide 40 mg BIDD PO 03/06/25 18:00 03/07/25 06:09 40 MG Potassium Chloride 20 meq DAILY PO 03/07/25 10:00 Laboratory Results Laboratory Tests 03/04/25 05:22 Urinalysis Test 03/03/25 15:10 Urine Color Dark-yellow (Yellow) Urine Clarity Turbid (Clear) H Urine pH 8.0 (5.0-9.0) Urine Specific [place] 1.018 (1.001-1.035) Urine Protein Negative (Negative) Urine Ketones Trace (Negative) Urine Blood Negative /uL (Negative) Urine Nitrite 1+ (Negative) H Urine Bilirubin Negative (Negative) Urine Urobilinogen Normal mg/dL (Negative) Urine Leukocyte Esterase 3+ /uL (Negative) Urine RBC 5 /hpf (0 - 4) Urine Microscopic WBC 47 /HPF (0-5) H Urine Squamous Epithelial Cells Few /hpf (<5) Urine Triple Phosphate Crystals Few /hpf (None Seen) Urine Bacteria None seen /hpf (None Seen) Urine Glucose Normal mg/dL (Normal) Microbiology Microbiology Date/Time Source Procedure Growth Status 03/04/25 23:19 Nose MRSA Screen - Final Complete 03/03/25 22:10 Blood Blood Culture - Preliminary NO GROWTH AFTER 72 HOURS OF INCUBATION. Resulted 03/03/25 15:10 Urine - [place] Urine Culture - Final Escherichia coli Presumptive Lora albicans Complete Labs and/or images reviewed: Labs reviewed by me, Image(s) reviewed by me Assessment/Plan Assessment/Plan Acute Metabolic encephalopathy secondary to sepsis Sepsis likely secondary to complicated UTI blood cultures pending, urine cultures growing coli, continue meropenem 500 mg IV q.8 hours for two weeks Yeast in urine: Diflucan Acute cystitis with a history of recurrent UTIs Hyperlactacidemia Hyperkalemia - resolved Chronic diastolic heart failure (LVEF 50%): Lasix potassium Sick sinus syndrome with tachy-afshan events Paroxysmal Atrial fibrillation -CHADS-VASc score 6 Ascending aortic aneurysm measuring 4.5 cm Macrocytosis but no anemia Probable Dementia Dyslipidemia Hypertension Diabetes Obesity Vitamin D deficiency History of breast mass - s/p resection Midline ordered Time spent 50 minutes Advanced care planning time 20 mts Patient is full code Plan discussed with: Patient Date of Service: Mar 07, 2025 Billing Provider: BOO TELLES MD Common Visit Codes: [id number] INP/OBS CARE(HIGH) BOO TELLES MD Mar 07, 2025 13:22
[2025-03-08 01:00] VITALS: BP 109/53; PULSE 55; RESP 16; TEMP 98.7; O2SAT 96
[2025-03-08 05:00] VITALS: BP 89/61; PULSE 64; RESP 18; TEMP 98.5; O2SAT 97
[2025-03-08] MEDS: MEROPENEM 1GM IVPB 50 ML IV SCH (05:40)
[2025-03-08 08:00] VITALS: PULSE 57
--- NOTE | 2025-03-08 08:28 | DVHPN2 ---
Reviewed: Care Plan, H&P, Labs, Medications, Previous Orders, Radiology Changes from previous H/P or p: No Changes Objective Vitals Vital Signs Date Time Temp Pulse Resp B/P (MAP) Pulse Ox O2 Delivery O2 Flow Rate FiO2 03/08/25 05:47 99/59 03/08/25 05:00 98.5 64 18 97 98.5 03/07/25 20:15 Nasal Cannula* 2 28 Intake/Output Intake and Output 03/08/25 07:00 Intake Total 570 ml Output Total 2700 ml Balance -2130 ml Intake Oral 420 ml IV Total 150 ml Output Urine Total 2700 ml Medications Current Medications Medications Dose Ordered Sig/Maylin Route Start Time Stop Time Status Last Admin Dose Admin Acetaminophen 325 mg Q4HP PRN PO 03/03/25 21:30 Ondansetron HCl 4 mg Q4HP PRN IV 03/03/25 21:30 Morphine Sulfate 2 mg Q4HPRN PRN IV 03/03/25 21:30 Pantoprazole Sodium 40 mg DAILY IV 03/04/25 10:00 03/07/25 08:52 40 MG Enoxaparin Sodium 90 mg Q12HR SC 03/04/25 22:00 03/07/25 21:20 90 MG Fluconazole 100 ml @ 100 mls/hr DAILY IV 03/05/25 10:00 03/07/25 11:00 100 MLS/HR Furosemide 40 mg BIDD PO 03/06/25 18:00 03/08/25 05:47 40 MG Potassium Chloride 20 meq DAILY PO 03/07/25 10:00 Meropenem 50 ml @ 17 mls/hr Q8H IV 03/08/25 04:30 03/08/25 05:40 17 MLS/HR Laboratory Results Laboratory Tests 03/04/25 05:22 Urinalysis Test 03/03/25 15:10 Urine Color Dark-yellow (Yellow) Urine Clarity Turbid (Clear) H Urine pH 8.0 (5.0-9.0) Urine Specific [place] 1.018 (1.001-1.035) Urine Protein Negative (Negative) Urine Ketones Trace (Negative) Urine Blood Negative /uL (Negative) Urine Nitrite 1+ (Negative) H Urine Bilirubin Negative (Negative) Urine Urobilinogen Normal mg/dL (Negative) Urine Leukocyte Esterase 3+ /uL (Negative) Urine RBC 5 /hpf (0 - 4) Urine Microscopic WBC 47 /HPF (0-5) H Urine Squamous Epithelial Cells Few /hpf (<5) Urine Triple Phosphate Crystals Few /hpf (None Seen) Urine Bacteria None seen /hpf (None Seen) Urine Glucose Normal mg/dL (Normal) Microbiology Microbiology Date/Time Source Procedure Growth Status 03/04/25 23:19 Nose MRSA Screen - Final Complete 03/03/25 22:10 Blood Blood Culture - Preliminary NO GROWTH AFTER 72 HOURS OF INCUBATION. Resulted 03/03/25 15:10 Urine - [place] Urine Culture - Final Escherichia coli Presumptive Lora albicans Complete Labs and/or images reviewed: Labs reviewed by me, Image(s) reviewed by me Assessment/Plan Assessment/Plan Acute Metabolic encephalopathy secondary to sepsis Sepsis likely secondary to complicated UTI blood cultures pending, urine cultures growing e coli, continue meropenem 500 mg IV q.8 hours for two weeks Yeast in urine: Diflucan Acute cystitis with a history of recurrent UTIs Hyperlactacidemia Hyperkalemia - resolved Chronic diastolic heart failure (LVEF 50%): Lasix potassium Sick sinus syndrome with tachy-afshan events Paroxysmal Atrial fibrillation -CHADS-VASc score 6 Ascending aortic aneurysm measuring 4.5 cm Macrocytosis but no anemia Probable Dementia Dyslipidemia Hypertension Diabetes Obesity Vitamin D deficiency History of breast mass - s/p resection Midline ordered PATIENT WILL BE DISCHARGED TO [facility] FOR IV ANTIBIOTICS FOR TWO WEEKS, DISCUSSED WITH THE PATIENT'S DAUGHTER SONY Time spent 50 minutes Advanced care planning time 20 mts Patient is full code Plan discussed with: Patient My Orders Orders - BOO TELLES MD Procedure Category Date Status Time Insert Midline ORDERS 03/07/25 Transmitted 13:20 Date of Service: Mar 08, 2025 Billing Provider: BOO TELLES MD Common Visit Codes: [id number] INP/OBS CARE(HIGH) BOO TELLES MD Mar 08, 2025 08:28
--- NOTE | 2025-03-08 08:39 | DVHDS2 ---
Discharge Summary Date of Admission Mar 03, 2025 at 21:27 Date of Discharge: Mar 08, 2025 Admitting Diagnosis Altered mental status Wounds: None Labs/Diagnostic Data: Laboratory Results Test 03/04/25 23:15 03/04/25 05:22 03/03/25 23:50 03/03/25 21:50 Urine Opiates Screen Neg (NEGATIVE) Urine Fentanyl Screen Neg (NEGATIVE) Urine Barbiturates Screen Neg (NEGATIVE) Urine Phencyclidine Screen Neg (NEGATIVE) Urine Amphetamines Screen Neg (NEGATIVE) Urine Benzodiazepines Screen Neg (NEGATIVE) Urine Cocaine Screen Neg (NEGATIVE) Urine Cannabinoids Screen Neg (NEGATIVE) White Blood Count 4.3 10^3/uL (4.4-10.8) Red Blood Count 3.07 10^6/uL (4.0-5.20) Hemoglobin 10.6 g/dL (12.2-16.2) Hematocrit 30.9 % (36.0-46.0) Mean Corpuscular Volume 100.7 fL (80.0-100.0) Mean Corpuscular Hemoglobin 34.4 pg (28.0-32.0) Mean Corpuscular Hemoglobin Concent 34.2 g/dL (32.0-36.0) Red Cell Distribution Width 13.8 % (11.8-14.3) Platelet Count 135 10^3/uL (140-450) Mean Platelet Volume 8.1 fL (6.9-10.8) Neutrophils (%) (Auto) 56.1 % (37.0-80.0) Lymphocytes (%) (Auto) 30.0 % (10.0-50.0) Monocytes (%) (Auto) 12.7 % (0.0-12.0) Eosinophils (%) (Auto) 0.9 % (0.0-7.0) Basophils (%) (Auto) 0.3 % (0.0-2.0) Neutrophils # (Auto) 2.4 10 ^3/uL (1.6-8.6) Lymphocytes # (Auto) 1.3 10 ^3/uL (0.4-5.4) Monocytes # (Auto) 0.5 10 ^3/uL (0-1.3) Eosinophils # (Auto) 0 10 ^3/uL (0-0.8) Basophils # (Auto) 0 10 ^3/uL (0-0.2) Nucleated Red Blood Cells 0.1 % Sodium Level 142 mmol/L (136-145) Potassium Level 5.1 mmol/L (3.5-5.1) Chloride Level 109 mmol/L (98-107) Carbon Dioxide Level 24 mmol/L (20-31) Anion Gap 9 (5-15) Blood Urea Nitrogen 20 mg/dL (9-23) Creatinine 0.94 mg/dL (0.550-1.02) Glomerular Filtration Rate Calc 60 mL/min (>90) BUN/Creatinine Ratio 21.3 (10.0-20.0) Serum Glucose 60 mg/dL (74-106) Calcium Level 8.9 mg/dL (8.7-10.4) Total Bilirubin 0.4 mg/dL (0.2-1.0) Aspartate Amino Transferase (AST) 27 U/L (13-40) Alanine Aminotransferase (ALT) 19 U/L (7-40) Alkaline Phosphatase 77 U/L (46-116) Total Protein 6.6 g/dL (5.7-8.2) Albumin 3.3 g/dL (3.2-4.8) Lactic Acid Level 1.1 mmol/L (0.4-2.0) Prothrombin Time 10.6 sec (9.3-11.8) Prothrombin Time INR 1.00 (0.9-1.15) Activated Partial Thromboplast Time 29.6 SEC (24.5-34.5) Ammonia 26 umol/L (11-32) Plasma/Serum Blood Alcohol < 3.0 mg/dL (<10) Test 03/03/25 17:58 03/03/25 15:10 03/03/25 13:25 Phosphorus Level 3.0 mg/dL (2.4-5.1) Magnesium Level 1.7 mg/dL (1.6-2.6) Triglycerides Level 64 mg/dL (< 150) Cholesterol Level 163 mg/dL (< 200) LDL Cholesterol 80 mg/dL (< 100) HDL Cholesterol 66 mg/dL (40-59) Lipase 30 U/L (12-53) Thyroid Stimulating Hormone (TSH) 1.49 uIU/mL (0.55-4.78) Urine Color Dark-yellow (Yellow) Urine Clarity Turbid (Clear) Urine pH 8.0 (5.0-9.0) Urine Specific [place] 1.018 (1.001-1.035) Urine Protein Negative (Negative) Urine Ketones Trace (Negative) Urine Blood Negative /uL (Negative) Urine Nitrite 1+ (Negative) Urine Bilirubin Negative (Negative) Urine Urobilinogen Normal mg/dL (Negative) Urine Leukocyte Esterase 3+ /uL (Negative) Urine RBC 5 /hpf (0 - 4) Urine Microscopic WBC 47 /HPF (0-5) Urine Squamous Epithelial Cells Few /hpf (<5) Urine Triple Phosphate Crystals Few /hpf (None Seen) Urine Bacteria None seen /hpf (None Seen) Urine Glucose Normal mg/dL (Normal) Hemoglobin A1c 5.1 % A1C (<5.7) Vitamin B12 Level 476 pg/mL (211-911) Vitamin D 25-Hydroxy 27.4 ng/mL (30.0-100) Other Laboratory Tests 03/04/25 05:22 Brief Hx & Hospital Course: 64-year-old female with a history of dementia hypertension hypercholesterolemia diabetes history of breast mass resection sick sinus syndrome paroxysmal AFib history of recurrent urinary tract infections burden by family for altered mental status. Patient was found to have sepsis secondary to urinary tract infection. Blood cultures negative urine cultures grew E coli sensitive to meropenem. Started on meropenem 500 mg IV q.8 hours which she will receive for two weeks in shelter facility. Ejection fraction 50 percent discussed with the patient's daughter Antonette and the patient will be discharged to shelter facility for IV antibiotics for two weeks. Consults/Reason for consult None Operations or Procedures None Condition at Discharge: Fair Final Diagnosis/Problems List Acute Metabolic encephalopathy secondary to sepsis Sepsis likely secondary to complicated UTI blood cultures negative, urine cultures growing e coli, continue meropenem 500 mg IV q.8 hours for two weeks Yeast in urine: Diflucan Acute cystitis with a history of recurrent UTIs Hyperlactacidemia Hyperkalemia - resolved Chronic diastolic heart failure (LVEF 50%): Lasix potassium Sick sinus syndrome with tachy-afshan events Paroxysmal Atrial fibrillation -CHADS-VASc score 6 Ascending aortic aneurysm measuring 4.5 cm Macrocytosis but no anemia Probable Dementia Dyslipidemia Hypertension Diabetes Obesity Vitamin D deficiency History of breast mass - s/p resection Discharge Disposition: Snf Facility Discharge Instruct/Medications Diet: Cardiac 2g Na,low cholest Activity: Light activity Follow Up/Referral: [facility] up [facility] Medications: Meropenem 500 mg IV q.8 hours for two weeks See list for other meds Scheduled Apixaban Base (Eliquis), 2.5 MG PO BID Atorvastatin Calcium (Atorvastatin Calcium), 1 TAB PO DAILY, (Reported) Furosemide (Lasix), 1 TAB PO DAILY Linezolid (Zyvox), 600 MG PO BID Nitrofurantoin Monohydrate Mac (Macrobid), 100 MG PO BID Spironolactone (Aldactone), 12.5 MG PO DAILY Sulfamethoxazole W/Trimethopri (Bactrim Ds Tablet), 1 TAB PO BID Scheduled PRN Acetaminophen (Acetaminophen), 500 MG PO Q4HP PRN Phenazopyridine HCl (Phenazopyridine Hydrochlo), 100 MG PO Q8HP PRN Discharge Statement: "Patient was advised to return to the ER or call 911 if any headaches, dizziness, shortness of breath, chest pain, abdominal pain, bleeding, fevers, or worsening of medical condition. Patient was counseled about treatment plan, medications, possible side effects, patientverbalized understanding. All questions were answered to the best of my ability. This discharge took greater then 30 minutes in planning, reviewing documentation, counseling the patient, and discussing with other team members." ASSESSMENT ASSESSMENT Hospital Course Improved Assessment Acute Metabolic encephalopathy secondary to sepsis Sepsis likely secondary to complicated UTI blood cultures negative, urine cultures growing e coli, continue meropenem 500 mg IV q.8 hours for two weeks Yeast in urine: Diflucan Acute cystitis with a history of recurrent UTIs Hyperlactacidemia Hyperkalemia - resolved Chronic diastolic heart failure (LVEF 50%): Lasix potassium Sick sinus syndrome with tachy-afshan events Paroxysmal Atrial fibrillation -CHADS-VASc score 6 Ascending aortic aneurysm measuring 4.5 cm Macrocytosis but no anemia Probable Dementia Dyslipidemia Hypertension Diabetes Obesity Vitamin D deficiency History of breast mass - s/p resection Date of Service: Mar 08, 2025 Billing Provider: BOO TELLES MD Common Visit Codes: 35440-JMZ/OBS DISCH DAY >30min BOO TELLES MD Mar 08, 2025 08:39
[2025-03-08 09:00] VITALS: BP 116/51; PULSE 58; RESP 16; TEMP 97.6; O2SAT 97
[2025-03-08 13:00] VITALS: BP 117/67; PULSE 66; RESP 16; TEMP 97.8; O2SAT 97
[2025-03-08 16:24] VITALS: BP 116/50; PULSE 62; RESP 17; TEMP 97.3; O2SAT 100
== END 2025-03-08 17:41 | DRG 871 ==
LOC: ER 12:45 → EDBD 12:45 → OVERFLOW 21:27 → TELE-WESTW 03-04 15:13
PROVIDERS: ADMIT Family Medicine; ATTEND Family Medicine
PROC: 05HD33Z Insertion of Infusion Device into Right Cephalic Vein, Percutaneous Approach (ICD-10-PCS; principal; 2025-03-07)
PROC: B54MZZA Ultrasonography of Right Upper Extremity Veins, Guidance (ICD-10-PCS; 2025-03-07)
DX: A41.51 Sepsis due to Escherichia coli [E. coli] (principal); G93.41 Metabolic encephalopathy; I50.32 Chronic diastolic (congestive) heart failure; N30.00 Acute cystitis without hematuria; E87.5 Hyperkalemia; E66.9 Obesity, unspecified; E55.9 Vitamin D deficiency, unspecified; E11.9 Type 2 diabetes mellitus without complications; I71.21 Aneurysm of the ascending aorta, without rupture; Z68.33 Body mass index [BMI] 33.0-33.9, adult; I49.5 Sick sinus syndrome; I48.0 Paroxysmal atrial fibrillation; F03.90 Unspecified dementia, unspecified severity, without behavioral disturbance, psychotic disturbance, mood disturbance, and anxiety; I11.0 Hypertensive heart disease with heart failure; D75.89 Other specified diseases of blood and blood-forming organs; E78.00 Pure hypercholesterolemia, unspecified; Z87.440 Personal history of urinary (tract) infections; B96.20 Unspecified Escherichia coli [E. coli] as the cause of diseases classified elsewhere
CPT/HCPCS: 36415; 70450; 71045; 80053; 80061; 80307; 80320; 81001; 82140; 82306; 82607; 83036; 83605; 83690; 83735; 84100; 84132; 84443; 85025; 85610; 85730; 87040; 87077; 87081; 87086; 87088; 87186; 92610; 93005; 94640; 96365; 96367; 96368; 96375; 97163; G0378; J1450; J1815; J2185; J2470